=== PATIENT | male | born 1945 | race Two or more races ===

== ENCOUNTER 2020-08-24 06:41 | Outpatient (REF) | payer MEDICARE, SELFPAY ==
[2020-08-24 10:40] LABS: Basophils Percent Auto 0.2 % (0-2); Eosinophils Absolute Auto 0.1 X10*3/uL (0.0-0.4); Eosinophils Percent Auto 1.2 % (0-4); Hematocrit 43.5 % (42-52); Hemoglobin 14.4 g/dl (14.0-18.0); Imm Gran Abs Auto 0.01 X10*3/uL (0.00-0.03); Imm Gran Pct Auto 0.2 % (0.0-0.4); Lymphocytes Absolute Auto 3.1 X10*3/uL (1.2-4.9); Lymphocytes Percent Auto 63.4 % (20-40); MANUAL DIFF FLAG SCAN; Mean Corpuscular HGB Conc 33.1 g/dl (31.0-36.0); Mean Corpuscular Hemoglobin 31.9 pg (27.0-33.0); Mean Corpuscular Volume 96.5 fL (80-98); Mean Platelet Volume 9.6 fL (9.4-12.4); Monocytes Absolute Auto 0.4 X10*3/uL (0.1-1.2); Monocytes Percent Auto 8.7 % (2-11); Neutrophils Absolute Auto 1.3 X10*3/uL (2.0-8.3); Neutrophils Percent Auto 26.3 % (45-73); Platelet Count 213 X10*3/uL (160-400); Red Blood Count 4.51 X10*6/uL (4.60-5.80); Red Cell Distribution Width 15.2 % (11.0-16.0); SCAN SMEAR FLAG 1; White Blood Count 4.9 X10*3/uL (4.8-10.8)
[2020-08-24 11:17] LABS: SLIDE REVIEW VERIFIED
[2020-08-24 12:31] LABS: Alanine Aminotransferase 33 U/L (0-40); Albumin Level 3.6 g/dL (3.5-5.0); Alkaline Phosphatase 58 U/L (39-117); Anion Gap 10 (12-20); Aspartate Amino Transferase 26 U/L (5-37); Bilirubin Total 0.6 mg/dL (0.0-1.0); Blood Urea Nitrogen 12 mg/dL (9-16); Calcium 8.3 mg/dL (8.4-10.2); Carbon Dioxide 32 mmol/L (22-29); Chloride 102 mmol/L (96-108); Estimated Glomerular Filt Rate > 60; Glucose Fasting 78 mg/dL (60-99); Potassium 4.1 mmol/l (3.3-5.1); Sodium 140 mmol/L (135-145); Total Protein 5.6 g/dL (6.5-8.0)
== END 2020-08-24 06:42 | disposition home or self-care (01) ==
LOC: HO.LHD 06:41
PROVIDERS: Visit Provider Internal Medicine Medical Oncology
DX: C64.9 Malignant neoplasm of unspecified kidney, except renal pelvis (principal)
CPT/HCPCS: 36415; 80053; 85025

== ENCOUNTER 2020-09-07 04:05 | Outpatient (REF) | payer MEDICARE, SELFPAY ==
[2020-09-07 10:31] LABS: MANUAL DIFF FLAG NO
[2020-09-07 10:45] LABS: Basophils Percent Auto 0.6 % (0-2); Eosinophils Absolute Auto 0.1 X10*3/uL (0.0-0.4); Eosinophils Percent Auto 1.5 % (0-4); Hematocrit 42.3 % (42-52); Hemoglobin 13.8 g/dl (14.0-18.0); Imm Gran Abs Auto 0.01 X10*3/uL (0.00-0.03); Imm Gran Pct Auto 0.2 % (0.0-0.4); Lymphocytes Absolute Auto 2.7 X10*3/uL (1.2-4.9); Lymphocytes Percent Auto 49.8 % (20-40); Mean Corpuscular HGB Conc 32.6 g/dl (31.0-36.0); Mean Corpuscular Hemoglobin 31.4 pg (27.0-33.0); Mean Corpuscular Volume 96.4 fL (80-98); Mean Platelet Volume 9.6 fL (9.4-12.4); Monocytes Absolute Auto 0.4 X10*3/uL (0.1-1.2); Monocytes Percent Auto 7.9 % (2-11); Neutrophils Absolute Auto 2.2 X10*3/uL (2.0-8.3); Platelet Count 212 X10*3/uL (160-400); Red Blood Count 4.39 X10*6/uL (4.60-5.80); Red Cell Distribution Width 15.1 % (11.0-16.0); White Blood Count 5.4 X10*3/uL (4.8-10.8)
[2020-09-07 11:08] LABS: Anion Gap 13 (12-20); Blood Urea Nitrogen 16 mg/dL (9-16); Calcium 8.7 mg/dL (8.4-10.2); Carbon Dioxide 29 mmol/L (22-29); Chloride 105 mmol/L (96-108); Estimated Glomerular Filt Rate > 60; Glucose Random 84 mg/dL (60-115); Potassium 4.2 mmol/l (3.3-5.1); Sodium 143 mmol/L (135-145)
== END 2020-09-07 04:06 | disposition home or self-care (01) ==
LOC: HO.LHD 04:05
PROVIDERS: Visit Provider Internal Medicine Medical Oncology
DX: C79.00 Secondary malignant neoplasm of unspecified kidney and renal pelvis (principal)
CPT/HCPCS: 36415; 80048; 85025

== ENCOUNTER 2020-09-21 05:08 | Outpatient (REF) | payer MEDICARE, SELFPAY ==
[2020-09-21 11:10] LABS: Anion Gap 14 (12-20); Blood Urea Nitrogen 19 mg/dL (9-16); Calcium 8.6 mg/dL (8.4-10.2); Carbon Dioxide 25 mmol/L (22-29); Chloride 102 mmol/L (96-108); Estimated Glomerular Filt Rate > 60; Glucose Random 74 mg/dL (60-115); Potassium 4.4 mmol/l (3.3-5.1); Sodium 137 mmol/L (135-145)
== END 2020-09-21 05:09 | disposition home or self-care (01) ==
LOC: HO.LHD 05:08
PROVIDERS: Visit Provider Internal Medicine Medical Oncology
DX: C79.00 Secondary malignant neoplasm of unspecified kidney and renal pelvis (principal)
CPT/HCPCS: 36415; 80048

== ENCOUNTER 2020-09-23 01:33 | Outpatient (REF) | payer MEDICARE, SELFPAY ==
[2020-09-23 10:36] LABS: MANUAL DIFF FLAG NO
[2020-09-23 10:39] LABS: Basophils Percent Auto 0.3 % (0-2); Eosinophils Absolute Auto 0.1 X10*3/uL (0.0-0.4); Eosinophils Percent Auto 1.2 % (0-4); Hematocrit 40.9 % (42-52); Hemoglobin 13.4 g/dl (14.0-18.0); Imm Gran Abs Auto 0.01 X10*3/uL (0.00-0.03); Imm Gran Pct Auto 0.2 % (0.0-0.4); Lymphocytes Percent Auto 50.1 % (20-40); Mean Corpuscular HGB Conc 32.8 g/dl (31.0-36.0); Mean Corpuscular Hemoglobin 31.5 pg (27.0-33.0); Mean Platelet Volume 9.3 fL (9.4-12.4); Monocytes Absolute Auto 0.6 X10*3/uL (0.1-1.2); Monocytes Percent Auto 9.2 % (2-11); Neutrophils Absolute Auto 2.3 X10*3/uL (2.0-8.3); Platelet Count 195 X10*3/uL (160-400); Red Blood Count 4.26 X10*6/uL (4.60-5.80); Red Cell Distribution Width 14.9 % (11.0-16.0)
== END 2020-09-23 01:34 | disposition home or self-care (01) ==
LOC: HO.LHD 01:33
PROVIDERS: Visit Provider Internal Medicine Medical Oncology
DX: C79.00 Secondary malignant neoplasm of unspecified kidney and renal pelvis (principal)
CPT/HCPCS: 36415; 85025

== ENCOUNTER 2020-10-05 05:22 | Outpatient (REF) | payer MEDICARE, SELFPAY ==
[2020-10-05 11:01] LABS: MANUAL DIFF FLAG NO
[2020-10-05 11:04] LABS: Basophils Percent Auto 0.2 % (0-2); Eosinophils Absolute Auto 0.1 X10*3/uL (0.0-0.4); Eosinophils Percent Auto 1.1 % (0-4); Hematocrit 41.1 % (42-52); Hemoglobin 13.7 g/dl (14.0-18.0); Imm Gran Abs Auto 0.01 X10*3/uL (0.00-0.03); Imm Gran Pct Auto 0.2 % (0.0-0.4); Lymphocytes Percent Auto 56.6 % (20-40); Mean Corpuscular HGB Conc 33.3 g/dl (31.0-36.0); Mean Corpuscular Hemoglobin 31.6 pg (27.0-33.0); Mean Corpuscular Volume 94.7 fL (80-98); Mean Platelet Volume 9.7 fL (9.4-12.4); Monocytes Absolute Auto 0.4 X10*3/uL (0.1-1.2); Monocytes Percent Auto 7.4 % (2-11); Neutrophils Absolute Auto 1.8 X10*3/uL (2.0-8.3); Neutrophils Percent Auto 34.5 % (45-73); Platelet Count 179 X10*3/uL (160-400); Red Blood Count 4.34 X10*6/uL (4.60-5.80); Red Cell Distribution Width 14.8 % (11.0-16.0); White Blood Count 5.3 X10*3/uL (4.8-10.8)
[2020-10-05 11:33] LABS: Alanine Aminotransferase 30 U/L (0-40); Albumin Level 3.5 g/dL (3.5-5.0); Alkaline Phosphatase 49 U/L (39-117); Anion Gap 8 (12-20); Aspartate Amino Transferase 25 U/L (5-37); Bilirubin Total 0.3 mg/dL (0.0-1.0); Blood Urea Nitrogen 17 mg/dL (9-16); Calcium 8.5 mg/dL (8.4-10.2); Carbon Dioxide 33 mmol/L (22-29); Chloride 103 mmol/L (96-108); Cholesterol 132 mg/dL; Estimated Glomerular Filt Rate > 60; Glucose Fasting 83 mg/dL (60-99); HDL Cholesterol 35 mg/dL; LDL Cholesterol Calculated 80 mg/dl; Potassium 3.7 mmol/l (3.3-5.1); Sodium 140 mmol/L (135-145); Total Protein 5.5 g/dL (6.5-8.0); Triglycerides 86 mg/dL
[2020-10-05 11:49] LABS: TSH reflex Free T4 1.97 mIU/mL (0.32-4.0); Vitamin D 25-OH Total 29.2 ng/mL (>30)
--- NOTE | 2020-10-05 15:06 | MHC.HEMONC ---
[facility] - CALL - DRAINED 300ML TODAY
--- NOTE | 2020-10-11 14:07 | MHC.HEMONCSW ---
PT REQUESTED I CALL THE [facility] TO REAPPLY FOR HIM. I CALLED AND WAS TOLD THE PATIENT HIMSELF NEEDS TO CALL. TOLD PT WHO WAS TO CALL IMMEDIATELY. BELL DOYLE ENDS 10/14/20.
== END 2020-10-05 05:23 | disposition home or self-care (01) ==
LOC: HO.LHD 05:22
PROVIDERS: PCP Internal Medicine; Visit Provider Internal Medicine Medical Oncology
DX: C79.00 Secondary malignant neoplasm of unspecified kidney and renal pelvis (principal); E78.00 Pure hypercholesterolemia, unspecified; E55.9 Vitamin D deficiency, unspecified; E03.9 Hypothyroidism, unspecified; I10 Essential (primary) hypertension
CPT/HCPCS: 36415; 80053; 80061; 82306; 84443; 85025

== ENCOUNTER 2020-10-19 08:38 | Outpatient (REF) | payer MEDICARE, SELFPAY ==
[2020-10-19 10:56] LABS: MANUAL DIFF FLAG NO
[2020-10-19 10:58] LABS: Basophils Percent Auto 0.4 % (0-2); Eosinophils Absolute Auto 0.1 X10*3/uL (0.0-0.4); Hematocrit 41.5 % (42-52); Hemoglobin 13.4 g/dl (14.0-18.0); Imm Gran Abs Auto 0.01 X10*3/uL (0.00-0.03); Imm Gran Pct Auto 0.2 % (0.0-0.4); Lymphocytes Absolute Auto 2.3 X10*3/uL (1.2-4.9); Mean Corpuscular HGB Conc 32.3 g/dl (31.0-36.0); Mean Corpuscular Hemoglobin 31.1 pg (27.0-33.0); Mean Corpuscular Volume 96.3 fL (80-98); Mean Platelet Volume 9.6 fL (9.4-12.4); Monocytes Absolute Auto 0.4 X10*3/uL (0.1-1.2); Monocytes Percent Auto 8.3 % (2-11); Neutrophils Absolute Auto 2.3 X10*3/uL (2.0-8.3); Neutrophils Percent Auto 45.1 % (45-73); Platelet Count 183 X10*3/uL (160-400); Red Blood Count 4.31 X10*6/uL (4.60-5.80); Red Cell Distribution Width 15.7 % (11.0-16.0)
[2020-10-19 11:29] LABS: Alanine Aminotransferase 37 U/L (0-40); Albumin Level 3.6 g/dL (3.5-5.0); Alkaline Phosphatase 53 U/L (39-117); Anion Gap 11 (12-20); Aspartate Amino Transferase 29 U/L (5-37); Bilirubin Total 0.3 mg/dL (0.0-1.0); Blood Urea Nitrogen 16 mg/dL (9-16); Calcium 8.1 mg/dL (8.4-10.2); Carbon Dioxide 28 mmol/L (22-29); Chloride 105 mmol/L (96-108); Estimated Glomerular Filt Rate > 60; Glucose Random 85 mg/dL (60-115); Potassium 4.6 mmol/l (3.3-5.1); Sodium 139 mmol/L (135-145); Total Protein 5.5 g/dL (6.5-8.0)
== END 2020-10-19 08:39 | disposition home or self-care (01) ==
LOC: HO.LHD 08:38
PROVIDERS: Visit Provider Internal Medicine Medical Oncology
DX: C79.00 Secondary malignant neoplasm of unspecified kidney and renal pelvis (principal)
CPT/HCPCS: 36415; 80053; 85025

== ENCOUNTER 2020-11-02 05:19 | Outpatient (REF) | payer MEDICARE, SELFPAY ==
[2020-11-02 10:54] LABS: MANUAL DIFF FLAG NO
[2020-11-02 10:55] LABS: Basophils Percent Auto 0.2 % (0-2); Eosinophils Absolute Auto 0.1 X10*3/uL (0.0-0.4); Eosinophils Percent Auto 1.2 % (0-4); Hematocrit 42.1 % (42-52); Hemoglobin 13.5 g/dl (14.0-18.0); Imm Gran Abs Auto 0.01 X10*3/uL (0.00-0.03); Imm Gran Pct Auto 0.2 % (0.0-0.4); Lymphocytes Absolute Auto 2.5 X10*3/uL (1.2-4.9); Lymphocytes Percent Auto 49.4 % (20-40); Mean Corpuscular HGB Conc 32.1 g/dl (31.0-36.0); Mean Corpuscular Hemoglobin 30.5 pg (27.0-33.0); Mean Corpuscular Volume 95.2 fL (80-98); Mean Platelet Volume 9.9 fL (9.4-12.4); Monocytes Absolute Auto 0.4 X10*3/uL (0.1-1.2); Monocytes Percent Auto 7.7 % (2-11); Neutrophils Absolute Auto 2.1 X10*3/uL (2.0-8.3); Neutrophils Percent Auto 41.3 % (45-73); Platelet Count 206 X10*3/uL (160-400); Red Blood Count 4.42 X10*6/uL (4.60-5.80); White Blood Count 5.1 X10*3/uL (4.8-10.8)
[2020-11-02 11:23] LABS: Alanine Aminotransferase 30 U/L (0-40); Albumin Level 3.5 g/dL (3.5-5.0); Alkaline Phosphatase 53 U/L (39-117); Aspartate Amino Transferase 25 U/L (5-37); Bilirubin Total 0.3 mg/dL (0.0-1.0); Blood Urea Nitrogen 12 mg/dL (9-16); Calcium 8.6 mg/dL (8.4-10.2); Cholesterol 205 mg/dL; Estimated Glomerular Filt Rate > 60; Glucose Fasting 83 mg/dL (60-99); HDL Cholesterol 40 mg/dL; LDL Cholesterol Calculated 138 mg/dl; Total Protein 5.4 g/dL (6.5-8.0); Triglycerides 136 mg/dL
[2020-11-02 11:40] LABS: Sodium 140 mmol/L (135-145)
[2020-11-02 11:42] LABS: TSH reflex Free T4 3.16 mIU/mL (0.32-4.0)
[2020-11-02 11:44] LABS: Anion Gap 8 (12-20); Carbon Dioxide 33 mmol/L (22-29); Chloride 103 mmol/L (96-108); Potassium 4.4 mmol/l (3.3-5.1)
[2020-11-06 11:37] LABS: Vitamin D 25-OH, D2 <4 ng/mL; Vitamin D 25-OH, D3 20 ng/mL; Vitamin D 25-OH, Total 20 ng/mL (30-100)
== END 2020-11-02 05:20 | disposition home or self-care (01) ==
LOC: HO.LHD 05:19
PROVIDERS: Internal Medicine; Visit Provider Internal Medicine Medical Oncology
DX: E03.9 Hypothyroidism, unspecified (principal); E27.40 Unspecified adrenocortical insufficiency; R79.89 Other specified abnormal findings of blood chemistry; C79.00 Secondary malignant neoplasm of unspecified kidney and renal pelvis
CPT/HCPCS: 36415; 80053; 80061; 82306; 84443; 85025

== ENCOUNTER 2020-11-16 | Outpatient (REF) | payer MEDICARE, SELFPAY ==
[2020-11-16 10:53] LABS: MANUAL DIFF FLAG NO
[2020-11-16 10:56] LABS: Basophils Percent Auto 0.3 % (0-2); Eosinophils Absolute Auto 0.1 X10*3/uL (0.0-0.4); Eosinophils Percent Auto 0.8 % (0-4); Hematocrit 42.2 % (42-52); Hemoglobin 13.9 g/dl (14.0-18.0); Imm Gran Abs Auto 0.01 X10*3/uL (0.00-0.03); Imm Gran Pct Auto 0.2 % (0.0-0.4); Lymphocytes Absolute Auto 2.6 X10*3/uL (1.2-4.9); Lymphocytes Percent Auto 44.4 % (20-40); Mean Corpuscular HGB Conc 32.9 g/dl (31.0-36.0); Mean Platelet Volume 9.4 fL (9.4-12.4); Monocytes Absolute Auto 0.5 X10*3/uL (0.1-1.2); Monocytes Percent Auto 7.8 % (2-11); Neutrophils Absolute Auto 2.8 X10*3/uL (2.0-8.3); Neutrophils Percent Auto 46.5 % (45-73); Platelet Count 210 X10*3/uL (160-400); Red Blood Count 4.49 X10*6/uL (4.60-5.80); Red Cell Distribution Width 15.8 % (11.0-16.0); White Blood Count 5.9 X10*3/uL (4.8-10.8)
[2020-11-16 11:22] LABS: Anion Gap 12 (12-20); Blood Urea Nitrogen 13 mg/dL (9-16); Calcium 8.6 mg/dL (8.4-10.2); Carbon Dioxide 29 mmol/L (22-29); Chloride 105 mmol/L (96-108); Estimated Glomerular Filt Rate > 60; Glucose Random 88 mg/dL (60-115); Potassium 4.4 mmol/l (3.3-5.1); Sodium 142 mmol/L (135-145)
== END 2020-11-16 00:01 ==
LOC: HO.LHD
PROVIDERS: Visit Provider Internal Medicine Medical Oncology
DX: C64.9 Malignant neoplasm of unspecified kidney, except renal pelvis (principal)
CPT/HCPCS: 36415; 80048; 85025

== ENCOUNTER 2020-11-30 | Outpatient (REF) | payer MEDICARE, SELFPAY ==
[2020-11-30 11:12] LABS: MANUAL DIFF FLAG NO
[2020-11-30 11:17] LABS: Basophils Percent Auto 0.4 % (0-2); Eosinophils Absolute Auto 0.1 X10*3/uL (0.0-0.4); Eosinophils Percent Auto 1.2 % (0-4); Hematocrit 41.2 % (42-52); Hemoglobin 13.4 g/dl (14.0-18.0); Imm Gran Abs Auto 0.01 X10*3/uL (0.00-0.03); Imm Gran Pct Auto 0.2 % (0.0-0.4); Mean Corpuscular HGB Conc 32.5 g/dl (31.0-36.0); Mean Corpuscular Hemoglobin 30.8 pg (27.0-33.0); Mean Corpuscular Volume 94.7 fL (80-98); Mean Platelet Volume 9.4 fL (9.4-12.4); Monocytes Absolute Auto 0.4 X10*3/uL (0.1-1.2); Neutrophils Absolute Auto 1.7 X10*3/uL (2.0-8.3); Neutrophils Percent Auto 32.2 % (45-73); Platelet Count 193 X10*3/uL (160-400); Red Blood Count 4.35 X10*6/uL (4.60-5.80); Red Cell Distribution Width 15.5 % (11.0-16.0); White Blood Count 5.1 X10*3/uL (4.8-10.8)
[2020-11-30 11:42] LABS: Alanine Aminotransferase 27 U/L (0-40); Albumin Level 3.6 g/dL (3.5-5.0); Alkaline Phosphatase 53 U/L (39-117); Anion Gap 12 (12-20); Aspartate Amino Transferase 25 U/L (5-37); Bilirubin Total 0.4 mg/dL (0.0-1.0); Blood Urea Nitrogen 18 mg/dL (9-16); Calcium 9.1 mg/dL (8.4-10.2); Carbon Dioxide 30 mmol/L (22-29); Chloride 103 mmol/L (96-108); Estimated Glomerular Filt Rate > 60; Glucose Random 79 mg/dL (60-115); Potassium 4.1 mmol/l (3.3-5.1); Sodium 141 mmol/L (135-145); Total Protein 5.5 g/dL (6.5-8.0)
== END 2020-11-30 00:01 | disposition home or self-care (01) ==
LOC: HO.LHD
PROVIDERS: Visit Provider Internal Medicine Medical Oncology
DX: K64.9 Unspecified hemorrhoids (principal); K62.5 Hemorrhage of anus and rectum; R19.7 Diarrhea, unspecified
CPT/HCPCS: 36415; 80053; 85025; Q3014

== ENCOUNTER 2020-12-14 13:46 | Outpatient (REF) | payer MEDICARE, SELFPAY ==
[2020-12-14 11:30] LABS: Hematocrit 42.6 % (42-52); Mean Corpuscular HGB Conc 32.9 g/dl (31.0-36.0); Mean Corpuscular Hemoglobin 30.5 pg (27.0-33.0); Mean Corpuscular Volume 92.8 fL (80-98); Mean Platelet Volume 9.3 fL (9.4-12.4); Platelet Count 190 X10*3/uL (160-400); Red Blood Count 4.59 X10*6/uL (4.60-5.80); Red Cell Distribution Width 15.5 % (11.0-16.0)
[2020-12-14 11:48] LABS: Anion Gap 13 (12-20); Blood Urea Nitrogen 16 mg/dL (9-16); Calcium 8.4 mg/dL (8.4-10.2); Carbon Dioxide 28 mmol/L (22-29); Chloride 104 mmol/L (96-108); Estimated Glomerular Filt Rate > 60; Glucose Random 78 mg/dL (60-115); Potassium 3.9 mmol/L (3.3-5.1); Sodium 141 mmol/L (135-145)
== END 2020-12-14 13:47 | disposition home or self-care (01) ==
LOC: HO.LHD 13:46
PROVIDERS: Visit Provider Internal Medicine Medical Oncology
DX: C64.9 Malignant neoplasm of unspecified kidney, except renal pelvis (principal); C79.51 Secondary malignant neoplasm of bone
CPT/HCPCS: 36415; 80048; 85027

== ENCOUNTER 2020-12-28 04:59 | Outpatient (REF) | payer MEDICARE, SELFPAY ==
[2020-12-28 11:14] LABS: MANUAL DIFF FLAG NO
[2020-12-28 11:21] LABS: Basophils Percent Auto 0.4 % (0-2); Eosinophils Absolute Auto 0.1 X10*3/uL (0.0-0.4); Eosinophils Percent Auto 0.9 % (0-4); Hematocrit 41.5 % (42-52); Hemoglobin 13.3 g/dl (14.0-18.0); Imm Gran Abs Auto 0.02 X10*3/uL (0.00-0.03); Imm Gran Pct Auto 0.4 % (0.0-0.4); Lymphocytes Percent Auto 54.8 % (20-40); Mean Corpuscular Hemoglobin 29.9 pg (27.0-33.0); Mean Corpuscular Volume 93.3 fL (80-98); Mean Platelet Volume 9.8 fL (9.4-12.4); Monocytes Absolute Auto 0.4 X10*3/uL (0.1-1.2); Neutrophils Percent Auto 36.5 % (45-73); Platelet Count 205 X10*3/uL (160-400); Red Blood Count 4.45 X10*6/uL (4.60-5.80); Red Cell Distribution Width 15.8 % (11.0-16.0); White Blood Count 5.6 X10*3/uL (4.8-10.8)
[2020-12-28 11:51] LABS: Anion Gap 12 (12-20); Blood Urea Nitrogen 17 mg/dL (9-16); Carbon Dioxide 29 mmol/L (22-29); Chloride 101 mmol/L (96-108); Estimated Glomerular Filt Rate > 60; Glucose Random 94 mg/dL (60-115); Sodium 138 mmol/L (135-145)
== END 2020-12-28 05:00 | disposition home or self-care (01) ==
LOC: HO.LHD 04:59
PROVIDERS: Visit Provider Internal Medicine Medical Oncology
DX: C79.00 Secondary malignant neoplasm of unspecified kidney and renal pelvis (principal)
CPT/HCPCS: 36415; 80048; 85025

== ENCOUNTER 2021-01-05 10:57 | Outpatient (REF) | payer MEDICARE, SELFPAY ==
--- NOTE | ~2021-01-05 | US_ITS ---
EXAMINATION: US VENOUS ULTRASOUND WITH DOPPLER LOWER EXTREMITY, LEFT CLINICAL INFORMATION: Localized edema COMPARISON: July 01, 2018 TECHNIQUE: Ultrasound of the deep veins is performed from the hip to the calf with compression sonography and color and pulse Doppler assessment. Spectral analysis with color-flow imaging is performed. FINDINGS: There is normal venous compression and respiratory variation and augmented flow. The visualized common femoral vein, superficial femoral vein, profunda femoral vein, popliteal vein, and the trifurcation region shows no evidence of deep venous thrombosis. There is no significant popliteal fossa cyst. No popliteal artery aneurysm. If the patient's symptoms persist, followup ultrasound in 5 days 7 days might be of value to exclude proximal propagation from a non-visualized calf vein. US/US venous duplex LE LT IMPRESSION: No acute DVT demonstrated in the left lower extremity.
== END 2021-01-05 10:58 | disposition home or self-care (01) ==
LOC: HO.US 10:57
PROVIDERS: PCP Internal Medicine; Visit Provider Internal Medicine
DX: E27.3 Drug-induced adrenocortical insufficiency (principal); E03.9 Hypothyroidism, unspecified; E03.2 Hypothyroidism due to medicaments and other exogenous substances; E55.9 Vitamin D deficiency, unspecified; R60.0 Localized edema; I10 Essential (primary) hypertension; E66.9 Obesity, unspecified; Z88.6 Allergy status to analgesic agent; Z88.8 Allergy status to other drugs, medicaments and biological substances; Z87.891 Personal history of nicotine dependence; Z79.52 Long term (current) use of systemic steroids; Z79.899 Other long term (current) drug therapy
CPT/HCPCS: 93971; Q3014

== ENCOUNTER 2021-01-11 00:38 | Outpatient (REF) | payer MEDICARE, SELFPAY ==
[2021-01-11 10:42] LABS: MANUAL DIFF FLAG NO
[2021-01-11 10:46] LABS: Basophils Percent Auto 0.4 % (0-2); Eosinophils Absolute Auto 0.1 X10*3/uL (0.0-0.4); Hematocrit 39.5 % (42-52); Imm Gran Abs Auto 0.01 X10*3/uL (0.00-0.03); Imm Gran Pct Auto 0.2 % (0.0-0.4); Lymphocytes Absolute Auto 1.7 X10*3/uL (1.2-4.9); Lymphocytes Percent Auto 32.2 % (20-40); Mean Corpuscular HGB Conc 32.9 g/dl (31.0-36.0); Mean Corpuscular Hemoglobin 30.7 pg (27.0-33.0); Mean Corpuscular Volume 93.2 fL (80-98); Mean Platelet Volume 9.4 fL (9.4-12.4); Monocytes Absolute Auto 0.3 X10*3/uL (0.1-1.2); Monocytes Percent Auto 5.7 % (2-11); Neutrophils Absolute Auto 3.2 X10*3/uL (2.0-8.3); Neutrophils Percent Auto 60.5 % (45-73); Platelet Count 181 X10*3/uL (160-400); Red Blood Count 4.24 X10*6/uL (4.60-5.80); Red Cell Distribution Width 16.3 % (11.0-16.0); White Blood Count 5.3 X10*3/uL (4.8-10.8)
[2021-01-11 11:29] LABS: Alanine Aminotransferase 39 U/L (0-40); Albumin Level 3.4 g/dL (3.5-5.0); Alkaline Phosphatase 58 U/L (39-117); Anion Gap 9 (12-20); Aspartate Amino Transferase 27 U/L (5-37); Bilirubin Total 0.5 mg/dL (0.0-1.0); Blood Urea Nitrogen 15 mg/dL (9-16); Calcium 8.7 mg/dL (8.4-10.2); Carbon Dioxide 32 mmol/L (22-29); Chloride 103 mmol/L (96-108); Estimated Glomerular Filt Rate > 60; Glucose Random 140 mg/dL (60-115); Potassium 4.1 mmol/L (3.3-5.1); Sodium 140 mmol/L (135-145); Total Protein 5.2 g/dL (6.5-8.0)
== END 2021-01-11 00:39 | disposition home or self-care (01) ==
LOC: HO.LHD 00:38
PROVIDERS: Visit Provider Internal Medicine Medical Oncology
DX: C64.9 Malignant neoplasm of unspecified kidney, except renal pelvis (principal); C79.9 Secondary malignant neoplasm of unspecified site
CPT/HCPCS: 36415; 80053; 85025

== ENCOUNTER → 2021-01-17 10:34 | Outpatient (BNVA) | payer MEDICARE, SELFPAY | PROVIDERS: PCP Internal Medicine; Visit Provider Nurse Practitioner | DX: Z13.89 Encounter for screening for other disorder (principal) | CPT/HCPCS: Q3014 ==

== ENCOUNTER 2021-01-25 07:43 | Outpatient (REF) | payer MEDICARE, SELFPAY ==
[2021-01-25 11:58] LABS: MANUAL DIFF FLAG NO
[2021-01-25 12:01] LABS: Basophils Percent Auto 0.3 % (0-2); Eosinophils Absolute Auto 0.1 X10*3/uL (0.0-0.4); Hematocrit 41.4 % (42-52); Hemoglobin 13.5 g/dl (14.0-18.0); Imm Gran Abs Auto 0.01 X10*3/uL (0.00-0.03); Imm Gran Pct Auto 0.2 % (0.0-0.4); Lymphocytes Percent Auto 33.3 % (20-40); Mean Corpuscular HGB Conc 32.6 g/dl (31.0-36.0); Mean Corpuscular Hemoglobin 30.8 pg (27.0-33.0); Mean Corpuscular Volume 94.5 fL (80-98); Mean Platelet Volume 9.6 fL (9.4-12.4); Monocytes Absolute Auto 0.4 X10*3/uL (0.1-1.2); Monocytes Percent Auto 6.9 % (2-11); Neutrophils Absolute Auto 3.5 X10*3/uL (2.0-8.3); Neutrophils Percent Auto 58.3 % (45-73); Platelet Count 193 X10*3/uL (160-400); Red Blood Count 4.38 X10*6/uL (4.60-5.80); Red Cell Distribution Width 16.3 % (11.0-16.0); White Blood Count 6.1 X10*3/uL (4.8-10.8)
[2021-01-25 12:29] LABS: Alanine Aminotransferase 25 U/L (0-40); Albumin Level 3.5 g/dL (3.5-5.0); Alkaline Phosphatase 52 U/L (39-117); Anion Gap 10 (12-20); Aspartate Amino Transferase 25 U/L (5-37); Bilirubin Total 0.5 mg/dL (0.0-1.0); Blood Urea Nitrogen 15 mg/dL (9-16); Calcium 8.7 mg/dL (8.4-10.2); Carbon Dioxide 30 mmol/L (22-29); Chloride 105 mmol/L (96-108); Estimated Glomerular Filt Rate > 60; Glucose Random 149 mg/dL (60-115); Sodium 141 mmol/L (135-145); Total Protein 5.3 g/dL (6.5-8.0)
== END 2021-01-25 07:44 | disposition home or self-care (01) ==
LOC: HO.LHD 07:43
PROVIDERS: Visit Provider Internal Medicine Medical Oncology
DX: C79.00 Secondary malignant neoplasm of unspecified kidney and renal pelvis (principal)
CPT/HCPCS: 36415; 80053; 85025

== ENCOUNTER → 2021-02-07 08:54 | Outpatient (BNVA) | payer MEDICARE, SELFPAY | PROVIDERS: PCP Internal Medicine; Visit Provider Nurse Practitioner | DX: R19.7 Diarrhea, unspecified (principal); K64.9 Unspecified hemorrhoids | CPT/HCPCS: Q3014 ==

== ENCOUNTER 2021-02-08 03:09 | Outpatient (REF) | payer MEDICARE, SELFPAY ==
[2021-02-08 10:34] LABS: MANUAL DIFF FLAG NO
[2021-02-08 10:42] LABS: Basophils Percent Auto 0.2 % (0-2); Eosinophils Absolute Auto 0.1 X10*3/uL (0.0-0.4); Eosinophils Percent Auto 1.1 % (0-4); Hematocrit 41.4 % (42-52); Hemoglobin 13.3 g/dl (14.0-18.0); Imm Gran Abs Auto 0.01 X10*3/uL (0.00-0.03); Imm Gran Pct Auto 0.2 % (0.0-0.4); Lymphocytes Absolute Auto 2.5 X10*3/uL (1.2-4.9); Lymphocytes Percent Auto 54.1 % (20-40); Mean Corpuscular HGB Conc 32.1 g/dl (31.0-36.0); Mean Corpuscular Hemoglobin 30.6 pg (27.0-33.0); Mean Corpuscular Volume 95.2 fL (80-98); Mean Platelet Volume 8.9 fL (9.4-12.4); Monocytes Absolute Auto 0.3 X10*3/uL (0.1-1.2); Monocytes Percent Auto 7.5 % (2-11); Neutrophils Absolute Auto 1.7 X10*3/uL (2.0-8.3); Neutrophils Percent Auto 36.9 % (45-73); Platelet Count 169 X10*3/uL (160-400); Red Blood Count 4.35 X10*6/uL (4.60-5.80); Red Cell Distribution Width 16.3 % (11.0-16.0); White Blood Count 4.6 X10*3/uL (4.8-10.8)
[2021-02-08 11:28] LABS: Alanine Aminotransferase 35 U/L (0-40); Albumin Level 3.6 g/dL (3.5-5.0); Alkaline Phosphatase 57 U/L (39-117); Anion Gap 13 (12-20); Aspartate Amino Transferase 25 U/L (5-37); Bilirubin Total 0.3 mg/dL (0.0-1.0); Blood Urea Nitrogen 19 mg/dL (9-16); Calcium 8.7 mg/dL (8.4-10.2); Carbon Dioxide 28 mmol/L (22-29); Chloride 104 mmol/L (96-108); Estimated Glomerular Filt Rate > 60; Glucose Random 92 mg/dL (60-115); Potassium 4.2 mmol/L (3.3-5.1); Sodium 141 mmol/L (135-145); Total Protein 5.4 g/dL (6.5-8.0)
== END 2021-02-08 03:10 | disposition home or self-care (01) ==
LOC: HO.LHD 03:09
PROVIDERS: Visit Provider Internal Medicine Medical Oncology
DX: C64.9 Malignant neoplasm of unspecified kidney, except renal pelvis (principal)
CPT/HCPCS: 36415; 80053; 85025

== ENCOUNTER 2021-02-17 07:55 | Outpatient (REF) | payer MEDICARE, SELFPAY ==
--- NOTE | ~2021-02-17 | CT_ITS ---
EXAMINATION: CT CHEST, ABDOMEN AND PELVIS WITH CONTRAST CLINICAL INFORMATION: Renal cell carcinoma. COMPARISON: Portions of a previous CT of the chest 11/10/2020. TECHNIQUE: Multidetector CT of the chest, abdomen and pelvis. The patient received: Oral Contrast: Yes. Intravenous Contrast: 85 mL Omnipaque 350. No contrast reaction reported. Sagittal and coronal reformatted images were obtained on the technologist's workstation. This CT examination was performed using dose optimization techniques as appropriate, variously including the following: *Automated exposure control. *Adjustment of mA and/or kV according to patient size (this includes techniques or standardized protocols for targeted exams where dose is matched to indication/reason for exam; i.e. extremities or head). *Use of iterative reconstruction technique. Total exam dose-length product 1178 mGy-cm. 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 There is some pleural fluid or thickening in the left lower chest. There are osteophytes in the spine. There are phleboliths. There is an abnormality in the right ischial tuberosity. Non-obstructed gas pattern. CHEST: Lung: No suspicious abnormality in the trachea or mainstem bronchi. Slightly indistinct nodule associated with the upper aspect of the right major fissure (series 14, image 21). 02/17/2021-0.4 cm. Unchanged, this may represent a perifissural lymph node Irregular juxtapleural nodule posteriorly right mid chest (series 19, image 222). 02/17/2021-0.5 cm, unchanged. Unchanged juxtapleural nodule anteriorly right middle lobe (series 19, image 311), 0.3 cm, unchanged. Unchanged linear opacity posteromedial right lower lung. Unchanged linear opacity medial middle lobe. There are some areas of thickening associated with the lingula and left lower lobe. No discrete suspicious pulmonary mass. Pleura: There is loculated low attenuation in the upper aspect of the left major fissure. This has increased in size. There is a pleural catheter on the left. There is a [id number] amount of pleural fluid in the left lower chest. There is high attenuating probably enhancing thickening in the posteromedial left lower chest abutting the hemidiaphragm. There are some areas of nodular pleural thickening and possible enhancement. These are not measurable. Mediastinum: There are no measurably enlarged mediastinal or hilar lymph nodes. There is no suspicious abnormality of the esophagus. There is no pericardial fluid. Vascular: The heart is not enlarged. There is no thoracic aortic aneurysm. There is atherosclerotic irregularity of the aorta. No large central pulmonary embolus. Chest Wall/Axilla: No axillary or internal mammary lymphadenopathy. ABDOMEN/PELVIS: Liver, Gallbladder, And Biliary Tree: Unchanged tiny peripheral low attenuating lesion in hepatic segment 8 is too small to characterize but could represent a cyst. No definite change in a low attenuating lesion in hepatic segment IVb. There is an additional tiny low attenuating lesion at the most inferior medial aspect of hepatic segment IVb also unchanged. There is no opaque gallstone. There is no biliary dilation. Pancreas: No change in the appearance of the pancreas. Spleen: Within normal limits. Adrenal Glands: No suspicious mass. Kidneys And Ureters: There is indistinctness and deformity involving the upper pole of the left kidney. There is absence of overlying cortex. This could reflect previous partial nephrectomy or local therapy. There is some fullness of the intrarenal collecting system but no dilation of the ureter. There are sharply circumscribed low attenuating masses in each kidney consistent with cysts. No measurable disease at the upper left kidney. Small nodule in the left upper quadrant likely a splenule. Gastrointestinal Tract: Contrast is present in the colon. There are colonic diverticula. No definite mass. There is no small bowel dilation. No suspicious abnormality in the stomach. No measurable omental or mesenteric mass. No CT evidence of acute appendicitis. Abdominal Wall: There is some stranding extending from the left flank toward the left kidney. Correlate with previous intervention. There is some fatty change in the lower left flank abdominal wall. No significant hernia demonstrated. Lymphovascular Structures And Fluid: There is no abdominal aortic aneurysm. There is extensive plaque in the distal abdominal aorta. There is no measurable adenopathy in the abdomen or pelvis. No free intraperitoneal fluid. Bladder: There is no suspicious focal abnormality. Pelvic Viscera: The prostate is heterogeneous and enlarged. The prostate indents upon the bladder. Musculoskeletal: There is a lytic mixed attenuation lesion involving the right ischial tuberosity. There may be an associated healing pathologic fracture. There is a mixed attenuating partially lytic process in the anterolateral left 5th rib. CT/CT abdomen pelvis wo/w con IMPRESSION: 1. There is a left pleural catheter. There is an interval increase in the amount of fluid loculated in the upper left major fissure. There is enhancement in the posteromedial left pleural space. Small nodules may be post inflammatory and are unchanged. 2. No evidence of measurable disease in the upper left kidney. 3. Probable metastatic disease in the right ischial tuberosity appears radiographically stable. 4. No new measurable disease.
== END 2021-02-17 07:56 | disposition home or self-care (01) ==
LOC: HO.CT 07:55
PROVIDERS: Visit Provider Internal Medicine Medical Oncology
DX: C64.9 Malignant neoplasm of unspecified kidney, except renal pelvis (principal)
CPT/HCPCS: 71260; 74178

== ENCOUNTER 2021-02-22 01:12 | Outpatient (REF) | payer MEDICARE, SELFPAY ==
[2021-02-22 10:37] LABS: MANUAL DIFF FLAG NO
[2021-02-22 10:42] LABS: Basophils Percent Auto 0.4 % (0-2); Eosinophils Absolute Auto 0.1 X10*3/uL (0.0-0.4); Eosinophils Percent Auto 1.4 % (0-4); Hematocrit 39.2 % (42-52); Hemoglobin 13.2 g/dl (14.0-18.0); Imm Gran Abs Auto 0.01 X10*3/uL (0.00-0.03); Imm Gran Pct Auto 0.2 % (0.0-0.4); Lymphocytes Absolute Auto 2.8 X10*3/uL (1.2-4.9); Lymphocytes Percent Auto 54.7 % (20-40); Mean Corpuscular HGB Conc 33.7 g/dl (31.0-36.0); Mean Corpuscular Hemoglobin 31.7 pg (27.0-33.0); Mean Platelet Volume 9.4 fL (9.4-12.4); Monocytes Absolute Auto 0.4 X10*3/uL (0.1-1.2); Monocytes Percent Auto 8.1 % (2-11); Neutrophils Absolute Auto 1.8 X10*3/uL (2.0-8.3); Neutrophils Percent Auto 35.2 % (45-73); Platelet Count 187 X10*3/uL (160-400); Red Blood Count 4.17 X10*6/uL (4.60-5.80); Red Cell Distribution Width 16.8 % (11.0-16.0); White Blood Count 5.1 X10*3/uL (4.8-10.8)
[2021-02-22 11:08] LABS: Alanine Aminotransferase 28 U/L (0-40); Albumin Level 3.3 g/dL (3.5-5.0); Alkaline Phosphatase 52 U/L (39-117); Anion Gap 12 (12-20); Aspartate Amino Transferase 23 U/L (5-37); Bilirubin Total 0.4 mg/dL (0.0-1.0); Blood Urea Nitrogen 13 mg/dL (9-16); Calcium 9.2 mg/dL (8.4-10.2); Carbon Dioxide 30 mmol/L (22-29); Chloride 107 mmol/L (96-108); Estimated Glomerular Filt Rate > 60; Glucose Random 88 mg/dL (60-115); Potassium 4.5 mmol/L (3.3-5.1); Sodium 144 mmol/L (135-145); Total Protein 5.1 g/dL (6.5-8.0)
== END 2021-02-22 01:13 | disposition home or self-care (01) ==
LOC: HO.LHD 01:12
PROVIDERS: Visit Provider Internal Medicine Medical Oncology
DX: C79.00 Secondary malignant neoplasm of unspecified kidney and renal pelvis (principal)
CPT/HCPCS: 36415; 80053; 85025

== ENCOUNTER 2021-03-08 00:26 | Outpatient (REF) | payer MEDICARE, SELFPAY ==
[2021-03-08 10:45] LABS: MANUAL DIFF FLAG NO
[2021-03-08 10:58] LABS: Basophils Percent Auto 0.4 % (0-2); Eosinophils Percent Auto 0.8 % (0-4); Hematocrit 41.5 % (42-52); Hemoglobin 13.6 g/dl (14.0-18.0); Imm Gran Abs Auto 0.01 X10*3/uL (0.00-0.03); Imm Gran Pct Auto 0.2 % (0.0-0.4); Lymphocytes Absolute Auto 1.5 X10*3/uL (1.2-4.9); Mean Corpuscular HGB Conc 32.8 g/dl (31.0-36.0); Mean Corpuscular Hemoglobin 30.9 pg (27.0-33.0); Mean Corpuscular Volume 94.3 fL (80-98); Mean Platelet Volume 9.6 fL (9.4-12.4); Monocytes Absolute Auto 0.4 X10*3/uL (0.1-1.2); Neutrophils Absolute Auto 3.2 X10*3/uL (2.0-8.3); Neutrophils Percent Auto 62.6 % (45-73); Platelet Count 200 X10*3/uL (160-400); Red Cell Distribution Width 16.9 % (11.0-16.0); White Blood Count 5.1 X10*3/uL (4.8-10.8)
[2021-03-08 11:27] LABS: Alanine Aminotransferase 46 U/L (0-40); Albumin Level 3.7 g/dL (3.5-5.0); Alkaline Phosphatase 58 U/L (39-117); Anion Gap 10 (12-20); Aspartate Amino Transferase 29 U/L (5-37); Bilirubin Total 0.4 mg/dL (0.0-1.0); Blood Urea Nitrogen 18 mg/dL (9-16); Calcium 9.6 mg/dL (8.4-10.2); Carbon Dioxide 32 mmol/L (22-29); Chloride 102 mmol/L (96-108); Estimated Glomerular Filt Rate > 60; Glucose Random 89 mg/dL (60-115); Sodium 140 mmol/L (135-145); Total Protein 5.6 g/dL (6.5-8.0)
== END 2021-03-08 00:27 | disposition home or self-care (01) ==
LOC: HO.LHD 00:26
PROVIDERS: Visit Provider Internal Medicine Medical Oncology
DX: C64.9 Malignant neoplasm of unspecified kidney, except renal pelvis (principal)
CPT/HCPCS: 36415; 80053; 85025

== ENCOUNTER 2021-03-22 00:21 | Outpatient (REF) | payer MEDICARE, SELFPAY ==
[2021-03-22 12:03] LABS: MANUAL DIFF FLAG NO
[2021-03-22 12:06] LABS: Basophils Percent Auto 0.4 % (0-2); Eosinophils Absolute Auto 0.1 X10*3/uL (0.0-0.4); Eosinophils Percent Auto 0.9 % (0-4); Hematocrit 41.6 % (42-52); Hemoglobin 13.6 g/dl (14.0-18.0); Imm Gran Abs Auto 0.02 X10*3/uL (0.00-0.03); Imm Gran Pct Auto 0.4 % (0.0-0.4); Lymphocytes Absolute Auto 2.9 X10*3/uL (1.2-4.9); Lymphocytes Percent Auto 52.8 % (20-40); Mean Corpuscular HGB Conc 32.7 g/dl (31.0-36.0); Mean Corpuscular Hemoglobin 30.7 pg (27.0-33.0); Mean Corpuscular Volume 93.9 fL (80-98); Mean Platelet Volume 9.4 fL (9.4-12.4); Monocytes Absolute Auto 0.5 X10*3/uL (0.1-1.2); Monocytes Percent Auto 8.2 % (2-11); Neutrophils Percent Auto 37.3 % (45-73); Platelet Count 206 X10*3/uL (160-400); Red Blood Count 4.43 X10*6/uL (4.60-5.80); Red Cell Distribution Width 16.4 % (11.0-16.0); White Blood Count 5.5 X10*3/uL (4.8-10.8)
[2021-03-22 12:43] LABS: Alanine Aminotransferase 28 U/L (0-40); Albumin Level 3.7 g/dL (3.5-5.0); Alkaline Phosphatase 57 U/L (39-117); Anion Gap 12 (12-20); Aspartate Amino Transferase 23 U/L (5-37); Bilirubin Total 0.4 mg/dL (0.0-1.0); Blood Urea Nitrogen 15 mg/dL (9-16); Carbon Dioxide 31 mmol/L (22-29); Chloride 103 mmol/L (96-108); Estimated Glomerular Filt Rate > 60; Glucose Random 79 mg/dL (60-115); Potassium 4.3 mmol/L (3.3-5.1); Sodium 142 mmol/L (135-145); Total Protein 5.6 g/dL (6.5-8.0)
== END 2021-03-22 00:22 | disposition home or self-care (01) ==
LOC: HO.LHD 00:21
PROVIDERS: Visit Provider Internal Medicine Medical Oncology
DX: C64.9 Malignant neoplasm of unspecified kidney, except renal pelvis (principal)
CPT/HCPCS: 36415; 80053; 85025

== ENCOUNTER 2021-04-05 01:15 | Outpatient (REF) | payer MEDICARE, SELFPAY ==
[2021-04-05 11:11] LABS: MANUAL DIFF FLAG NO
[2021-04-05 11:16] LABS: Basophils Percent Auto 0.4 % (0-2); Eosinophils Percent Auto 0.7 % (0-4); Hematocrit 42.6 % (42-52); Hemoglobin 13.6 g/dl (14.0-18.0); Imm Gran Abs Auto 0.02 X10*3/uL (0.00-0.03); Imm Gran Pct Auto 0.4 % (0.0-0.4); Lymphocytes Absolute Auto 1.7 X10*3/uL (1.2-4.9); Lymphocytes Percent Auto 30.9 % (20-40); Mean Corpuscular HGB Conc 31.9 g/dl (31.0-36.0); Mean Platelet Volume 9.5 fL (9.4-12.4); Monocytes Absolute Auto 0.5 X10*3/uL (0.1-1.2); Monocytes Percent Auto 8.4 % (2-11); Neutrophils Absolute Auto 3.3 X10*3/uL (2.0-8.3); Neutrophils Percent Auto 59.2 % (45-73); Platelet Count 203 X10*3/uL (160-400); Red Blood Count 4.53 X10*6/uL (4.60-5.80); Red Cell Distribution Width 16.5 % (11.0-16.0); White Blood Count 5.6 X10*3/uL (4.8-10.8)
[2021-04-05 11:47] LABS: Alanine Aminotransferase 31 U/L (0-40); Albumin Level 3.8 g/dL (3.5-5.0); Alkaline Phosphatase 53 U/L (39-117); Anion Gap 11 (12-20); Aspartate Amino Transferase 26 U/L (5-37); Bilirubin Total 0.4 mg/dL (0.0-1.0); Blood Urea Nitrogen 16 mg/dL (9-16); Calcium 9.4 mg/dL (8.4-10.2); Carbon Dioxide 31 mmol/L (22-29); Chloride 106 mmol/L (96-108); Estimated Glomerular Filt Rate > 60; Glucose Random 100 mg/dL (60-115); Potassium 4.7 mmol/L (3.3-5.1); Sodium 143 mmol/L (135-145); Total Protein 5.7 g/dL (6.5-8.0)
== END 2021-04-05 01:16 | disposition home or self-care (01) ==
LOC: HO.LHD 01:15
PROVIDERS: Visit Provider Internal Medicine Medical Oncology
DX: C64.9 Malignant neoplasm of unspecified kidney, except renal pelvis (principal)
CPT/HCPCS: 36415; 80053; 85025

== ENCOUNTER 2021-04-17 14:36 | Outpatient (REF) | payer MEDICARE, SELFPAY ==
--- NOTE | ~2021-04-17 | US_ITS ---
EXAMINATION: US VENOUS ULTRASOUND WITH DOPPLER LOWER EXTREMITY, RIGHT CLINICAL INFORMATION: Right lower edema. COMPARISON: None TECHNIQUE: Ultrasound of the deep veins is performed from the hip to the calf with compression sonography and color and pulse Doppler assessment. Spectral analysis with color-flow imaging is performed. FINDINGS: There is normal venous compression and respiratory variation and augmented flow. The visualized common femoral vein, superficial femoral vein, profunda femoral vein, popliteal vein, and the trifurcation region shows no evidence of deep venous thrombosis. There is no significant popliteal fossa cyst. If the patient's symptoms persist, followup ultrasound in 5 days 7 days might be of value to exclude proximal propagation from a non-visualized calf vein. US/US venous duplex LE RT IMPRESSION: No DVT demonstrated in the right lower extremity.
== END 2021-04-17 14:37 | disposition home or self-care (01) ==
LOC: HO.US 14:36
PROVIDERS: PCP Internal Medicine; Visit Provider Internal Medicine
DX: R60.0 Localized edema (principal)
CPT/HCPCS: 93971

== ENCOUNTER 2021-04-19 07:47 | Outpatient (REF) | payer MEDICARE, SELFPAY ==
[2021-04-19 10:26] LABS: MANUAL DIFF FLAG NO
[2021-04-19 10:32] LABS: Basophils Percent Auto 0.4 % (0-2); Eosinophils Absolute Auto 0.1 X10*3/uL (0.0-0.4); Eosinophils Percent Auto 1.5 % (0-4); Hemoglobin 12.6 g/dl (14.0-18.0); Imm Gran Abs Auto 0.01 X10*3/uL (0.00-0.03); Imm Gran Pct Auto 0.2 % (0.0-0.4); Lymphocytes Absolute Auto 2.7 X10*3/uL (1.2-4.9); Lymphocytes Percent Auto 49.9 % (20-40); Mean Corpuscular HGB Conc 32.3 g/dl (31.0-36.0); Mean Corpuscular Hemoglobin 30.1 pg (27.0-33.0); Mean Corpuscular Volume 93.3 fL (80-98); Mean Platelet Volume 9.6 fL (9.4-12.4); Monocytes Absolute Auto 0.4 X10*3/uL (0.1-1.2); Monocytes Percent Auto 7.5 % (2-11); Neutrophils Absolute Auto 2.2 X10*3/uL (2.0-8.3); Neutrophils Percent Auto 40.5 % (45-73); Platelet Count 199 X10*3/uL (160-400); Red Blood Count 4.18 X10*6/uL (4.60-5.80); White Blood Count 5.5 X10*3/uL (4.8-10.8)
[2021-04-19 11:00] LABS: Alanine Aminotransferase 25 U/L (0-40); Albumin Level 3.4 g/dL (3.5-5.0); Alkaline Phosphatase 52 U/L (39-117); Anion Gap 9 (12-20); Aspartate Amino Transferase 23 U/L (5-37); Bilirubin Total 0.2 mg/dL (0.0-1.0); Blood Urea Nitrogen 18 mg/dL (9-16); Calcium 8.9 mg/dL (8.4-10.2); Carbon Dioxide 31 mmol/L (22-29); Chloride 104 mmol/L (96-108); Estimated Glomerular Filt Rate > 60; Glucose Random 99 mg/dL (60-115); Potassium 4.1 mmol/L (3.3-5.1); Sodium 140 mmol/L (135-145); Total Protein 5.1 g/dL (6.5-8.0)
== END 2021-04-19 07:48 | disposition home or self-care (01) ==
LOC: HO.LHD 07:47
PROVIDERS: Visit Provider Internal Medicine Medical Oncology
DX: C79.00 Secondary malignant neoplasm of unspecified kidney and renal pelvis (principal)
CPT/HCPCS: 36415; 80053; 85025

== ENCOUNTER 2021-05-02 09:31 | Outpatient (REF) | payer MEDICARE, SELFPAY | END 2021-05-02 09:32 | disposition home or self-care (01) | LOC: HO.LAB 09:31 | PROVIDERS: PCP Internal Medicine; Referring Provider Internal Medicine Medical Oncology; Visit Provider Internal Medicine Endocrinology, Diabetes & Metabolism | DX: Z13.89 Encounter for screening for other disorder (principal) ==

== ENCOUNTER 2021-05-02 10:35 | Outpatient (REF) | payer MEDICARE, SELFPAY ==
[2021-05-02 11:33] LABS: Free T4 (Free Thyroxine) 1.19 ng/dL (0.71-1.85); Thyroid Stimulating Hormone 0.59 uIU/mL (0.32-4.0); Vitamin D 25-OH Total 29.8 ng/mL (>30)
== END 2021-05-02 10:36 | disposition home or self-care (01) ==
LOC: HO.LAB 10:35
PROVIDERS: Visit Provider Internal Medicine Endocrinology, Diabetes & Metabolism
DX: C64.9 Malignant neoplasm of unspecified kidney, except renal pelvis (principal)
CPT/HCPCS: 36415; 82306; 84439; 84443

== ENCOUNTER → 2021-05-04 12:50 | Outpatient (BNVA) | payer MEDICARE, SELFPAY | PROVIDERS: PCP Internal Medicine; Visit Provider Internal Medicine Endocrinology, Diabetes & Metabolism | DX: E27.3 Drug-induced adrenocortical insufficiency (principal); E03.9 Hypothyroidism, unspecified; E03.2 Hypothyroidism due to medicaments and other exogenous substances; E89.3 Postprocedural hypopituitarism; I10 Essential (primary) hypertension; E66.9 Obesity, unspecified; E55.9 Vitamin D deficiency, unspecified; Z68.32 Body mass index [BMI] 32.0-32.9, adult; Z87.891 Personal history of nicotine dependence; Z88.6 Allergy status to analgesic agent; Z88.8 Allergy status to other drugs, medicaments and biological substances; Z79.52 Long term (current) use of systemic steroids; Z79.899 Other long term (current) drug therapy | CPT/HCPCS: 99212 ==

== ENCOUNTER 2021-05-17 00:20 | Outpatient (REF) | payer MEDICARE, SELFPAY ==
[2021-05-17 09:08] LABS: MANUAL DIFF FLAG NO
[2021-05-17 09:12] LABS: Basophils Percent Auto 0.2 % (0-2); Eosinophils Absolute Auto 0.1 X10*3/uL (0.0-0.4); Imm Gran Abs Auto 0.01 X10*3/uL (0.00-0.03); Imm Gran Pct Auto 0.2 % (0.0-0.4); Lymphocytes Percent Auto 50.8 % (20-40); Mean Corpuscular HGB Conc 32.6 g/dl (31.0-36.0); Mean Corpuscular Volume 92.1 fL (80-98); Mean Platelet Volume 9.1 fL (9.4-12.4); Monocytes Absolute Auto 0.5 X10*3/uL (0.1-1.2); Monocytes Percent Auto 8.6 % (2-11); Neutrophils Absolute Auto 2.3 X10*3/uL (2.0-8.3); Neutrophils Percent Auto 39.2 % (45-73); Platelet Count 218 X10*3/uL (160-400); Red Blood Count 4.67 X10*6/uL (4.60-5.80); Red Cell Distribution Width 16.6 % (11.0-16.0); White Blood Count 5.8 X10*3/uL (4.8-10.8)
[2021-05-17 09:46] LABS: Alanine Aminotransferase 38 U/L (0-40); Albumin Level 3.6 g/dL (3.5-5.0); Alkaline Phosphatase 64 U/L (39-117); Anion Gap 14 (12-20); Aspartate Amino Transferase 28 U/L (5-37); Bilirubin Total 0.6 mg/dL (0.0-1.0); Blood Urea Nitrogen 15 mg/dL (9-16); Calcium 9.7 mg/dL (8.4-10.2); Carbon Dioxide 31 mmol/L (22-29); Chloride 101 mmol/L (96-108); Estimated Glomerular Filt Rate > 60; Glucose Random 83 mg/dL (60-115); Potassium 4.9 mmol/L (3.3-5.1); Sodium 141 mmol/L (135-145); Total Protein 5.6 g/dL (6.5-8.0)
== END 2021-05-17 00:21 | disposition home or self-care (01) ==
LOC: HO.LHD 00:20
PROVIDERS: Visit Provider Internal Medicine Medical Oncology
DX: C64.9 Malignant neoplasm of unspecified kidney, except renal pelvis (principal)
CPT/HCPCS: 36415; 80053; 85025

== ENCOUNTER 2021-05-22 13:52 | Outpatient (REF) | payer MEDICARE, SELFPAY ==
--- NOTE | ~2021-05-22 | US_ITS ---
EXAMINATION: US VENOUS ULTRASOUND WITH DOPPLER LOWER EXTREMITY, LEFT CLINICAL INFORMATION: Cellulitis, assess for occult DVT. COMPARISON: Left lower extremity venous ultrasound with Doppler 01/05/2021 TECHNIQUE: Ultrasound of the deep veins is performed from the hip to the calf with compression sonography and color and pulse Doppler assessment. Spectral analysis with color-flow imaging is performed. FINDINGS: There is normal venous compression and respiratory variation and augmented flow. The visualized common femoral vein, superficial femoral vein, profunda femoral vein, popliteal vein, and the trifurcation region shows no evidence of deep venous thrombosis. There is small popliteal fossa cyst medial side of the calf measuring only 0.6 x 1.5 cm. US/US venous duplex LE LT IMPRESSION: No DVT demonstrated in the left lower extremity.
== END 2021-05-22 13:53 | disposition home or self-care (01) ==
LOC: HO.US 13:52
PROVIDERS: PCP Internal Medicine; Visit Provider Hospitalist
DX: M79.605 Pain in left leg (principal); M79.89 Other specified soft tissue disorders; L03.90 Cellulitis, unspecified
CPT/HCPCS: 93971

== ENCOUNTER 2021-05-30 08:09 | Outpatient (REF) | payer MEDICARE, SELFPAY ==
--- NOTE | ~2021-05-30 | CT_ITS ---
EXAMINATION: CT CHEST WITH CONTRAST CLINICAL INFORMATION: Metastatic renal cell cancer. COMPARISON: Previous CT scans most recent February 2021 TECHNIQUE: Multidetector volumetric CT imaging of the chest was obtained after the administration of 85 mL of Omnipaque 350 intravenous contrast without immediate adverse reactions. Axial MIP volume rendering provided. Sagittal and coronal reformatted images were obtained. This CT examination was performed using dose optimization techniques as appropriate, variously including the following: *Automated exposure control *Adjustment of mA and/or kV according to patient size (this includes techniques or standardized protocols for targeted exams where dose is matched to indication/reason for exam; i.e. extremities or head) *Use of iterative reconstruction technique DLP: 185 mGy-cm FINDINGS: ELECTRON BEAM WELDER: LUNGS: There are small pulmonary nodules that are stable. Largest pulmonary nodule is a 5 mm peripheral or subpleural right lower lobe nodule axial image 21 series 5 and left lower lobe nodule axial image 304 series 5. No new pulmonary nodules are seen. MEDIASTINUM: There are small mediastinal lymph nodes that are stable. The heart does not appear enlarged. There is mild coronary artery calcification. The thoracic aorta is normal in caliber. The thyroid gland is normal. PLEURA: There is a moderate sized left pleural effusion. This is partially loculated in the left pleural fissure. There are multiple nodular left pleural masses, greatest along the left diaphragmatic pleural surface. There may be slight interval increase in nodular pleural masses, for example measuring 2.2 x 1.6 cm coronal reconstructed image 66. There is a tunneled left chest tube. AXILLA: No lymphadenopathy. UPPER ABDOMEN: Unremarkable. OSSEOUS STRUCTURES: There is a lytic lesion in the left 5th rib. This does not appear appreciably changed. There is no new bone lesion. There are degenerative changes of the spine and right shoulder. CT/CT chest w con IMPRESSION: Question slight interval increase in enhancing left pleural-based nodules, the largest at the left diaphragmatic pleural surface. Moderate-sized loculated left pleural effusion. Stable small pulmonary nodules. Stable lytic lesion in the left 5th rib.
--- NOTE | ~2021-05-30 | CT_ITS ---
EXAMINATION: CT ABDOMEN AND PELVIS WITH CONTRAST CLINICAL INFORMATION: Metastatic renal cell cancer COMPARISON: Previous CT scans most recent February 2021 TECHNIQUE: Multidetector volumetric images were obtained from the superior aspect of the liver through the pubic symphysis following administration 85 mL of Omnipaque 350 intravenous contrast. Sagittal and coronal reformatted images were obtained on the technologist's workstation. Oral contrast: Yes This CT examination was performed using dose optimization techniques as appropriate, variously including the following: *Automated exposure control *Adjustment of mA and/or kV according to patient size (this includes techniques or standardized protocols for targeted exams where dose is matched to indication/reason for exam; i.e. extremities or head) *Use of iterative reconstruction technique DLP: 570 mGy-cm FINDINGS: LIVER, GALLBLADDER, AND BILIARY TREE: There are small low-attenuation liver lesions that are stable. The largest measures 6 mm in the peripheral right lobe axial image 15 series 3. Gallbladder is unremarkable. There is no biliary duct dilatation. PANCREAS: Unremarkable. SPLEEN: Unremarkable. ADRENAL GLANDS: Unremarkable. KIDNEYS AND URETERS: There is cortical thinning or scarring of the upper pole of the left kidney. This appears decreased in attenuation or enhancement compared to the remainder of the renal cortex. Discrete mass is not appreciated. This appears unchanged. There are bilateral renal cysts, largest measuring 4 cm in the lower pole of the left kidney BLADDER: Prostate gland is slightly enlarged and protrudes into the base of the bladder. The bladder is otherwise unremarkable. GASTROINTESTINAL TRACT: There is diverticulosis of the colon. The small and large bowel are otherwise unremarkable. ABDOMINAL WALL: No significant hernia is appreciated. LYMPH NODES: Normal. VASCULAR: There is evidence of atherosclerotic disease. No aneurysm PELVIC VISCERA: Prostate gland is enlarged and protrudes into the base of the bladder. Prostate gland measures 4 x 4.7 cm in AP and transverse dimension. OSSEOUS STRUCTURES: There are degenerative changes of the spine. There is a lytic and sclerotic lesion in the right inferior pubic ramus and pathologic fracture. This appears unchanged. CT/CT abdomen pelvis w con IMPRESSION: Stable bone lesion in the right inferior pubic ramus and pathologic fracture. Stable small low-attenuation liver lesions. Cortical thinning or the upper pole of the left kidney and decreased attenuation or enhancement. A discrete renal mass is not seen. Bilateral renal cysts. Diverticulosis of the colon. Atherosclerotic disease. Slightly enlarged prostate gland.
[2021-05-30] MEDS: iohexoL 350 MG/ML 100 ML INFUS..BTL IV (12:07)
== END 2021-05-30 08:10 | disposition home or self-care (01) ==
LOC: HO.CT 08:09
PROVIDERS: Visit Provider Internal Medicine Medical Oncology
DX: C64.9 Malignant neoplasm of unspecified kidney, except renal pelvis (principal)
CPT/HCPCS: 71260; 74177; Q9967

== ENCOUNTER 2021-05-31 07:04 | Outpatient (REF) | payer MEDICARE, SELFPAY ==
[2021-05-31 10:48] LABS: MANUAL DIFF FLAG NO
[2021-05-31 10:52] LABS: Basophils Percent Auto 0.5 % (0-2); Eosinophils Absolute Auto 0.1 X10*3/uL (0.0-0.4); Eosinophils Percent Auto 0.8 % (0-4); Hematocrit 42.3 % (42-52); Hemoglobin 13.5 g/dl (14.0-18.0); Imm Gran Abs Auto 0.02 X10*3/uL (0.00-0.03); Imm Gran Pct Auto 0.3 % (0.0-0.4); Lymphocytes Absolute Auto 3.1 X10*3/uL (1.2-4.9); Lymphocytes Percent Auto 50.2 % (20-40); Mean Corpuscular HGB Conc 31.9 g/dl (31.0-36.0); Mean Corpuscular Hemoglobin 29.9 pg (27.0-33.0); Mean Corpuscular Volume 93.6 fL (80-98); Mean Platelet Volume 9.5 fL (9.4-12.4); Monocytes Absolute Auto 0.5 X10*3/uL (0.1-1.2); Neutrophils Absolute Auto 2.5 X10*3/uL (2.0-8.3); Neutrophils Percent Auto 40.2 % (45-73); Platelet Count 209 X10*3/uL (160-400); Red Blood Count 4.52 X10*6/uL (4.60-5.80); Red Cell Distribution Width 17.2 % (11.0-16.0); White Blood Count 6.1 X10*3/uL (4.8-10.8)
[2021-05-31 11:17] LABS: Alanine Aminotransferase 30 U/L (0-40); Albumin Level 3.5 g/dL (3.5-5.0); Alkaline Phosphatase 55 U/L (39-117); Anion Gap 11 (12-20); Aspartate Amino Transferase 30 U/L (5-37); Bilirubin Total 0.4 mg/dL (0.0-1.0); Blood Urea Nitrogen 15 mg/dL (9-16); Calcium 8.3 mg/dL (8.4-10.2); Carbon Dioxide 28 mmol/L (22-29); Chloride 105 mmol/L (96-108); Estimated Glomerular Filt Rate > 60; Glucose Random 74 mg/dL (60-115); Potassium 3.7 mmol/L (3.3-5.1); Sodium 140 mmol/L (135-145); Total Protein 5.5 g/dL (6.5-8.0)
== END 2021-05-31 07:05 | disposition home or self-care (01) ==
LOC: HO.LHD 07:04
PROVIDERS: Visit Provider Internal Medicine Medical Oncology
DX: C64.9 Malignant neoplasm of unspecified kidney, except renal pelvis (principal)
CPT/HCPCS: 36415; 80053; 85025

== ENCOUNTER 2021-06-14 07:41 | Outpatient (REF) | payer MEDICARE, SELFPAY ==
[2021-06-14 10:49] LABS: Basophils Percent Auto 0.4 % (0-2); Eosinophils Absolute Auto 0.1 X10*3/uL (0.0-0.4); Eosinophils Percent Auto 1.1 % (0-4); Hematocrit 41.2 % (42-52); Hemoglobin 13.3 g/dl (14.0-18.0); Imm Gran Abs Auto 0.02 X10*3/uL (0.00-0.03); Imm Gran Pct Auto 0.4 % (0.0-0.4); Lymphocytes Absolute Auto 2.4 X10*3/uL (1.2-4.9); Lymphocytes Percent Auto 43.3 % (20-40); MANUAL DIFF FLAG NO; Mean Corpuscular HGB Conc 32.3 g/dl (31.0-36.0); Mean Corpuscular Hemoglobin 29.8 pg (27.0-33.0); Mean Corpuscular Volume 92.4 fL (80-98); Mean Platelet Volume 9.4 fL (9.4-12.4); Monocytes Absolute Auto 0.5 X10*3/uL (0.1-1.2); Monocytes Percent Auto 9.1 % (2-11); Neutrophils Absolute Auto 2.5 X10*3/uL (2.0-8.3); Neutrophils Percent Auto 45.7 % (45-73); Platelet Count 232 X10*3/uL (160-400); Red Blood Count 4.46 X10*6/uL (4.60-5.80); Red Cell Distribution Width 16.7 % (11.0-16.0); White Blood Count 5.5 X10*3/uL (4.8-10.8)
[2021-06-14 11:25] LABS: Alanine Aminotransferase 40 U/L (0-40); Albumin Level 3.5 g/dL (3.5-5.0); Alkaline Phosphatase 54 U/L (39-117); Anion Gap 9 (12-20); Aspartate Amino Transferase 31 U/L (5-37); Bilirubin Total 0.3 mg/dL (0.0-1.0); Blood Urea Nitrogen 18 mg/dL (9-16); Calcium 9.4 mg/dL (8.4-10.2); Carbon Dioxide 31 mmol/L (22-29); Chloride 104 mmol/L (96-108); Cholesterol 194 mg/dL; Estimated Glomerular Filt Rate > 60; Glucose Random 74 mg/dL (60-115); HDL Cholesterol 38 mg/dL; LDL Cholesterol Calculated 127 mg/dl; Potassium 4.2 mmol/L (3.3-5.1); Sodium 140 mmol/L (135-145); Total Protein 5.3 g/dL (6.5-8.0); Triglycerides 145 mg/dL
[2021-06-14 11:42] LABS: Thyroid Stimulating Hormone 2.09 uIU/mL (0.32-4.0)
[2021-06-19 13:15] LABS: Vitamin D 25-OH, D2 <4 ng/mL; Vitamin D 25-OH, D3 29 ng/mL; Vitamin D 25-OH, Total 29 ng/mL (30-100)
== END 2021-06-14 07:42 | disposition home or self-care (01) ==
LOC: HO.LHD 07:41
PROVIDERS: Internal Medicine; Visit Provider Internal Medicine Medical Oncology
DX: C64.9 Malignant neoplasm of unspecified kidney, except renal pelvis (principal); I10 Essential (primary) hypertension; E78.5 Hyperlipidemia, unspecified; E03.2 Hypothyroidism due to medicaments and other exogenous substances; E55.9 Vitamin D deficiency, unspecified
CPT/HCPCS: 36415; 80053; 80061; 82306; 84443; 85025

== ENCOUNTER → 2021-06-21 12:10 | Outpatient (REF) | payer MEDICARE, SELFPAY ==
--- NOTE | 2021-06-21 12:16 | ECG_ITS ---
Test Reason : CHEST PAIN Blood Pressure : / mmHG Vent. Rate : 087 BPM Atrial Rate : 087 BPM P-R Int : 134 ms QRS Dur : 116 ms QT Int : 362 ms P-R-T Axes : 075 008 056 degrees QTc Int : 435 ms Normal sinus rhythm Incomplete right bundle branch block Borderline ECG When compared with ECG of 30-AUG-2019 19:12, No significant change was found Referred By: Sharla Juarez Electronically Signed By:KEVIN MYLES MD
== END ==
LOC: HO.CARD 12:10
PROVIDERS: Visit Provider Internal Medicine
DX: R07.9 Chest pain, unspecified (principal)
CPT/HCPCS: 93005

== ENCOUNTER 2021-06-22 06:22 | Outpatient (REF) | payer MEDICARE, SELFPAY ==
[2021-06-22 07:23] LABS: Alanine Aminotransferase 53 U/L (0-40); Albumin Level 3.7 g/dL (3.5-5.0); Alkaline Phosphatase 56 U/L (39-117); Anion Gap 10 (12-20); Aspartate Amino Transferase 34 U/L (5-37); Bilirubin Total 0.4 mg/dL (0.0-1.0); Blood Urea Nitrogen 21 mg/dL (9-16); Calcium 9.9 mg/dL (8.4-10.2); Carbon Dioxide 31 mmol/L (22-29); Chloride 105 mmol/L (96-108); Cholesterol 213 mg/dL; Estimated Glomerular Filt Rate > 60; Glucose Fasting 87 mg/dL (60-99); HDL Cholesterol 41 mg/dL; LDL Cholesterol Calculated 144 mg/dl; Sodium 142 mmol/L (135-145); Total Protein 5.7 g/dL (6.5-8.0); Triglycerides 142 mg/dL
[2021-06-22 07:43] LABS: Thyroid Stimulating Hormone 2.77 uIU/mL (0.32-4.0)
== END 2021-06-22 06:23 | disposition home or self-care (01) ==
LOC: HO.LAB 06:22
PROVIDERS: Internal Medicine Medical Oncology; PCP Internal Medicine; Visit Provider Internal Medicine
DX: C64.9 Malignant neoplasm of unspecified kidney, except renal pelvis (principal); I10 Essential (primary) hypertension; E78.5 Hyperlipidemia, unspecified; E03.2 Hypothyroidism due to medicaments and other exogenous substances
CPT/HCPCS: 36415; 80053; 80061; 84443

== ENCOUNTER 2021-06-28 07:10 | Outpatient (REF) | payer MEDICARE, SELFPAY ==
[2021-06-28 11:13] LABS: MANUAL DIFF FLAG NO
[2021-06-28 11:21] LABS: Basophils Percent Auto 0.4 % (0-2); Eosinophils Absolute Auto 0.1 X10*3/uL (0.0-0.4); Eosinophils Percent Auto 1.2 % (0-4); Hematocrit 42.7 % (42-52); Hemoglobin 13.8 g/dl (14.0-18.0); Imm Gran Abs Auto 0.02 X10*3/uL (0.00-0.03); Imm Gran Pct Auto 0.4 % (0.0-0.4); Lymphocytes Percent Auto 53.4 % (20-40); Mean Corpuscular HGB Conc 32.3 g/dl (31.0-36.0); Mean Corpuscular Hemoglobin 30.1 pg (27.0-33.0); Mean Platelet Volume 9.4 fL (9.4-12.4); Monocytes Absolute Auto 0.4 X10*3/uL (0.1-1.2); Monocytes Percent Auto 7.8 % (2-11); Neutrophils Absolute Auto 2.1 X10*3/uL (2.0-8.3); Neutrophils Percent Auto 36.8 % (45-73); Platelet Count 205 X10*3/uL (160-400); Red Blood Count 4.59 X10*6/uL (4.60-5.80); White Blood Count 5.6 X10*3/uL (4.8-10.8)
[2021-06-28 12:41] LABS: Alanine Aminotransferase 47 U/L (0-40); Albumin Level 3.7 g/dL (3.5-5.0); Alkaline Phosphatase 63 U/L (39-117); Anion Gap 12 (12-20); Aspartate Amino Transferase 32 U/L (5-37); Bilirubin Total 0.3 mg/dL (0.0-1.0); Blood Urea Nitrogen 20 mg/dL (9-16); Calcium 9.5 mg/dL (8.4-10.2); Carbon Dioxide 32 mmol/L (22-29); Chloride 99 mmol/L (96-108); Estimated Glomerular Filt Rate > 60; Glucose Random 75 mg/dL (60-115); Potassium 4.2 mmol/L (3.3-5.1); Sodium 139 mmol/L (135-145); Total Protein 5.7 g/dL (6.5-8.0)
== END 2021-06-28 07:11 | disposition home or self-care (01) ==
LOC: HO.LHD 07:10
PROVIDERS: Visit Provider Internal Medicine Medical Oncology
DX: C64.9 Malignant neoplasm of unspecified kidney, except renal pelvis (principal)
CPT/HCPCS: 36415; 80053; 85025

== ENCOUNTER 2021-07-12 05:00 | Outpatient (REF) | payer MEDICARE, SELFPAY ==
[2021-07-12 11:51] LABS: MANUAL DIFF FLAG NO
[2021-07-12 11:55] LABS: Basophils Percent Auto 0.4 % (0-2); Eosinophils Absolute Auto 0.1 X10*3/uL (0.0-0.4); Eosinophils Percent Auto 1.4 % (0-4); Hematocrit 41.6 % (42-52); Hemoglobin 13.5 g/dl (14.0-18.0); Imm Gran Abs Auto 0.02 X10*3/uL (0.00-0.03); Imm Gran Pct Auto 0.4 % (0.0-0.4); Lymphocytes Absolute Auto 2.9 X10*3/uL (1.2-4.9); Lymphocytes Percent Auto 51.8 % (20-40); Mean Corpuscular HGB Conc 32.5 g/dl (31.0-36.0); Mean Corpuscular Hemoglobin 29.7 pg (27.0-33.0); Mean Corpuscular Volume 91.4 fL (80-98); Mean Platelet Volume 9.4 fL (9.4-12.4); Monocytes Absolute Auto 0.4 X10*3/uL (0.1-1.2); Monocytes Percent Auto 7.5 % (2-11); Neutrophils Absolute Auto 2.2 X10*3/uL (2.0-8.3); Neutrophils Percent Auto 38.5 % (45-73); Platelet Count 214 X10*3/uL (160-400); Red Blood Count 4.55 X10*6/uL (4.60-5.80); Red Cell Distribution Width 17.1 % (11.0-16.0); White Blood Count 5.6 X10*3/uL (4.8-10.8)
[2021-07-12 12:34] LABS: Alanine Aminotransferase 31 U/L (0-40); Albumin Level 3.5 g/dL (3.5-5.0); Alkaline Phosphatase 60 U/L (39-117); Anion Gap 11 (12-20); Aspartate Amino Transferase 25 U/L (5-37); Bilirubin Total 0.4 mg/dL (0.0-1.0); Blood Urea Nitrogen 15 mg/dL (9-16); Calcium 9.7 mg/dL (8.4-10.2); Carbon Dioxide 31 mmol/L (22-29); Chloride 102 mmol/L (96-108); Estimated Glomerular Filt Rate > 60; Glucose Random 84 mg/dL (60-115); Potassium 3.9 mmol/L (3.3-5.1); Sodium 140 mmol/L (135-145); Total Protein 5.3 g/dL (6.5-8.0)
== END 2021-07-12 05:01 ==
LOC: HO.LHD 05:00
PROVIDERS: Visit Provider Internal Medicine Medical Oncology
DX: C79.00 Secondary malignant neoplasm of unspecified kidney and renal pelvis (principal)
CPT/HCPCS: 36415; 80053; 85025

== ENCOUNTER 2021-07-26 06:58 | Outpatient (REF) | payer MEDICARE, SELFPAY ==
[2021-07-26 10:56] LABS: MANUAL DIFF FLAG NO
[2021-07-26 10:58] LABS: Basophils Percent Auto 0.4 % (0-2); Eosinophils Absolute Auto 0.1 X10*3/uL (0.0-0.4); Eosinophils Percent Auto 1.8 % (0-4); Hematocrit 40.5 % (42-52); Hemoglobin 13.2 g/dl (14.0-18.0); Imm Gran Abs Auto 0.01 X10*3/uL (0.00-0.03); Imm Gran Pct Auto 0.2 % (0.0-0.4); Lymphocytes Absolute Auto 2.6 X10*3/uL (1.2-4.9); Lymphocytes Percent Auto 46.9 % (20-40); Mean Corpuscular HGB Conc 32.6 g/dl (31.0-36.0); Mean Corpuscular Hemoglobin 30.1 pg (27.0-33.0); Mean Corpuscular Volume 92.3 fL (80-98); Mean Platelet Volume 9.4 fL (9.4-12.4); Monocytes Absolute Auto 0.5 X10*3/uL (0.1-1.2); Monocytes Percent Auto 8.9 % (2-11); Neutrophils Absolute Auto 2.3 X10*3/uL (2.0-8.3); Neutrophils Percent Auto 41.8 % (45-73); Platelet Count 234 X10*3/uL (160-400); Red Blood Count 4.39 X10*6/uL (4.60-5.80); Red Cell Distribution Width 17.1 % (11.0-16.0); White Blood Count 5.5 X10*3/uL (4.8-10.8)
[2021-07-26 11:58] LABS: Alanine Aminotransferase 41 U/L (0-40); Albumin Level 3.6 g/dL (3.5-5.0); Alkaline Phosphatase 55 U/L (39-117); Anion Gap 11 (12-20); Aspartate Amino Transferase 33 U/L (5-37); Bilirubin Total 0.4 mg/dL (0.0-1.0); Blood Urea Nitrogen 17 mg/dL (9-16); Calcium 9.3 mg/dL (8.4-10.2); Carbon Dioxide 31 mmol/L (22-29); Chloride 104 mmol/L (96-108); Estimated Glomerular Filt Rate > 60; Glucose Random 78 mg/dL (60-115); Potassium 4.6 mmol/L (3.3-5.1); Sodium 141 mmol/L (135-145); Total Protein 5.5 g/dL (6.5-8.0)
== END 2021-07-26 06:59 | disposition home or self-care (01) ==
LOC: HO.LHD 06:58
PROVIDERS: Visit Provider Internal Medicine Medical Oncology
DX: C64.9 Malignant neoplasm of unspecified kidney, except renal pelvis (principal)
CPT/HCPCS: 36415; 80053; 85025

== ENCOUNTER 2021-08-09 13:23 | Outpatient (REF) | payer MEDICARE, SELFPAY ==
[2021-08-09 11:42] LABS: MANUAL DIFF FLAG NO
[2021-08-09 11:48] LABS: Basophils Percent Auto 0.6 % (0-2); Eosinophils Absolute Auto 0.1 X10*3/uL (0.0-0.4); Eosinophils Percent Auto 1.9 % (0-4); Hematocrit 40.6 % (42-52); Hemoglobin 13.2 g/dl (14.0-18.0); Imm Gran Abs Auto 0.02 X10*3/uL (0.00-0.03); Imm Gran Pct Auto 0.3 % (0.0-0.4); Lymphocytes Absolute Auto 3.1 X10*3/uL (1.2-4.9); Lymphocytes Percent Auto 46.1 % (20-40); Mean Corpuscular HGB Conc 32.5 g/dl (31.0-36.0); Mean Corpuscular Hemoglobin 29.8 pg (27.0-33.0); Mean Corpuscular Volume 91.6 fL (80-98); Mean Platelet Volume 9.3 fL (9.4-12.4); Monocytes Absolute Auto 0.6 X10*3/uL (0.1-1.2); Monocytes Percent Auto 9.4 % (2-11); Neutrophils Absolute Auto 2.8 X10*3/uL (2.0-8.3); Neutrophils Percent Auto 41.7 % (45-73); Platelet Count 289 X10*3/uL (160-400); Red Blood Count 4.43 X10*6/uL (4.60-5.80); White Blood Count 6.7 X10*3/uL (4.8-10.8)
[2021-08-09 12:13] LABS: Alanine Aminotransferase 41 U/L (0-40); Albumin Level 3.7 g/dL (3.5-5.0); Alkaline Phosphatase 58 U/L (39-117); Anion Gap 13 (12-20); Aspartate Amino Transferase 31 U/L (5-37); Bilirubin Total 0.2 mg/dL (0.0-1.0); Blood Urea Nitrogen 11 mg/dL (9-16); Calcium 8.3 mg/dL (8.4-10.2); Carbon Dioxide 26 mmol/L (22-29); Chloride 104 mmol/L (96-108); Estimated Glomerular Filt Rate > 60; Glucose Random 82 mg/dL (60-115); Potassium 4.1 mmol/L (3.3-5.1); Sodium 139 mmol/L (135-145); Total Protein 5.8 g/dL (6.5-8.0)
== END 2021-08-09 13:24 | disposition home or self-care (01) ==
LOC: HO.LHD 13:23
PROVIDERS: Visit Provider Internal Medicine Medical Oncology
DX: C64.9 Malignant neoplasm of unspecified kidney, except renal pelvis (principal)
CPT/HCPCS: 36415; 80053; 85025

== ENCOUNTER 2021-08-15 11:00 | Outpatient (REF) | payer MEDICARE, SELFPAY ==
--- NOTE | ~2021-08-15 | XR_ITS ---
EXAMINATION: XR CHEST CLINICAL INFORMATION: Chest pain COMPARISON: Chest radiographs 11/25/2019, 09/14/2019, CT chest with contrast 05/30/2021. TECHNIQUE: 2 views of the chest were obtained. FINDINGS: There is opacity left lower zone presumably recurrent effusion. Possibility of superimposed airspace consolidation cannot be excluded. There are no air bronchograms and no significant volume loss or mediastinal shift. The vascularity appears normal. The right lung is clear. The visualized hilar and mediastinal contours are unremarkable. Lower left hemithorax smallbore tunneled catheter again noted. No focal kinking. No pneumothorax or pneumomediastinum or subcutaneous emphysema. No acute bony abnormality. XR/XR chest 2V IMPRESSION: 1. New opacity left base likely recurrent effusion. Possibility of superimposed airspace consolidation cannot be excluded. Right lung clear. 2. There is a small bore tunneled catheter left base. No pneumothorax or subcutaneous emphysema.
== END 2021-08-15 11:01 | disposition home or self-care (01) ==
LOC: HO.XRAY 11:00
PROVIDERS: PCP Internal Medicine; Visit Provider Internal Medicine Medical Oncology
DX: R07.9 Chest pain, unspecified (principal)
CPT/HCPCS: 71046

== ENCOUNTER 2021-08-23 12:17 | Outpatient (REF) | payer MEDICARE, SELFPAY ==
[2021-08-23 11:10] LABS: MANUAL DIFF FLAG NO
[2021-08-23 11:13] LABS: Basophils Percent Auto 0.3 % (0-2); Eosinophils Absolute Auto 0.1 X10*3/uL (0.0-0.4); Eosinophils Percent Auto 1.7 % (0-4); Hematocrit 39.2 % (42-52); Hemoglobin 12.7 g/dl (14.0-18.0); Imm Gran Abs Auto 0.02 X10*3/uL (0.00-0.03); Imm Gran Pct Auto 0.3 % (0.0-0.4); Lymphocytes Absolute Auto 2.8 X10*3/uL (1.2-4.9); Mean Corpuscular HGB Conc 32.4 g/dl (31.0-36.0); Mean Corpuscular Hemoglobin 29.6 pg (27.0-33.0); Mean Corpuscular Volume 91.4 fL (80-98); Mean Platelet Volume 8.8 fL (9.4-12.4); Monocytes Absolute Auto 0.4 X10*3/uL (0.1-1.2); Monocytes Percent Auto 7.2 % (2-11); Neutrophils Absolute Auto 2.4 X10*3/uL (2.0-8.3); Neutrophils Percent Auto 42.5 % (45-73); Platelet Count 397 X10*3/uL (160-400); Red Blood Count 4.29 X10*6/uL (4.60-5.80); Red Cell Distribution Width 17.4 % (11.0-16.0); White Blood Count 5.7 X10*3/uL (4.8-10.8)
[2021-08-23 11:40] LABS: Alanine Aminotransferase 22 U/L (0-40); Albumin Level 3.4 g/dL (3.5-5.0); Alkaline Phosphatase 55 U/L (39-117); Anion Gap 12 (12-20); Aspartate Amino Transferase 23 U/L (5-37); Bilirubin Total 0.3 mg/dL (0.0-1.0); Blood Urea Nitrogen 10 mg/dL (9-16); Calcium 9.5 mg/dL (8.4-10.2); Carbon Dioxide 28 mmol/L (22-29); Chloride 106 mmol/L (96-108); Estimated Glomerular Filt Rate > 60; Glucose Random 80 mg/dL (60-115); Potassium 4.5 mmol/L (3.3-5.1); Sodium 141 mmol/L (135-145); Total Protein 5.7 g/dL (6.5-8.0)
== END 2021-08-23 12:18 | disposition home or self-care (01) ==
LOC: HO.LHD 12:17
PROVIDERS: Visit Provider Internal Medicine Medical Oncology
DX: C79.00 Secondary malignant neoplasm of unspecified kidney and renal pelvis (principal)
CPT/HCPCS: 36415; 80053; 85025

== ENCOUNTER 2021-09-06 11:25 | Outpatient (REF) | payer MEDICARE, SELFPAY ==
[2021-09-06 10:50] LABS: MANUAL DIFF FLAG NO
[2021-09-06 10:55] LABS: Basophils Percent Auto 0.2 % (0-2); Eosinophils Absolute Auto 0.1 X10*3/uL (0.0-0.4); Eosinophils Percent Auto 1.8 % (0-4); Hematocrit 36.8 % (42-52); Hemoglobin 11.8 g/dl (14.0-18.0); Imm Gran Abs Auto 0.03 X10*3/uL (0.00-0.03); Imm Gran Pct Auto 0.5 % (0.0-0.4); Lymphocytes Absolute Auto 1.7 X10*3/uL (1.2-4.9); Mean Corpuscular HGB Conc 32.1 g/dl (31.0-36.0); Mean Corpuscular Hemoglobin 28.7 pg (27.0-33.0); Mean Corpuscular Volume 89.5 fL (80-98); Mean Platelet Volume 9.2 fL (9.4-12.4); Monocytes Absolute Auto 0.6 X10*3/uL (0.1-1.2); Monocytes Percent Auto 9.8 % (2-11); Neutrophils Absolute Auto 3.2 X10*3/uL (2.0-8.3); Neutrophils Percent Auto 56.7 % (45-73); Platelet Count 265 X10*3/uL (160-400); Red Blood Count 4.11 X10*6/uL (4.60-5.80); Red Cell Distribution Width 17.2 % (11.0-16.0); White Blood Count 5.6 X10*3/uL (4.8-10.8)
[2021-09-06 11:50] LABS: Alanine Aminotransferase 27 U/L (0-40); Albumin Level 3.2 g/dL (3.5-5.0); Alkaline Phosphatase 59 U/L (39-117); Anion Gap 13 (12-20); Aspartate Amino Transferase 31 U/L (5-37); Bilirubin Total 0.5 mg/dL (0.0-1.0); Blood Urea Nitrogen 12 mg/dL (9-16); Calcium 8.5 mg/dL (8.4-10.2); Carbon Dioxide 28 mmol/L (22-29); Chloride 101 mmol/L (96-108); Estimated Glomerular Filt Rate > 60; Glucose Random 91 mg/dL (60-115); Potassium 4.3 mmol/L (3.3-5.1); Sodium 138 mmol/L (135-145); Total Protein 5.4 g/dL (6.5-8.0)
== END 2021-09-06 11:26 | disposition home or self-care (01) ==
LOC: HO.LHD 11:25
PROVIDERS: Visit Provider Internal Medicine Medical Oncology
DX: C79.51 Secondary malignant neoplasm of bone (principal)
CPT/HCPCS: 36415; 80053; 85025

== ENCOUNTER 2021-09-20 13:27 | Outpatient (REF) | payer MEDICARE, SELFPAY ==
[2021-09-20 10:58] LABS: MANUAL DIFF FLAG NO
[2021-09-20 11:05] LABS: Basophils Percent Auto 0.4 % (0-2); Eosinophils Absolute Auto 0.1 X10*3/uL (0.0-0.4); Hematocrit 36.6 % (42.0-52.0); Hemoglobin 11.2 g/dl (14.0-18.0); Imm Gran Abs Auto 0.01 X10*3/uL (0.00-0.03); Imm Gran Pct Auto 0.2 % (0.0-0.4); Lymphocytes Absolute Auto 2.3 X10*3/uL (1.2-4.9); Lymphocytes Percent Auto 46.1 % (20-40); Mean Corpuscular HGB Conc 30.6 g/dl (31.0-36.0); Mean Corpuscular Hemoglobin 28.7 pg (27.0-33.0); Mean Corpuscular Volume 93.8 fL (80.0-98.0); Monocytes Absolute Auto 0.5 X10*3/uL (0.1-1.2); Monocytes Percent Auto 9.6 % (2-11); Neutrophils Absolute Auto 2.1 x10*3/uL (2.0-8.3); Neutrophils Percent Auto 42.7 % (45-73); Platelet Count 295 X10*3/uL (160-400); Red Cell Distribution Width 18.6 % (11.0-16.0)
[2021-09-20 11:31] LABS: Alanine Aminotransferase 41 U/L (0-40); Albumin Level 3.2 g/dL (3.5-5.0); Alkaline Phosphatase 61 U/L (39-117); Anion Gap 13 (12-20); Aspartate Amino Transferase 34 U/L (5-37); Bilirubin Total 0.2 mg/dL (0.0-1.0); Blood Urea Nitrogen 10 mg/dL (9-16); Calcium 8.4 mg/dL (8.4-10.2); Carbon Dioxide 26 mmol/L (22-29); Chloride 105 mmol/L (96-108); Estimated Glomerular Filt Rate > 60; Glucose Random 92 mg/dL (60-115); Potassium 3.7 mmol/L (3.3-5.1); Sodium 140 mmol/L (135-145); Total Protein 5.3 g/dL (6.5-8.0)
== END 2021-09-20 13:28 | disposition home or self-care (01) ==
LOC: HO.LHD 13:27
PROVIDERS: Visit Provider Internal Medicine Medical Oncology
DX: C41.9 Malignant neoplasm of bone and articular cartilage, unspecified (principal)
CPT/HCPCS: 36415; 80053; 85025

== ENCOUNTER 2021-10-04 07:05 | Outpatient (REF) | payer MEDICARE, SELFPAY ==
[2021-10-04 10:44] LABS: MANUAL DIFF FLAG NO
[2021-10-04 10:54] LABS: Basophils Percent Auto 0.6 % (0-2); Eosinophils Absolute Auto 0.1 X10*3/uL (0.0-0.4); Eosinophils Percent Auto 2.1 % (0-4); Hematocrit 39.3 % (42.0-52.0); Hemoglobin 12.2 g/dl (14.0-18.0); Imm Gran Abs Auto 0.01 X10*3/uL (0.00-0.03); Imm Gran Pct Auto 0.2 % (0.0-0.4); Lymphocytes Absolute Auto 2.8 X10*3/uL (1.2-4.9); Lymphocytes Percent Auto 53.2 % (20-40); Mean Corpuscular Hemoglobin 28.8 pg (27.0-33.0); Mean Corpuscular Volume 92.9 fL (80.0-98.0); Monocytes Absolute Auto 0.5 X10*3/uL (0.1-1.2); Monocytes Percent Auto 9.3 % (2-11); Neutrophils Absolute Auto 1.8 x10*3/uL (2.0-8.3); Neutrophils Percent Auto 34.6 % (45-73); Platelet Count 283 X10*3/uL (160-400); Red Blood Count 4.23 X10*6/uL (4.60-5.80); Red Cell Distribution Width 19.2 % (11.0-16.0); White Blood Count 5.2 X10*3/uL (4.8-10.8)
[2021-10-04 11:24] LABS: Alanine Aminotransferase 26 U/L (0-40); Albumin Level 3.7 g/dL (3.5-5.0); Alkaline Phosphatase 58 U/L (39-117); Anion Gap 11 (12-20); Aspartate Amino Transferase 23 U/L (5-37); Bilirubin Total 0.3 mg/dL (0.0-1.0); Blood Urea Nitrogen 10 mg/dL (9-16); Calcium 9.8 mg/dL (8.4-10.2); Carbon Dioxide 30 mmol/L (22-29); Chloride 103 mmol/L (96-108); Estimated Glomerular Filt Rate > 60; Glucose Random 89 mg/dL (60-115); Potassium 4.1 mmol/L (3.3-5.1); Sodium 140 mmol/L (135-145)
== END 2021-10-04 07:06 | disposition home or self-care (01) ==
LOC: HO.LHD 07:05
PROVIDERS: Visit Provider Internal Medicine Medical Oncology
DX: C41.9 Malignant neoplasm of bone and articular cartilage, unspecified (principal)
CPT/HCPCS: 36415; 80053; 85025

== ENCOUNTER 2021-10-13 11:32 | Day surgery (SDC) | payer MEDICARE, SELFPAY ==
--- NOTE | ~2021-10-13 | IR_ITS ---
EXAMINATION: REMOVAL TUNNELED CATHETER CLINICAL INFORMATION: Metastatic renal cell cancer with left Pleurx catheter. Pain. No output from catheter. COMPARISON: Previous chest x-ray most recent 08/15/[address] May 2021 TECHNIQUE: Procedure and risks and benefits including bleeding and infection and need to replace a catheter were discussed with the patient and informed consent was obtained. The left lateral chest and catheter site were prepped and draped in the usual sterile fashion. The skin and soft tissues were anesthetized with 1% lidocaine plain. Using blunt dissection, the cuff of the catheter was dissected from the surrounding soft tissues and the catheter was removed. Dry sterile dressing was placed over the catheter site. The patient received Versed 1 mg and fentanyl 50 mcg intravenously during the procedure. Total sedation time was 15 minutes. Conscious sedation was provided by a registered nurse under my direct supervision using continuous hemodynamic monitoring. No images were obtained. FINDINGS: The catheter had backed out and the cuff of the catheter was exposed to the skin. The catheter appeared clogged. IR/IR cvc remov tunnel wo prt/solid propellant processor IMPRESSION: Left chest Pleurx catheter removal.
[2021-10-13 12:12] LABS: MANUAL DIFF FLAG NO
[2021-10-13 12:15] LABS: Basophils Percent Auto 0.2 % (0-2); Eosinophils Percent Auto 0.4 % (0-4); Hematocrit 36.8 % (42.0-52.0); Hemoglobin 11.8 g/dl (14.0-18.0); Imm Gran Abs Auto 0.01 X10*3/uL (0.00-0.03); Imm Gran Pct Auto 0.2 % (0.0-0.4); Lymphocytes Absolute Auto 0.9 X10*3/uL (1.2-4.9); Lymphocytes Percent Auto 18.9 % (20-40); Mean Corpuscular HGB Conc 32.1 g/dl (31.0-36.0); Mean Corpuscular Hemoglobin 29.7 pg (27.0-33.0); Mean Corpuscular Volume 92.7 fL (80.0-98.0); Mean Platelet Volume 8.6 fL (9.4-12.4); Monocytes Absolute Auto 0.5 X10*3/uL (0.1-1.2); Monocytes Percent Auto 9.9 % (2-11); Neutrophils Absolute Auto 3.3 x10*3/uL (2.0-8.3); Neutrophils Percent Auto 70.4 % (45-73); Platelet Count 285 X10*3/uL (160-400); Red Blood Count 3.97 X10*6/uL (4.60-5.80); Red Cell Distribution Width 18.6 % (11.0-16.0); White Blood Count 4.7 X10*3/uL (4.8-10.8)
[2021-10-13 12:21] LABS: INTERNATIONAL NORM RATIO 1.1 (0.9-1.1)
[2021-10-13 14:48] VITALS: BMI 32.1
[2021-10-13 16:29] VITALS: BP 130/73; PULSE 86; RESP 18; TEMP 36.1; O2SAT 96
[2021-10-13 16:59] VITALS: BP 121/55; PULSE 98; RESP 18; O2SAT 95
[2021-10-13 17:24] VITALS: BP 143/75; PULSE 97; RESP 18; TEMP 36.1; O2SAT 97
== END 2021-10-13 17:39 | disposition home or self-care (01) ==
PROVIDERS: PCP Internal Medicine; Visit Provider Radiology Diagnostic Radiology
PROC: (CPT 36590; principal; 2021-10-13 14:00)
DX: T85.848A Pain due to other internal prosthetic devices, implants and grafts, initial encounter (principal); R07.89 Other chest pain; Y82.8 Other medical devices associated with adverse incidents; Y92.9 Unspecified place or not applicable; C64.9 Malignant neoplasm of unspecified kidney, except renal pelvis
CPT/HCPCS: 32552; 36415; 36589; 85025; 85610; 85730; 99152; J2250; J3010

== ENCOUNTER 2021-10-18 12:29 | Outpatient (REF) | payer MEDICARE, SELFPAY ==
[2021-10-18 14:14] LABS: MANUAL DIFF FLAG NO
[2021-10-18 14:19] LABS: Basophils Percent Auto 0.2 % (0-2); Eosinophils Absolute Auto 0.1 X10*3/uL (0.0-0.4); Eosinophils Percent Auto 3.3 % (0-4); Hematocrit 35.3 % (42.0-52.0); Hemoglobin 11.3 g/dl (14.0-18.0); Imm Gran Abs Auto 0.01 X10*3/uL (0.00-0.03); Imm Gran Pct Auto 0.2 % (0.0-0.4); Lymphocytes Absolute Auto 1.2 X10*3/uL (1.2-4.9); Lymphocytes Percent Auto 26.9 % (20-40); Mean Corpuscular Volume 90.7 fL (80.0-98.0); Mean Platelet Volume 8.6 fL (9.4-12.4); Monocytes Absolute Auto 0.7 X10*3/uL (0.1-1.2); Monocytes Percent Auto 17.1 % (2-11); Neutrophils Absolute Auto 2.2 x10*3/uL (2.0-8.3); Neutrophils Percent Auto 52.3 % (45-73); Platelet Count 246 X10*3/uL (160-400); Red Blood Count 3.89 X10*6/uL (4.60-5.80); Red Cell Distribution Width 18.3 % (11.0-16.0); White Blood Count 4.3 X10*3/uL (4.8-10.8)
[2021-10-18 14:51] LABS: Anion Gap 17 (12-20); Blood Urea Nitrogen 8 mg/dL (9-16); Carbon Dioxide 21 mmol/L (22-29); Chloride 96 mmol/L (96-108); Potassium 3.6 mmol/L (3.3-5.1); Sodium 130 mmol/L (135-145)
[2021-10-18 14:52] LABS: Alanine Aminotransferase 12 U/L (0-40); Alkaline Phosphatase 52 U/L (39-117); Aspartate Amino Transferase 22 U/L (5-37); Bilirubin Total 0.3 mg/dL (0.0-1.0); Calcium 7.8 mg/dL (8.4-10.2); Estimated Glomerular Filt Rate > 60; Glucose Random 90 mg/dL (60-115)
== END 2021-10-18 12:30 | disposition home or self-care (01) ==
LOC: HO.LHD 12:29
PROVIDERS: Visit Provider Internal Medicine Medical Oncology
DX: C41.9 Malignant neoplasm of bone and articular cartilage, unspecified (principal)
CPT/HCPCS: 36415; 80053; 85025

== ENCOUNTER 2021-11-01 06:02 | Outpatient (REF) | payer MEDICARE, SELFPAY ==
[2021-11-01 11:11] LABS: MANUAL DIFF FLAG NO
[2021-11-01 11:17] LABS: Basophils Percent Auto 0.6 % (0-2); Eosinophils Absolute Auto 0.1 X10*3/uL (0.0-0.4); Eosinophils Percent Auto 1.7 % (0-4); Hematocrit 39.5 % (42.0-52.0); Hemoglobin 12.2 g/dl (14.0-18.0); Imm Gran Abs Auto 0.01 X10*3/uL (0.00-0.03); Imm Gran Pct Auto 0.2 % (0.0-0.4); Lymphocytes Absolute Auto 3.2 X10*3/uL (1.2-4.9); Lymphocytes Percent Auto 58.2 % (20-40); Mean Corpuscular HGB Conc 30.9 g/dl (31.0-36.0); Mean Corpuscular Hemoglobin 28.4 pg (27.0-33.0); Mean Corpuscular Volume 91.9 fL (80.0-98.0); Monocytes Absolute Auto 0.5 X10*3/uL (0.1-1.2); Monocytes Percent Auto 9.9 % (2-11); Neutrophils Absolute Auto 1.6 x10*3/uL (2.0-8.3); Neutrophils Percent Auto 29.4 % (45-73); Platelet Count 377 X10*3/uL (160-400); Red Cell Distribution Width 19.5 % (11.0-16.0); White Blood Count 5.4 X10*3/uL (4.8-10.8)
[2021-11-01 11:36] LABS: Alanine Aminotransferase 19 U/L (0-40); Albumin Level 3.5 g/dL (3.5-5.0); Alkaline Phosphatase 65 U/L (39-117); Anion Gap 12 (12-20); Aspartate Amino Transferase 20 U/L (5-37); Bilirubin Total 0.5 mg/dL (0.0-1.0); Blood Urea Nitrogen 8 mg/dL (9-16); Calcium 9.6 mg/dL (8.4-10.2); Carbon Dioxide 28 mmol/L (22-29); Chloride 103 mmol/L (96-108); Estimated Glomerular Filt Rate > 60; Glucose Random 80 mg/dL (60-115); Potassium 4.2 mmol/L (3.3-5.1); Sodium 139 mmol/L (135-145)
== END 2021-11-01 06:03 | disposition home or self-care (01) ==
LOC: HO.LHD 06:02
PROVIDERS: Visit Provider Internal Medicine Medical Oncology
DX: C41.9 Malignant neoplasm of bone and articular cartilage, unspecified (principal)
CPT/HCPCS: 36415; 80053; 85025

== ENCOUNTER 2021-11-15 10:49 | Outpatient (REF) | payer MEDICARE, SELFPAY ==
[2021-11-15 11:20] LABS: Basophils Absolute Auto 0.1 X10*3/uL (0.0-0.2); Eosinophils Absolute Auto 0.2 X10*3/uL (0.0-0.4); Eosinophils Percent Auto 4.2 % (0-4); Hematocrit 37.5 % (42.0-52.0); Hemoglobin 11.6 g/dl (14.0-18.0); Imm Gran Abs Auto 0.01 X10*3/uL (0.00-0.03); Imm Gran Pct Auto 0.2 % (0.0-0.4); Lymphocytes Absolute Auto 2.4 X10*3/uL (1.2-4.9); Lymphocytes Percent Auto 46.4 % (20-40); MANUAL DIFF FLAG NO; Mean Corpuscular HGB Conc 30.9 g/dl (31.0-36.0); Mean Corpuscular Hemoglobin 28.3 pg (27.0-33.0); Mean Corpuscular Volume 91.5 fL (80.0-98.0); Mean Platelet Volume 9.5 fL (9.4-12.4); Monocytes Absolute Auto 0.5 X10*3/uL (0.1-1.2); Neutrophils Percent Auto 38.2 % (45-73); Platelet Count 258 X10*3/uL (160-400); Red Cell Distribution Width 19.2 % (11.0-16.0); White Blood Count 5.2 X10*3/uL (4.8-10.8)
[2021-11-15 11:48] LABS: Alanine Aminotransferase 23 U/L (0-40); Albumin Level 3.3 g/dL (3.5-5.0); Alkaline Phosphatase 56 U/L (39-117); Anion Gap 10 (12-20); Aspartate Amino Transferase 15 U/L (5-37); Bilirubin Total 0.3 mg/dL (0.0-1.0); Blood Urea Nitrogen 8 mg/dL (9-16); Calcium 8.6 mg/dL (8.4-10.2); Carbon Dioxide 28 mmol/L (22-29); Chloride 104 mmol/L (96-108); Cholesterol 196 mg/dL; Estimated Glomerular Filt Rate > 60; Glucose Random 84 mg/dL (60-115); HDL Cholesterol 33 mg/dL; LDL Cholesterol Calculated 136 mg/dl; Sodium 138 mmol/L (135-145); Total Protein 5.4 g/dL (6.5-8.0); Triglycerides 139 mg/dL
[2021-11-15 12:07] LABS: Thyroid Stimulating Hormone 1.85 uIU/mL (0.32-4.0)
[2021-11-20 11:10] LABS: Vitamin D 25-OH, D2 <4 ng/mL; Vitamin D 25-OH, D3 32 ng/mL; Vitamin D 25-OH, Total 32 ng/mL (30-100)
== END 2021-11-15 10:50 | disposition home or self-care (01) ==
LOC: HO.LHD 10:49
PROVIDERS: Internal Medicine; Visit Provider Internal Medicine Medical Oncology
DX: C79.51 Secondary malignant neoplasm of bone (principal); E55.9 Vitamin D deficiency, unspecified
CPT/HCPCS: 36415; 80053; 80061; 82306; 84443; 85025

== ENCOUNTER 2021-11-21 09:46 | Outpatient (REF) | payer MEDICARE, SELFPAY ==
--- NOTE | ~2021-11-21 | XR_ITS ---
EXAMINATION: XR CHEST CLINICAL INFORMATION: Cough COMPARISON: Previous chest x-ray most recent August 2021 TECHNIQUE: 2 views of the chest were obtained. FINDINGS: The cardiac and mediastinal contours are stable. There is a small left pleural effusion. This does not appear appreciably changed from prior exams. There is no right pleural effusion. The previously identified left chest tube is no longer seen. There is no pneumothorax. There may be mild atelectasis at the left lung base adjacent to the left pleural effusion. The lungs are otherwise clear. There are degenerative changes of the spine. XR/XR chest 2V IMPRESSION: Stable small left pleural effusion compared to prior exams. Left chest tube no longer seen.
== END 2021-11-21 09:47 | disposition home or self-care (01) ==
LOC: HO.XRAY 09:46
PROVIDERS: PCP Internal Medicine; Visit Provider Nurse Practitioner Acute Care
DX: R13.10 Dysphagia, unspecified (principal); R05.9 Cough, unspecified
CPT/HCPCS: 71046; 99202

== ENCOUNTER 2021-11-28 08:44 | Outpatient (REF) | payer MEDICARE, SELFPAY ==
--- NOTE | ~2021-11-28 | FL_ITS ---
EXAMINATION: FL BARIUM SWALLOW CLINICAL INFORMATION: Dysphagia COMPARISON: None TECHNIQUE: Barium swallow examination is performed using fluoroscopic evaluation in addition to multiple fluoroscopic spot views. The patient is imaged both upright and prone and using both thick and thin sulfate along with effervescent granules. Barium tablet was also administered. Fluoroscopy time: 0.9 minutes DAP: 4.5 Gycm2 Images: 50 FINDINGS: The swallowing mechanism is normal. No aspiration or penetration is seen. Esophageal motility is normal. There is a small sliding hiatal hernia. There is moderate gastroesophageal reflux. No stricture, mass or evidence of esophagitis is seen. Barium tablet passed freely into the stomach. FL/FL barium swallow IMPRESSION: Small sliding-type hiatal hernia and gastroesophageal reflux.
== END 2021-11-28 08:45 | disposition home or self-care (01) ==
LOC: HO.XRAY 08:44
PROVIDERS: PCP Internal Medicine; Visit Provider Internal Medicine Gastroenterology
DX: R13.10 Dysphagia, unspecified (principal)
CPT/HCPCS: 74220

== ENCOUNTER 2021-11-29 07:44 | Outpatient (REF) | payer MEDICARE, SELFPAY ==
[2021-11-29 12:28] LABS: MANUAL DIFF FLAG NO
[2021-11-29 12:30] LABS: Basophils Percent Auto 0.7 % (0-2); Eosinophils Absolute Auto 0.1 X10*3/uL (0.0-0.4); Eosinophils Percent Auto 1.9 % (0-4); Hematocrit 39.3 % (42.0-52.0); Hemoglobin 12.2 g/dl (14.0-18.0); Lymphocytes Absolute Auto 2.4 X10*3/uL (1.2-4.9); Lymphocytes Percent Auto 54.7 % (20-40); Mean Corpuscular Hemoglobin 28.2 pg (27.0-33.0); Mean Corpuscular Volume 90.8 fL (80.0-98.0); Mean Platelet Volume 9.4 fL (9.4-12.4); Monocytes Absolute Auto 0.4 X10*3/uL (0.1-1.2); Monocytes Percent Auto 10.2 % (2-11); Neutrophils Absolute Auto 1.4 x10*3/uL (2.0-8.3); Neutrophils Percent Auto 32.5 % (45-73); Platelet Count 291 X10*3/uL (160-400); Red Blood Count 4.33 X10*6/uL (4.60-5.80); White Blood Count 4.3 X10*3/uL (4.8-10.8)
[2021-11-29 13:07] LABS: Alanine Aminotransferase 46 U/L (0-40); Albumin Level 3.4 g/dL (3.5-5.0); Alkaline Phosphatase 63 U/L (39-117); Anion Gap 10 (12-20); Aspartate Amino Transferase 46 U/L (5-37); Bilirubin Total 0.4 mg/dL (0.0-1.0); Blood Urea Nitrogen 7 mg/dL (9-16); Calcium 9.3 mg/dL (8.4-10.2); Carbon Dioxide 29 mmol/L (22-29); Chloride 105 mmol/L (96-108); Cholesterol 180 mg/dL; Estimated Glomerular Filt Rate > 60; Glucose Random 95 mg/dL (60-115); HDL Cholesterol 39 mg/dL; LDL Cholesterol Calculated 104 mg/dl; Potassium 3.9 mmol/L (3.3-5.1); Sodium 140 mmol/L (135-145); Total Protein 5.7 g/dL (6.5-8.0); Triglycerides 186 mg/dL
[2021-11-29 13:28] LABS: Thyroid Stimulating Hormone 0.87 uIU/mL (0.32-4.0)
== END 2021-11-29 07:45 | disposition home or self-care (01) ==
LOC: HO.LHD 07:44
PROVIDERS: Absent Provider Internal Medicine; Visit Provider Internal Medicine Medical Oncology
DX: C41.9 Malignant neoplasm of bone and articular cartilage, unspecified (principal); E78.5 Hyperlipidemia, unspecified; E03.2 Hypothyroidism due to medicaments and other exogenous substances
CPT/HCPCS: 36415; 80053; 80061; 84443; 85025

== ENCOUNTER 2021-12-13 12:01 | Outpatient (REF) | payer MEDICARE, SELFPAY ==
[2021-12-13 12:25] LABS: MANUAL DIFF FLAG NO
[2021-12-13 12:34] LABS: Basophils Percent Auto 0.2 % (0-2); Eosinophils Absolute Auto 0.1 X10*3/uL (0.0-0.4); Eosinophils Percent Auto 2.3 % (0-4); Hematocrit 40.5 % (42.0-52.0); Hemoglobin 12.6 g/dl (14.0-18.0); Imm Gran Abs Auto 0.01 X10*3/uL (0.00-0.03); Imm Gran Pct Auto 0.2 % (0.0-0.4); Lymphocytes Absolute Auto 2.5 X10*3/uL (1.2-4.9); Lymphocytes Percent Auto 53.4 % (20-40); Mean Corpuscular HGB Conc 31.1 g/dl (31.0-36.0); Mean Corpuscular Hemoglobin 28.6 pg (27.0-33.0); Mean Corpuscular Volume 91.8 fL (80.0-98.0); Mean Platelet Volume 9.7 fL (9.4-12.4); Monocytes Absolute Auto 0.4 X10*3/uL (0.1-1.2); Monocytes Percent Auto 9.4 % (2-11); Neutrophils Absolute Auto 1.6 x10*3/uL (2.0-8.3); Neutrophils Percent Auto 34.5 % (45-73); Platelet Count 210 X10*3/uL (160-400); Red Blood Count 4.41 X10*6/uL (4.60-5.80); Red Cell Distribution Width 20.1 % (11.0-16.0); White Blood Count 4.7 X10*3/uL (4.8-10.8)
[2021-12-13 13:22] LABS: Alanine Aminotransferase 32 U/L (0-40); Albumin Level 3.5 g/dL (3.5-5.0); Alkaline Phosphatase 53 U/L (39-117); Anion Gap 10 (12-20); Aspartate Amino Transferase 34 U/L (5-37); Bilirubin Total 0.5 mg/dL (0.0-1.0); Blood Urea Nitrogen 8 mg/dL (9-16); Calcium 8.4 mg/dL (8.4-10.2); Carbon Dioxide 29 mmol/L (22-29); Chloride 107 mmol/L (96-108); Estimated Glomerular Filt Rate > 60; Glucose Random 81 mg/dL (60-115); Potassium 3.7 mmol/L (3.3-5.1); Sodium 142 mmol/L (135-145); Total Protein 5.7 g/dL (6.5-8.0)
== END 2021-12-13 12:02 | disposition home or self-care (01) ==
LOC: HO.LHD 12:01
PROVIDERS: Visit Provider Internal Medicine Medical Oncology
DX: C41.9 Malignant neoplasm of bone and articular cartilage, unspecified (principal)
CPT/HCPCS: 36415; 80053; 85025

== ENCOUNTER 2021-12-27 12:54 | Outpatient (REF) | payer MEDICARE, SELFPAY ==
[2021-12-27 10:46] LABS: MANUAL DIFF FLAG NO
[2021-12-27 10:50] LABS: Basophils Percent Auto 0.4 % (0-2); Eosinophils Absolute Auto 0.1 X10*3/uL (0.0-0.4); Eosinophils Percent Auto 1.5 % (0-4); Hematocrit 40.3 % (42.0-52.0); Hemoglobin 12.8 g/dl (14.0-18.0); Imm Gran Abs Auto 0.01 X10*3/uL (0.00-0.03); Imm Gran Pct Auto 0.2 % (0.0-0.4); Lymphocytes Absolute Auto 2.5 X10*3/uL (1.2-4.9); Lymphocytes Percent Auto 53.9 % (20-40); Mean Corpuscular HGB Conc 31.8 g/dl (31.0-36.0); Mean Corpuscular Hemoglobin 28.7 pg (27.0-33.0); Mean Corpuscular Volume 90.4 fL (80.0-98.0); Mean Platelet Volume 9.9 fL (9.4-12.4); Monocytes Absolute Auto 0.5 X10*3/uL (0.1-1.2); Monocytes Percent Auto 9.8 % (2-11); Neutrophils Absolute Auto 1.6 x10*3/uL (2.0-8.3); Neutrophils Percent Auto 34.2 % (45-73); Platelet Count 255 X10*3/uL (160-400); Red Blood Count 4.46 X10*6/uL (4.60-5.80); Red Cell Distribution Width 19.7 % (11.0-16.0); White Blood Count 4.6 X10*3/uL (4.8-10.8)
[2021-12-27 11:31] LABS: Alanine Aminotransferase 35 U/L (0-40); Albumin Level 3.4 g/dL (3.5-5.0); Alkaline Phosphatase 54 U/L (39-117); Anion Gap 11 (12-20); Aspartate Amino Transferase 27 U/L (5-37); Bilirubin Total 0.4 mg/dL (0.0-1.0); Blood Urea Nitrogen 7 mg/dL (9-16); Calcium 8.6 mg/dL (8.4-10.2); Carbon Dioxide 28 mmol/L (22-29); Chloride 105 mmol/L (96-108); Estimated Glomerular Filt Rate > 60; Glucose Random 85 mg/dL (60-115); Potassium 3.9 mmol/L (3.3-5.1); Sodium 140 mmol/L (135-145); Total Protein 5.6 g/dL (6.5-8.0)
== END 2021-12-27 12:55 | disposition home or self-care (01) ==
LOC: HO.LHD 12:54
PROVIDERS: Visit Provider Internal Medicine Medical Oncology
DX: C41.9 Malignant neoplasm of bone and articular cartilage, unspecified (principal); K64.8 Other hemorrhoids
CPT/HCPCS: 36415; 46600; 80053; 85025; 99202

== ENCOUNTER 2022-01-10 13:05 | Outpatient (REF) | payer MEDICARE, SELFPAY ==
[2022-01-10 11:41] LABS: MANUAL DIFF FLAG NO
[2022-01-10 11:43] LABS: Basophils Percent Auto 0.4 % (0-2); Eosinophils Absolute Auto 0.1 X10*3/uL (0.0-0.4); Eosinophils Percent Auto 2.3 % (0-4); Hematocrit 38.3 % (42.0-52.0); Hemoglobin 12.1 g/dl (14.0-18.0); Imm Gran Abs Auto 0.01 X10*3/uL (0.00-0.03); Imm Gran Pct Auto 0.2 % (0.0-0.4); Lymphocytes Absolute Auto 2.1 X10*3/uL (1.2-4.9); Lymphocytes Percent Auto 43.4 % (20-40); Mean Corpuscular HGB Conc 31.6 g/dl (31.0-36.0); Mean Corpuscular Hemoglobin 28.9 pg (27.0-33.0); Mean Corpuscular Volume 91.4 fL (80.0-98.0); Mean Platelet Volume 9.6 fL (9.4-12.4); Monocytes Absolute Auto 0.4 X10*3/uL (0.1-1.2); Monocytes Percent Auto 8.3 % (2-11); Neutrophils Absolute Auto 2.2 x10*3/uL (2.0-8.3); Neutrophils Percent Auto 45.4 % (45-73); Platelet Count 213 X10*3/uL (160-400); Red Blood Count 4.19 X10*6/uL (4.60-5.80); Red Cell Distribution Width 19.8 % (11.0-16.0); White Blood Count 4.8 X10*3/uL (4.8-10.8)
[2022-01-10 12:34] LABS: Alanine Aminotransferase 22 U/L (0-40); Albumin Level 3.4 g/dL (3.5-5.0); Alkaline Phosphatase 46 U/L (39-117); Anion Gap 11 (12-20); Aspartate Amino Transferase 22 U/L (5-37); Bilirubin Total 0.3 mg/dL (0.0-1.0); Blood Urea Nitrogen 10 mg/dL (9-16); Calcium 9.1 mg/dL (8.4-10.2); Carbon Dioxide 31 mmol/L (22-29); Chloride 105 mmol/L (96-108); Estimated Glomerular Filt Rate > 60; Glucose Random 83 mg/dL (60-115); Potassium 3.6 mmol/L (3.3-5.1); Sodium 143 mmol/L (135-145); Total Protein 5.4 g/dL (6.5-8.0)
== END 2022-01-10 13:06 | disposition home or self-care (01) ==
LOC: HO.LHD 13:05
PROVIDERS: Visit Provider Internal Medicine Medical Oncology
DX: C41.9 Malignant neoplasm of bone and articular cartilage, unspecified (principal)
CPT/HCPCS: 36415; 80053; 85025

== ENCOUNTER 2022-01-24 12:08 | Outpatient (REF) | payer MEDICARE, SELFPAY ==
[2022-01-24 12:49] LABS: MANUAL DIFF FLAG NO
[2022-01-24 12:52] LABS: Basophils Percent Auto 0.4 % (0-2); Eosinophils Absolute Auto 0.1 X10*3/uL (0.0-0.4); Eosinophils Percent Auto 2.2 % (0-4); Hematocrit 38.7 % (42.0-52.0); Hemoglobin 11.8 g/dl (14.0-18.0); Imm Gran Abs Auto 0.01 X10*3/uL (0.00-0.03); Imm Gran Pct Auto 0.2 % (0.0-0.4); Lymphocytes Absolute Auto 2.1 X10*3/uL (1.2-4.9); Lymphocytes Percent Auto 44.5 % (20-40); Mean Corpuscular HGB Conc 30.5 g/dl (31.0-36.0); Mean Corpuscular Hemoglobin 28.2 pg (27.0-33.0); Mean Corpuscular Volume 92.6 fL (80.0-98.0); Mean Platelet Volume 9.2 fL (9.4-12.4); Monocytes Absolute Auto 0.4 X10*3/uL (0.1-1.2); Monocytes Percent Auto 8.9 % (2-11); Neutrophils Percent Auto 43.8 % (45-73); Platelet Count 229 X10*3/uL (160-400); Red Blood Count 4.18 X10*6/uL (4.60-5.80); Red Cell Distribution Width 18.9 % (11.0-16.0); White Blood Count 4.6 X10*3/uL (4.8-10.8)
[2022-01-24 13:53] LABS: Alanine Aminotransferase 29 U/L (0-40); Albumin Level 3.3 g/dL (3.5-5.0); Alkaline Phosphatase 49 U/L (39-117); Anion Gap 10 (12-20); Aspartate Amino Transferase 24 U/L (5-37); Bilirubin Total 0.3 mg/dL (0.0-1.0); Blood Urea Nitrogen 12 mg/dL (9-16); Calcium 8.4 mg/dL (8.4-10.2); Carbon Dioxide 29 mmol/L (22-29); Chloride 106 mmol/L (96-108); Estimated Glomerular Filt Rate > 60; Glucose Random 100 mg/dL (60-115); Potassium 3.8 mmol/L (3.3-5.1); Sodium 141 mmol/L (135-145); Total Protein 5.2 g/dL (6.5-8.0)
== END 2022-01-24 12:09 | disposition home or self-care (01) ==
LOC: HO.LHD 12:08
PROVIDERS: Visit Provider Internal Medicine Medical Oncology
DX: C79.51 Secondary malignant neoplasm of bone (principal)
CPT/HCPCS: 36415; 80053; 85025

== ENCOUNTER 2022-01-25 09:02 | Outpatient (REF) | payer MEDICARE, SELFPAY ==
--- NOTE | ~2022-01-25 | CT_ITS ---
EXAMINATION: CT CHEST, ABDOMEN AND PELVIS WITH CONTRAST CLINICAL INFORMATION: Clear cell carcinoma with pulmonary metastases COMPARISON: CT chest abdomen pelvis 05/30/2021 TECHNIQUE: Multidetector volumetric imaging was performed of the chest, abdomen and pelvis following administration of 85 mL of Omnipaque 350. Oral contrast was administered. Sagittal and coronal reformatted images were obtained on the technologist's workstation. This CT examination was performed using dose optimization techniques as appropriate, variously including the following: *Automated exposure control *Adjustment of mA and/or kV according to patient size (this includes techniques or standardized protocols for targeted exams where dose is matched to indication/reason for exam; i.e. extremities or head) *Use of iterative reconstruction technique DLP: 605 mGy-cm FINDINGS: CHEST WALL: Unremarkable. ABDOMINAL AND PELVIC WALL: Similar subcutaneous fat stranding in the left flank. AXILLA: No lymphadenopathy. MEDIASTINUM: Heart is normal in size. No mediastinal lymphadenopathy. No hilar lymphadenopathy. PLEURA: Similar appearance of a small loculated left pleural effusion. Nodular enhancing soft tissue along the left pleura appears morphologically similar to prior difficult to currently measure and appears to invade the intercostal muscles posteriorly, 3:51. LIVER AND BILIARY TREE: Stable subcentimeter hepatic hypodensities too small to characterize. GALLBLADDER: Unremarkable PANCREAS: Unremarkable SPLEEN: Accessory splenules noted. ADRENAL GLANDS: Unremarkable. KIDNEYS AND URETERS: Benign-appearing Bosniak 1 left renal cyst, no imaging follow-up recommended. Subcentimeter right renal hypodensities too small to characterize similar to prior. Post surgical changes of left upper pole partial nephrectomy without findings to suggest residual disease. Similar appearance of linear left perinephric stranding. UPPER GASTROINTESTINAL TRACT: The stomach and duodenum are unremarkable. VASCULAR: Left-sided IVC. ABDOMINOPELVIC LYMPH NODES: No lymphadenopathy. FREE FLUID: No free fluid. BLADDER: Unremarkable PELVIC VISCERA: Unremarkable LOWER GASTROINTESTINAL TRACT: Colonic diverticulosis without evidence of diverticulitis. OSSEOUS STRUCTURES: Stable lytic lesions involving the left third, 9:184, and fourth ribs, 9:126. Redemonstration of a mixed lytic and sclerotic osseous metastasis involving the inferior pubic ramus/ischium partially imaged on today's exam, with a pathologic fracture previously seen excluded from the [id number]. LUNGS: Stable small solid pulmonary nodules measuring up to 5 mm a subpleural right lower lobe pulmonary nodule, 9:206. No new pulmonary nodule. CT/CT abdomen pelvis w con IMPRESSION: Similar appearance of a small loculated left pleural effusion and with enhancing soft tissue pleural nodularity consistent with pleural metastases which appears to invade the intercostal muscles posteriorly. Stable osseous metastases involving the left ribs. Similar appearance of the metastasis involving the right inferior pubic ramus/ischium, however is only partially imaged on today's exam with a pathologic fracture previously seen excluded from the [id number]. Few small solid pulmonary nodules measuring up to 5 mm. No new pulmonary nodule.
--- NOTE | ~2022-01-25 | CT_ITS ---
EXAMINATION: CT CHEST, ABDOMEN AND PELVIS WITH CONTRAST CLINICAL INFORMATION: Clear cell carcinoma with pulmonary metastases COMPARISON: CT chest abdomen pelvis 05/30/2021 TECHNIQUE: Multidetector volumetric imaging was performed of the chest, abdomen and pelvis following administration of 85 mL of Omnipaque 350. Oral contrast was administered. Sagittal and coronal reformatted images were obtained on the technologist's workstation. This CT examination was performed using dose optimization techniques as appropriate, variously including the following: *Automated exposure control *Adjustment of mA and/or kV according to patient size (this includes techniques or standardized protocols for targeted exams where dose is matched to indication/reason for exam; i.e. extremities or head) *Use of iterative reconstruction technique DLP: 605 mGy-cm FINDINGS: CHEST WALL: Unremarkable. ABDOMINAL AND PELVIC WALL: Similar subcutaneous fat stranding in the left flank. AXILLA: No lymphadenopathy. MEDIASTINUM: Heart is normal in size. No mediastinal lymphadenopathy. No hilar lymphadenopathy. PLEURA: Similar appearance of a small loculated left pleural effusion. Nodular enhancing soft tissue along the left pleura appears morphologically similar to prior difficult to currently measure and appears to invade the intercostal muscles posteriorly, 3:51. LIVER AND BILIARY TREE: Stable subcentimeter hepatic hypodensities too small to characterize. GALLBLADDER: Unremarkable PANCREAS: Unremarkable SPLEEN: Accessory splenules noted. ADRENAL GLANDS: Unremarkable. KIDNEYS AND URETERS: Benign-appearing Bosniak 1 left renal cyst, no imaging follow-up recommended. Subcentimeter right renal hypodensities too small to characterize similar to prior. Post surgical changes of left upper pole partial nephrectomy without findings to suggest residual disease. Similar appearance of linear left perinephric stranding. UPPER GASTROINTESTINAL TRACT: The stomach and duodenum are unremarkable. VASCULAR: Left-sided IVC. ABDOMINOPELVIC LYMPH NODES: No lymphadenopathy. FREE FLUID: No free fluid. BLADDER: Unremarkable PELVIC VISCERA: Unremarkable LOWER GASTROINTESTINAL TRACT: Colonic diverticulosis without evidence of diverticulitis. OSSEOUS STRUCTURES: Stable lytic lesions involving the left third, 9:184, and fourth ribs, 9:126. Redemonstration of a mixed lytic and sclerotic osseous metastasis involving the inferior pubic ramus/ischium partially imaged on today's exam, with a pathologic fracture previously seen excluded from the [id number]. LUNGS: Stable small solid pulmonary nodules measuring up to 5 mm a subpleural right lower lobe pulmonary nodule, 9:206. No new pulmonary nodule. CT/CT chest w con IMPRESSION: Similar appearance of a small loculated left pleural effusion and with enhancing soft tissue pleural nodularity consistent with pleural metastases which appears to invade the intercostal muscles posteriorly. Stable osseous metastases involving the left ribs. Similar appearance of the metastasis involving the right inferior pubic ramus/ischium, however is only partially imaged on today's exam with a pathologic fracture previously seen excluded from the [id number]. Few small solid pulmonary nodules measuring up to 5 mm. No new pulmonary nodule.
[2022-01-25] MEDS: iohexoL 350 MG/ML 100 ML INFUS..BTL 85 ML IV (11:29)
== END 2022-01-25 09:03 | disposition home or self-care (01) ==
LOC: HO.CT 09:02
PROVIDERS: Visit Provider Internal Medicine Medical Oncology
DX: C64.9 Malignant neoplasm of unspecified kidney, except renal pelvis (principal); Z12.11 Encounter for screening for malignant neoplasm of colon
CPT/HCPCS: 71260; 74177; Q9967

== ENCOUNTER 2022-02-07 10:59 | Outpatient (REF) | payer MEDICARE, SELFPAY ==
[2022-02-07 10:44] LABS: MANUAL DIFF FLAG NO
[2022-02-07 10:47] LABS: Basophils Percent Auto 0.2 % (0-2); Eosinophils Absolute Auto 0.1 X10*3/uL (0.0-0.4); Hematocrit 38.5 % (42.0-52.0); Hemoglobin 12.2 g/dl (14.0-18.0); Imm Gran Abs Auto 0.01 X10*3/uL (0.00-0.03); Imm Gran Pct Auto 0.2 % (0.0-0.4); Lymphocytes Absolute Auto 2.4 X10*3/uL (1.2-4.9); Lymphocytes Percent Auto 53.7 % (20-40); Mean Corpuscular HGB Conc 31.7 g/dl (31.0-36.0); Mean Corpuscular Hemoglobin 29.3 pg (27.0-33.0); Mean Corpuscular Volume 92.3 fL (80.0-98.0); Mean Platelet Volume 9.2 fL (9.4-12.4); Monocytes Absolute Auto 0.4 X10*3/uL (0.1-1.2); Monocytes Percent Auto 8.5 % (2-11); Neutrophils Absolute Auto 1.6 x10*3/uL (2.0-8.3); Neutrophils Percent Auto 35.4 % (45-73); Platelet Count 224 X10*3/uL (160-400); Red Blood Count 4.17 X10*6/uL (4.60-5.80); Red Cell Distribution Width 18.7 % (11.0-16.0); White Blood Count 4.5 X10*3/uL (4.8-10.8)
[2022-02-07 12:35] LABS: Alanine Aminotransferase 16 U/L (0-40); Albumin Level 3.3 g/dL (3.5-5.0); Alkaline Phosphatase 43 U/L (39-117); Anion Gap 10 (12-20); Aspartate Amino Transferase 15 U/L (5-37); Bilirubin Total 0.3 mg/dL (0.0-1.0); Blood Urea Nitrogen 11 mg/dL (9-16); Calcium 9.2 mg/dL (8.4-10.2); Carbon Dioxide 32 mmol/L (22-29); Chloride 105 mmol/L (96-108); Estimated Glomerular Filt Rate > 60; Glucose Random 80 mg/dL (60-115); Sodium 143 mmol/L (135-145); Total Protein 5.3 g/dL (6.5-8.0)
== END 2022-02-07 11:00 | disposition home or self-care (01) ==
LOC: HO.LHD 10:59
PROVIDERS: Visit Provider Internal Medicine Medical Oncology
DX: C79.00 Secondary malignant neoplasm of unspecified kidney and renal pelvis (principal)
CPT/HCPCS: 36415; 80053; 85025

== ENCOUNTER 2022-02-15 09:53 | Outpatient (REF) | payer MEDICARE, SELFPAY ==
[2022-02-15 12:30] LABS: Free T4 (Free Thyroxine) 1.37 ng/dL (0.71-1.85); Thyroid Stimulating Hormone 1.61 uIU/mL (0.32-4.0)
[2022-02-16 19:32] LABS: Thyroid Peroxidase Antibodies <1 IU/mL (<9)
== END 2022-02-15 09:54 | disposition home or self-care (01) ==
LOC: HO.LAB 09:53
PROVIDERS: PCP Internal Medicine; Visit Provider Internal Medicine Endocrinology, Diabetes & Metabolism
DX: E27.3 Drug-induced adrenocortical insufficiency (principal); E03.9 Hypothyroidism, unspecified; E03.2 Hypothyroidism due to medicaments and other exogenous substances
CPT/HCPCS: 36415; 84439; 84443; 86376; 99212

== ENCOUNTER → 2022-02-19 09:55 | Outpatient (BNVA) | payer MEDICARE, SELFPAY | PROVIDERS: PCP Internal Medicine; Referring Provider Internal Medicine; Visit Provider Internal Medicine Gastroenterology | DX: K64.9 Unspecified hemorrhoids (principal) | CPT/HCPCS: 99212 ==

== ENCOUNTER 2022-02-21 10:33 | Outpatient (REF) | payer MEDICARE, SELFPAY ==
[2022-02-21 10:21] LABS: MANUAL DIFF FLAG NO
[2022-02-21 10:22] LABS: Basophils Percent Auto 0.4 % (0-2); Eosinophils Absolute Auto 0.1 X10*3/uL (0.0-0.4); Eosinophils Percent Auto 1.5 % (0-4); Hematocrit 39.7 % (42.0-52.0); Hemoglobin 12.5 g/dl (14.0-18.0); Imm Gran Abs Auto 0.01 X10*3/uL (0.00-0.03); Imm Gran Pct Auto 0.2 % (0.0-0.4); Lymphocytes Absolute Auto 2.5 X10*3/uL (1.2-4.9); Lymphocytes Percent Auto 53.3 % (20-40); Mean Corpuscular HGB Conc 31.5 g/dl (31.0-36.0); Mean Corpuscular Hemoglobin 29.4 pg (27.0-33.0); Mean Corpuscular Volume 93.4 fL (80.0-98.0); Mean Platelet Volume 9.2 fL (9.4-12.4); Monocytes Absolute Auto 0.4 X10*3/uL (0.1-1.2); Monocytes Percent Auto 9.2 % (2-11); Neutrophils Absolute Auto 1.7 x10*3/uL (2.0-8.3); Neutrophils Percent Auto 35.4 % (45-73); Platelet Count 246 X10*3/uL (160-400); Red Blood Count 4.25 X10*6/uL (4.60-5.80); Red Cell Distribution Width 18.2 % (11.0-16.0); White Blood Count 4.7 X10*3/uL (4.8-10.8)
[2022-02-21 10:42] LABS: Alanine Aminotransferase 28 U/L (0-40); Albumin Level 3.6 g/dL (3.5-5.0); Alkaline Phosphatase 52 U/L (39-117); Anion Gap 12 (12-20); Aspartate Amino Transferase 27 U/L (5-37); Bilirubin Total 0.5 mg/dL (0.0-1.0); Blood Urea Nitrogen 11 mg/dL (9-16); Carbon Dioxide 29 mmol/L (22-29); Chloride 105 mmol/L (96-108); Estimated Glomerular Filt Rate > 60; Glucose Random 82 mg/dL (60-115); Potassium 3.6 mmol/L (3.3-5.1); Sodium 142 mmol/L (135-145); Total Protein 5.8 g/dL (6.5-8.0)
== END 2022-02-21 10:34 | disposition home or self-care (01) ==
LOC: HO.LHD 10:33
PROVIDERS: Visit Provider Internal Medicine Medical Oncology
DX: C64.9 Malignant neoplasm of unspecified kidney, except renal pelvis (principal)
CPT/HCPCS: 36415; 80053; 85025

== ENCOUNTER 2022-03-07 12:57 | Outpatient (REF) | payer MEDICARE, SELFPAY ==
[2022-03-07 12:24] LABS: MANUAL DIFF FLAG NO
[2022-03-07 12:27] LABS: Basophils Percent Auto 0.5 % (0-2); Eosinophils Absolute Auto 0.1 X10*3/uL (0.0-0.4); Hematocrit 38.9 % (42.0-52.0); Hemoglobin 12.4 g/dl (14.0-18.0); Lymphocytes Percent Auto 49.8 % (20-40); Mean Corpuscular HGB Conc 31.9 g/dl (31.0-36.0); Mean Corpuscular Volume 94.2 fL (80.0-98.0); Mean Platelet Volume 9.3 fL (9.4-12.4); Monocytes Absolute Auto 0.4 X10*3/uL (0.1-1.2); Monocytes Percent Auto 9.4 % (2-11); Neutrophils Absolute Auto 1.6 x10*3/uL (2.0-8.3); Neutrophils Percent Auto 38.3 % (45-73); Platelet Count 215 X10*3/uL (160-400); Red Blood Count 4.13 X10*6/uL (4.60-5.80); Red Cell Distribution Width 17.2 % (11.0-16.0); White Blood Count 4.1 X10*3/uL (4.8-10.8)
[2022-03-07 13:05] LABS: Alanine Aminotransferase 30 U/L (0-40); Albumin Level 3.3 g/dL (3.5-5.0); Alkaline Phosphatase 58 U/L (39-117); Anion Gap 9 (12-20); Aspartate Amino Transferase 23 U/L (5-37); Bilirubin Total 0.4 mg/dL (0.0-1.0); Blood Urea Nitrogen 10 mg/dL (9-16); Calcium 8.6 mg/dL (8.4-10.2); Carbon Dioxide 31 mmol/L (22-29); Chloride 109 mmol/L (96-108); Estimated Glomerular Filt Rate > 60; Glucose Random 110 mg/dL (60-115); Sodium 145 mmol/L (135-145); Total Protein 5.4 g/dL (6.5-8.0)
== END 2022-03-07 12:58 | disposition home or self-care (01) ==
LOC: HO.LHD 12:57
PROVIDERS: Visit Provider Internal Medicine Medical Oncology
DX: C79.00 Secondary malignant neoplasm of unspecified kidney and renal pelvis (principal)
CPT/HCPCS: 36415; 80053; 85025

== ENCOUNTER 2022-03-15 10:33 | Outpatient (REF) | payer MEDICARE, SELFPAY ==
--- NOTE | ~2022-03-15 | XR_ITS ---
EXAMINATION: XR SHOULDER, RIGHT CLINICAL INFORMATION: Right shoulder pain. COMPARISON: None TECHNIQUE: AP external rotation, Grashey, scapular Y, and axillary views of the right shoulder. FINDINGS: Mild right acromioclavicular degenerative joint changes. The right glenohumeral joint is intact but there is no acute fracture or dislocation. Minimal calcification is seen at the rotator cuff insertion. The soft tissues are unremarkable. XR/XR shoulder RT min 2V IMPRESSION: Mild right acromioclavicular degenerative joint changes without acute abnormality.
--- NOTE | ~2022-03-15 | XR_ITS ---
EXAMINATION: XR SHOULDER, LEFT CLINICAL INFORMATION: Left shoulder pain. COMPARISON: None TECHNIQUE: AP external rotation, Grashey, scapular Y, and axillary views of the left shoulder. FINDINGS: Mild left acromioclavicular degenerative joint changes are seen. There is no acute fracture or dislocation. The left glenohumeral joint is intact. The soft tissues are unremarkable. XR/XR shoulder LT min 2V IMPRESSION: Mild left acromioclavicular degenerative joint changes. No acute fracture
== END 2022-03-15 10:34 | disposition home or self-care (01) ==
LOC: HO.XRAY 10:33
PROVIDERS: PCP Internal Medicine; Visit Provider Internal Medicine
DX: M25.511 Pain in right shoulder (principal); M25.512 Pain in left shoulder
CPT/HCPCS: 73030

== ENCOUNTER 2022-03-21 12:20 | Outpatient (REF) | payer MEDICARE, SELFPAY ==
[2022-03-21 10:50] LABS: MANUAL DIFF FLAG NO
[2022-03-21 10:52] LABS: Basophils Percent Auto 0.4 % (0-2); Eosinophils Absolute Auto 0.1 X10*3/uL (0.0-0.4); Eosinophils Percent Auto 1.4 % (0-4); Hematocrit 39.6 % (42.0-52.0); Hemoglobin 12.3 g/dl (14.0-18.0); Imm Gran Abs Auto 0.02 X10*3/uL (0.00-0.03); Imm Gran Pct Auto 0.4 % (0.0-0.4); Lymphocytes Absolute Auto 2.3 X10*3/uL (1.2-4.9); Lymphocytes Percent Auto 46.6 % (20-40); Mean Corpuscular HGB Conc 31.1 g/dl (31.0-36.0); Mean Corpuscular Hemoglobin 28.9 pg (27.0-33.0); Mean Platelet Volume 9.3 fL (9.4-12.4); Monocytes Absolute Auto 0.5 X10*3/uL (0.1-1.2); Monocytes Percent Auto 9.4 % (2-11); Neutrophils Absolute Auto 2.1 x10*3/uL (2.0-8.3); Neutrophils Percent Auto 41.8 % (45-73); Platelet Count 247 X10*3/uL (160-400); Red Blood Count 4.26 X10*6/uL (4.60-5.80); Red Cell Distribution Width 17.4 % (11.0-16.0); White Blood Count 4.9 X10*3/uL (4.8-10.8)
[2022-03-21 12:05] LABS: Cholesterol 183 mg/dL; HDL Cholesterol 35 mg/dL; LDL Cholesterol Calculated 126 mg/dl; Triglycerides 110 mg/dL
[2022-03-21 12:07] LABS: Alanine Aminotransferase 18 U/L (0-40); Albumin Level 3.3 g/dL (3.5-5.0); Alkaline Phosphatase 51 U/L (39-117); Anion Gap 11 (12-20); Aspartate Amino Transferase 19 U/L (5-37); Bilirubin Total 0.3 mg/dL (0.0-1.0); Blood Urea Nitrogen 11 mg/dL (9-16); Calcium 8.6 mg/dL (8.4-10.2); Carbon Dioxide 28 mmol/L (22-29); Chloride 106 mmol/L (96-108); Estimated Glomerular Filt Rate > 60; Glucose Random 89 mg/dL (60-115); Potassium 3.9 mmol/L (3.3-5.1); Sodium 141 mmol/L (135-145); Total Protein 5.4 g/dL (6.5-8.0)
== END 2022-03-21 12:21 | disposition home or self-care (01) ==
LOC: HO.LHD 12:20
PROVIDERS: Internal Medicine; Visit Provider Internal Medicine Medical Oncology
DX: C64.9 Malignant neoplasm of unspecified kidney, except renal pelvis (principal); E78.5 Hyperlipidemia, unspecified
CPT/HCPCS: 36415; 80053; 80061; 85025

== ENCOUNTER 2022-04-04 13:31 | Outpatient (REF) | payer MEDICARE, SELFPAY ==
[2022-04-04 09:46] LABS: MANUAL DIFF FLAG NO
[2022-04-04 09:49] LABS: Basophils Percent Auto 0.3 % (0-2); Eosinophils Absolute Auto 0.1 X10*3/uL (0.0-0.4); Eosinophils Percent Auto 2.4 % (0-4); Hematocrit 37.6 % (42.0-52.0); Hemoglobin 11.8 g/dl (14.0-18.0); Lymphocytes Percent Auto 52.8 % (20-40); Mean Corpuscular HGB Conc 31.4 g/dl (31.0-36.0); Mean Corpuscular Hemoglobin 29.4 pg (27.0-33.0); Mean Corpuscular Volume 93.5 fL (80.0-98.0); Mean Platelet Volume 9.4 fL (9.4-12.4); Monocytes Absolute Auto 0.5 X10*3/uL (0.1-1.2); Monocytes Percent Auto 13.2 % (2-11); Neutrophils Absolute Auto 1.2 x10*3/uL (2.0-8.3); Neutrophils Percent Auto 31.3 % (45-73); Platelet Count 246 X10*3/uL (160-400); Red Blood Count 4.02 X10*6/uL (4.60-5.80); Red Cell Distribution Width 17.1 % (11.0-16.0); White Blood Count 3.8 X10*3/uL (4.8-10.8)
[2022-04-04 10:28] LABS: Alanine Aminotransferase 18 U/L (0-40); Albumin Level 3.1 g/dL (3.5-5.0); Alkaline Phosphatase 48 U/L (39-117); Anion Gap 11 (12-20); Aspartate Amino Transferase 19 U/L (5-37); Bilirubin Total 0.2 mg/dL (0.0-1.0); Blood Urea Nitrogen 8 mg/dL (9-16); Calcium 8.5 mg/dL (8.4-10.2); Carbon Dioxide 28 mmol/L (22-29); Chloride 108 mmol/L (96-108); Estimated Glomerular Filt Rate > 60; Glucose Random 82 mg/dL (60-115); Potassium 3.8 mmol/L (3.3-5.1); Sodium 143 mmol/L (135-145); Total Protein 5.2 g/dL (6.5-8.0)
[2022-04-04 10:44] LABS: Free T4 (Free Thyroxine) 1.22 ng/dL (0.71-1.85); Thyroid Stimulating Hormone 1.74 uIU/mL (0.32-4.0)
== END 2022-04-04 13:32 | disposition home or self-care (01) ==
LOC: HO.LHD 13:31
PROVIDERS: Internal Medicine Endocrinology, Diabetes & Metabolism; Visit Provider Internal Medicine Medical Oncology
DX: E03.2 Hypothyroidism due to medicaments and other exogenous substances (principal); C64.9 Malignant neoplasm of unspecified kidney, except renal pelvis
CPT/HCPCS: 36415; 80053; 84439; 84443; 85025

== ENCOUNTER 2022-04-18 07:55 | Outpatient (REF) | payer MEDICARE, SELFPAY ==
[2022-04-18 12:13] LABS: MANUAL DIFF FLAG NO
[2022-04-18 12:17] LABS: Basophils Percent Auto 0.4 % (0-2); Eosinophils Absolute Auto 0.1 X10*3/uL (0.0-0.4); Eosinophils Percent Auto 1.8 % (0-4); Hematocrit 37.9 % (42.0-52.0); Hemoglobin 11.5 g/dl (14.0-18.0); Lymphocytes Percent Auto 43.1 % (20-40); Mean Corpuscular HGB Conc 30.3 g/dl (31.0-36.0); Mean Corpuscular Hemoglobin 28.2 pg (27.0-33.0); Mean Corpuscular Volume 92.9 fL (80.0-98.0); Mean Platelet Volume 9.5 fL (9.4-12.4); Monocytes Absolute Auto 0.6 X10*3/uL (0.1-1.2); Neutrophils Percent Auto 42.7 % (45-73); Platelet Count 248 X10*3/uL (160-400); Red Blood Count 4.08 X10*6/uL (4.60-5.80); Red Cell Distribution Width 17.1 % (11.0-16.0); White Blood Count 4.6 X10*3/uL (4.8-10.8)
[2022-04-18 13:06] LABS: Alanine Aminotransferase 14 U/L (0-40); Albumin Level 3.1 g/dL (3.5-5.0); Alkaline Phosphatase 49 U/L (39-117); Anion Gap 13 (12-20); Aspartate Amino Transferase 18 U/L (5-37); Bilirubin Total < 0.2 mg/dL (0.0-1.0); Blood Urea Nitrogen 8 mg/dL (9-16); Calcium 8.1 mg/dL (8.4-10.2); Carbon Dioxide 25 mmol/L (22-29); Chloride 106 mmol/L (96-108); Estimated Glomerular Filt Rate > 60; Glucose Random 78 mg/dL (60-115); Potassium 3.6 mmol/L (3.3-5.1); Sodium 140 mmol/L (135-145)
== END 2022-04-18 07:56 | disposition home or self-care (01) ==
LOC: HO.LHD 07:55
PROVIDERS: Visit Provider Internal Medicine Medical Oncology
DX: C79.00 Secondary malignant neoplasm of unspecified kidney and renal pelvis (principal)
CPT/HCPCS: 36415; 80053; 85025

== ENCOUNTER 2022-04-19 10:05 | Outpatient (RCR) | payer MEDICARE, SELFPAY ==
--- NOTE | 2022-04-19 15:20 | MHC.PT.EP ---
[facility] [place] Office [place] Office [place] Office [address] Cade Belcher [address] [phone] F: [phone] F: [phone] F: [phone] F: [phone] Physical Therapy Plan of Care Date of Evaluation: Date of Surgery: NA Diagnosis: Pain in right shoulder and lumbar pain Assessment: Bryson is a 77 yo M referred to PT for Pain in right shoulder and lumbar pain. Upon examination he presents with L shoulder pain. He is unable to reach overhead, dress himself daily, and wood work. His impairments include gross B shoulder weakness, limited ROM with L shoulder flexion and abduction, and decreased UE strength. Patient will benefit from PT to increase shoulder ROM and strength, increase UE strength, and increase postural awareness. Frequency and Duration: The patient will be seen 2/week for 6 weeks Short Term Goals: Patient will demonstrate improved posture to decrease strain on shoulder in 3 weeks. Patient will demonstrate a 25* increase in shoulder ABD and FLEX to promote use of L UE for dressing in 3 weeks. Clubhouse Attendant Goals: Patient will demonstrate I with HEP to allow for self pain management and promote ability to maintain functional capabilities in 6 weeks. Patient will demonstrate a 20% decrease in pain to allow him to sleep with less disturbances in 6 weeks Patient will demonstrate a 1/2 grade increase in shoulder strength to allow for return to PLOF in 6 weeks. Treatment Plan: Modalities to reduce pain, spasms and effusion. Manual therapy to restore motion and function. Therapeutic exercise to improve strength and flexibility. Neuromuscular re-education for posture and balance. Therapeutic activities to return to functional activities of daily living. Electronically signed by: Jessica Syed PT DPT Please sign and return to therapist. Thank you for your referral.
--- NOTE | 2022-05-30 14:47 | MHC.PT.DC ---
[facility] [place] Office [place] Office [place] Office [address] Cade Belcher [address] [phone] F: [phone] F: [phone] F: [phone] F: [phone] Physical Therapy Discharge Report Diagnosis: Pain in right shoulder and lumbar pain Date of Surgery: NA Date of Evaluation: 04/19/22 Date of Discharge: 05/30/22 Treatments to Date: 1 Cancellations to Date: No Shows to Date: Discharge Status: Patient Elected to Stop Discharge Summary: Bryson started with home PT. He was therefore d/c from outpatient PT Electronically signed by: Jessica Syed PT DPT Please sign and return to therapist. Thank you for your referral.
== END 2022-05-30 14:47 | disposition home or self-care (01) ==
LOC: HO.PT 10:05
PROVIDERS: PCP Internal Medicine; Visit Provider Internal Medicine
DX: M25.511 Pain in right shoulder (principal)
CPT/HCPCS: 97110; 97162

== ENCOUNTER 2022-05-01 16:58 | Outpatient (REF) | payer MEDICARE, SELFPAY ==
--- NOTE | ~2022-05-01 | XR_ITS ---
EXAMINATION: XR CHEST CLINICAL INFORMATION: Cough COMPARISON: Previous chest x-rays most recent November [address] January 2022 TECHNIQUE: 2 views of the chest were obtained. FINDINGS: The cardiac and mediastinal contours are stable. There is a small loculated left pleural effusion. This does not appear appreciably changed. The lungs are otherwise clear. There is no right pleural effusion. There is no pneumothorax. There are degenerative changes of the spine. Lytic left rib lesions not appreciated by chest x-ray. XR/XR chest 2V IMPRESSION: No change in the small loculated left pleural effusion from previous exams.
== END 2022-05-01 16:59 | disposition home or self-care (01) ==
LOC: HO.XRAY 16:58
PROVIDERS: PCP Internal Medicine; Visit Provider Internal Medicine
DX: R05.9 Cough, unspecified (principal)
CPT/HCPCS: 71046

== ENCOUNTER 2022-05-03 07:22 | Outpatient (REF) | payer MEDICARE, SELFPAY ==
[2022-05-02 10:50] LABS: MANUAL DIFF FLAG NO
[2022-05-02 10:55] LABS: Eosinophils Absolute Auto 0.1 X10*3/uL (0.0-0.4); Hematocrit 36.6 % (42.0-52.0); Hemoglobin 11.6 g/dl (14.0-18.0); Imm Gran Abs Auto 0.01 X10*3/uL (0.00-0.03); Imm Gran Pct Auto 0.3 % (0.0-0.4); Lymphocytes Absolute Auto 1.7 X10*3/uL (1.2-4.9); Lymphocytes Percent Auto 47.3 % (20-40); Mean Corpuscular HGB Conc 31.7 g/dl (31.0-36.0); Mean Corpuscular Hemoglobin 27.8 pg (27.0-33.0); Mean Corpuscular Volume 87.6 fL (80.0-98.0); Mean Platelet Volume 9.2 fL (9.4-12.4); Monocytes Absolute Auto 0.4 X10*3/uL (0.1-1.2); Monocytes Percent Auto 12.3 % (2-11); Neutrophils Absolute Auto 1.3 x10*3/uL (2.0-8.3); Neutrophils Percent Auto 36.1 % (45-73); Platelet Count 212 X10*3/uL (160-400); Red Blood Count 4.18 X10*6/uL (4.60-5.80); White Blood Count 3.5 X10*3/uL (4.8-10.8)
[2022-05-02 11:27] LABS: Alanine Aminotransferase 17 U/L (0-40); Albumin Level 3.1 g/dL (3.5-5.0); Alkaline Phosphatase 48 U/L (39-117); Anion Gap 10 (12-20); Aspartate Amino Transferase 37 U/L (5-37); Bilirubin Total 0.4 mg/dL (0.0-1.0); Blood Urea Nitrogen 9 mg/dL (9-16); Calcium 8.3 mg/dL (8.4-10.2); Carbon Dioxide 28 mmol/L (22-29); Chloride 99 mmol/L (96-108); Estimated Glomerular Filt Rate > 60; Glucose Random 87 mg/dL (60-115); Potassium 3.6 mmol/L (3.3-5.1); Sodium 133 mmol/L (135-145); Total Protein 5.2 g/dL (6.5-8.0)
[2022-05-02 11:43] LABS: Influenza A PCR NEGATIVE (Negative); Influenza B PCR NEGATIVE (Negative); Resp Syncy Virus RNA Qual PCR NEGATIVE (Negative); SARS COV2 PCR INHOUSE NEGATIVE (Negative)
== END 2022-05-03 07:23 | disposition home or self-care (01) ==
LOC: HO.LHD 07:22
PROVIDERS: Internal Medicine; Visit Provider Internal Medicine Medical Oncology
DX: Z20.822 Contact with and (suspected) exposure to COVID-19 (principal); R05.9 Cough, unspecified; C64.9 Malignant neoplasm of unspecified kidney, except renal pelvis
CPT/HCPCS: 0241U; 36415; 80053; 85025

== ENCOUNTER 2022-05-08 10:44 | Emergency (ER) | payer MEDICARE, SELFPAY ==
--- NOTE | 2022-05-08 | ECG_ITS ---
Test Reason : VOMITING BLOOD Blood Pressure : / mmHG Vent. Rate : 076 BPM Atrial Rate : 076 BPM P-R Int : 126 ms QRS Dur : 126 ms QT Int : 374 ms P-R-T Axes : 062 007 061 degrees QTc Int : 420 ms Normal sinus rhythm Non-specific intra-ventricular conduction block Nonspecific T wave abnormality Abnormal ECG When compared with ECG of 21-JUN-2021 12:26, No significant changes seen Referred By: Generic ED Physician Electronically Signed By:CÉSAR LEBRON
--- NOTE | ~2022-05-08 | XR_ITS ---
EXAMINATION: XR CHEST CLINICAL INFORMATION: Hemoptysis. History clear cell cancer with pulmonary metastases. COMPARISON: Chest radiograph 05/01/2022, 11/21/2021, CT chest with contrast 01/19/2022 TECHNIQUE: 2 views of the chest were obtained. FINDINGS: Parenchymal pattern is similar to prior exam. There is loculated small to moderate left effusion with fluid in the oblique fascia again seen. There is no interval airspace consolidation or pneumothorax or visible mass. Right costophrenic sulci are clear. The cardiac and hilar and mediastinal contours and bony structures are stable. XR/XR chest 2V IMPRESSION: -Loculated left pleural effusion with fluid and oblique fissure similar to prior imaging. -No interval visible mass or airspace consolidation. No right effusion.
[2022-05-08 11:11] LABS: MANUAL DIFF FLAG NO
[2022-05-08 11:12] LABS: Basophils Percent Auto 0.8 % (0-2); Eosinophils Percent Auto 0.8 % (0-4); Hematocrit 37.2 % (42.0-52.0); Hemoglobin 11.7 g/dl (14.0-18.0); Imm Gran Abs Auto 0.02 X10*3/uL (0.00-0.03); Imm Gran Pct Auto 0.5 % (0.0-0.4); Lymphocytes Absolute Auto 1.1 X10*3/uL (1.2-4.9); Lymphocytes Percent Auto 28.1 % (20-40); Mean Corpuscular HGB Conc 31.5 g/dl (31.0-36.0); Mean Corpuscular Hemoglobin 28.1 pg (27.0-33.0); Mean Corpuscular Volume 89.4 fL (80.0-98.0); Mean Platelet Volume 8.5 fL (9.4-12.4); Monocytes Absolute Auto 0.5 X10*3/uL (0.1-1.2); Monocytes Percent Auto 12.6 % (2-11); Neutrophils Absolute Auto 2.3 x10*3/uL (2.0-8.3); Neutrophils Percent Auto 57.2 % (45-73); Platelet Count 308 X10*3/uL (160-400); Red Blood Count 4.16 X10*6/uL (4.60-5.80); Red Cell Distribution Width 17.8 % (11.0-16.0)
[2022-05-08 11:13] VITALS: BP 138/56; PULSE 76; RESP 18; TEMP 36.7; O2SAT 95; BMI 27.7
[2022-05-08 11:27] LABS: Anion Gap 13 (12-20); Blood Urea Nitrogen 8 mg/dL (9-16); Carbon Dioxide 27 mmol/L (22-29); Chloride 103 mmol/L (96-108); Creatinine Clr Calc Pharmacy 81.7; Estimated Glomerular Filt Rate > 60; Glucose Random 94 mg/dL (60-115); Potassium 4.1 mmol/L (3.3-5.1); Sodium 139 mmol/L (135-145)
[2022-05-08 15:50] VITALS: BP 136/50; PULSE 66; RESP 18; TEMP 36.6; O2SAT 98
--- NOTE | 2022-05-08 16:25 | ED.NAVMDI ---
HPI - Nausea/Vomiting/Diarrhea General Chief complaint: Nausea/Vomiting/Diarrhea Stated complaint: Vomiting blood/Dizzy Time Seen by Provider: 05/08/22 15:58 Source: patient Mode of arrival: ambulatory Limitations: no limitations History of Present Illness HPI Narrative: Patient comes to the emergency room complaining of 1 episode of vomiting black contents. Patient states it only happened once this morning. At this time, patient states that he has no nausea, no vomiting or diarrhea, no fever chills. Patient has history of renal cell carcinoma status post nephrectomy in 2014, currently taking cabozantinib Related Data Home Medications Medication Instructions Recorded Confirmed ascorbic acid (vitamin C) 500 mg 500 mg PO DAILY 08/18/20 05/01/22 tablet (Vitamin C) atorvastatin 40 mg tablet 40 mg PO BEDTIME 08/18/20 05/01/22 clotrimazole-betamethasone 1 See Rx Instructions .Route .COMPLEX 08/18/20 05/01/22 %-0.05 % topical cream denosumab 60 mg/mL subcutaneous 60 mg subcut [id number] 08/26/20 05/01/22 syringe magnesium oxide 500 mg capsule 500 mg PO DAILY 06/20/21 05/01/22 netarsudil 0.02 %-latanoprost 0.005 drp ophthalmic (eye) DAILY 06/20/21 05/01/22 0.005 % eye drops (Rocklatan) as directed cholecalciferol (vitamin D3) 125 125 mcg PO DAILY as directed 10/10/21 05/01/22 mcg (5,000 unit) capsule acetaminophen 325 mg capsule 325 mg PO BID PRN Pain 11/21/21 05/01/22 (Tylenol) potassium gluconate 600 mg (99 mg) 600 mg PO DAILY 11/21/21 05/01/22 tablet furosemide 20 mg tablet (Lasix) 40 mg PO DAILY 01/16/22 05/01/22 Previous Rx's Medication Instructions Recorded hydroxyzine pamoate 50 mg capsule 50 mg PO Q6H PRN itching 90 days 10/08/20 #360 caps calcium citrate 500 mg PO BID 30 days #120 tabs 11/15/20 wheelchair #1 ea 09/07/21 Shower Chair #1 ea 09/14/21 oxycodone 10 mg tablet 10 mg PO Q6-8H PRN Pain (Scale 12/19/21 Score 4-6) 30 days #100 tabs cabozantinib 20 mg tablet 20 mg PO DAILY #30 tabs 12/25/21 (Cabometyx) levothyroxine 75 mcg tablet 75 mcg PO DAILY 90 days #90 tabs 03/14/22 hydrocortisone 10 mg tablet 10 mg PO DAILY #30 tabs 03/19/22 hydrocortisone 5 mg tablet 5 mg PO DAILY #30 tabs 03/19/22 azithromycin 250 mg tablet 250 mg PO DAILY 5 days #6 tabs 05/01/22 commode #1 ea 05/01/22 ondansetron HCl 4 mg tablet 8 mg PO Q8H PRN Nausea And 05/01/22 Vomiting #60 tabs walker (Ultra-Light Rollator) #1 ea 05/01/22 lisinopril 5 mg tablet 5 mg PO DAILY 90 days #90 tabs 05/02/22 omeprazole 20 mg capsule,delayed 20 mg PO BEDTIME #90 caps 05/03/22 release ondansetron HCl 4 mg tablet 4 mg PO Q6H PRN nausea and 05/08/22 vomiting #14 tabs Allergies Allergy/AdvReac Type Severity Reaction Status Date / Time adhesive Allergy Intermediate rash Verified 05/01/22 16:42 aspirin [ASA] Allergy Intermediate Anaphylaxis Verified 05/01/22 16:42 [facility] Past Medical History Medical History (Updated 05/08/22 @ 17:34 by Amanda Cornejo MD) Arthritis Glaucoma Hemorrhoids Hypertension Surgical History H/O arthroscopic knee surgery H/O partial nephrectomy History of esophagogastroduodenoscopy (EGD) (~1999) History of eye surgery History of knee replacement procedure of left knee History of knee replacement procedure of right knee History of lung biopsy Family History Family History Father No problems noted. Mother Lung cancer Brother Cancer Social History Social History Household Members: Spouse Housing: Apartment Are you a primary critical care nurse to a significant other at home: No Do you presently have visiting nurse or other home services: No Alcohol intake: never Patient Tobacco Use Status: Former Tobacco user Tobacco use type: Cigarette Years Smoked: 50 e-Cigarette/Vaping Use: Never Used Second Hand Smoke Exposure: No Use of substances other than those prescribed or required for medical reasons: No Substance Use Type: Other Advance Directives: Yes Advance Directives on File: Yes Advance Directives Date on File: 05/08/22 service: No Current occupational status: retired Cognitive needs: Yes (cane/walker) Hearing needs: No Vision needs: Yes (glasses) Physical Exam Vital Signs: Vital Signs: Last Vital Signs Temp 97.9 F 05/08/22 15:50 Pulse 66 05/08/22 15:50 Resp 18 05/08/22 15:50 BP 136/50 L 05/08/22 15:50 Pulse Ox 98 05/08/22 15:50 O2 Del Method 05/08/22 15:50 BMI result Body Mass Index 27.7 Course Course Course Narrative: Patient has not had any episodes of vomiting or diarrhea in the emergency room, no nausea. Patient's occult blood was inconclusive because there was not enough stool despite a good rectal exam. There was no blood present physically or in the card for guaiac testing. Patient was p.o. challenged, did very well. It is unclear what patient vomited, unclear if this was actually blood. Patient feels well otherwise. MDM - Nausea/Vomiting/Diarrhea Lab Data Result diagrams: 05/08/22 16:48 05/08/22 11:05 Labs: Lab Results 05/08/22 05/08/22 05/08/22 Range/Units 11:05 11:05 16:48 WBC 4.0 L (4.8-10.8) X10*3/uL RBC 4.16 L (4.60-5.80) X10*6/uL Hgb 11.7 L 11.4 L (14.0-18.0) g/dl Hct 37.2 L 36.6 L (42.0-52.0) % MCV 89.4 (80.0-98.0) fL MCH 28.1 (27.0-33.0) pg MCHC 31.5 (31.0-36.0) g/dl RDW 17.8 H (11.0-16.0) % Plt Count 308 D (160-400) X10*3/uL MPV 8.5 L (9.4-12.4) fL Immature Gran % (Auto) 0.5 H (0.0-0.4) % Neut % (Auto) 57.2 (45-73) % Lymph % (Auto) 28.1 (20-40) % Bremer % (Auto) 12.6 H (2-11) % Eos % (Auto) 0.8 (0-4) % Baso % (Auto) 0.8 (0-2) % Lymph # (Auto) 1.1 L (1.2-4.9) X10*3/uL Bremer # (Auto) 0.5 (0.1-1.2) X10*3/uL Eos # (Auto) 0.0 (0.0-0.4) X10*3/uL Baso # (Auto) 0.0 (0.0-0.2) X10*3/uL Abs Immat Gran (auto) 0.02 (0.00-0.03) X10*3/uL Absolute Neuts (auto) 2.3 (2.0-8.3) x10*3/uL Absolute Nucleated RBC 0.000 (0.0-0.012) X10*3/uL Nucleated RBC % (auto) 0.0 (0.0-0.2) /100WBC Sodium 139 (135-145) mmol/L Potassium 4.1 (3.3-5.1) mmol/L Chloride 103 (96-108) mmol/L Carbon Dioxide 27 (22-29) mmol/L Anion Gap 13 (12-20) BUN 8 L (9-16) mg/dL Creatinine 0.78 (0.5-1.4) mg/dL Estim Creat Clear Calc 81.7 Estimated GFR > 60 Random Glucose 94 (60-115) mg/dL Calcium 9.0 D (8.4-10.2) mg/dL Discharge Plan Discharge Clinical Impression: Vomiting Patient Disposition: Home, Self-Care Instructions: Acute Nausea and Vomiting (ED) Additional Instructions: Please follow-up with your primary care physician tomorrow. If you have any worsening or new symptoms, please return to the emergency room or call 911 Prescriptions: New ondansetron HCl 4 mg tablet 4 mg PO Q6H PRN (Reason: nausea and vomiting) Qty: 14 0RF No Action hydroxyzine pamoate 50 mg capsule 50 mg PO Q6H PRN (Reason: itching) 90 Days Qty: 360 1RF calcium citrate 250 mg calcium tablet 500 mg PO BID 30 Days Qty: 120 6RF (DME) wheelchair See Rx Instructions .Route .MEDSUPPLY Qty: 1 0RF Rx Instructions: As directed (DME) Shower Chair Misc See Rx Instructions .Route Qty: 1 0RF Rx Instructions: As directed oxycodone 10 mg tablet 10 mg PO Q6-8H PRN (Reason: Pain (Scale Score 4-6)) 30 Days Qty: 100 0RF hydrocortisone 10 mg tablet 10 mg PO DAILY Qty: 30 5RF Rx Instructions: Take 10 mg in AM and 5 mg in PM hydrocortisone 5 mg tablet 5 mg PO DAILY Qty: 30 5RF Rx Instructions: Take 10 mg tablet in AM and 5 mg tablet in PM lisinopril 5 mg tablet 5 mg PO DAILY 90 Days Qty: 90 3RF Cabometyx 20 mg tablet 20 mg PO DAILY Qty: 30 12RF omeprazole 20 mg capsule,delayed release(DR/EC) 20 mg PO BEDTIME Qty: 90 1RF atorvastatin 40 mg tablet 40 mg PO BEDTIME clotrimazole-betamethasone 1-0.05 % cream See Rx Instructions .ROUTE .COMPLEX Rx Instructions: twice a day externally ascorbic acid (vitamin C) [Vitamin C] 500 mg Tablet 500 mg PO DAILY denosumab 60 mg/mL Syringe 60 mg SUBCUT [id number] cholecalciferol (vitamin D3) 125 mcg (5,000 unit) capsule 125 mcg PO DAILY furosemide [Lasix] 20 mg tablet 40 mg PO DAILY Rocklatan 0.02-0.005 % drops 0.005 drp ophthalmic (eye) DAILY magnesium oxide 500 mg capsule 500 mg PO DAILY azithromycin 250 mg tablet 250 mg PO DAILY 5 Days Qty: 6 0RF Rx Instructions: Take 2 tabs the first day then 1 tab the next 4 days (DME) Ultra-Light Rollator Misc See Rx Instructions .Route Qty: 1 0RF Rx Instructions: As directed ([facility]) commode Kit See Rx Instructions .Route Qty: 1 0RF Rx Instructions: As directed ondansetron HCl 4 mg tablet 8 mg PO Q8H PRN (Reason: Nausea And Vomiting) Qty: 60 4RF levothyroxine 75 mcg tablet 75 mcg PO DAILY 90 Days Qty: 90 2RF potassium gluconate 600 mg (99 mg) tablet 600 mg PO DAILY acetaminophen [Tylenol] 325 mg capsule 325 mg PO BID PRN (Reason: Pain)
[2022-05-08] MEDS: Ondansetron ODT 4 MG TAB.RAPDIS TRANSLINGU (16:41)
--- NOTE | 2022-05-08 16:41 | PC.NURSE ---
pt medicated per order, tech to draw labs
[2022-05-08 16:57] LABS: Hematocrit 36.6 % (42.0-52.0); Hemoglobin 11.4 g/dl (14.0-18.0)
== END 2022-05-08 18:12 | disposition home or self-care (01) ==
PROVIDERS: Emergency Provider Emergency Medicine; PCP Internal Medicine
DX: R11.11 Vomiting without nausea (principal); C64.9 Malignant neoplasm of unspecified kidney, except renal pelvis; I10 Essential (primary) hypertension; Z79.899 Other long term (current) drug therapy; Z90.5 Acquired absence of kidney
CPT/HCPCS: 36415; 71046; 80048; 82272; 85014; 85018; 85025; 93005; 99283; 99284

== ENCOUNTER 2022-05-16 06:46 | Outpatient (REF) | payer MEDICARE, SELFPAY ==
[2022-05-16 11:25] LABS: MANUAL DIFF FLAG NO
[2022-05-16 11:28] LABS: Basophils Percent Auto 0.9 % (0-2); Eosinophils Absolute Auto 0.1 X10*3/uL (0.0-0.4); Eosinophils Percent Auto 2.2 % (0-4); Hematocrit 37.2 % (42.0-52.0); Hemoglobin 11.9 g/dl (14.0-18.0); Imm Gran Abs Auto 0.01 X10*3/uL (0.00-0.03); Imm Gran Pct Auto 0.2 % (0.0-0.4); Lymphocytes Absolute Auto 2.3 X10*3/uL (1.2-4.9); Lymphocytes Percent Auto 50.2 % (20-40); Mean Corpuscular Hemoglobin 28.7 pg (27.0-33.0); Mean Corpuscular Volume 89.6 fL (80.0-98.0); Mean Platelet Volume 10.1 fL (9.4-12.4); Monocytes Absolute Auto 0.5 X10*3/uL (0.1-1.2); Neutrophils Absolute Auto 1.6 x10*3/uL (2.0-8.3); Neutrophils Percent Auto 36.5 % (45-73); Platelet Count 249 X10*3/uL (160-400); Red Blood Count 4.15 X10*6/uL (4.60-5.80); Red Cell Distribution Width 17.9 % (11.0-16.0); White Blood Count 4.5 X10*3/uL (4.8-10.8)
[2022-05-16 11:47] LABS: Alanine Aminotransferase 17 U/L (0-40); Albumin Level 3.3 g/dL (3.5-5.0); Alkaline Phosphatase 50 U/L (39-117); Anion Gap 10 (12-20); Aspartate Amino Transferase 25 U/L (5-37); Bilirubin Total 0.4 mg/dL (0.0-1.0); Blood Urea Nitrogen 11 mg/dL (9-16); Calcium 8.6 mg/dL (8.4-10.2); Carbon Dioxide 27 mmol/L (22-29); Chloride 104 mmol/L (96-108); Estimated Glomerular Filt Rate > 60; Glucose Random 102 mg/dL (60-115); Potassium 3.9 mmol/L (3.3-5.1); Sodium 137 mmol/L (135-145); Total Protein 5.5 g/dL (6.5-8.0)
== END 2022-05-16 06:47 | disposition home or self-care (01) ==
LOC: HO.LHD 06:46
PROVIDERS: Visit Provider Internal Medicine Medical Oncology
DX: C64.9 Malignant neoplasm of unspecified kidney, except renal pelvis (principal)
CPT/HCPCS: 36415; 80053; 85025

== ENCOUNTER 2022-05-30 06:20 | Outpatient (REF) | payer MEDICARE, SELFPAY ==
[2022-05-30 12:23] LABS: MANUAL DIFF FLAG NO
[2022-05-30 12:25] LABS: Basophils Percent Auto 0.5 % (0-2); Eosinophils Absolute Auto 0.1 X10*3/uL (0.0-0.4); Eosinophils Percent Auto 2.6 % (0-4); Hematocrit 37.3 % (42.0-52.0); Hemoglobin 11.6 g/dl (14.0-18.0); Imm Gran Abs Auto 0.01 X10*3/uL (0.00-0.03); Imm Gran Pct Auto 0.3 % (0.0-0.4); Lymphocytes Absolute Auto 1.3 X10*3/uL (1.2-4.9); Lymphocytes Percent Auto 34.4 % (20-40); Mean Corpuscular HGB Conc 31.1 g/dl (31.0-36.0); Mean Corpuscular Hemoglobin 27.8 pg (27.0-33.0); Mean Corpuscular Volume 89.4 fL (80.0-98.0); Mean Platelet Volume 9.4 fL (9.4-12.4); Monocytes Absolute Auto 0.5 X10*3/uL (0.1-1.2); Neutrophils Absolute Auto 1.9 x10*3/uL (2.0-8.3); Neutrophils Percent Auto 50.2 % (45-73); Platelet Count 212 X10*3/uL (160-400); Red Blood Count 4.17 X10*6/uL (4.60-5.80); Red Cell Distribution Width 18.3 % (11.0-16.0); White Blood Count 3.8 X10*3/uL (4.8-10.8)
[2022-05-30 12:59] LABS: Alanine Aminotransferase 21 U/L (0-40); Albumin Level 3.2 g/dL (3.5-5.0); Alkaline Phosphatase 50 U/L (39-117); Anion Gap 9 (12-20); Aspartate Amino Transferase 27 U/L (5-37); Bilirubin Total 0.4 mg/dL (0.0-1.0); Blood Urea Nitrogen 10 mg/dL (9-16); Calcium 8.7 mg/dL (8.4-10.2); Carbon Dioxide 28 mmol/L (22-29); Chloride 104 mmol/L (96-108); Estimated Glomerular Filt Rate > 60; Glucose Random 101 mg/dL (60-115); Potassium 3.8 mmol/L (3.3-5.1); Sodium 137 mmol/L (135-145); Total Protein 5.2 g/dL (6.5-8.0)
== END 2022-05-30 06:21 | disposition home or self-care (01) ==
LOC: HO.LHD 06:20
PROVIDERS: Visit Provider Internal Medicine Medical Oncology
DX: C79.00 Secondary malignant neoplasm of unspecified kidney and renal pelvis (principal)
CPT/HCPCS: 36415; 80053; 85025

== ENCOUNTER 2022-06-13 06:24 | Outpatient (REF) | payer MEDICARE, SELFPAY ==
[2022-06-13 12:24] LABS: Basophils Percent Auto 0.3 % (0-2); Eosinophils Absolute Auto 0.1 X10*3/uL (0.0-0.4); Eosinophils Percent Auto 2.3 % (0-4); Hematocrit 35.3 % (42.0-52.0); Hemoglobin 11.5 g/dl (14.0-18.0); Imm Gran Abs Auto 0.01 X10*3/uL (0.00-0.03); Imm Gran Pct Auto 0.3 % (0.0-0.4); Lymphocytes Absolute Auto 1.7 X10*3/uL (1.2-4.9); Lymphocytes Percent Auto 55.5 % (20-40); MANUAL DIFF FLAG SCAN; Mean Corpuscular HGB Conc 32.6 g/dl (31.0-36.0); Mean Corpuscular Hemoglobin 29.2 pg (27.0-33.0); Mean Corpuscular Volume 89.6 fL (80.0-98.0); Mean Platelet Volume 9.5 fL (9.4-12.4); Monocytes Absolute Auto 0.4 X10*3/uL (0.1-1.2); Monocytes Percent Auto 12.6 % (2-11); Neutrophils Absolute Auto 0.9 x10*3/uL (2.0-8.3); Platelet Count 206 X10*3/uL (160-400); Red Blood Count 3.94 X10*6/uL (4.60-5.80); Red Cell Distribution Width 18.6 % (11.0-16.0); SCAN SMEAR FLAG 1
[2022-06-13 12:48] LABS: SLIDE REVIEW VERIFIED
[2022-06-13 13:52] LABS: Alanine Aminotransferase 15 U/L (0-40); Alkaline Phosphatase 44 U/L (39-117); Anion Gap 14 (12-20); Aspartate Amino Transferase 24 U/L (5-37); Bilirubin Total 0.4 mg/dL (0.0-1.0); Blood Urea Nitrogen 8 mg/dL (9-16); Calcium 8.3 mg/dL (8.4-10.2); Carbon Dioxide 24 mmol/L (22-29); Chloride 104 mmol/L (96-108); Estimated Glomerular Filt Rate > 60; Glucose Random 101 mg/dL (60-115); Potassium 3.9 mmol/L (3.3-5.1); Sodium 138 mmol/L (135-145); Total Protein 4.9 g/dL (6.5-8.0)
== END 2022-06-13 06:25 | disposition home or self-care (01) ==
LOC: HO.LHD 06:24
PROVIDERS: Visit Provider Internal Medicine Medical Oncology
DX: C64.9 Malignant neoplasm of unspecified kidney, except renal pelvis (principal)
CPT/HCPCS: 36415; 80053; 85025

== ENCOUNTER → 2022-06-21 14:05 | Outpatient (BNVA) | payer MEDICARE, SELFPAY | PROVIDERS: PCP Internal Medicine; Visit Provider Internal Medicine Endocrinology, Diabetes & Metabolism | DX: E03.2 Hypothyroidism due to medicaments and other exogenous substances (principal); E27.3 Drug-induced adrenocortical insufficiency | CPT/HCPCS: 99212 ==

== ENCOUNTER 2022-06-28 14:05 | Outpatient (REF) | payer MEDICARE, SELFPAY ==
[2022-06-28 08:49] LABS: Basophils Percent Auto 0.9 % (0-2); Eosinophils Absolute Auto 0.1 X10*3/uL (0.0-0.4); Eosinophils Percent Auto 3.6 % (0-4); Hematocrit 36.8 % (42.0-52.0); Hemoglobin 11.7 g/dl (14.0-18.0); Lymphocytes Absolute Auto 1.8 X10*3/uL (1.2-4.9); Lymphocytes Percent Auto 55.6 % (20-40); MANUAL DIFF FLAG SCAN; Mean Corpuscular HGB Conc 31.8 g/dl (31.0-36.0); Mean Corpuscular Hemoglobin 28.5 pg (27.0-33.0); Mean Corpuscular Volume 89.8 fL (80.0-98.0); Mean Platelet Volume 8.9 fL (9.4-12.4); Monocytes Absolute Auto 0.4 X10*3/uL (0.1-1.2); Monocytes Percent Auto 10.9 % (2-11); Platelet Count 193 X10*3/uL (160-400); Red Cell Distribution Width 19.4 % (11.0-16.0); SCAN SMEAR FLAG 1; White Blood Count 3.3 X10*3/uL (4.8-10.8)
[2022-06-28 09:10] LABS: SLIDE REVIEW VERIFIED
[2022-06-28 09:21] LABS: Cholesterol 154 mg/dL; HDL Cholesterol 28 mg/dL; LDL Cholesterol Calculated 106 mg/dl; Triglycerides 102 mg/dL
[2022-06-28 09:22] LABS: Alanine Aminotransferase 12 U/L (0-40); Alkaline Phosphatase 42 U/L (39-117); Anion Gap 10 (12-20); Aspartate Amino Transferase 16 U/L (5-37); Bilirubin Total 0.2 mg/dL (0.0-1.0); Blood Urea Nitrogen 6 mg/dL (9-16); Calcium 8.2 mg/dL (8.4-10.2); Carbon Dioxide 30 mmol/L (22-29); Chloride 105 mmol/L (96-108); Estimated Glomerular Filt Rate > 60; Glucose Random 85 mg/dL (60-115); Sodium 141 mmol/L (135-145); Total Protein 5.1 g/dL (6.5-8.0)
[2022-06-28 09:44] LABS: Thyroid Stimulating Hormone 2.19 uIU/mL (0.32-4.0)
== END 2022-06-28 14:06 | disposition home or self-care (01) ==
LOC: HO.LHD 14:05
PROVIDERS: Internal Medicine; Visit Provider Internal Medicine Medical Oncology
DX: C64.9 Malignant neoplasm of unspecified kidney, except renal pelvis (principal); E78.5 Hyperlipidemia, unspecified; E03.2 Hypothyroidism due to medicaments and other exogenous substances
CPT/HCPCS: 36415; 80053; 80061; 84443; 85025

== ENCOUNTER 2022-07-03 08:50 | Outpatient (REF) | payer MEDICARE, SELFPAY ==
[2022-07-03 10:28] LABS: Cortisol Random < 1.0 ug/dL
[2022-07-03 10:31] LABS: Free T4 (Free Thyroxine) 1.17 ng/dL (0.71-1.85); Thyroid Stimulating Hormone 4.88 uIU/mL (0.32-4.0)
== END 2022-07-03 08:51 | disposition home or self-care (01) ==
LOC: HO.LAB 08:50
PROVIDERS: PCP Internal Medicine; Visit Provider Internal Medicine Endocrinology, Diabetes & Metabolism
DX: E03.2 Hypothyroidism due to medicaments and other exogenous substances (principal); E27.3 Drug-induced adrenocortical insufficiency
CPT/HCPCS: 36415; 82533; 84439; 84443

== ENCOUNTER 2022-07-11 05:41 | Outpatient (REF) | payer MEDICARE, SELFPAY ==
[2022-07-11 11:17] LABS: Basophils Percent Auto 0.3 % (0-2); Eosinophils Absolute Auto 0.1 X10*3/uL (0.0-0.4); Eosinophils Percent Auto 2.5 % (0-4); Hematocrit 37.6 % (42.0-52.0); Hemoglobin 11.8 g/dl (14.0-18.0); Lymphocytes Absolute Auto 1.8 X10*3/uL (1.2-4.9); Lymphocytes Percent Auto 56.7 % (20-40); MANUAL DIFF FLAG SCAN; Mean Corpuscular HGB Conc 31.4 g/dl (31.0-36.0); Mean Corpuscular Hemoglobin 28.1 pg (27.0-33.0); Mean Corpuscular Volume 89.5 fL (80.0-98.0); Mean Platelet Volume 9.5 fL (9.4-12.4); Monocytes Absolute Auto 0.3 X10*3/uL (0.1-1.2); Monocytes Percent Auto 10.5 % (2-11); Platelet Count 237 X10*3/uL (160-400); Red Cell Distribution Width 19.3 % (11.0-16.0); SCAN SMEAR FLAG 1; White Blood Count 3.2 X10*3/uL (4.8-10.8)
[2022-07-11 12:16] LABS: Alanine Aminotransferase 12 U/L (0-40); Alkaline Phosphatase 45 U/L (39-117); Anion Gap 12 (12-20); Aspartate Amino Transferase 16 U/L (5-37); Bilirubin Total 0.3 mg/dL (0.0-1.0); Blood Urea Nitrogen 9 mg/dL (9-16); Calcium 8.3 mg/dL (8.4-10.2); Carbon Dioxide 28 mmol/L (22-29); Chloride 105 mmol/L (96-108); Estimated Glomerular Filt Rate > 60; Glucose Random 90 mg/dL (60-115); Potassium 3.6 mmol/L (3.3-5.1); Sodium 141 mmol/L (135-145); Total Protein 5.1 g/dL (6.5-8.0)
[2022-07-11 13:13] LABS: SLIDE REVIEW VERIFIED
== END 2022-07-11 05:42 | disposition home or self-care (01) ==
LOC: HO.LHD 05:41
PROVIDERS: Visit Provider Internal Medicine Medical Oncology
DX: C64.9 Malignant neoplasm of unspecified kidney, except renal pelvis (principal)
CPT/HCPCS: 36415; 80053; 85025

== ENCOUNTER 2022-07-20 15:15 | Inpatient (IN) | payer MEDICARE, SELFPAY ==
--- NOTE | ~2022-07-20 | XR_ITS ---
EXAMINATION: XR CHEST CLINICAL INFORMATION: Shortness of breath, lung cancer COMPARISON: Chest x-ray 04/30/2022, chest CT 01/25/2022 TECHNIQUE: Frontal view of the chest was obtained. FINDINGS: Persistent opacity in the left mid to lower lung obscuring left heart border and left hemidiaphragm with blunted costophrenic angle. No new airspace opacity. Mild pleural thickening or pleural fluid tracking along the left lung apex. This lies cardia mediastinal silhouette is unchanged. Slight prominence of the ulnar vascularity. No overt pulmonary edema. No acute osseous injury. XR/XR chest 1V IMPRESSION: 1. Small left pleural effusion and opacity at the left lung base which represent atelectasis, pneumonia or aspiration.
--- NOTE | ~2022-07-20 | CT_ITS ---
EXAMINATION: CT ANGIOGRAM OF THE CHEST WITH AND WITHOUT CONTRAST (CT PULMONARY ANGIOGRAM FOR PE) CLINICAL INFORMATION: Reason for Exam SOB, elevated Trop COMPARISON: None TECHNIQUE: Prior to contrast administration, noncontrast localization images were obtained. Subsequently, multidetector volumetric imaging was performed from the thoracic inlet to below the diaphragms following the administration of 65 mL Omnipaque 350 intravenous contrast. No contrast reaction reported Sagittal, coronal, and MIP oblique sagittal reformatted images were obtained on the CT workstation, uploaded to PACS, and reviewed. This CT examination was performed using dose optimization techniques as appropriate, variously including the following: *Automated exposure control *Adjustment of mA and/or kV according to patient size (this includes techniques or standardized protocols for targeted exams where dose is matched to indication/reason for exam; i.e. extremities or head) *Use of iterative reconstruction technique Total exam dose-length product 450 mGy-cm FINDINGS: QUALITY OF STUDY/CONTRAST BOLUS: Suboptimal. Motion artifact in the right lung limits assessment for segmental pulmonary emboli. PULMONARY ARTERIES: No central pulmonary. No segmental pulmonary emboli in the left lung. Assessment of the right lung for segmental pulmonary emboli is markedly Limited/largely nondiagnostic. No gross right-sided embolus. THORACIC AORTA: No aneurysm or dissection. LUNG: Limited assessment of pulmonary parenchyma due to extensive respiratory motion artifact. Small dependent/passive right basilar atelectasis. Additional passive atelectasis in the left lung. No definite consolidation. Central airways are clear. Mild bronchial wall thickening in the left upper lobe. PLEURA: Slight interval enlargement of a small to moderate-sized multiloculated left pleural fluid collection with irregular masslike pleural nodularity and enhancement along the left hemidiaphragm and the posterior upper left hemithorax on series 5 image 14. Slightly larger 1.2 cm pleural nodule in the left lower lung laterally on series 5-38. Trace right basilar pleural fluid. No pneumothorax. MEDIASTINUM: No cardiomegaly. No pericardial effusion. Slightly larger though subcentimeter short axis dimension right paratracheal lymph node measuring 7 mm in short axis. No mediastinal or hilar lymphadenopathy by size criteria. Larger 0.9 cm short axis dimension left cardiophrenic angle lymph node. No evidence of septal bowing or right heart strain. CHEST WALL/AXILLA: No axillary or internal mammary lymphadenopathy. OSSEOUS STRUCTURES: Lytic destruction with small extrapleural soft tissue mass of the left lateral fifth rib redemonstrated. Mild cortical erosive change at the adjacent lateral fourth rib laterally, similar to prior. No acute fracture or new osseous lesion UPPER ABDOMEN: Small left upper pole parapelvic renal cyst. Imaged the upper abdominal solid viscera otherwise unremarkable. No reflux of contrast into the hepatic veins to suggest elevated right heart pressures. CT/CT angio chest PE protocol IMPRESSION: 1. Limited exam for detecting of segmental pulmonary emboli. Assessment the right lung is largely nondiagnostic due to sensitive respiratory motion artifact. No central pulmonary embolus or left-sided segment of pulmonary emboli identified. 2. Small to moderate-sized multiloculated left pleural effusion, slightly increased since prior CT of 01/25/2022 with evidence of pleural metastatic disease, minimally progressed and unchanged osseous erosive/attractive change involving the left fourth and fifth ribs. 3. Trace right basilar pleural effusion. 4. Passive bilateral atelectasis most prominently in the left lung secondary to the loculated pleural effusion. VTE: indeterminate
[2022-07-20 15:28] VITALS: BP 126/89; BP 189/92; PULSE 92; PULSE 94; RESP 16; TEMP 38; O2SAT 91; BMI 22.8
--- NOTE | 2022-07-20 15:28 | ECG_ITS ---
Test Reason : weakness Blood Pressure : / mmHG Vent. Rate : 110 BPM Atrial Rate : 110 BPM P-R Int : 128 ms QRS Dur : 114 ms QT Int : 340 ms P-R-T Axes : 067 -07 070 degrees QTc Int : 460 ms Sinus tachycardia Brugada pattern, type 1 Abnormal ECG When compared with ECG of 08-MAY-2022 10:50, ST now depressed in Inferior leads Non-specific change in ST segment in Anterior leads Nonspecific T wave abnormality, improved in Lateral leads Referred By: Stan Flaherty Electronically Signed By:DARLIN KRISHNAN
--- NOTE | 2022-07-20 15:35 | ED.GENADULT ---
HPI - General Adult General Chief complaint: Weakness Stated complaint: weakness Time Seen by Provider: 07/20/22 15:28 Source: EMS Mode of arrival: EMS Limitations: altered mental status History of Present Illness HPI narrative: Patient is 77 years old with history of metastatic neoplasm of the kidney to the bones and lungs, hypertension, hypothyroidism brought by EMS for increased weakness and cough for last 2- 3 days noticed to be febrile 100.2 when arrived in the ER no confusion per family no headache no vomiting Related Data Home Medications Medication Instructions Recorded Confirmed ascorbic acid (vitamin C) 500 mg 500 mg PO DAILY 08/18/20 06/21/22 tablet (Vitamin C) atorvastatin 40 mg tablet 40 mg PO BEDTIME 08/18/20 06/21/22 clotrimazole-betamethasone 1 See Rx Instructions .Route .COMPLEX 08/18/20 06/21/22 %-0.05 % topical cream denosumab 60 mg/mL subcutaneous 60 mg subcut [id number] 08/26/20 06/21/22 syringe magnesium oxide 500 mg capsule 500 mg PO DAILY 06/20/21 06/21/22 netarsudil 0.02 %-latanoprost 0.005 drp ophthalmic (eye) DAILY 06/20/21 06/21/22 0.005 % eye drops (Rocklatan) as directed acetaminophen 325 mg capsule 325 mg PO BID PRN Pain 11/21/21 06/21/22 (Tylenol) potassium gluconate 600 mg (99 mg) 600 mg PO DAILY 11/21/21 06/21/22 tablet furosemide 20 mg tablet (Lasix) 40 mg PO DAILY 01/16/22 06/21/22 Previous Rx's Medication Instructions Recorded hydroxyzine pamoate 50 mg capsule 50 mg PO Q6H PRN itching 90 days 10/08/20 #360 caps calcium citrate 500 mg PO BID 30 days #120 tabs 11/15/20 wheelchair #1 ea 09/07/21 Shower Chair #1 ea 09/14/21 oxycodone 10 mg tablet 10 mg PO Q6-8H PRN Pain (Scale 12/19/21 Score 4-6) 30 days #100 tabs cabozantinib 20 mg tablet 20 mg PO DAILY #30 tabs 12/25/21 (Cabometyx) levothyroxine 75 mcg tablet 75 mcg PO DAILY 90 days #90 tabs 03/14/22 hydrocortisone 10 mg tablet 10 mg PO DAILY #30 tabs 03/19/22 hydrocortisone 5 mg tablet 5 mg PO DAILY #30 tabs 03/19/22 commode #1 ea 05/01/22 ondansetron HCl 4 mg tablet 8 mg PO Q8H PRN Nausea And 05/01/22 Vomiting #60 tabs walker (Ultra-Light Rollator misc) #1 ea 05/01/22 lisinopril 5 mg tablet 5 mg PO DAILY 90 days #90 tabs 05/02/22 omeprazole 20 mg capsule,delayed 20 mg PO BEDTIME #90 caps 05/03/22 release ondansetron HCl 4 mg tablet 4 mg PO Q6H PRN nausea and 05/08/22 vomiting #14 tabs cholecalciferol (vitamin D3) 125 125 mcg PO DAILY as directed #30 05/23/22 mcg (5,000 unit) capsule caps Allergies Allergy/AdvReac Type Severity Reaction Status Date / Time adhesive Allergy Intermediate rash Verified 06/21/22 14:27 aspirin [ASA] Allergy Intermediate Anaphylaxis Verified 06/21/22 14:27 Review of Systems Review of Systems: Yes all other systems are reviewed and are negative [facility] Past Medical History Medical History 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 Arthritis Blood in stool [place]-vesical fistula Dyslipidemia Essential hypertension Glaucoma Hemorrhoids Hypertension Hypothyroidism Internal and external prolapsed hemorrhoids Left shoulder pain Leg edema, left Lumbar degenerative disc disease Obesity Pleural effusion on left Rectal bleeding Shoulder pain, bilateral Vitamin D deficiency Surgical History H/O arthroscopic knee surgery H/O partial nephrectomy History of esophagogastroduodenoscopy (EGD) (~1999) History of eye surgery History of knee replacement procedure of left knee History of knee replacement procedure of right knee History of lung biopsy Family History Family History Father No problems noted. Mother Lung cancer Brother Cancer Social History Social History Household Members: Spouse Housing: Apartment Are you a primary health care facility administrator to a significant other at home: No Do you presently have visiting nurse or other home services: No Alcohol intake: never Patient Tobacco Use Status: Former Tobacco user Tobacco use type: Cigarette Years Smoked: 50 e-Cigarette/Vaping Use: Never Used Second Hand Smoke Exposure: No Substance Use Type: Other Advance Directives: Yes Advance Directives on File: Yes Advance Directives Date on File: 05/08/22 service: No Current occupational status: retired Cognitive needs: Yes (cane/walker) Hearing needs: No Vision needs: Yes (glasses) Physical Exam ED Vital Signs: Vital Signs - 24 hr 07/20/22 15:28 Temperature 100.4 F Pulse Rate 94 Respiratory Rate 16 Blood Pressure 126/89 Pulse Oximetry 91 L Oxygen Delivery Method Room Air BMI result Body Mass Index 22.8 Appearance: Alert. Oriented X2-3 No acute distress. Eyes: + pallor or No icterus ENT: Pharynx normal. Oral Mucosa moist Neck: Normal inspection. Neck supple. CVS: Sinus tachycardia with heart rate 110 beats per minute. Pulses normal. Respiratory: No respiratory distress. Equal air entry bilateral, bilateral crackles Abdomen: Soft and nontender. Bowel sounds are present, no mass palpable, no CVA tenderness Skin: Skin warm and dry. Normal skin color. Normal skin turgor. Extremities: No lower extremity edema. No calf tenderness Neuro: Oriented X2- 3. No motor deficit. No sensory deficit.No cerebellar signs , cranial nerves II-XII intact Medical Decision Making MDM Narrative Medical decision making narrative: 1600 Patient with metastatic kidney cancer to the lung comes here for increased shortness of breath and cough noticed to be febrile labs are pending do the septic protocol patient EKG showed Brugada type 1 pattern will check the cardiac enzymes at this time patient's vitals are stable plan for admission according to patient's family patient was COVID positive 3 weeks ago and today also patient is COVID positive Lab Data Lab results reviewed: Yes I reviewed the patient's lab results. Result diagrams: 07/20/22 16:18 07/20/22 16:18 Labs: Lab Results 07/20/22 Range/Units 15:51 COVID-19 (TEO) Positive A (Negative) COVID-19 Clin Com See Note ECG Data Attestation: I personally reviewed and interpreted this ECG as follows: Interpretation: Sinus tachycardia with heart rate 110 beats per minute Brugada type 1 pattern with deep S-wave and R-wave in V1 V2 no acute ischemic changes Discharge Plan Discharge Clinical Impression: Metastatic renal cell carcinoma, COVID-19 Patient Disposition: Still a Patient Prescriptions: No Action hydroxyzine pamoate 50 mg capsule 50 mg PO Q6H PRN (Reason: itching) 90 Days Qty: 360 1RF calcium citrate 250 mg calcium tablet 500 mg PO BID 30 Days Qty: 120 6RF (DME) wheelchair See Rx Instructions .Route .MEDSUPPLY Qty: 1 0RF Rx Instructions: As directed (DME) Shower Chair Misc See Rx Instructions .Route Qty: 1 0RF Rx Instructions: As directed oxycodone 10 mg tablet 10 mg PO Q6-8H PRN (Reason: Pain (Scale Score 4-6)) 30 Days Qty: 100 0RF hydrocortisone 10 mg tablet 10 mg PO DAILY Qty: 30 5RF Rx Instructions: Take 10 mg in AM and 5 mg in PM hydrocortisone 5 mg tablet 5 mg PO DAILY Qty: 30 5RF Rx Instructions: Take 10 mg tablet in AM and 5 mg tablet in PM lisinopril 5 mg tablet 5 mg PO DAILY 90 Days Qty: 90 3RF cholecalciferol (vitamin D3) 125 mcg (5,000 unit) capsule 125 mcg PO DAILY Qty: 30 6RF Cabometyx 20 mg tablet 20 mg PO DAILY Qty: 30 12RF omeprazole 20 mg capsule,delayed release(DR/EC) 20 mg PO BEDTIME Qty: 90 1RF atorvastatin 40 mg tablet 40 mg PO BEDTIME clotrimazole-betamethasone 1-0.05 % cream See Rx Instructions .ROUTE .COMPLEX Rx Instructions: twice a day externally ascorbic acid (vitamin C) [Vitamin C] 500 mg Tablet 500 mg PO DAILY denosumab 60 mg/mL Syringe 60 mg SUBCUT [id number] furosemide [Lasix] 20 mg tablet 40 mg PO DAILY ondansetron HCl 4 mg tablet 4 mg PO Q6H PRN (Reason: nausea and vomiting) Qty: 14 0RF Rocklatan 0.02-0.005 % drops 0.005 drp ophthalmic (eye) DAILY magnesium oxide 500 mg capsule 500 mg PO DAILY (DME) Ultra-Light Rollator Misc See Rx Instructions .Route Qty: 1 0RF Rx Instructions: As directed ([facility]) commode Kit See Rx Instructions .Route Qty: 1 0RF Rx Instructions: As directed ondansetron HCl 4 mg tablet 8 mg PO Q8H PRN (Reason: Nausea And Vomiting) Qty: 60 4RF levothyroxine 75 mcg tablet 75 mcg PO DAILY 90 Days Qty: 90 2RF potassium gluconate 600 mg (99 mg) tablet 600 mg PO DAILY acetaminophen [Tylenol] 325 mg capsule 325 mg PO BID PRN (Reason: Pain)
--- NOTE | 2022-07-20 15:59 | PC.NURSE ---
This PCT went to draw the patients labs when the daughter (Gina Macias) who is an employee here insisted that she knew where to draw him. She proceeded to draw the patient. CHRISTIAN fuentes.
[2022-07-20 16:14] LABS: COVID-19 Test Positive (Negative)
--- NOTE | 2022-07-20 16:14 | PC.NURSE ---
This RN went in to triage pt who was brought in by EMS. Pt has three visitors at bedside. As this RN attempted to start triaging pt, one of the visitors who has [facility] employee badge has materials laid out to for blood draws and is actively trying to draw the pts blood. Other visitor is assisting first visitor with the blood draw. As this RN is attempting to intervene, the first visitor is aggressively resisting and insisting i do this all the time, i know where his veins are . PCT Denise at beside to witness interaction, charge auditor and clinical coordinator aware of interaction.
[2022-07-20 16:20] LABS: MANUAL DIFF FLAG NO
[2022-07-20 16:29] LABS: Basophils Percent Auto 0.5 % (0-2); Eosinophils Percent Auto 0.7 % (0-4); Hematocrit 39.2 % (42.0-52.0); Hemoglobin 12.8 g/dl (14.0-18.0); Imm Gran Abs Auto 0.01 X10*3/uL (0.00-0.03); Imm Gran Pct Auto 0.2 % (0.0-0.4); Lymphocytes Absolute Auto 1.6 X10*3/uL (1.2-4.9); Lymphocytes Percent Auto 37.8 % (20-40); Mean Corpuscular HGB Conc 32.7 g/dl (31.0-36.0); Mean Corpuscular Hemoglobin 28.6 pg (27.0-33.0); Mean Corpuscular Volume 87.5 fL (80.0-98.0); Mean Platelet Volume 9.2 fL (9.4-12.4); Monocytes Absolute Auto 0.6 X10*3/uL (0.1-1.2); Monocytes Percent Auto 14.4 % (2-11); Neutrophils Percent Auto 46.4 % (45-73); Platelet Count 165 X10*3/uL (160-400); Red Blood Count 4.48 X10*6/uL (4.60-5.80); Red Cell Distribution Width 19.1 % (11.0-16.0); Venous Blood Gas Refer to POC result; White Blood Count 4.2 X10*3/uL (4.8-10.8)
[2022-07-20 16:30] LABS: VBG Base Excess 2.3 mmol/L; VBG HCO3 27 mmol/L (22-26); VBG pCO2 43 mmHg; VBG pO2 38 mmHg
--- NOTE | 2022-07-20 16:40 | PC.NURSE ---
pt has three phlebotomists from lab at bedside working on blood draw. phlebotomy staff not called for assistance by ER staff.
[2022-07-20 16:46] LABS: Alanine Aminotransferase 20 U/L (0-40); Albumin Level 3.2 g/dL (3.5-5.0); Alkaline Phosphatase 56 U/L (39-117); Anion Gap 15 (12-20); Aspartate Amino Transferase 34 U/L (5-37); Bilirubin Total 1.2 mg/dL (0.0-1.0); Blood Urea Nitrogen 9 mg/dL (9-16); Calcium 8.4 mg/dL (8.4-10.2); Carbon Dioxide 27 mmol/L (22-29); Chloride 97 mmol/L (96-108); Creatinine Clr Calc Pharmacy 63.7; Estimated Glomerular Filt Rate > 60; Glucose Random 87 mg/dL (60-115); Potassium 3.7 mmol/L (3.3-5.1); Sodium 135 mmol/L (135-145); Total Protein 5.5 g/dL (6.5-8.0)
[2022-07-20 16:48] LABS: Lactic Acid 2.6 mmol/L (0.5-2.0)
[2022-07-20 16:53] LABS: INTERNATIONAL NORM RATIO 1.4 (0.9-1.1); Prothrombin Time 16.7 SEC (10.0-13.1)
[2022-07-20 16:59] LABS: Troponin-I High Sensitivity 202.9 ng/L (<3.5-35.0)
[2022-07-20 17:13] LABS: Magnesium 1.4 mg/dL (1.6-2.6)
[2022-07-20 17:19] LABS: B Type Natriuretic Peptide 100 pg/mL (<100)
[2022-07-20 17:35] VITALS: BP 179/77; PULSE 104; RESP 18; TEMP 37.6; O2SAT 92
[2022-07-20] MEDS: 0.9 % Sodium Chloride 1,000 ML 999 ML IV (18:05)
[2022-07-20] MEDS: Piperacillin Sodium/Tazobactam 3.375 GM in 0.9 % Sodium Chloride 50 ML IV (18:05)
[2022-07-20 18:18] LABS: Reflex Lactate? Lactic Acid Added
[2022-07-20 18:38] LABS: Procalcitonin 0.12 ng/mL
--- NOTE | 2022-07-20 18:44 | PHA.MEDREC ---
Pharmacy Consult ? Medication Reconciliation Pharmacy has completed the medication reconciliation.
--- NOTE | 2022-07-20 18:49 | P.HPHOSP_ITS ---
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 History was primarily obtained from his daughter at the bedside. Patient himself was very tired as daughter reports he was up all night coughing. She reports that he tested positive for COVID-19 3 weeks ago. At that time he had flu-like symptoms including fever body aches and cough. The symptoms lasted for approximately a week and then improved. He does also frequently have nausea vomiting and his energy levels wax and wane due to current chemotherapy treatment. However since the beginning of the week he has had increasing cough subjective fever and more vomiting. He has had decreased p.o. intake. Today they brought into the emergency department for further evaluation. He was noted to have low-grade temperature of 100.3 degrees, lactic acid of 2.6 and low magnesium at 1.4. Chest x-ray showed chronic left lower lobe pleural effusion and possible associated opacity. He was treated with IV Zosyn. In addition a troponin was checked and was around 200. EKG shows evidence of Brugada. Previous EKGs are normal with no evidence of Brugada. Patient has not had any c hest pain or palpitations. 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 Mother Lung cancer Brother Cancer Surgical History H/O arthroscopic knee surgery H/O partial nephrectomy History of esophagogastroduodenoscopy (EGD) (~1999) History of eye surgery History of knee replacement procedure of left knee History of knee replacement procedure of right knee History of lung biopsy Social History Household Members: Spouse Housing: Apartment Are you a primary career guidance counselor to a significant other at home: No Do you presently have visiting nurse or other home services: No Alcohol intake: never Patient Tobacco Use Status: Former Tobacco user Tobacco use type: Cigarette Years Smoked: 50 e-Cigarette/Vaping Use: Never Used Second Hand Smoke Exposure: No Substance Use Type: Other Advance Directives: Yes Advance Directives on File: Yes Advance Directives Date on File: 05/08/22 service: No Current occupational status: retired Cognitive needs: Yes (cane/walker) Hearing needs: No Vision needs: Yes (glasses) Meds Allergies Allergy/AdvReac Type Severity Reaction Status Date / Time adhesive Allergy Intermediate rash Verified 06/21/22 14:27 aspirin [ASA] Allergy Intermediate Anaphylaxis Verified 06/21/22 14:27 Active Medications: Current Medications Acetaminophen (Acetaminophen 325 Mg Tablet) 650 mg PO Q6H PRN PRN Reason: Pain, Mild (Pain Scale 1-3) Albuterol Sulfate (Albuterol Sulfate 90 Mcg 8 Gm Inhaler) 2 puff INHALE RQ4H PRN PRN Reason: Shortness of Breath Benzonatate (Benzonatate 100 Mg Capsule) 100 mg PO TID PRN PRN Reason: Cough Docusate Sodium (Docusate Sodium 100 Mg Capsule) 100 mg PO DAILY PRN PRN Reason: Constipation Enoxaparin Sodium (Enoxaparin Sodium 40 Mg/0.4 Ml Syringe) 40 mg SUBCUT Q24H LILIYA Magnesium Sulfate (Magnesium Sulfate/H2o) 2 gm in 50 mls @ 25 mls/hr IV ONCE ONE Stop: 07/20/22 19:25 Pharmacy Consult (Consult Rx Perform Med Rec) 1 each MISCELLANE ONCE PRN PRN Reason: Consult order Sodium Chloride (0.9 % Sodium Chloride Flush 3 Ml Syringe) 3 ml IVFLUSH QSHIFT LILIYA Home Medications Medication Instructions Recorded Confirmed Last Taken Type ascorbic acid (vitamin C) 500 mg 500 mg PO DAILY 08/18/20 07/20/22 07/20/22 History tablet (Vitamin C) denosumab 60 mg/mL subcutaneous 60 mg subcut [id number] 08/26/20 07/20/22 04/17/22 History syringe netarsudil 0.02 %-latanoprost 0.005 drp ophthalmic (eye) DAILY 06/20/21 07/20/22 07/20/22 History 0.005 % eye drops (Rocklatan) as directed potassium gluconate 600 mg (99 mg) 600 mg PO DAILY 11/21/21 07/20/22 07/20/22 History tablet furosemide 20 mg tablet (Lasix) 40 mg PO DAILY 01/16/22 07/20/22 07/20/22 History cholecalciferol (vitamin D3) 125 125 mcg PO DAILY 07/20/22 07/20/22 07/20/22 History mcg (5,000 unit) capsule hydrocortisone 5 mg tablet 5 mg PO QPM 07/20/22 07/20/22 Unknown History hydroxyzine pamoate 50 mg capsule 50 mg PO Q6H PRN Itching 07/20/22 07/20/22 Unknown History oxycodone 10 mg tablet 10 mg PO Q6H PRN Pain, Severe 07/20/22 07/20/22 Unknown History Physical Exam Vital Signs and Narrative: Vital Signs: Last Vital Signs Temp 99.6 F 07/20/22 17:35 Pulse 104 H 07/20/22 17:35 Resp 18 07/20/22 17:35 BP 179/77 H 07/20/22 17:35 Pulse Ox 92 07/20/22 17:35 O2 Del Method 07/20/22 17:35 BMI result Body Mass Index 22.8 Const: Other: sleepy, wakes to name and answers some questions, but falls asleep easily General: ill appearing Nutritional Appearance: thin Resp: Effort & Inspection: normal respiratory effort and able to speak in complete sentences Cardio: Rate: regular rate Heart sounds: S1 normal heart sound present and S2 normal heart sound present GI: Inspection: No distended Palpation (GI): Soft to palpation and nontender Neuro: Other: Grossly nonfocal Extrem: Other: moving all 4 extremities spontaneous General: Yes no pedal edema Results Labs CBC and Chem 7: 07/20/22 16:18 07/20/22 16:18 Labs: Laboratory Results - last 24 hr 07/20/22 07/20/22 07/20/22 15:51 16:18 16:18 MCV 87.5 MCH 28.6 MCHC 32.7 RDW 19.1 H Plt Count 165 D MPV 9.2 L Immature Gran % (Auto) 0.2 Neut % (Auto) 46.4 Lymph % (Auto) 37.8 [place] % (Auto) 14.4 H Eos % (Auto) 0.7 Baso % (Auto) 0.5 Lymph # (Auto) 1.6 [place] # (Auto) 0.6 Eos # (Auto) 0.0 Baso # (Auto) 0.0 Abs Immat Gran (auto) 0.01 Absolute Neuts (auto) 2.0 Absolute Nucleated RBC 0.000 Nucleated RBC % (auto) 0.0 PT INR VBG pH VBG pCO2 VBG pO2 VBG HCO3 VBG O2 Saturation VBG Base Excess Anion Gap 15 Estim Creat Clear Calc 63.7 Estimated GFR > 60 Random Glucose 87 Lactic Acid Calcium 8.4 Magnesium 1.4 L* Total Bilirubin 1.2 H AST 34 D ALT 20 Alkaline Phosphatase 56 D B-Natriuretic Peptide Total Protein 5.5 L Albumin 3.2 L Procalcitonin COVID-19 (TEO) Positive A COVID-19 Clin Com See Note 07/20/22 07/20/22 07/20/22 16:18 16:18 16:18 MCV MCH MCHC RDW Plt Count MPV Immature Gran % (Auto) Neut % (Auto) Lymph % (Auto) [place] % (Auto) Eos % (Auto) Baso % (Auto) Lymph # (Auto) [place] # (Auto) Eos # (Auto) Baso # (Auto) Abs Immat Gran (auto) Absolute Neuts (auto) Absolute Nucleated RBC Nucleated RBC % (auto) PT INR VBG pH VBG pCO2 VBG pO2 VBG HCO3 VBG O2 Saturation VBG Base Excess Anion Gap Estim Creat Clear Calc Estimated GFR Random Glucose Lactic Acid 2.6 H* Calcium Magnesium Total Bilirubin AST ALT Alkaline Phosphatase B-Natriuretic Peptide 100 Total Protein Albumin Procalcitonin 0.12 COVID-19 (TEO) COVID-19 Clin Com 07/20/22 07/20/22 16:25 16:40 MCV MCH MCHC RDW Plt Count MPV Immature Gran % (Auto) Neut % (Auto) Lymph % (Auto) [place] % (Auto) Eos % (Auto) Baso % (Auto) Lymph # (Auto) [place] # (Auto) Eos # (Auto) Baso # (Auto) Abs Immat Gran (auto) Absolute Neuts (auto) Absolute Nucleated RBC Nucleated RBC % (auto) PT 16.7 H INR 1.4 H VBG pH 7.40 VBG pCO2 43 VBG pO2 38 VBG HCO3 27 H VBG O2 Saturation 57.0 VBG Base Excess 2.3 Anion Gap Estim Creat Clear Calc Estimated GFR Random Glucose Lactic Acid Calcium Magnesium Total Bilirubin AST ALT Alkaline Phosphatase B-Natriuretic Peptide Total Protein Albumin Procalcitonin COVID-19 (TEO) COVID-19 Clin Com Imaging Radiologist's Impressions: Impressions Chest X-Ray 07/20/22 17:06 IMPRESSION: 1. Small left pleural effusion and opacity at the left lung base which represent atelectasis, pneumonia or aspiration. Assessment and Plan (1) COVID-19: Status: Acute (2) Brugada syndrome: Status: Acute Plan This is a 77-year-old male with history of renal cell carcinoma metastatic to lungs and bones currently undergoing chemotherapy, secondary adrenal insufficiency, hypothyroidism who initially tested positive for COVID-19 3 weeks ago and presents to the emergency department with increasing weakness and cough COVID-19 Initially tested positive 3 weeks ago No hypoxia at this time -will obtain ID consult to determine need for treatment this late in disease course, given immune compromise status -supportive care Possible pneumonia No evidence of sepsis at this time. Does have low grade fever, but does not meet sirs criteria. Elevated lactic from dehydration Chest x-ray showing chronic left pleural effusion and opacity at left lung base given symptoms of cough, sob and fever will treat for pneumonia with IV Zosyn, doxycycline not currently requiring oxygen -procalcitonin pending -symptomatic care Brugada on EKG Previous EKGs normal No chest pain -cardiology consult Elevated troponin no chest pain likely r/t demand, but will trend -cardiology consult Hypo magnesemia Replaced in ED -follow in a.m. Metastatic RCC continue cabozantinib dvt ppx - lovenox HCP - daughter Gina code status - full code attending - dr. fenton Due to severity of illness, immune compromised state patient will likely require 2 midnight stay in the hospital for management of pneumonia and COVID-19 as well as need for cardiology evaluation due to new EKG changes Quality Stroke Does the patient have a stroke diagnosis?: No VTE Prior VTE?: No VTE Risk Level:: Medical - moderate - high VTE Device Contraindication: N/A - Device Ordered VTE Drug Contraindication: N/A - Med Ordered
[2022-07-20 19:00] VITALS: BP 182/79; PULSE 105; RESP 22; TEMP 37; O2SAT 90
--- NOTE | 2022-07-20 19:18 | PM.EVENT ---
Event Note Date of Service: 07/20/22 Event Note: This patient is seen and examined with APC. 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 Pneumonia, also mild elevated troponin and EKG shows question of Brugada Had low-grade fever Lab imaging, EKG reviewed. WBC count 4.2, magnesium 1.4, CBC BMP otherwise fine, elevated troponin. Physical exam : Appearance: Alert.? Oriented but sleepy, easily aurosable. cvs: rrr, [id number] . res: clear to auscultation ,no rhonchii or wheezing abd: no rebound or guarding ,nt, bs present. ext pulses present , no cyanosis. neuro: axo3 , nonfocal. assessment and plan coordinated in APCs note, Agree with the plan in addition: recent covid ,possible pneumonia, brugada continue managemnt with antibiotics and follow up troponins cardiology eval
[2022-07-20 19:28] VITALS: BP 144/115
[2022-07-20] MEDS: Magnesium Sulfate/H2O 2 GM/50 ML PIGGYBACK IV (19:50)
[2022-07-20 20:27] LABS: ~Lactic Acid-LAB USE ONLY 2.1 mmol/L (0.5-2.0)
[2022-07-20] MEDS: Enoxaparin Sodium 40 MG/0.4 ML SYRINGE SUBCUT (21:22)
[2022-07-20] MEDS: iohexoL 350 MG/ML 100 ML INFUS..BTL IV (21:26)
[2022-07-20 21:57] LABS: Reflex Lactate? 2 Y
[2022-07-20] MEDS: Lactated Ringers 1,000 ML 100 ML IVCONT (22:13)
[2022-07-20] MEDS: Doxycycline Hyclate 100 MG in 0.9 % Sodium Chloride 250 ML 166.67 MG IV (22:18)
[2022-07-20 23:02] LABS: Troponin-I High Sensitivity 1919.3 ng/L (<3.5-35.0)
[2022-07-20 23:03] LABS: ~Lactic Acid-LAB USE ONLY 2.2 mmol/L (0.5-2.0)
--- NOTE | 2022-07-20 23:17 | PM.EVENT ---
Event Note Date of Service: 07/20/22 Event Note: pt 2nd rpt trop in the 800s, spoke to cardio, recommended r/o PE, CTA obtained, although poor study for segmental PE, there was no central PE or left sided segmental PE identified. Pt's 3rd Trop increased to 1900s, no CP, discussed with cardio, and will start him on heparin drip
[2022-07-20 23:28] VITALS: BMI 27.1
[2022-07-20] MEDS: Omeprazole 20 MG CAPSULE.DR PO (23:49)
[2022-07-20] MEDS: oxyCODONE HCl Immed Release 5 MG TABLET 10 MG PO (23:49)
[2022-07-20] MEDS: Heparin Sodium,Porcine 5,000 UNIT/ML VIAL 6100 UNIT IVPUSH (23:50)
[2022-07-21] VITALS (7 sets, daily range): BP systolic 100–126; BP diastolic 52–62; PULSE 69–91; RESP 16–20; TEMP 36.4–38.2; O2SAT 90–96; BMI 27.1
--- NOTE | 2022-07-21 | ECG_ITS ---
Test Reason : MD ORDER Blood Pressure : / mmHG Vent. Rate : 070 BPM Atrial Rate : 070 BPM P-R Int : 136 ms QRS Dur : 126 ms QT Int : 460 ms P-R-T Axes : 086 003 050 degrees QTc Int : 496 ms Normal sinus rhythm Non-specific intra-ventricular conduction block Abnormal ECG When compared with ECG of 20-JUL-2022 15:26, Vent. rate has decreased BY [address] no longer depressed in Lateral leads Brugada pattern, type 1 is no longer Present Referred By: Angela Portillo Electronically Signed By:DARLIN KRISHNAN
[2022-07-21 00:04] LABS: Mean Corpuscular HGB Conc 32.9 g/dl (31.0-36.0); PLT CLUMP 1
[2022-07-21 00:06] LABS: Hematocrit 42.2 % (42.0-52.0); Hemoglobin 13.9 g/dl (14.0-18.0); Mean Corpuscular Hemoglobin 28.5 pg (27.0-33.0); Mean Corpuscular Volume 86.5 fL (80.0-98.0); Mean Platelet Volume 8.5 fL (9.4-12.4); Red Blood Count 4.88 X10*6/uL (4.60-5.80); Red Cell Distribution Width 18.8 % (11.0-16.0)
[2022-07-21 00:09] LABS: Platelet Count 145 X10*3/uL (160-400); White Blood Count 4.7 X10*3/uL (4.8-10.8)
[2022-07-21] MEDS: Heparin Sodium,Porcine/1/2NS 25,000 UNIT/250 ML IV.SOLN 10.7 UNIT IVCONT (00:27)
[2022-07-21 00:57] LABS: INTERNATIONAL NORM RATIO 1.6 (0.9-1.1); Prothrombin Time 18.5 SEC (10.0-13.1)
[2022-07-21 01:14] LABS: PTT Heparin Drip > 200.0 SEC (53-77.9)
--- NOTE | 2022-07-21 01:21 | PC.NURSE ---
Critical lab value called by lab. PTT >200. Heparin drip stopped per MD orders.
[2022-07-21] MEDS: 0.9 % Sodium Chloride Flush 3 ML SYRINGE IVFLUSH ×2 (01:46→17:40)
--- NOTE | 2022-07-21 02:07 | PC.NURSE ---
Nurse to nurse report given to CHIKIS Loja RN. Patient to be transferred to room 476.
[2022-07-21] MEDS: Acetaminophen 325 MG TABLET 650 MG PO (02:11)
[2022-07-21] MEDS: Piperacillin Sodium/Tazobactam 3.375 GM in 0.9 % Sodium Chloride 50 ML IV ×4 (02:48→20:43)
[2022-07-21 03:44] LABS: PTT Heparin Drip 157.2 SEC (53-77.9)
[2022-07-21 04:50] LABS: PTT Heparin Drip 96.6 SEC (53-77.9)
--- NOTE | 2022-07-21 05:20 | PC.NURSE ---
Addendum entered by Purvi Soto RN 07/21/22 05:23: PTTHD 96.6 made aware no new orders, next ptthd placed for 1 hour per protocol. Original Note: pt to floor without heparin drip running per ED report Dr elizalde wanted lab draws every twos hours as opposed to every one hour per policy and place orders for 0220 and 420. made aware of results.
[2022-07-21] MEDS: Lactated Ringers 1,000 ML 100 ML IVCONT ×2 (05:54→17:41)
[2022-07-21] MEDS: Doxycycline Hyclate 100 MG in 0.9 % Sodium Chloride 250 ML 166.67 MG IV (05:54)
[2022-07-21 07:18] LABS: INTERNATIONAL NORM RATIO 1.5 (0.9-1.1); Prothrombin Time 17.2 SEC (10.0-13.1)
[2022-07-21 07:21] LABS: Basophils Percent Auto 0.3 % (0-2); Eosinophils Percent Auto 0.6 % (0-4); Hematocrit 35.9 % (42.0-52.0); Hemoglobin 11.6 g/dl (14.0-18.0); Imm Gran Abs Auto 0.01 X10*3/uL (0.00-0.03); Imm Gran Pct Auto 0.3 % (0.0-0.4); Lymphocytes Absolute Auto 1.4 X10*3/uL (1.2-4.9); Lymphocytes Percent Auto 44.9 % (20-40); MANUAL DIFF FLAG SCAN; Mean Corpuscular HGB Conc 32.3 g/dl (31.0-36.0); Mean Corpuscular Hemoglobin 28.4 pg (27.0-33.0); Mean Corpuscular Volume 87.8 fL (80.0-98.0); Mean Platelet Volume 9.6 fL (9.4-12.4); Monocytes Absolute Auto 0.6 X10*3/uL (0.1-1.2); Monocytes Percent Auto 20.1 % (2-11); Neutrophils Absolute Auto 1.1 x10*3/uL (2.0-8.3); Neutrophils Percent Auto 33.8 % (45-73); Platelet Count 144 X10*3/uL (160-400); Red Blood Count 4.09 X10*6/uL (4.60-5.80); SCAN SMEAR FLAG 1; White Blood Count 3.1 X10*3/uL (4.8-10.8)
[2022-07-21 07:43] LABS: SLIDE REVIEW VERIFIED
[2022-07-21 08:03] LABS: Anion Gap 16 (12-20); Blood Urea Nitrogen 12 mg/dL (9-16); Calcium 7.4 mg/dL (8.4-10.2); Carbon Dioxide 22 mmol/L (22-29); Chloride 99 mmol/L (96-108); Estimated Glomerular Filt Rate > 60; Glucose Random 74 mg/dL (60-115); Potassium 3.7 mmol/L (3.3-5.1); Sodium 133 mmol/L (135-145)
[2022-07-21] MEDS: Heparin Sodium,Porcine/1/2NS 25,000 UNIT/250 ML IV.SOLN 7.64 UNIT IVCONT (08:14)
[2022-07-21 08:25] LABS: C Reactive Protein 11.21 mg/dL (< or = 0.50); Lactate Dehydrogenase 445 U/L (118-273)
[2022-07-21] MEDS: Levothyroxine Sodium 75 MCG TABLET PO (08:27)
[2022-07-21] MEDS: Cholecalciferol (Vitamin D3) 25 MCG TABLET 125 MCG PO (08:27)
[2022-07-21] MEDS: Ascorbic Acid 500 MG TABLET PO (08:27)
[2022-07-21] MEDS: Hydrocortisone 10 MG TABLET PO (08:27)
--- NOTE | 2022-07-21 08:28 | HE.PHANOTE ---
Heparin Drip Heparin Drip started overnight. Heparin bolus of 6100 units given at 2300 on 07/20, drip started approximately 0027 on 07/21 and a PTT was drawn at 0043 which was greater than 200. Heparin drip on hold. On 07/21 @0043 PTT =157 and @0435 =96.6. PTT 67 at 0615. Contacted CHRISTIAN Fernández to verify patients weight and to check to see if PTT was drawn correctly. Since PTT normal at 0615 decreasing dose rate to 10 units/kg/hr and restartin. next PTT at 1415
--- NOTE | 2022-07-21 09:36 | MHC.CM.PN ---
Patient is Covid (+); CM spoke with Daughter/HCP/Gina @ [phone] and addressed IMM with her (original to be mailed certified letter to Gina and a copy has been placed on the chart). Patient lives in an apartment with his and he uses a walker to assist with mobility. Home with new referral to [facility] is the goal and CM has initiated and will follow for dc planning. Patient has received Covid vax X4 and his PCP is Dr. Sharla Galicia.
[2022-07-21 10:24] LABS: Ferritin 1979 ng/mL (20-250)
--- NOTE | 2022-07-21 13:15 | HO.PM.IMPN ---
Subjective Subjective Date of Service: 07/21/22 Interval History: Seen and examined this morning Follow-up for abnormal EKG, shortness of breath, pneumonia, COVID-19 Patient observed sitting up in bed, awake, alert, eating breakfast Able to speak in full sentences. Reports frequent coughing with intermittent sputum production. Denies fever, chills has no chest pain or palpitations at this time Review of Systems Review of Systems: Yes all other systems are reviewed and are negative Constitutional Constitutional: Denies chills and Denies fever(s) ENT Ears, Nose, Mouth, and Throat: Denies dizziness Cardiovascular Cardiovascular: Denies chest pain, Denies palpitations and Denies dyspnea Respiratory Respiratory: Reports cough and Denies dyspnea Gastrointestinal Gastrointestinal: Denies abdominal pain and Denies nausea Neurologic Neurologic: Denies dizziness Endocrine Endocrine: Denies palpitations Physical Exam Vital Signs: Vital Signs: Last Vital Signs Temp 98.6 F 07/21/22 08:00 Pulse 69 07/21/22 08:00 Resp 20 07/21/22 08:00 BP 100/56 L 07/21/22 08:00 Pulse Ox 94 07/21/22 08:00 O2 Del Method 07/21/22 02:57 BMI result Body Mass Index 27.1 Const: General: no acute distress, alert and awake Nutritional Appearance: thin Orientation/consciousness: patient oriented x3 Resp: Effort & Inspection: normal respiratory effort and able to speak in complete sentences Cardio: Rate: regular rate Heart sounds: S1 normal heart sound present and S2 normal heart sound present GI: Inspection: No distended Palpation (GI): Soft to palpation and nontender Neuro: Other: Grossly nonfocal General: patient oriented x3 Extrem: Other: moving all 4 extremities spontaneous General: Yes no pedal edema Objective Data Active Medications Acetaminophen (Acetaminophen 325 Mg Tablet) 650 mg PO Q6H PRN PRN Reason: Pain, Mild (Pain Scale 1-3) Last Admin: 07/21/22 02:11 Dose: 650 mg Documented By: MARJORIE Albuterol Sulfate (Albuterol Sulfate 90 Mcg 8 Gm Inhaler) 2 puff INHALE RQ4H PRN PRN Reason: Shortness of Breath Ascorbic Acid (Ascorbic Acid 500 Mg Tablet) 500 mg PO DAILY LILIYA Last Admin: 07/21/22 08:27 Dose: 500 mg Documented By: HUMBLE Benzonatate (Benzonatate 100 Mg Capsule) 100 mg PO TID PRN PRN Reason: Cough Calcium Carbonate (Calcium Carbonate 500 Mg Tablet) 500 mg PO BID [facility] Last Admin: 07/21/22 08:27 Dose: 500 mg Documented By: HUMBLE Docusate Sodium (Docusate Sodium 100 Mg Capsule) 100 mg PO DAILY PRN PRN Reason: Constipation Hydrocortisone (Hydrocortisone 10 Mg Tablet) 5 mg PO BEDTIME LILIYA Last Admin: 07/20/22 23:51 Dose: Not Given Documented By: MARJORIE Non-Admin Reason: Med Not Available Hydrocortisone (Hydrocortisone 10 Mg Tablet) 10 mg PO DAILY [facility] Last Admin: 07/21/22 08:27 Dose: 10 mg Documented By: HUMBLE Hydroxyzine HCl (Hydroxyzine Hcl 50 Mg Tablet) 50 mg PO Q6H PRN PRN Reason: Itching Doxycycline Hyclate 100 mg/ (Sodium Chloride) 250 mls @ 166.67 mls/hr IV Q12H [facility] Last Infusion: 07/21/22 11:04 Dose: 0 mls/hr Documented By: HUMBLE Lactated Ringer's (Lr) 1,000 mls @ 100 mls/hr IVCONT .Q10H LILIYA Last Infusion: 07/21/22 11:04 Dose: 0 mls/hr Documented By: HUMBLE Piperacillin Sod/Tazobactam (Sod 3.375 gm/ Sodium Chloride) 50 mls @ 100 mls/hr IV Q6H LILIYA Last Infusion: 07/21/22 11:03 Dose: 0 mls/hr Documented By: HUMBLE Levothyroxine Sodium (Levothyroxine Sodium 75 Mcg Tablet) 75 mcg PO DAILY LILIYA Last Admin: 07/21/22 08:27 Dose: 75 mcg Documented By: HUMBLE Lisinopril (Lisinopril 5 Mg Tablet) 5 mg PO DAILY [facility]; Protocol Last Admin: 07/21/22 11:03 Dose: Not Given Documented By: HUMBLE Non-Admin Reason: Physician Held Med Pt Own Medication ( Potassium Gluconate 99 Mg Tablet) 99 mg PO DAILY [facility] Pt Own Medication ( Rocklatan 0.02%-0. 005% Eye Drop) 1 each EYE-BOTH BEDTIME [facility] Pt Own Medication ( Cabozantinib [ Cabometyx] 20 Mg Tablet) 20 mg PO DAILY [facility] Omeprazole (Omeprazole 20 Mg Capsule.Dr) 20 mg PO BEDTIME [facility] Last Admin: 07/20/22 23:49 Dose: 20 mg Documented By: MARJORIE Oxycodone HCl (Oxycodone Hcl Immed Release 5 Mg Tablet) 10 mg PO Q6H PRN PRN Reason: Pain, Severe Last Admin: 07/20/22 23:49 Dose: 10 mg Documented By: MARJORIE Pharmacy Consult (Consult Rx Perform Med Rec) 1 each MISCELLANE ONCE PRN PRN Reason: Consult order Sodium Chloride (0.9 % Sodium Chloride Flush 3 Ml Syringe) 3 ml IVFLUSH QSHIFT [facility] Last Admin: 07/21/22 11:03 Dose: Not Given Documented By: HUMBLE Non-Admin Reason: IV Running Vitamin D (Cholecalciferol (Vitamin D3) 25 Mcg Tablet) 125 mcg PO DAILY [facility] Last Admin: 07/21/22 08:27 Dose: 125 mcg Documented By: HUMBLE Labs CBC & Chem 7: 07/21/22 06:15 07/21/22 06:15 Labs: Laboratory Results - last 24 hr 07/20/22 07/20/22 07/20/22 15:51 16:18 16:18 MCV 87.5 MCH 28.6 MCHC 32.7 RDW 19.1 H Plt Count 165 D MPV 9.2 L Immature Gran % (Auto) 0.2 Neut % (Auto) 46.4 Lymph % (Auto) 37.8 Isabella % (Auto) 14.4 H Eos % (Auto) 0.7 Baso % (Auto) 0.5 Lymph # (Auto) 1.6 Isabella # (Auto) 0.6 Eos # (Auto) 0.0 Baso # (Auto) 0.0 Abs Immat Gran (auto) 0.01 Absolute Neuts (auto) 2.0 Absolute Nucleated RBC 0.000 Nucleated RBC % (auto) 0.0 Smear Tech's Comments PT INR aPTT Heparin Protocol VBG pH VBG pCO2 VBG pO2 VBG HCO3 VBG O2 Saturation VBG Base Excess Anion Gap 15 Estim Creat Clear Calc 63.7 Estimated GFR > 60 Random Glucose 87 Lactic Acid Lactic Acid F/U @ 2Hr Lactic Acid F/U @ 4Hr Calcium 8.4 Magnesium 1.4 L* Ferritin Total Bilirubin 1.2 H AST 34 D ALT 20 Alkaline Phosphatase 56 D Lactate Dehydrogenase Total Creatine Kinase C-Reactive Protein B-Natriuretic Peptide Total Protein 5.5 L Albumin 3.2 L Procalcitonin COVID-19 (TEO) Positive A COVID-19 Clin Com See Note 07/20/22 07/20/22 07/20/22 16:18 16:18 16:18 MCV MCH MCHC RDW Plt Count MPV Immature Gran % (Auto) Neut % (Auto) Lymph % (Auto) Isabella % (Auto) Eos % (Auto) Baso % (Auto) Lymph # (Auto) Isabella # (Auto) Eos # (Auto) Baso # (Auto) Abs Immat Gran (auto) Absolute Neuts (auto) Absolute Nucleated RBC Nucleated RBC % (auto) Smear Tech's Comments PT INR aPTT Heparin Protocol VBG pH VBG pCO2 VBG pO2 VBG HCO3 VBG O2 Saturation VBG Base Excess Anion Gap Estim Creat Clear Calc Estimated GFR Random Glucose Lactic Acid 2.6 H* Lactic Acid F/U @ 2Hr Lactic Acid F/U @ 4Hr Calcium Magnesium Ferritin Total Bilirubin AST ALT Alkaline Phosphatase Lactate Dehydrogenase Total Creatine Kinase C-Reactive Protein B-Natriuretic Peptide 100 Total Protein Albumin Procalcitonin 0.12 COVID-19 (TEO) COVID-19 Clin Com 07/20/22 07/20/22 07/20/22 16:25 16:40 19:45 MCV MCH MCHC RDW Plt Count MPV Immature Gran % (Auto) Neut % (Auto) Lymph % (Auto) Isabella % (Auto) Eos % (Auto) Baso % (Auto) Lymph # (Auto) Isabella # (Auto) Eos # (Auto) Baso # (Auto) Abs Immat Gran (auto) Absolute Neuts (auto) Absolute Nucleated RBC Nucleated RBC % (auto) Smear Tech's Comments PT 16.7 H INR 1.4 H aPTT Heparin Protocol VBG pH 7.40 VBG pCO2 43 VBG pO2 38 VBG HCO3 27 H VBG O2 Saturation 57.0 VBG Base Excess 2.3 Anion Gap Estim Creat Clear Calc Estimated GFR Random Glucose Lactic Acid Lactic Acid F/U @ 2Hr 2.1 H* Lactic Acid F/U @ 4Hr Calcium Magnesium Ferritin Total Bilirubin AST ALT Alkaline Phosphatase Lactate Dehydrogenase Total Creatine Kinase C-Reactive Protein B-Natriuretic Peptide Total Protein Albumin Procalcitonin COVID-19 (TEO) COVID-19 Clin Com 07/20/22 07/20/22 07/21/22 22:25 23:22 00:43 MCV 86.5 MCH 28.5 MCHC 32.9 RDW 18.8 H Plt Count 145 L MPV 8.5 L Immature Gran % (Auto) Neut % (Auto) Lymph % (Auto) Isabella % (Auto) Eos % (Auto) Baso % (Auto) Lymph # (Auto) Isabella # (Auto) Eos # (Auto) Baso # (Auto) Abs Immat Gran (auto) Absolute Neuts (auto) Absolute Nucleated RBC 0.000 Nucleated RBC % (auto) 0.0 Smear Tech's Comments PT 18.5 H INR 1.6 H aPTT Heparin Protocol > 200.0 H* VBG pH VBG pCO2 VBG pO2 VBG HCO3 VBG O2 Saturation VBG Base Excess Anion Gap Estim Creat Clear Calc Estimated GFR Random Glucose Lactic Acid Lactic Acid F/U @ 2Hr Lactic Acid F/U @ 4Hr 2.2 H* Calcium Magnesium Ferritin Total Bilirubin AST ALT Alkaline Phosphatase Lactate Dehydrogenase Total Creatine Kinase C-Reactive Protein B-Natriuretic Peptide Total Protein Albumin Procalcitonin COVID-19 (TEO) COVID-19 Clin Com 07/21/22 07/21/22 07/21/22 03:09 04:35 06:15 MCV 87.8 MCH 28.4 MCHC 32.3 RDW 19.0 H Plt Count 144 L MPV 9.6 Immature Gran % (Auto) 0.3 Neut % (Auto) 33.8 L Lymph % (Auto) 44.9 H Isabella % (Auto) 20.1 H Eos % (Auto) 0.6 Baso % (Auto) 0.3 Lymph # (Auto) 1.4 Isabella # (Auto) 0.6 Eos # (Auto) 0.0 Baso # (Auto) 0.0 Abs Immat Gran (auto) 0.01 Absolute Neuts (auto) 1.1 L Absolute Nucleated RBC 0.000 Nucleated RBC % (auto) 0.0 Smear Tech's Comments VERIFIED PT INR aPTT Heparin Protocol 157.2 H* D 96.6 H D VBG pH VBG pCO2 VBG pO2 VBG HCO3 VBG O2 Saturation VBG Base Excess Anion Gap Estim Creat Clear Calc Estimated GFR Random Glucose Lactic Acid Lactic Acid F/U @ 2Hr Lactic Acid F/U @ 4Hr Calcium Magnesium Ferritin Total Bilirubin AST ALT Alkaline Phosphatase Lactate Dehydrogenase Total Creatine Kinase C-Reactive Protein B-Natriuretic Peptide Total Protein Albumin Procalcitonin COVID-19 (TEO) COVID-19 Clin Com 07/21/22 07/21/22 07/21/22 06:15 06:15 06:15 MCV MCH MCHC RDW Plt Count MPV Immature Gran % (Auto) Neut % (Auto) Lymph % (Auto) Isabella % (Auto) Eos % (Auto) Baso % (Auto) Lymph # (Auto) Isabella # (Auto) Eos # (Auto) Baso # (Auto) Abs Immat Gran (auto) Absolute Neuts (auto) Absolute Nucleated RBC Nucleated RBC % (auto) Smear Tech's Comments PT 17.2 H INR 1.5 H aPTT Heparin Protocol 67.0 D VBG pH VBG pCO2 VBG pO2 VBG HCO3 VBG O2 Saturation VBG Base Excess Anion Gap 16 Estim Creat Clear Calc 63.0 Estimated GFR > 60 Random Glucose 74 Lactic Acid Lactic Acid F/U @ 2Hr Lactic Acid F/U @ 4Hr Calcium 7.4 L D Magnesium Ferritin 1979 H Total Bilirubin AST ALT Alkaline Phosphatase Lactate Dehydrogenase 445 H Total Creatine Kinase 3163 H C-Reactive Protein 11.21 H B-Natriuretic Peptide Total Protein Albumin Procalcitonin COVID-19 (TEO) COVID-19 Clin Com Assessment and Plan (1) COVID-19: Status: Acute Plan This is a 77-year-old male with 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 Fully vaccinated but immune compromised given undergoing chemotherapy No hypoxia at this time Ferritin 1979, LDH 445, CRP 11.21 -will obtain ID consult to determine need for treatment this late in disease course, given immune compromise status -continue supportive care Possible pneumonia No evidence of sepsis at this time. Does have low grade fever, but does not meet sirs criteria. Elevated lactic from dehydration Chest x-ray showing chronic left pleural effusion and opacity at left lung base given symptoms of cough, sob and fever will treat for pneumonia with IV Zosyn, doxycycline not currently requiring oxygen Procalcitonin low Brugada on EKG Previous EKGs normal No chest pain, no VT seen by cardiology - likely unmasked by fever/acute illness Elevated troponin no chest pain troponin trended up to 5000, was started on heparin overnight seen by cardiology - does not feel that this represents acute ACS, recommend to DC heparin -ECHO pending Bacteremia 1/2 blood cultures positive for GPC in clusters -will give empiric dose of vanco -Follow final blood cultures Secondary Adrenal insufficiency r/t previous antineoplastic therapy -continue home dose of hydrocortisone -consider stress dose steroids if bp low Hypo magnesemia Replaced in ED -follow in a.m. Metastatic RCC continue cabozantinib if able to be brought from home HTN hold lisinopril, lasix follow bp closely Hypothyroidism continue synthroid dvt ppx - lovenox HCP - daughter Gina code status - full code attending - dr. spence Requires ongoing inpatient hospitalization for management of pneumonia/COVID-19, elevated cardiac enzymes Quality Stroke Does the patient have a stroke diagnosis?: No VTE Prior VTE?: No VTE Risk Level:: Medical - moderate - high VTE Device Contraindication: N/A - Device Ordered VTE Drug Contraindication: N/A - Med Ordered
--- NOTE | 2022-07-21 13:43 | PM.CNCAR ---
History of Present Illness History of Present Illness Date of Service: 07/21/22 Requesting physician: Angela Portillo Chief complaint: Brugada ECG, elevated troponins, COVID+ Narrative: 77-year-old gentleman presenting for cough, elevated troponins and Brugada ECG changes. He had COVID-19 infection 3 weeks ago. He had fever body aches and cough at that time. He continued to have cough and fatigue and also had low-grade fevers. He was brought to the hospital for these symptoms and his imaging showed chronic left lower lobe pleural effusion and possibly opacity for concern for pneumonia and he was started on Zosyn. EKG showed Brugada like changes. No syncope in the past. 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 He is on chemotherapy. He is denying any chest pain currently. He just feeling tired. 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 Mother Lung cancer Brother Cancer Surgical History Surgical History H/O arthroscopic knee surgery H/O partial nephrectomy History of esophagogastroduodenoscopy (EGD) (~1999) History of eye surgery History of knee replacement procedure of left knee History of knee replacement procedure of right knee History of lung biopsy Social History Social History Household Members: Spouse Housing: Apartment Are you a primary interior plant caretaker to a significant other at home: No Do you presently have visiting nurse or other home services: No Alcohol intake: never Patient Tobacco Use Status: Former Tobacco user Tobacco use type: Cigarette Years Smoked: 50 e-Cigarette/Vaping Use: Never Used Second Hand Smoke Exposure: No Substance Use Type: Other Advance Directives Date on File: 05/08/22 service: No Current occupational status: retired Cognitive needs: Yes (cane/walker) Hearing needs: No Vision needs: Yes (glasses) Meds Allergies Allergy/AdvReac Type Severity Reaction Status Date / Time adhesive Allergy Intermediate rash Verified 06/21/22 14:27 aspirin [ASA] Allergy Intermediate Anaphylaxis Verified 06/21/22 14:27 Active Medications: Current Medications Acetaminophen (Acetaminophen 325 Mg Tablet) 650 mg PO Q6H PRN PRN Reason: Pain, Mild (Pain Scale 1-3) Last Admin: 07/21/22 02:11 Dose: 650 mg Albuterol Sulfate (Albuterol Sulfate 90 Mcg 8 Gm Inhaler) 2 puff INHALE RQ4H PRN PRN Reason: Shortness of Breath Ascorbic Acid (Ascorbic Acid 500 Mg Tablet) 500 mg PO DAILY [facility] Last Admin: 07/21/22 08:27 Dose: 500 mg Benzonatate (Benzonatate 100 Mg Capsule) 100 mg PO TID PRN PRN Reason: Cough Calcium Carbonate (Calcium Carbonate 500 Mg Tablet) 500 mg PO BID [facility] Last Admin: 07/21/22 08:27 Dose: 500 mg Docusate Sodium (Docusate Sodium 100 Mg Capsule) 100 mg PO DAILY PRN PRN Reason: Constipation Hydrocortisone (Hydrocortisone 10 Mg Tablet) 5 mg PO BEDTIME [facility] Last Admin: 07/20/22 23:51 Dose: Not Given Hydrocortisone (Hydrocortisone 10 Mg Tablet) 10 mg PO DAILY [facility] Last Admin: 07/21/22 08:27 Dose: 10 mg Hydroxyzine HCl (Hydroxyzine Hcl 50 Mg Tablet) 50 mg PO Q6H PRN PRN Reason: Itching Doxycycline Hyclate 100 mg/ (Sodium Chloride) 250 mls @ 166.67 mls/hr IV Q12H [facility] Last Infusion: 07/21/22 11:04 Dose: Infused Lactated Ringer's (Lr) 1,000 mls @ 100 mls/hr IVCONT .Q10H [facility] Last Infusion: 07/21/22 11:04 Dose: 0 mls/hr Piperacillin Sod/Tazobactam (Sod 3.375 gm/ Sodium Chloride) 50 mls @ 100 mls/hr IV Q6H [facility] Last Admin: 07/21/22 13:36 Dose: 100 mls/hr Vancomycin HCl 1,000 mg/ (Sodium Chloride) 270 mls @ 270 mls/hr IV ONCE ONE Stop: 07/21/22 14:31 Levothyroxine Sodium (Levothyroxine Sodium 75 Mcg Tablet) 75 mcg PO DAILY [facility] Last Admin: 07/21/22 08:27 Dose: 75 mcg Lisinopril (Lisinopril 5 Mg Tablet) 5 mg PO DAILY [facility]; Protocol Last Admin: 07/21/22 11:03 Dose: Not Given Pt Own Medication ( Potassium Gluconate 99 Mg Tablet) 99 mg PO DAILY [facility] Last Admin: 07/21/22 13:36 Dose: 99 mg Pt Own Medication ( Rocklatan 0.02%-0. 005% Eye Drop) 1 each EYE-BOTH BEDTIME [facility] Pt Own Medication ( Cabozantinib [ Cabometyx] 20 Mg Tablet) 20 mg PO DAILY [facility] Last Admin: 07/21/22 13:36 Dose: 20 mg Omeprazole (Omeprazole 20 Mg Capsule.Dr) 20 mg PO BEDTIME [facility] Last Admin: 07/20/22 23:49 Dose: 20 mg Oxycodone HCl (Oxycodone Hcl Immed Release 5 Mg Tablet) 10 mg PO Q6H PRN PRN Reason: Pain, Severe Last Admin: 07/20/22 23:49 Dose: 10 mg Pharmacy Consult (Consult Rx Perform Med Rec) 1 each MISCELLANE ONCE PRN PRN Reason: Consult order Sodium Chloride (0.9 % Sodium Chloride Flush 3 Ml Syringe) 3 ml IVFLUSH QSHIFT [facility] Last Admin: 07/21/22 11:03 Dose: Not Given Vitamin D (Cholecalciferol (Vitamin D3) 25 Mcg Tablet) 125 mcg PO DAILY [facility] Last Admin: 07/21/22 08:27 Dose: 125 mcg Home Medications Medication Instructions Recorded Confirmed Last Taken Type ascorbic acid (vitamin C) 500 mg 500 mg PO DAILY 08/18/20 07/20/22 07/20/22 History tablet (Vitamin C) denosumab 60 mg/mL subcutaneous 60 mg subcut [id number] 08/26/20 07/20/22 04/17/22 History syringe netarsudil 0.02 %-latanoprost 0.005 drp ophthalmic (eye) DAILY 06/20/21 07/20/22 07/20/22 History 0.005 % eye drops (Rocklatan) as directed potassium gluconate 600 mg (99 mg) 600 mg PO DAILY 11/21/21 07/20/2207/20/22 History tablet furosemide 20 mg tablet (Lasix) 40 mg PO DAILY 01/16/22 07/20/22 07/20/22 History cholecalciferol (vitamin D3) 125 125 mcg PO DAILY 07/20/22 07/20/22 07/20/22 History mcg (5,000 unit) capsule hydrocortisone 5 mg tablet 5 mg PO QPM 07/20/22 07/20/22 Unknown History hydroxyzine pamoate 50 mg capsule 50 mg PO Q6H PRN Itching 07/20/22 07/20/22 Unknown History oxycodone 10 mg tablet 10 mg PO Q6H PRN Pain, Severe 07/20/22 07/20/22 Unknown History Physical Exam Vital Signs: Vital Signs: Last Vital Signs Temp 98.6 F 07/21/22 08:00 Pulse 69 07/21/22 08:00 Resp 20 07/21/22 08:00 BP 100/56 L 07/21/22 08:00 Pulse Ox 94 07/21/22 08:00 O2 Del Method 07/21/22 02:57 BMI result Body Mass Index 27.1 GENERAL APPEARANCE: in no acute distress, pleasant. NECK: no carotid bruit, no jugular venous distention. SKIN: no suspicious lesions, warm and dry. HEART: no murmurs, regular rate and rhythm. LUNGS: Crackles both bases. ABDOMEN: soft, nontender. EXTREMITIES: no edema. PERIPHERAL PULSES: equal. NEUROLOGIC: No gross deficits, AAO X 3 Objective Labs and Meds Result diagrams: 07/21/22 06:15 07/21/22 06:15 Lab results: Laboratory Results - last 24 hr 07/20/22 07/20/22 07/20/22 15:51 16:18 16:18 WBC 4.2 L RBC 4.48 L Hgb 12.8 L Hct 39.2 L MCV 87.5 MCH 28.6 MCHC 32.7 RDW 19.1 H Plt Count 165 D MPV 9.2 L Immature Gran % (Auto) 0.2 Neut % (Auto) 46.4 Lymph % (Auto) 37.8 [place] % (Auto) 14.4 H Eos % (Auto) 0.7 Baso % (Auto) 0.5 Lymph # (Auto) 1.6 [place] # (Auto) 0.6 Eos # (Auto) 0.0 Baso # (Auto) 0.0 Abs Immat Gran (auto) 0.01 Absolute Neuts (auto) 2.0 Absolute Nucleated RBC 0.000 Nucleated RBC % (auto) 0.0 Smear Tech's Comments PT INR aPTT Heparin Protocol VBG pH VBG pCO2 VBG pO2 VBG HCO3 VBG O2 Saturation VBG Base Excess Sodium 135 Potassium 3.7 Chloride 97 Carbon Dioxide 27 Anion Gap 15 BUN 9 Creatinine 0.89 Estim Creat Clear Calc 63.7 Estimated GFR > 60 Random Glucose 87 Lactic Acid Lactic Acid F/U @ 2Hr Lactic Acid F/U @ 4Hr Calcium 8.4 Magnesium 1.4 L* Ferritin Total Bilirubin 1.2 H AST 34 D ALT 20 Alkaline Phosphatase 56 D Lactate Dehydrogenase Total Creatine Kinase Troponin I High Sens C-Reactive Protein B-Natriuretic Peptide Total Protein 5.5 L Albumin 3.2 L Procalcitonin COVID-19 (TEO) Positive A COVID-19 Yo Com See Note 07/20/22 07/20/22 07/20/22 16:18 16:18 16:18 WBC RBC Hgb Hct MCV MCH MCHC RDW Plt Count MPV Immature Gran % (Auto) Neut % (Auto) Lymph % (Auto) [place] % (Auto) Eos % (Auto) Baso % (Auto) Lymph # (Auto) [place] # (Auto) Eos # (Auto) Baso # (Auto) Abs Immat Gran (auto) Absolute Neuts (auto) Absolute Nucleated RBC Nucleated RBC % (auto) Smear Tech's Comments PT INR aPTT Heparin Protocol VBG pH VBG pCO2 VBG pO2 VBG HCO3 VBG O2 Saturation VBG Base Excess Sodium Potassium Chloride Carbon Dioxide Anion Gap BUN Creatinine Estim Creat Clear Calc Estimated GFR Random Glucose Lactic Acid 2.6 H* Lactic Acid F/U @ 2Hr Lactic Acid F/U @ 4Hr Calcium Magnesium Ferritin Total Bilirubin AST ALT Alkaline Phosphatase Lactate Dehydrogenase Total Creatine Kinase Troponin I High Sens 202.9 H* C-Reactive Protein B-Natriuretic Peptide 100 Total Protein Albumin Procalcitonin 0.12 COVID-19 (TEO) COVID-19 [place] 07/20/22 07/20/22 07/20/22 16:25 16:40 19:45 WBC RBC Hgb Hct MCV MCH MCHC RDW Plt Count MPV Immature Gran % (Auto) Neut % (Auto) Lymph % (Auto) [place] % (Auto) Eos % (Auto) Baso % (Auto) Lymph # (Auto) [place] # (Auto) Eos # (Auto) Baso # (Auto) Abs Immat Gran (auto) Absolute Neuts (auto) Absolute Nucleated RBC Nucleated RBC % (auto) Smear Tech's Comments PT 16.7 H INR 1.4 H aPTT Heparin Protocol VBG pH 7.40 VBG pCO2 43 VBG pO2 38 VBG HCO3 27 H VBG O2 Saturation 57.0 VBG Base Excess 2.3 Sodium Potassium Chloride Carbon Dioxide Anion Gap BUN Creatinine Estim Creat Clear Calc Estimated GFR Random Glucose Lactic Acid Lactic Acid F/U @ 2Hr 2.1 H* Lactic Acid F/U @ 4Hr Calcium Magnesium Ferritin Total Bilirubin AST ALT Alkaline Phosphatase Lactate Dehydrogenase Total Creatine Kinase Troponin I High Sens C-Reactive Protein B-Natriuretic Peptide Total Protein Albumin Procalcitonin COVID-19 (TEO) COVID-19 [place] 07/20/22 07/20/22 07/20/22 19:45 22:25 22:25 WBC RBC Hgb Hct MCV MCH MCHC RDW Plt Count MPV Immature Gran % (Auto) Neut % (Auto) Lymph % (Auto) [place] % (Auto) Eos % (Auto) Baso % (Auto) Lymph # (Auto) [place] # (Auto) Eos # (Auto) Baso # (Auto) Abs Immat Gran (auto) Absolute Neuts (auto) Absolute Nucleated RBC Nucleated RBC % (auto) Smear Tech's Comments PT INR aPTT Heparin Protocol VBG pH VBG pCO2 VBG pO2 VBG HCO3 VBG O2 Saturation VBG Base Excess Sodium Potassium Chloride Carbon Dioxide Anion Gap BUN Creatinine Estim Creat Clear Calc Estimated GFR Random Glucose Lactic Acid Lactic Acid F/U @ 2Hr Lactic Acid F/U @ 4Hr 2.2 H* Calcium Magnesium Ferritin Total Bilirubin AST ALT Alkaline Phosphatase Lactate Dehydrogenase Total Creatine Kinase Troponin I High Sens 869.0 H* D 1919.3 H* D C-Reactive Protein B-Natriuretic Peptide Total Protein Albumin Procalcitonin COVID-19 (TEO) COVID-19 Yo Com 07/20/22 07/21/22 07/21/22 23:22 00:43 03:09 WBC 4.7 L RBC 4.88 Hgb 13.9 L Hct 42.2 MCV 86.5 MCH 28.5 MCHC 32.9 RDW 18.8 H Plt Count 145 L MPV 8.5 L Immature Gran % (Auto) Neut % (Auto) Lymph % (Auto) [place] % (Auto) Eos % (Auto) Baso % (Auto) Lymph # (Auto) [place] # (Auto) Eos # (Auto) Baso # (Auto) Abs Immat Gran (auto) Absolute Neuts (auto) Absolute Nucleated RBC 0.000 Nucleated RBC % (auto) 0.0 Smear Tech's Comments PT 18.5 H INR 1.6 H aPTT Heparin Protocol > 200.0 H* VBG pH VBG pCO2 VBG pO2 VBG HCO3 VBG O2 Saturation VBG Base Excess Sodium Potassium Chloride Carbon Dioxide Anion Gap BUN Creatinine Estim Creat Clear Calc Estimated GFR Random Glucose Lactic Acid Lactic Acid F/U @ 2Hr Lactic Acid F/U @ 4Hr Calcium Magnesium Ferritin Total Bilirubin AST ALT Alkaline Phosphatase Lactate Dehydrogenase Total Creatine Kinase Troponin I High Sens 4966.1 H* D C-Reactive Protein B-Natriuretic Peptide Total Protein Albumin Procalcitonin COVID-19 (TEO) COVID-19 Clin Com 07/21/22 07/21/22 07/21/22 03:09 04:35 06:15 WBC 3.1 L RBC 4.09 L Hgb 11.6 L Hct 35.9 L MCV 87.8 MCH 28.4 MCHC 32.3 RDW 19.0 H Plt Count 144 L MPV 9.6 Immature Gran % (Auto) 0.3 Neut % (Auto) 33.8 L Lymph % (Auto) 44.9 H [place] % (Auto) 20.1 H Eos % (Auto) 0.6 Baso % (Auto) 0.3 Lymph # (Auto) 1.4 [place] # (Auto) 0.6 Eos # (Auto) 0.0 Baso # (Auto) 0.0 Abs Immat Gran (auto) 0.01 Absolute Neuts (auto) 1.1 L Absolute Nucleated RBC 0.000 Nucleated RBC % (auto) 0.0 Smear Tech's Comments VERIFIED PT INR aPTT Heparin Protocol 157.2 H* D 96.6 H D VBG pH VBG pCO2 VBG pO2 VBG HCO3 VBG O2 Saturation VBG Base Excess Sodium Potassium Chloride Carbon Dioxide Anion Gap BUN Creatinine Estim Creat Clear Calc Estimated GFR Random Glucose Lactic Acid Lactic Acid F/U @ 2Hr Lactic Acid F/U @ 4Hr Calcium Magnesium Ferritin Total Bilirubin AST ALT Alkaline Phosphatase Lactate Dehydrogenase Total Creatine Kinase Troponin I High Sens C-Reactive Protein B-Natriuretic Peptide Total Protein Albumin Procalcitonin COVID-19 (TEO) COVID-19 Clin Com 07/21/22 07/21/22 07/21/22 06:15 06:15 06:15 WBC RBC Hgb Hct MCV MCH MCHC RDW Plt Count MPV Immature Gran % (Auto) Neut % (Auto) Lymph % (Auto) [place] % (Auto) Eos % (Auto) Baso % (Auto) Lymph # (Auto) [place] # (Auto) Eos # (Auto) Baso # (Auto) Abs Immat Gran (auto) Absolute Neuts (auto) Absolute Nucleated RBC Nucleated RBC % (auto) Smear Tech's Comments PT 17.2 H INR 1.5 H aPTT Heparin Protocol 67.0 D VBG pH VBG pCO2 VBG pO2 VBG HCO3 VBG O2 Saturation VBG Base Excess Sodium 133 L Potassium 3.7 Chloride 99 Carbon Dioxide 22 Anion Gap 16 BUN 12 Creatinine 0.90 Estim Creat Clear Calc 63.0 Estimated GFR > 60 Random Glucose 74 Lactic Acid Lactic Acid F/U @ 2Hr Lactic Acid F/U @ 4Hr Calcium 7.4 L D Magnesium Ferritin 1979 H Total Bilirubin AST ALT Alkaline Phosphatase Lactate Dehydrogenase 445 H Total Creatine Kinase 3163 H Troponin I High Sens C-Reactive Protein 11.21 H B-Natriuretic Peptide Total Protein Albumin Procalcitonin COVID-19 (TEO) COVID-19 Clin Com Imaging Radiologist's impression: Impressions Chest X-Ray 07/20/22 17:06 IMPRESSION: 1. Small left pleural effusion and opacity at the left lung base which represent atelectasis, pneumonia or aspiration. Chest CTA 07/20/22 21:33 IMPRESSION: 1. Limited exam for detecting of segmental pulmonary emboli. Assessment the right lung is largely nondiagnostic due to sensitive respiratory motion artifact. No central pulmonary embolus or left-sided segment of pulmonary emboli identified. 2. Small to moderate-sized multiloculated left pleural effusion, slightly increased since prior CT of 01/25/2022 with evidence of pleural metastatic disease, minimally progressed and unchanged osseous erosive/attractive change involving the left fourth and fifth ribs. 3. Trace right basilar pleural effusion. 4. Passive bilateral atelectasis most prominently in the left lung secondary to the loculated pleural effusion. VTE: indeterminate Assessment and Plan (1) COVID-19: Status: Acute (2) Brugada syndrome: Status: Acute (3) Elevated troponin level: Status: Acute Plan 77-year-old gentleman with COVID-19 infection recently who is presenting with cough and fatigue. Chest x-ray suggestive of pneumonia and he has been started on antibiotics. He has elevated troponin levels and is high since 2 troponin level is almost 5000. He has Brugada like EKG changes. He does not have syncope so this is not Brugada syndrome. Infection/fever can unmask Brugada like changes in some patients. Main treatment usually is to avoid fever. His troponins are high but there clinical story is not consistent with acute coronary syndrome. I think the troponins are type 2 injury possibly from sepsis and pneumonia. Please stop the heparin. ECHO to assess for any cardiomyopathy. No pulmonary embolism based on CTA which was somewhat limited in assessing the right lung. Thank you for allowing me to participate in the care of your patient. Please feel free to contact me if you have any questions. Procedures Date of Service Date of Service: 07/21/22
[2022-07-21 13:50] LABS: Magnesium 1.7 mg/dL (1.6-2.6)
[2022-07-21 14:03] LABS: Alanine Aminotransferase 17 U/L (0-40); Albumin Level 2.4 g/dL (3.5-5.0); Alkaline Phosphatase 40 U/L (39-117); Aspartate Amino Transferase 57 U/L (5-37); Bilirubin Direct 0.3 mg/dL (0.0-0.5); Bilirubin Total 0.9 mg/dL (0.0-1.0); Total Protein 4.1 g/dL (6.5-8.0)
--- NOTE | 2022-07-21 14:05 | PHA.PROG ---
Admission Date/Time: July 20, 2022 18:33 Indication: BACTEREMIA Weight in k.4 kg Adjusted body weight in K.7 KG [place] body weight in K.8 KG Obesity Dosing Indication % IBW: Serum Creatinine - Last 168 Hours 07/20/22 07/21/22 16:18 06:15 Creatinine 0.89 0.90 Estimated CrCl and GFR - Last 168 Hours 07/20/22 07/21/22 16:18 06:15 Estim Creat Clear Calc 63.7 63.0 Estimated GFR > 60 > 60 Vancomycin Loading Dose: 2000 MG X 1 Current Vancomycin Dosing Regimen: 1250 MG Q24H Vancomycin Monitoring using AUC goal of 400 - 600 range with trough as surrogate marker: PREDICTED AUC 431 Date and Time for next Vancomycin Level to be drawn: 07/23/22 @1200 (RANDOM) Pharmacist Comments on Vancomycin Plan: Vancomycin dosing will take advantage of [employer] as a clinical decision support tool that uses Bayesian modeling to calculate individual patient's pharmacokinetic parameters and forecast the patient's drug concentration time course with the target goal AUC 24 range of 400 - 600 mg/L/hr.
--- NOTE | 2022-07-21 16:13 | W.PM.IDCN ---
History of Present Illness Data of Consult Service Date: 07/21/22 Requesting physician: Angela Portillo Primary Care Provider: Sharla Juarez MD HPI Reason for consult: COVID ?persistent ?rx He presents to hospital with shortness of breath and coughing since Saturday (5 days). He had COVID positivity seven weeks ago with symptoms weakness and cough and then improved. Now again he has cough and fever and came to ER. He is on chemotherapy,cabazanitinib for renal cell carcinoma which unfortunately is metastatic to lungs and bone . He had nephrectomy in 2014. He has adrenal insufficiency and is on baseline steroids He has left sided pleural effusion and some atelectasis at that side. Procalcitonin is .12 and ferritin 1979. CK is 1363 and troponin is 4966. lactic acid is 2.6 He has no oxygen requirements and is on room air. 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 Mother Lung cancer Brother Cancer Family history: reviewed and not pertinent Surgical History Surgical History H/O arthroscopic knee surgery H/O partial nephrectomy History of esophagogastroduodenoscopy (EGD) (~1999) History of eye surgery History of knee replacement procedure of left knee History of knee replacement procedure of right knee History of lung biopsy Social History Social History Household Members: Spouse Housing: Apartment Are you a primary clinical care coordinator to a significant other at home: No Do you presently have visiting nurse or other home services: No Alcohol intake: never Patient Tobacco Use Status: Former Tobacco user Tobacco use type: Cigarette Years Smoked: 50 e-Cigarette/Vaping Use: Never Used Second Hand Smoke Exposure: No Substance Use Type: Other Advance Directives Date on File: 05/08/22 service: No Current occupational status: retired Cognitive needs: Yes (cane/walker) Hearing needs: No Vision needs: Yes (glasses) Meds Allergies Allergy/AdvReac Type Severity Reaction Status Date / Time adhesive Allergy Intermediate rash Verified 06/21/22 14:27 aspirin [ASA] Allergy Intermediate Anaphylaxis Verified 06/21/22 14:27 Active Medications: Current Medications Acetaminophen (Acetaminophen 325 Mg Tablet) 650 mg PO Q6H PRN PRN Reason: Pain, Mild (Pain Scale 1-3) Last Admin: 07/21/22 02:11 Dose: 650 mg Albuterol Sulfate (Albuterol Sulfate 90 Mcg 8 Gm Inhaler) 2 puff INHALE RQ4H PRN PRN Reason: Shortness of Breath Ascorbic Acid (Ascorbic Acid 500 Mg Tablet) 500 mg PO DAILY [facility] Last Admin: 07/21/22 08:27 Dose: 500 mg Benzonatate (Benzonatate 100 Mg Capsule) 100 mg PO TID PRN PRN Reason: Cough Calcium Carbonate (Calcium Carbonate 500 Mg Tablet) 500 mg PO BID [facility] Last Admin: 07/21/22 08:27 Dose: 500 mg Docusate Sodium (Docusate Sodium 100 Mg Capsule) 100 mg PO DAILY PRN PRN Reason: Constipation Hydrocortisone (Hydrocortisone 10 Mg Tablet) 5 mg PO BEDTIME [facility] Last Admin: 07/20/22 23:51 Dose: Not Given Hydrocortisone (Hydrocortisone 10 Mg Tablet) 10 mg PO DAILY [facility] Last Admin: 07/21/22 08:27 Dose: 10 mg Hydroxyzine HCl (Hydroxyzine Hcl 50 Mg Tablet) 50 mg PO Q6H PRN PRN Reason: Itching Doxycycline Hyclate 100 mg/ (Sodium Chloride) 250 mls @ 166.67 mls/hr IV Q12H [facility] Last Infusion: 07/21/22 11:04 Dose: Infused Lactated Ringer's (Lr) 1,000 mls @ 100 mls/hr IVCONT .Q10H [facility] Last Infusion: 07/21/22 11:04 Dose: 0 mls/hr Piperacillin Sod/Tazobactam (Sod 3.375 gm/ Sodium Chloride) 50 mls @ 100 mls/hr IV Q6H [facility] Last Infusion: 07/21/22 14:21 Dose: Infused Vancomycin HCl 1,250 mg/ (Sodium Chloride) 250 mls @ 166.667 mls/hr IV Q24H [facility] Levothyroxine Sodium (Levothyroxine Sodium 75 Mcg Tablet) 75 mcg PO DAILY [facility] Last Admin: 07/21/22 08:27 Dose: 75 mcg Lisinopril (Lisinopril 5 Mg Tablet) 5 mg PO DAILY [facility]; Protocol Last Admin: 07/21/22 11:03 Dose: Not Given Pt Own Medication ( Potassium Gluconate 99 Mg Tablet) 99 mg PO DAILY [facility] Last Admin: 07/21/22 13:36 Dose: 99 mg Pt Own Medication ( Rocklatan 0.02%-0. 005% Eye Drop) 1 each EYE-BOTH BEDTIME [facility] Pt Own Medication ( Cabozantinib [ Cabometyx] 20 Mg Tablet) 20 mg PO DAILY [facility] Last Admin: 07/21/22 13:36 Dose: 20 mg Omeprazole (Omeprazole 20 Mg Capsule.Dr) 20 mg PO BEDTIME [facility] Last Admin: 07/20/22 23:49 Dose: 20 mg Oxycodone HCl (Oxycodone Hcl Immed Release 5 Mg Tablet) 10 mg PO Q6H PRN PRN Reason: Pain, Severe Last Admin: 07/20/22 23:49 Dose: 10 mg Pharmacy Consult (Consult Rx Perform Med Rec) 1 each MISCELLANE ONCE PRN PRN Reason: Consult order Pharmacy Consult (Consult Rx Vancomycin Dosing) 1 each MISCELLANE DAILY PRN PRN Reason: Consult order Sodium Chloride (0.9 % Sodium Chloride Flush 3 Ml Syringe) 3 ml IVFLUSH QSHIFT [facility] Last Admin: 07/21/22 11:03 Dose: Not Given Vitamin D (Cholecalciferol (Vitamin D3) 25 Mcg Tablet) 125 mcg PO DAILY [facility] Last Admin: 07/21/22 08:27 Dose: 125 mcg Home Medications Medication Instructions Recorded Confirmed Last Taken Type ascorbic acid (vitamin C) 500 mg 500 mg PO DAILY 08/18/20 07/20/22 07/20/22 History tablet (Vitamin C) denosumab 60 mg/mL subcutaneous 60 mg subcut [id number] 08/26/20 07/20/22 04/17/22 History syringe netarsudil 0.02 %-latanoprost 0.005 drp ophthalmic (eye) DAILY 06/20/21 07/20/22 07/20/22 History 0.005 % eye drops (Rocklatan) as directed potassium gluconate 600 mg (99 mg) 600 mg PO DAILY 11/21/21 07/20/22 07/20/22 History tablet furosemide 20 mg tablet (Lasix) 40 mg PO DAILY 01/16/22 07/20/22 07/20/22 History cholecalciferol (vitamin D3) 125 125 mcg PO DAILY 07/20/22 07/20/22 07/20/22 History mcg (5,000 unit) capsule hydrocortisone 5 mg tablet 5 mg PO QPM 07/20/22 07/20/22 Unknown History hydroxyzine pamoate 50 mg capsule 50 mg PO Q6H PRN Itching 07/20/22 07/20/22 Unknown History oxycodone 10 mg tablet 10 mg PO Q6H PRN Pain, Severe 07/20/22 07/20/22 Unknown History Physical Exam Vital Signs: Vital Signs: Last Vital Signs Temp 97.6 F 07/21/22 12:00 Pulse 70 07/21/22 12:00 Resp 20 07/21/22 12:00 BP 106/52 L 07/21/22 12:00 Pulse Ox 94 07/21/22 12:00 O2 Del Method 07/21/22 12:00 BMI result Body Mass Index 27.1 Const: General: cooperative HEENT: Head: Yes normal to inspection Face and sinus: Yes normal facial exam Eyes: General: appearance normal, both eyes and all related structures Pupils: Equal, round and reactive pupils present Resp: Effort & Inspection: normal respiratory effort Cardio: Rate: regular rate Rhythm: regular rhythm GI: Palpation (GI): nontender : General: Yes no CVA tenderness Back/Spine/Pelvis: Back: no CVA tenderness Skin: General skin exam: no rashes or lesions noted Neuro: General: moves all extremities Cranial nerves: Yes Equal, round and reactive pupils present Extrem: General: Yes normal to inspection Psych: Appearance: grossly normal Results Labs CBC & Chem 7: 07/21/22 06:15 07/21/22 06:15 Labs: Short CBC 07/20/22 07/20/22 07/21/22 Range/Units 16:18 23:22 06:15 WBC 4.2 L 4.7 L 3.1 L (4.8-10.8) X10*3/uL Hgb 12.8 L 13.9 L 11.6 L (14.0-18.0) g/dl Hct 39.2 L 42.2 35.9 L (42.0-52.0) % Plt Count 165 D 145 L 144 L (160-400) X10*3/uL BMP 07/20/22 07/21/22 16:18 06:15 Sodium 135 133 L Potassium 3.7 3.7 Chloride 97 99 Carbon Dioxide 27 22 BUN 9 12 Creatinine 0.89 0.90 Calcium 8.4 7.4 L D Cardiac Enzymes 07/21/22 Range/Units 06:15 Total Creatine Kinase 3163 H (38-174) U/L Liver Function 07/20/22 07/21/22 Range/Units 16:18 06:15 Total Bilirubin 1.2 H 0.9 (0.0-1.0) mg/dL Direct Bilirubin 0.3 (0.0-0.5) mg/dL AST 34 D 57 H (5-37) U/L ALT 20 17 (0-40) U/L Alkaline Phosphatase 56 D 40 D (39-117) U/L Albumin 3.2 L 2.4 L D (3.5-5.0) g/dL Microbiology Microbiology Results: Microbiology 07/20/22 16:40 Blood - Venous Blood Culture - Preliminary Prelim: GPC Gram Stain only Assessment and Plan (1) Elevated troponin level: Status: Acute (2) COVID-19: Status: Acute He has no respiratory insufficiency so doesnt meet criteria for treatments. He may have persistent COVID with viral loads rising and falling with immune suppression (these individuals may also develop resistant virus) He has possible ?postobstructive/compressive pneumonia left base. Staph or strep or gram negative organisms can be associated with lung. Gram positive bacteremia may be contaminant since 1/2 or could be MRSA. (3) Brugada syndrome: Status: Acute (4) Pleural effusion on left: Status: Acute Plan No COVID treatment since although symptoms has no hypoxia so dont give Remdesivir (may be resistant anyway since persistent or recurrent COVID) Preventive Remdesivir not useful here since still not hypoxic after days and possibly weeks of COVID. Also steroids not useful with no hypoxia. No baricitinib since no high flow oxygen and severely immunosuppressed would be potentially harmful. Would continue piperacillin/tazobactam and vancomycin for potential pneumonia,possible 3-5 d IV Stop Vancomycin if negative MRSA nares and no staph bacteremia.
[2022-07-21] MEDS: Famotidine/PF 20 MG/2 ML VIAL IVPUSH (17:40)
[2022-07-21] MEDS: diphenhydrAMINE HCL 25 MG TABLET PO (17:41)
[2022-07-21] MEDS: ondansetron HCL 4 MG/2 ML VIAL IVPUSH (20:42)
[2022-07-21] MEDS: Hydrocortisone 10 MG TABLET 5 MG PO (20:43)
[2022-07-21] MEDS: Omeprazole 20 MG CAPSULE.DR PO (20:44)
[2022-07-21] MEDS: oxyCODONE HCl Immed Release 5 MG TABLET 10 MG PO (20:55)
[2022-07-22] MEDS: 0.9 % Sodium Chloride Flush 3 ML SYRINGE IVFLUSH (00:26)
[2022-07-22] MEDS: Piperacillin Sodium/Tazobactam 3.375 GM in 0.9 % Sodium Chloride 50 ML IV ×4 (02:25→20:19)
[2022-07-22] MEDS: Lactated Ringers 1,000 ML 100 ML IVCONT ×2 (02:26→13:57)
[2022-07-22 03:36] VITALS: BP 110/57; PULSE 72; RESP 20; TEMP 36.7; O2SAT 94
[2022-07-22 06:52] LABS: Hematocrit 31.9 % (42.0-52.0); Hemoglobin 10.3 g/dl (14.0-18.0); Mean Corpuscular HGB Conc 32.3 g/dl (31.0-36.0); Mean Corpuscular Hemoglobin 28.1 pg (27.0-33.0); Mean Corpuscular Volume 86.9 fL (80.0-98.0); Mean Platelet Volume 8.9 fL (9.4-12.4); Platelet Count 122 X10*3/uL (160-400); Red Blood Count 3.67 X10*6/uL (4.60-5.80); Red Cell Distribution Width 18.8 % (11.0-16.0); White Blood Count 2.6 X10*3/uL (4.8-10.8)
[2022-07-22 07:22] LABS: Anion Gap 11 (12-20); Blood Urea Nitrogen 10 mg/dL (9-16); Calcium 7.5 mg/dL (8.4-10.2); Carbon Dioxide 27 mmol/L (22-29); Chloride 102 mmol/L (96-108); Estimated Glomerular Filt Rate > 60; Glucose Random 103 mg/dL (60-115); Potassium 4.3 mmol/L (3.3-5.1); Sodium 136 mmol/L (135-145)
[2022-07-22 08:00] VITALS: BP 128/63; PULSE 76; RESP 20; TEMP 36.1; O2SAT 94
[2022-07-22] MEDS: Hydrocortisone 10 MG TABLET PO (08:40)
[2022-07-22] MEDS: Cholecalciferol (Vitamin D3) 25 MCG TABLET 125 MCG PO (08:40)
[2022-07-22] MEDS: Ascorbic Acid 500 MG TABLET PO (08:41)
[2022-07-22 09:29] LABS: MRSA Nasal PCR NEGATIVE (Negative); SA Nasal PCR NEGATIVE (Negative)
[2022-07-22] MEDS: Levothyroxine Sodium 75 MCG TABLET PO (10:54)
[2022-07-22 11:45] VITALS: BP 136/57; PULSE 53; RESP 20; TEMP 35.7; O2SAT 95
[2022-07-22] MEDS: ondansetron HCL 4 MG/2 ML VIAL IVPUSH (12:13)
--- NOTE | 2022-07-22 13:15 | P.PNIM_ITS ---
Subjective Subjective Date of Service: 07/22/22 Interval History: seen and examined this morning follow up for pneumonia, covid 19, elevated troponins Awake, alert, no acute distress. No overnight events Denies shortness of breath but still with significant persistent cough productive of green phlegm Review of Systems Review of Systems: Yes all other systems are reviewed and are negative Constitutional Constitutional: Denies chills and Denies fever(s) ENT Ears, Nose, Mouth, and Throat: Denies dizziness Cardiovascular Cardiovascular: Denies chest pain, Denies palpitations and Denies dyspnea Respiratory Respiratory: Reports cough and Denies dyspnea Gastrointestinal Gastrointestinal: Denies abdominal pain Neurologic Neurologic: Denies dizziness Endocrine Endocrine: Denies palpitations Physical Exam Vital Signs: Vital Signs: Last Vital Signs Temp 96.2 F L 07/22/22 11:45 Pulse 53 07/22/22 11:45 Resp 20 07/22/22 11:45 BP 136/57 L 07/22/22 11:45 Pulse Ox 95 07/22/22 11:45 O2 Del Method 07/22/22 11:45 BMI result Body Mass Index 27.1 Const: General: no acute distress, alert and awake Nutritional Appearance: thin Orientation/consciousness: patient oriented x3 Resp: Effort & Inspection: normal respiratory effort and able to speak in complete sentences Cardio: Rate: regular rate Heart sounds: S1 normal heart sound present and S2 normal heart sound present GI: Inspection: No distended Palpation (GI): Soft to palpation and nontender Neuro: Other: Grossly nonfocal General: patient oriented x3 Extrem: Other: moving all 4 extremities spontaneous General: Yes no pedal edema Objective Data Active Medications Acetaminophen (Acetaminophen 325 Mg Tablet) 650 mg PO Q6H PRN PRN Reason: Pain, Mild (Pain Scale 1-3) Last Admin: 07/21/22 02:11 Dose: 650 mg Documented By: MARJORIE Albuterol Sulfate (Albuterol Sulfate 90 Mcg 8 Gm Inhaler) 2 puff INHALE RQ4H PRN PRN Reason: Shortness of Breath Ascorbic Acid (Ascorbic Acid 500 Mg Tablet) 500 mg PO DAILY [facility]PL[facility] Last Admin: 07/22/22 08:41 Dose: 500 mg Documented By: HUMBLE Benzonatate (Benzonatate 100 Mg Capsule) 100 mg PO TID PRN PRN Reason: Cough Calcium Carbonate (Calcium Carbonate 500 Mg Tablet) 500 mg PO BID [facility] Last Admin: 07/22/22 08:40 Dose: 500 mg Documented By: HUMBLE Docusate Sodium (Docusate Sodium 100 Mg Capsule) 100 mg PO DAILY PRN PRN Reason: Constipation Hydrocortisone (Hydrocortisone 10 Mg Tablet) 5 mg PO BEDTIME [facility] Last Admin: 07/21/22 20:43 Dose: 5 mg Documented By: MANJIT Hydrocortisone (Hydrocortisone 10 Mg Tablet) 10 mg PO DAILY [facility] Last Admin: 07/22/22 08:40 Dose: 10 mg Documented By: HUMBLE Hydroxyzine HCl (Hydroxyzine Hcl 50 Mg Tablet) 50 mg PO Q6H PRN PRN Reason: Itching Lactated Ringer's (Lr) 1,000 mls @ 100 mls/hr IVCONT .Q10H [facility]PL[facility] Last Admin: 07/22/22 02:26 Dose: 100 mls/hr Documented By: STEFAN Piperacillin Sod/Tazobactam (Sod 3.375 gm/ Sodium Chloride) 50 mls @ 100 mls/hr IV Q6H [facility]PL[facility] Last Infusion: 07/22/22 09:38 Dose: 0 mls/hr Documented By: HUMBLE Levothyroxine Sodium (Levothyroxine Sodium 75 Mcg Tablet) 75 mcg PO DAILY [facility] Last Admin: 07/22/22 10:54 Dose: 75 mcg Documented By: HUMBLE Lisinopril (Lisinopril 5 Mg Tablet) 5 mg PO DAILY [facility]; Protocol Last Admin: 07/21/22 11:03 Dose: Not Given Documented By: HUMBLE Non-Admin Reason: Physician Held Med Pt Own Medication ( Potassium Gluconate 99 Mg Tablet) 99 mg PO DAILY [facility] Last Admin: 07/22/22 08:39 Dose: 99 mg Documented By: HUMBLE Pt Own Medication ( Rocklatan 0.02%-0. 005% Eye Drop) 1 each EYE-BOTH BEDTIME [facility] Last Admin: 07/21/22 20:42 Dose: 1 each Documented By: MANJIT Pt Own Medication ( Cabozantinib [ Cabometyx] 20 Mg Tablet) 20 mg PO DAILY [facility] Last Admin: 07/22/22 09:45 Dose: 20 mg Documented By: HUMBLE Omeprazole (Omeprazole 20 Mg Capsule.Dr) 20 mg PO BEDTIME [facility]PL[facility] Last Admin: 07/21/22 20:44 Dose: 20 mg Documented By: MANJIT Ondansetron HCl (Ondansetron Hcl 4 Mg/2 Ml Vial) 4 mg IVPUSH Q8H PRN PRN Reason: Nausea and Vomiting Last Admin: 07/22/22 12:13 Dose: 4 mg Documented By: HUMBLE Oxycodone HCl (Oxycodone Hcl Immed Release 5 Mg Tablet) 10 mg PO Q6H PRN PRN Reason: Pain, Severe Last Admin: 07/21/22 20:55 Dose: 10 mg Documented By: MANJIT Pharmacy Consult (Consult Rx Perform Med Rec) 1 each MISCELLANE ONCE PRN PRN Reason: Consult order Pharmacy Consult (Consult Rx Vancomycin Dosing) 1 each MISCELLANE DAILY PRN PRN Reason: Consult order Sodium Chloride (0.9 % Sodium Chloride Flush 3 Ml Syringe) 3 ml IVFLUSH QSHIFT REPLACED BY [facility] Last Admin: 07/22/22 09:11 Dose: Not Given Documented By: HUMBLE Non-Admin Reason: IV Running Vitamin D (Cholecalciferol (Vitamin D3) 25 Mcg Tablet) 125 mcg PO DAILY [facility] Last Admin: 07/22/22 08:40 Dose: 125 mcg Documented By: HUMBLE Labs CBC & Chem 7: 07/22/22 06:32 07/22/22 06:32 Labs: Laboratory Results - last 24 hr 07/21/22 07/21/22 07/22/22 06:15 17:36 06:32 MCV 86.9 MCH 28.1 MCHC 32.3 RDW 18.8 H Plt Count 122 L MPV 8.9 L Absolute Nucleated RBC 0.000 Nucleated RBC % (auto) 0.0 Anion Gap Estim Creat Clear Calc Estimated GFR Random Glucose Calcium Magnesium 1.7 Total Bilirubin 0.9 Direct Bilirubin 0.3 AST 57 H ALT 17 Alkaline Phosphatase 40 D Total Protein 4.1 L D Albumin 2.4 L D Nasal Screen MRSA (PCR) NEGATIVE Nasal S. aureus Screen NEGATIVE Nasal MRSA/S.aureus Interp SEE NOTE 07/22/22 06:32 MCV MCH MCHC RDW Plt Count MPV Absolute Nucleated RBC Nucleated RBC % (auto) Anion Gap 11 L Estim Creat Clear Calc 81.0 Estimated GFR > 60 Random Glucose 103 D Calcium 7.5 L Magnesium Total Bilirubin Direct Bilirubin AST ALT Alkaline Phosphatase Total Protein Albumin Nasal Screen MRSA (PCR) Nasal S. aureus Screen Nasal MRSA/S.aureus Inter Microbiology Microbiology Results: Microbiology 07/20/22 16:40 Blood Culture - Final Blood - Venous Coag negative Staphylococcus 07/20/22 16:18 Blood Culture - Preliminary Blood - Venous No growth after 24 hours. Assessment and Plan (1) Elevated troponin level: Status: Acute (2) COVID-19: Status: Acute (3) Pneumonia: Status: Acute Plan This is a 77-year-old male with history of renal cell carcinoma metastatic to lungs and bones currently undergoing chemotherapy, secondary adrenal insufficiency, hypothyroidism who initially tested positive for COVID-19 3 weeks ago and presents to the emergency department with increasing weakness and cough pneumonia ?postobstructive No evidence of sepsis at this time. afebrile, no leukocytosis Chest x-ray showing chronic left pleural effusion and opacity at left lung base. CTA with loculated left pleural effusion (chronic, h/o pleurex catheter) with pleural metastatic disease and passive atelectasis Elevated lactic from dehydration given symptoms of cough, sob and fever will treat for pneumonia with IV Zosyn MRSA nares negative, d/c vanco not currently requiring oxygen Procalcitonin low COVID-19 Family reported that he tested positive 3 weeks ago, now stating 7 weeks ago. Fully vaccinated but immune compromised given undergoing chemotherapy No hypoxia at this time Ferritin 1979, LDH 445, CRP 11.21 - trend inflammatory markers seen by ID, no COVID treatment indicated at this time -continue supportive care Brugada on EKG Previous EKGs normal No chest pain, no VT seen by cardiology - likely unmasked by fever/acute illness no need for AC or any further workup at this time Elevated troponin no chest pain troponin trended up to 5000, was initially started on heparin seen by cardiology - does not feel that this represents acute ACS, recommend to DC heparin -ECHO pending Bacteremia 1/2 blood cultures positive for GPC in clusters. recived empiric dose of vanco final cultures coag negative staph - likely contaminant Secondary Adrenal insufficiency r/t previous antineoplastic therapy -continue home dose of hydrocortisone -consider stress dose steroids if bp low Hypo magnesemia Replaced in ED Metastatic RCC continue cabozantinib if able to be brought from home HTN bp soft but starting to trend back up hold lisinopril, lasix follow bp closely - resume meds as bp allows Hypothyroidism continue synthroid dvt ppx - lovenox HCP - daughter Gina code status - full code Requires ongoing inpatient hospitalization for management of pneumonia/COVID-19, elevated cardiac enzymes Quality Stroke Does the patient have a stroke diagnosis?: No VTE Prior VTE?: No VTE Risk Level:: Medical - moderate - high VTE Device Contraindication: N/A - Device Ordered VTE Drug Contraindication: N/A - Med Ordered
[2022-07-22 13:43] LABS: Magnesium 1.8 mg/dL (1.6-2.6)
[2022-07-22 16:00] VITALS: BP 136/83; PULSE 82; RESP 18; TEMP 37; O2SAT 96
[2022-07-22 20:00] VITALS: BP 128/64; PULSE 76; RESP 17; TEMP 36; O2SAT 98
[2022-07-22] MEDS: Omeprazole 20 MG CAPSULE.DR PO (20:19)
[2022-07-22] MEDS: Hydrocortisone 10 MG TABLET 5 MG PO (20:19)
[2022-07-22 23:47] VITALS: BP 139/64; PULSE 78; RESP 20; TEMP 36.4; O2SAT 97
[2022-07-23 02:48] VITALS: BP 131/53; PULSE 65; RESP 16; TEMP 36.3; O2SAT 96
[2022-07-23] MEDS: Piperacillin Sodium/Tazobactam 3.375 GM in 0.9 % Sodium Chloride 50 ML IV ×4 (03:09→20:18)
[2022-07-23 06:12] LABS: Hematocrit 32.7 % (42.0-52.0); Hemoglobin 10.7 g/dl (14.0-18.0); Mean Corpuscular HGB Conc 32.7 g/dl (31.0-36.0); Mean Corpuscular Hemoglobin 28.4 pg (27.0-33.0); Mean Corpuscular Volume 86.7 fL (80.0-98.0); Mean Platelet Volume 9.8 fL (9.4-12.4); Platelet Count 151 X10*3/uL (160-400); Red Blood Count 3.77 X10*6/uL (4.60-5.80); Red Cell Distribution Width 18.9 % (11.0-16.0); White Blood Count 2.9 X10*3/uL (4.8-10.8)
[2022-07-23 06:28] LABS: Anion Gap 12 (12-20); Blood Urea Nitrogen 10 mg/dL (9-16); C Reactive Protein 7.01 mg/dL (< or = 0.50); Carbon Dioxide 26 mmol/L (22-29); Chloride 108 mmol/L (96-108); Creatinine Clr Calc Pharmacy 82.1; Estimated Glomerular Filt Rate > 60; Glucose Random 101 mg/dL (60-115); Lactate Dehydrogenase 340 U/L (118-273); Potassium 3.7 mmol/L (3.3-5.1); Sodium 142 mmol/L (135-145)
[2022-07-23 07:36] VITALS: BP 150/70; PULSE 73; RESP 18; TEMP 36.4; O2SAT 98
[2022-07-23 07:41] LABS: Ferritin 2315 ng/mL (20-250)
[2022-07-23] MEDS: Hydrocortisone 10 MG TABLET PO (08:26)
[2022-07-23] MEDS: Levothyroxine Sodium 75 MCG TABLET PO (08:26)
[2022-07-23] MEDS: Cholecalciferol (Vitamin D3) 25 MCG TABLET 125 MCG PO (08:26)
[2022-07-23] MEDS: Ascorbic Acid 500 MG TABLET PO (08:26)
[2022-07-23] MEDS: 0.9 % Sodium Chloride Flush 3 ML SYRINGE IVFLUSH ×3 (08:27→20:18)
[2022-07-23 11:18] VITALS: BP 147/69; PULSE 76; RESP 18; TEMP 36.4; O2SAT 96
--- NOTE | 2022-07-23 15:45 | MHC.CM.PN ---
DP Home with new [facility]. Family will provide transport home.
[2022-07-23 16:00] VITALS: BP 159/77; PULSE 66; RESP 18; TEMP 36.3; O2SAT 98
--- NOTE | 2022-07-23 16:09 | HO.PM.IMPN ---
Subjective Subjective Date of Service: 07/23/22 Review of Systems Follow-up postobstructive pneumonia Feeling better Denies chest pain, shortness breath, nausea, vomiting, diarrhea Physical Exam Vital Signs: Vital Signs: Last Vital Signs Temp 97.5 F 07/23/22 11:18 Pulse 76 07/23/22 11:18 Resp 18 07/23/22 11:18 BP 147/69 H 07/23/22 11:18 Pulse Ox 96 07/23/22 11:18 O2 Del Method 07/23/22 11:18 BMI result Body Mass Index 27.1 Appearing in no acute distress lung sounds are clear to auscultation, cough with green phlegm heart regular rate rhythm, clear S1, S2 positive bowel sounds, abdomen is soft, nontender neuro patient is alert x3, no focal deficits Objective Data Active Medications Acetaminophen (Acetaminophen 325 Mg Tablet) 650 mg PO Q6H PRN PRN Reason: Pain, Mild (Pain Scale 1-3) Last Admin: 07/21/22 02:11 Dose: 650 mg Documented By: MARJORIE Albuterol Sulfate (Albuterol Sulfate 90 Mcg 8 Gm Inhaler) 2 puff INHALE RQ4H PRN PRN Reason: Shortness of Breath Ascorbic Acid (Ascorbic Acid 500 Mg Tablet) 500 mg PO DAILY REPLACED BY [facility] Last Admin: 07/23/22 08:26 Dose: 500 mg Documented By: BRENNA Benzonatate (Benzonatate 100 Mg Capsule) 100 mg PO TID PRN PRN Reason: Cough Calcium Carbonate (Calcium Carbonate 500 Mg Tablet) 500 mg PO BID REPLACED BY [facility] Last Admin: 07/23/22 08:26 Dose: 500 mg Documented By: BRENNA Docusate Sodium (Docusate Sodium 100 Mg Capsule) 100 mg PO DAILY PRN PRN Reason: Constipation Hydrocortisone (Hydrocortisone 10 Mg Tablet) 5 mg PO BEDTIME REPLACED BY [facility] Last Admin: 07/22/22 20:19 Dose: 5 mg Documented By: MANJIT Hydrocortisone (Hydrocortisone 10 Mg Tablet) 10 mg PO DAILY REPLACED BY [facility] Last Admin: 07/23/22 08:26 Dose: 10 mg Documented By: BRENNA Hydroxyzine HCl (Hydroxyzine Hcl 50 Mg Tablet) 50 mg PO Q6H PRN PRN Reason: Itching Piperacillin Sod/Tazobactam (Sod 3.375 gm/ Sodium Chloride) 50 mls @ 100 mls/hr IV Q6H REPLACED BY [facility] Last Infusion: 07/23/22 16:00 Dose: 0 mls/hr Documented By: BRENNA Levothyroxine Sodium (Levothyroxine Sodium 75 Mcg Tablet) 75 mcg PO DAILY REPLACED BY [facility] Last Admin: 07/23/22 08:26 Dose: 75 mcg Documented By: BRENNA Lisinopril (Lisinopril 5 Mg Tablet) 5 mg PO DAILY REPLACED BY [facility]; Protocol Last Admin: 07/21/22 11:03 Dose: Not Given Documented By: HUMBLE Non-Admin Reason: Physician Held Med Pt Own Medication ( Potassium Gluconate 99 Mg Tablet) 99 mg PO DAILY REPLACED BY [facility] Last Admin: 07/23/22 08:25 Dose: 99 mg Documented By: BRENNA Pt Own Medication ( Rocklatan 0.02%-0. 005% Eye Drop) 1 each EYE-BOTH BEDTIME REPLACED BY [facility] Last Admin: 07/22/22 20:19 Dose: 1 each Documented By: MANJIT Pt Own Medication ( Cabozantinib [ Cabometyx] 20 Mg Tablet) 20 mg PO DAILY REPLACED BY [facility] Last Admin: 07/23/22 08:25 Dose: 20 mg Documented By: BRENNA Omeprazole (Omeprazole 20 Mg Capsule.Dr) 20 mg PO BEDTIME REPLACED BY [facility] Last Admin: 07/22/22 20:19 Dose: 20 mg Documented By: MANJIT Ondansetron HCl (Ondansetron Hcl 4 Mg/2 Ml Vial) 4 mg IVPUSH Q8H PRN PRN Reason: Nausea and Vomiting Last Admin: 07/22/22 12:13 Dose: 4 mg Documented By: HUMBLE Oxycodone HCl (Oxycodone Hcl Immed Release 5 Mg Tablet) 10 mg PO Q6H PRN PRN Reason: Pain, Severe Last Admin: 07/21/22 20:55 Dose: 10 mg Documented By: MANJIT Pharmacy Consult (Consult Rx Perform Med Rec) 1 each MISCELLANE ONCE PRN PRN Reason: Consult order Pharmacy Consult (Consult Rx Vancomycin Dosing) 1 each MISCELLANE DAILY PRN PRN Reason: Consult order Sodium Chloride (0.9 % Sodium Chloride Flush 3 Ml Syringe) 3 ml IVFLUSH QSHIFT REPLACED BY [facility] Last Admin: 07/23/22 15:22 Dose: 3 ml Documented By: BRENNA Vitamin D (Cholecalciferol (Vitamin D3) 25 Mcg Tablet) 125 mcg PO DAILY LILIYA Last Admin: 07/23/22 08:26 Dose: 125 mcg Documented By: BRENNA Labs CBC & Chem 7: 07/23/22 05:53 07/23/22 05:53 Labs: Laboratory Results - last 24 hr 07/23/22 07/23/22 07/23/22 05:53 05:53 05:53 MCV 86.7 MCH 28.4 MCHC 32.7 RDW 18.9 H Plt Count 151 L MPV 9.8 Absolute Nucleated RBC 0.000 Nucleated RBC % (auto) 0.0 Anion Gap 12 Estim Creat Clear Calc 82.1 Estimated GFR > 60 Random Glucose 101 Calcium 8.0 L D Ferritin 2315 H Lactate Dehydrogenase 340 H C-Reactive Protein 7.01 H Random Vancomycin 07/23/22 11:31 MCV MCH MCHC RDW Plt Count MPV Absolute Nucleated RBC Nucleated RBC % (auto) Anion Gap Estim Creat Clear Calc Estimated GFR Random Glucose Calcium Ferritin Lactate Dehydrogenase C-Reactive Protein Random Vancomycin 4.0 L Microbiology Microbiology Results: Microbiology 07/20/22 16:18 Blood Culture - Preliminary Blood - Venous No growth after 48 hours. 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 afebrile, no leukocytosis Chest x-ray showing chronic left pleural effusion and opacity at left lung base. CTA with loculated left pleural effusion (chronic, h/o pleurex catheter) with pleural metastatic disease and passive atelectasis Elevated lactic from dehydration given symptoms of cough, sob and fever will treat for pneumonia with IV Zosyn total 3-5 days according to ID not currently requiring oxygen COVID-19 Family reported that he tested positive in May. Fully vaccinated but immune compromised given undergoing chemotherapy No hypoxia at this time Ferritin 1979, LDH 445, CRP 11.21 - trend inflammatory markers seen by ID, no COVID treatment indicated at this time continue supportive care Brugada on EKG Previous EKGs normal No chest pain, no VT seen by cardiology - likely unmasked by fever/acute illness no need for AC or any further workup at this time Elevated troponin no chest pain troponin trended up to 5000, was initially started on heparin seen by cardiology - does not feel that this represents acute ACS, recommend to DC heparin ECHO pending 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 Smith Requires ongoing inpatient hospitalization for management of pneumonia/COVID-19, elevated cardiac enzymes Quality Stroke Does the patient have a stroke diagnosis?: No VTE Prior VTE?: No VTE Risk Level:: Medical - moderate - high VTE Device Contraindication: N/A - Device Ordered VTE Drug Contraindication: N/A - Med Ordered
[2022-07-23 20:00] VITALS: BP 144/66; PULSE 73; RESP 18; TEMP 37.2; O2SAT 98
[2022-07-23] MEDS: guaiFENesin DM 600/30 1 TAB TAB.ER.12H PO (20:18)
[2022-07-23] MEDS: Omeprazole 20 MG CAPSULE.DR PO (20:18)
[2022-07-23] MEDS: Hydrocortisone 10 MG TABLET 5 MG PO (20:18)
[2022-07-23] MEDS: oxyCODONE HCl Immed Release 5 MG TABLET 10 MG PO (20:20)
[2022-07-23] MEDS: ondansetron HCL 4 MG/2 ML VIAL IVPUSH (21:16)
[2022-07-24] VITALS: BP 139/64; PULSE 62; RESP 16; TEMP 35.9; O2SAT 95
[2022-07-24 03:56] VITALS: BP 121/62; PULSE 72; RESP 14; TEMP 36.1; O2SAT 96
[2022-07-24 07:28] VITALS: BP 151/67; PULSE 66; RESP 18; TEMP 36.2; O2SAT 97
[2022-07-24 07:37] LABS: Creatinine Clr Calc Pharmacy 88.6; Estimated Glomerular Filt Rate > 60
--- NOTE | 2022-07-24 08:32 | P.CDIC_ITS ---
CDI Concurrent Query Documentation Clarification: PHYSICIAN'S DOCUMENTATION REQUEST Date of Query: 07/24/22 0833 Patient Name: Brsyon Matthews Admit Date: 07/20/22 Dear Doctor, A review of the medical record indicates additional documentation may be needed. Please review below and update the documentation accordingly. Clinical Indicators: Documentation in the medical record includes: Risk Factors/Clinical Indicators/Treatments Patient is thin, metastatic renal carcinoma with mets to lungs and bones. Dehydrated, weakness, electrolyte imbalance. Total protein 4.1 L Albumin 2.4 L IV fluids ASPEN Criteria* Acute Illness Chronic Illness Clinical Characteristic Non-Severe (2 or more criteria present) Severe (2 or more criteria present) Non-Severe (2 or more criteria present) Severe (2 or more criteria present) Energy Intake <75% for >7 days <=50% for >=5 days <75% for >=1 month <=75% for >=1 month Weight Loss 1 week 1 ? 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 * Malnutrition (specify if mild, moderate, or severe) * Protein calorie malnutrition (specify if mild, moderate, or severe) * Cachexia without malnutrition * No nutritional deficiency * Hypoalbuminemia or other etiology of findings * Other (please specify): * Unable to determine Use of terms such as suspected, likely, concern for, or probable (associated with a specific diagnosis that is being evaluated, monitored, or treated as if it exists) are acceptable and can be coded in the inpatient setting, when documented at the time of discharge. Thank you, Christina Husain [facility], CDIS Extension: [phone] Please use your independent medical judgment in providing your response. THIS QUERY IS PART OF THE PERMANENT MEDICAL RECORD Other Diagnosis: Moderate protein calorie malnutrition
[2022-07-24 09:25] VITALS: BP 151/67; PULSE 66; O2SAT 97
[2022-07-24] MEDS: 0.9 % Sodium Chloride Flush 3 ML SYRINGE IVFLUSH (09:42)
[2022-07-24] MEDS: Piperacillin Sodium/Tazobactam 3.375 GM in 0.9 % Sodium Chloride 50 ML IV (09:42)
[2022-07-24] MEDS: Ascorbic Acid 500 MG TABLET PO (09:43)
[2022-07-24] MEDS: guaiFENesin DM 600/30 1 TAB TAB.ER.12H PO (09:43)
[2022-07-24] MEDS: Levothyroxine Sodium 75 MCG TABLET PO (09:43)
[2022-07-24] MEDS: Cholecalciferol (Vitamin D3) 25 MCG TABLET 125 MCG PO (09:43)
[2022-07-24] MEDS: Hydrocortisone 10 MG TABLET PO (09:43)
--- NOTE | 2022-07-24 11:19 | W.MHC.F2F ---
Service Date Service Date: 07/24/22 Encounter Date of encounter: 07/24/22 Reasons for Services Signs and symptoms assessed: Weakness Reason for physical therapy: home safety and mobility and therapeutic exercises Homebound: Leaving the home is medically contraindicated at this time without the asist of a device and/or another person due th the listed conditions above and below. Reason homebound: unsteady gait / fall risk and immunosuppression / infection risk Certification: Based on the above findings, I certify that this patient is confined to the home and needs intermittent long term care, physical therapy and/or speech therapy, or continues to need occupational therapy. The patient is under my care, and I have initiated the establishment of the plan of care. The patient will be followed by a physician who will periodically review the plan of care.
--- NOTE | 2022-07-24 11:20 | P.DS_ITS ---
DS: Providers Provider Date of Service: 07/24/22 Date of admission: 07/20/22 18:33 Primary care physician: Sharla Juarez MD Consults: 07/20/22 18:32 Consult to Cardiology Routine Consulting Provider: Dominguez Vila Reason for consultation: brugada on EKG Has provider been notified: No Consult to Infectious Diseases Routine Consulting Provider: Hiwot Bess Reason for consultation: covid+x3wks; immune compromised; pna Has provider been notified: No Attending physician on discharge: Ryne Smith Discharging clinician: Eleanor Lorenz DS: Diagnosis Discharge Diagnosis (1) Pneumonia: Status: Acute (2) Elevated troponin level: Status: Acute (3) COVID-19: Status: Acute DS: Summary Hospital Course Hospital Course: HP as per admitting provider This is a 77-year-old male with history of renal cell carcinoma with lung and bone metastases who was brought to the emergency department for multiple complaints.? History was primarily obtained from his daughter at the bedside.? Patient himself was very tired as daughter reports he was up all night coughing.? She reports that he tested positive for COVID-19 3 weeks ago.? At that time he had flu-like symptoms including fever body aches and cough.? The symptoms lasted for approximately a week and then improved.? He does also frequently have nausea vomiting and his energy levels wax and wane due to current chemotherapy treatment.? However since the beginning of the week he has had increasing cough subjective fever and more vomiting.? He has had decreased p.o. intake.? Today they brought into the emergency department for further evaluation.? He was noted to have low-grade temperature of 100.3 degrees, lactic acid of 2.6 and low magnesium at 1.4.? Chest x-ray showed chronic left lower lobe pleural effusion and possible associated opacity.? He was treated with IV Zosyn.? In addition a troponin was checked and was around 200.? EKG shows evidence of Brugada.? Previous EKGs are normal with no evidence of Brugada.? Patient has not had any chest pain or palpitations. COVID vaccination status- vaccination x4 . Pneumonia likely postobstructive No evidence of sepsis noted afebrile, no leukocytosis Chest x-ray showing chronic left pleural effusion and opacity at left lung base. CTA with loculated left pleural effusion (chronic, h/o pleurex catheter) with pleural metastatic disease and passive atelectasis Elevated lactic from dehydration given symptoms of cough, sob and fever treated pneumonia with IV Zosyn total 3-5 days according to ID, Zosyn 3 days completed , doxy and azithro for 2 more days not currently requiring oxygen COVID-19 Family reported that he tested positive in May. Fully vaccinated but immune compromised given undergoing chemotherapy No hypoxia noted during admission seen by ID, no COVID treatment indicated Brugada on EKG Previous EKGs normal No chest pain, no VT seen by cardiology - likely unmasked by fever/acute illness no need for AC or any further workup at this time Elevated troponin no chest pain troponin trended up to 5000, was initially started on heparin seen by cardiology - does not feel that this represents acute ACS, recommend to DC heparin ECHO pending Coag-negative staph Vancomycin stopped Secondary Adrenal insufficiency r/t previous antineoplastic therapy continue home dose of hydrocortisone Hypomagnesemia Replaced, resolved Metastatic RCC continue cabozantinib if able to be brought from home HTN BP initially low but trended back up Consider restarting lisinopril Lasix tomorrow blood pressure allows Hypothyroidism continue synthroid Moderate protein calorie malnutrition Encouraged at protein diet Time Spent with Patient Time attestation: Total time spent providing and/or coordinating discharge services: Discharge coordination time: Greater than 30 minutes Quality: Safe Use of Opioids Does Pt have an Active Cancer Diagnosis on the Problem List?: No Quality: Stroke Does the patient have a stroke diagnosis?: No Physical Exam Vital Signs: Vital Signs: Last Vital Signs Temp 97.2 F 07/24/22 07:28 Pulse 66 07/24/22 09:25 Resp 18 07/24/22 07:28 BP 151/67 H 07/24/22 09:25 Pulse Ox 97 07/24/22 09:25 O2 Del Method 07/24/22 07:28 BMI result Body Mass Index 27.1 Appearing in no acute distress head is normocephalic atraumatic eyes pupils are PERRLA sclera is anicteric mouth throat mucous membranes are intact and moist neck is supple no lymphadenopathy, no JVD noted lung sounds are clear to auscultation heart regular rate rhythm, clear S1, S2 positive bowel sounds, abdomen is soft, nontender neuro patient is alert x3, no focal deficits DS: Data Data Completed and Pending Labs on day of discharge: Laboratory Results - last 24 hr 07/23/22 07/24/22 11:31 07:04 Creatinine 0.64 Estim Creat Clear Calc 88.6 Estimated GFR > 60 Random Vancomycin 4.0 L Preliminary micro results at discharge 07/20/22 16:18 Blood Culture - Preliminary Blood - Venous No growth after 48 hours. 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 Elevated troponin Coag-negative staph Electrolyte abnormality Referrals: Sharla Blunt MD [Primary Care Provider] - 1 Week Discharge Medications: New Mucus DM 30-600 mg Tablet Extended Release 12 Hr 1 tab PO BID Qty: 10 0RF doxycycline hyclate 100 mg tablet 100 mg PO BID Qty: 4 0RF azithromycin 500 mg tablet 500 mg PO DAILY 2 Days Qty: 2 0RF Rx Instructions: start on day 2 of therapy Continued calcium citrate 250 mg calcium tablet 500 mg PO BID 30 Days Qty: 120 6RF (DME) wheelchair See Rx Instructions .Route .MEDSUPPLY Qty: 1 0RF Rx Instructions: As directed (DME) Shower Chair Misc See Rx Instructions .Route Qty: 1 0RF Rx Instructions: As directed hydrocortisone 10 mg tablet 10 mg PO DAILY Qty: 30 5RF Rx Instructions: Take 10 mg in AM and 5 mg in PM lisinopril 5 mg tablet 5 mg PO DAILY 90 Days Qty: 90 3RF Cabometyx 20 mg tablet 20 mg PO DAILY Qty: 30 12RF omeprazole 20 mg capsule,delayed release(DR/EC) 20 mg PO BEDTIME Qty: 90 1RF ascorbic acid (vitamin C) [Vitamin C] 500 mg Tablet 500 mg PO DAILY denosumab 60 mg/mL Syringe 60 mg SUBCUT [id number] furosemide [Lasix] 20 mg tablet 40 mg PO DAILY ondansetron HCl 4 mg tablet 4 mg PO Q6H PRN (Reason: nausea and vomiting) Qty: 14 0RF hydrocortisone 5 mg tablet 5 mg PO QPM Rx Instructions: Take 10 mg tablet in AM and 5 mg tablet in PM cholecalciferol (vitamin D3) 125 mcg (5,000 unit) capsule 125 mcg PO DAILY hydroxyzine pamoate 50 mg Capsule 50 mg PO Q6H PRN (Reason: Itching) oxycodone 10 mg Tablet 10 mg PO Q6H PRN (Reason: Pain, Severe) Rocklatan 0.02-0.005 % drops 0.005 drp ophthalmic (eye) DAILY (DME) Ultra-Light Rollator Misc See Rx Instructions .Route Qty: 1 0RF Rx Instructions: As directed (DME) commode Kit See Rx Instructions .Route Qty: 1 0RF Rx Instructions: As directed levothyroxine 75 mcg tablet 75 mcg PO DAILY 90 Days Qty: 90 2RF potassium gluconate 600 mg (99 mg) tablet 600 mg PO DAILY Discharge Orders: Discharge Order (Routine); Ordered 07/24/22 Ordered By: Eleanor Lorenz Diet: Advance to usual diet Activity on Discharge: As tolerated Stand Alone Forms: Patient Portal Discharge page Care Plan Goals: Complete resolution of symptoms Health Concerns: Postobstructive pneumonia 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
--- NOTE | 2022-07-24 11:27 | MHC.CM.PN ---
Patient is discharged home with new [facility]. His family is providing transportation home.
[2022-07-24 11:30] VITALS: BP 132/62; PULSE 67; RESP 17; TEMP 36.9; O2SAT 97
--- NOTE | 2022-07-24 12:26 | PC.NURSE ---
Alert and oriented. Denies pain, VSS, afebrile, no acute resp. distress noted. Took all schedule meds as order. Seen by VIOLETA Lockwood new order to discharge patient home. Went over discharge instructions, follow up apt, medication administrations with patient daughter Gina, verbalized understanding back. home meds returned to patient. [facility] with .
== END 2022-07-24 12:29 | disposition home health service (06) | DRG 193 ==
LOC: HO.ED 19:06 → HO.EDOVER 19:06 → HO.IMC 07-21 01:44
PROVIDERS: Internal Medicine; Admitting Provider Physician Assistant Medical; Emergency Provider Emergency Medicine; PCP Internal Medicine; Visit Provider Nurse Practitioner Acute Care
DX: J18.9 Pneumonia, unspecified organism (principal); U07.1 COVID-19; C64.9 Malignant neoplasm of unspecified kidney, except renal pelvis; J91.0 Malignant pleural effusion; E27.3 Drug-induced adrenocortical insufficiency; C78.00 Secondary malignant neoplasm of unspecified lung; C79.51 Secondary malignant neoplasm of bone; E87.2 Acidosis; D84.821 Immunodeficiency due to drugs; E44.0 Moderate protein-calorie malnutrition; D69.6 Thrombocytopenia, unspecified; E83.42 Hypomagnesemia; E86.0 Dehydration; T45.1X5A Adverse effect of antineoplastic and immunosuppressive drugs, initial encounter; Z96.653 Presence of artificial knee joint, bilateral; Z68.27 Body mass index [BMI] 27.0-27.9, adult; Z87.891 Personal history of nicotine dependence; Z88.6 Allergy status to analgesic agent; Z79.899 Other long term (current) drug therapy
CPT/HCPCS: 36415; 71045; 71275; 80048; 80053; 80076; 80202; 82550; 82565; 82728; 82803; 83605; 83615; 83735; 83880; 84145; 84484; 85025; 85027; 85610; 85730; 86140; 87040; 87147; 87205; 87635; 87640; 87641; 93005; 97162; 99285; J1650; J2405; J2543; J3370; J3475; Q0163; Q9957; Q9967

== ENCOUNTER 2022-07-25 14:28 | Outpatient (REF) | payer MEDICARE, SELFPAY ==
[2022-07-25 12:52] LABS: MANUAL DIFF FLAG NO
[2022-07-25 13:02] LABS: Basophils Percent Auto 0.2 % (0-2); Eosinophils Absolute Auto 0.1 X10*3/uL (0.0-0.4); Eosinophils Percent Auto 2.2 % (0-4); Hematocrit 36.1 % (42.0-52.0); Hemoglobin 11.7 g/dl (14.0-18.0); Imm Gran Abs Auto 0.01 X10*3/uL (0.00-0.03); Imm Gran Pct Auto 0.2 % (0.0-0.4); Lymphocytes Absolute Auto 1.4 X10*3/uL (1.2-4.9); Lymphocytes Percent Auto 32.1 % (20-40); Mean Corpuscular HGB Conc 32.4 g/dl (31.0-36.0); Mean Corpuscular Hemoglobin 28.8 pg (27.0-33.0); Mean Corpuscular Volume 88.9 fL (80.0-98.0); Mean Platelet Volume 9.6 fL (9.4-12.4); Monocytes Absolute Auto 0.4 X10*3/uL (0.1-1.2); Monocytes Percent Auto 9.7 % (2-11); Neutrophils Absolute Auto 2.5 x10*3/uL (2.0-8.3); Neutrophils Percent Auto 55.6 % (45-73); Platelet Count 174 X10*3/uL (160-400); Red Blood Count 4.06 X10*6/uL (4.60-5.80); Red Cell Distribution Width 19.4 % (11.0-16.0); White Blood Count 4.5 X10*3/uL (4.8-10.8)
[2022-07-25 13:13] LABS: Alanine Aminotransferase 24 U/L (0-40); Albumin Level 3.2 g/dL (3.5-5.0); Alkaline Phosphatase 46 U/L (39-117); Anion Gap 12 (12-20); Aspartate Amino Transferase 40 U/L (5-37); Bilirubin Total 0.7 mg/dL (0.0-1.0); Blood Urea Nitrogen 8 mg/dL (9-16); Calcium 8.6 mg/dL (8.4-10.2); Carbon Dioxide 27 mmol/L (22-29); Chloride 103 mmol/L (96-108); Estimated Glomerular Filt Rate > 60; Glucose Random 93 mg/dL (60-115); Potassium 3.3 mmol/L (3.3-5.1); Sodium 139 mmol/L (135-145); Total Protein 5.3 g/dL (6.5-8.0)
[2022-07-25 15:42] LABS: COVID-19 Test Negative (Negative)
== END 2022-07-25 14:29 | disposition home or self-care (01) ==
LOC: HO.LHD 14:28
PROVIDERS: Internal Medicine; Visit Provider Internal Medicine Medical Oncology
DX: Z20.822 Contact with and (suspected) exposure to COVID-19 (principal); C64.9 Malignant neoplasm of unspecified kidney, except renal pelvis
CPT/HCPCS: 36415; 80053; 85025; 87635; C9803

== ENCOUNTER 2022-08-07 11:05 | Outpatient (REF) | payer MEDICARE, SELFPAY ==
--- NOTE | ~2022-08-07 | CT_ITS ---
EXAMINATION: CT ABDOMEN AND PELVIS WITH CONTRAST CLINICAL INFORMATION: Renal cell cancer COMPARISON: Previous CT of the abdomen and pelvis most recent January 2022 TECHNIQUE: Multidetector volumetric images were obtained from the superior aspect of the liver through the pubic symphysis following administration 85 mL of Omnipaque 350 intravenous contrast. Sagittal and coronal reformatted images were obtained on the technologist's workstation. Oral contrast: Yes This CT examination was performed using dose optimization techniques as appropriate, variously including the following: *Automated exposure control *Adjustment of mA and/or kV according to patient size (this includes techniques or standardized protocols for targeted exams where dose is matched to indication/reason for exam; i.e. extremities or head) *Use of iterative reconstruction technique DLP: 436 mGy-cm FINDINGS: LUNG BASES: There is a loculated large left pleural effusion. There is extensive bilateral pleural based metastatic disease. This appears increased from January 2022 exam. LIVER, GALLBLADDER, AND BILIARY TREE: There are small low-attenuation liver lesions that are stable and probably represent small cysts. Gallbladder is normal. There is no biliary duct dilatation. PANCREAS: Unremarkable. SPLEEN: Unremarkable. ADRENAL GLANDS: Unremarkable. KIDNEYS AND URETERS: There are postsurgical changes to the upper pole of the left kidney. There are bilateral renal cysts that are stable. There is increasing right perinephric soft tissue nodularity for example measuring 5 x 10 mm axial image 27 series 3. BLADDER: Unremarkable. GASTROINTESTINAL TRACT: There is diverticulosis of the colon. There is question of mild bowel wall thickening/colitis of the distal colon. ABDOMINAL WALL: There is stranding of the subcutaneous fat over the left posterior lateral chest and flank that is similar to previous exams. LYMPH NODES: Normal. VASCULAR: There is evidence of severe atherosclerotic disease. No aneurysm. Left-sided IVC. PELVIC VISCERA: The prostate gland is enlarged and protrudes into the. OSSEOUS STRUCTURES: There is a lytic lesion in the right inferior pubic ramus. This is not completely imaged on prior exams and difficult to compare but does not appear appreciably changed. There are degenerative changes of the spine. CT/CT abdomen pelvis w IV con IMPRESSION: Interval increase in loculated left pleural effusion and left pleural nodules. Interval increase in right perinephric nodule. No appreciable change in lytic right pubic ramus lesion. Stable postsurgical to the left kidney. Stable bilateral renal and liver cysts. Diverticulosis of the colon. Question mild colitis of the distal colon. Enlarged prostate gland. Fleischner guidelines were followed.
[2022-08-07] MEDS: Barium Sulfate Oral (Vanilla) 450 ML ORAL.SUSP 900 ML PO (13:44)
[2022-08-07] MEDS: iohexoL 350 MG/ML 100 ML INFUS..BTL 85 ML IV (14:17)
== END 2022-08-07 11:06 | disposition home or self-care (01) ==
LOC: HO.CT 11:05
PROVIDERS: Visit Provider Internal Medicine Medical Oncology
DX: C64.9 Malignant neoplasm of unspecified kidney, except renal pelvis (principal); C79.51 Secondary malignant neoplasm of bone
CPT/HCPCS: 74177; Q9967

== ENCOUNTER 2022-08-08 12:04 | Outpatient (REF) | payer MEDICARE, SELFPAY ==
[2022-08-08 10:34] LABS: Basophils Percent Auto 0.9 % (0-2); Eosinophils Absolute Auto 0.1 X10*3/uL (0.0-0.4); Eosinophils Percent Auto 2.1 % (0-4); Hematocrit 35.7 % (42.0-52.0); Hemoglobin 11.2 g/dl (14.0-18.0); Imm Gran Abs Auto 0.01 X10*3/uL (0.00-0.03); Imm Gran Pct Auto 0.3 % (0.0-0.4); Lymphocytes Absolute Auto 1.9 X10*3/uL (1.2-4.9); Lymphocytes Percent Auto 57.1 % (20-40); MANUAL DIFF FLAG SCAN; Mean Corpuscular HGB Conc 31.4 g/dl (31.0-36.0); Mean Corpuscular Hemoglobin 28.6 pg (27.0-33.0); Mean Corpuscular Volume 91.1 fL (80.0-98.0); Mean Platelet Volume 9.3 fL (9.4-12.4); Monocytes Absolute Auto 0.3 X10*3/uL (0.1-1.2); Monocytes Percent Auto 9.9 % (2-11); Neutrophils Percent Auto 29.7 % (45-73); Platelet Count 236 X10*3/uL (160-400); Red Blood Count 3.92 X10*6/uL (4.60-5.80); Red Cell Distribution Width 19.9 % (11.0-16.0); SCAN SMEAR FLAG 1; White Blood Count 3.3 X10*3/uL (4.8-10.8)
[2022-08-08 10:56] LABS: SLIDE REVIEW VERIFIED
[2022-08-08 11:06] LABS: Alanine Aminotransferase 15 U/L (0-40); Albumin Level 3.2 g/dL (3.5-5.0); Alkaline Phosphatase 45 U/L (39-117); Anion Gap 14 (12-20); Aspartate Amino Transferase 22 U/L (5-37); Bilirubin Total 0.5 mg/dL (0.0-1.0); Blood Urea Nitrogen 10 mg/dL (9-16); Calcium 8.1 mg/dL (8.4-10.2); Carbon Dioxide 27 mmol/L (22-29); Chloride 104 mmol/L (96-108); Cholesterol 159 mg/dL; Estimated Glomerular Filt Rate > 60; Glucose Fasting 75 mg/dL (60-99); HDL Cholesterol 29 mg/dL; LDL Cholesterol Calculated 109 mg/dl; Potassium 3.8 mmol/L (3.3-5.1); Sodium 141 mmol/L (135-145); Total Protein 5.3 g/dL (6.5-8.0); Triglycerides 107 mg/dL
[2022-08-08 11:26] LABS: Thyroid Stimulating Hormone 2.37 uIU/mL (0.32-4.0); Vitamin D 25-OH Total 32.4 ng/mL (>30)
== END 2022-08-08 12:05 | disposition home or self-care (01) ==
LOC: HO.LHD 12:04
PROVIDERS: Internal Medicine; Visit Provider Internal Medicine Medical Oncology
DX: E78.5 Hyperlipidemia, unspecified (principal); E03.2 Hypothyroidism due to medicaments and other exogenous substances; E55.9 Vitamin D deficiency, unspecified; C64.9 Malignant neoplasm of unspecified kidney, except renal pelvis
CPT/HCPCS: 36415; 80053; 80061; 82306; 84443; 85025

== ENCOUNTER 2022-08-22 08:36 | Outpatient (REF) | payer MEDICARE, SELFPAY ==
[2022-08-22 13:43] LABS: Basophils Percent Auto 0.3 % (0-2); Eosinophils Absolute Auto 0.1 X10*3/uL (0.0-0.4); Eosinophils Percent Auto 3.7 % (0-4); Hematocrit 35.3 % (42.0-52.0); Hemoglobin 11.6 g/dl (14.0-18.0); Lymphocytes Absolute Auto 1.7 X10*3/uL (1.2-4.9); Lymphocytes Percent Auto 58.5 % (20-40); MANUAL DIFF FLAG SCAN; Mean Corpuscular HGB Conc 32.9 g/dl (31.0-36.0); Mean Corpuscular Hemoglobin 28.4 pg (27.0-33.0); Mean Corpuscular Volume 86.3 fL (80.0-98.0); Monocytes Absolute Auto 0.6 X10*3/uL (0.1-1.2); Monocytes Percent Auto 18.7 % (2-11); Neutrophils Absolute Auto 0.6 x10*3/uL (2.0-8.3); Neutrophils Percent Auto 18.8 % (45-73); Platelet Count 182 X10*3/uL (160-400); Red Blood Count 4.09 X10*6/uL (4.60-5.80); Red Cell Distribution Width 17.7 % (11.0-16.0); SCAN SMEAR FLAG 1; White Blood Count 2.9 X10*3/uL (4.8-10.8)
[2022-08-22 13:58] LABS: Alanine Aminotransferase 9 U/L (0-40); Albumin Level 2.8 g/dL (3.5-5.0); Alkaline Phosphatase 47 U/L (39-117); Anion Gap 14 (12-20); Aspartate Amino Transferase 21 U/L (5-37); Bilirubin Total 0.4 mg/dL (0.0-1.0); Blood Urea Nitrogen 9 mg/dL (9-16); Calcium 8.2 mg/dL (8.4-10.2); Carbon Dioxide 26 mmol/L (22-29); Chloride 96 mmol/L (96-108); Estimated Glomerular Filt Rate > 60; Glucose Random 92 mg/dL (60-115); Potassium 3.7 mmol/L (3.3-5.1); Sodium 132 mmol/L (135-145); Total Protein 4.9 g/dL (6.5-8.0)
[2022-08-22 14:04] LABS: SLIDE REVIEW VERIFIED
== END 2022-08-22 08:37 | disposition home or self-care (01) ==
LOC: HO.LHD 08:36
PROVIDERS: Visit Provider Internal Medicine Medical Oncology
DX: C64.9 Malignant neoplasm of unspecified kidney, except renal pelvis (principal)
CPT/HCPCS: 36415; 80053; 85025

== ENCOUNTER 2022-08-28 13:39 | Outpatient (REF) | payer MEDICARE, SELFPAY ==
--- NOTE | ~2022-08-28 | CT_ITS ---
EXAMINATION: CT HEAD WITH CONTRAST CLINICAL INFORMATION: Renal cell carcinoma. Hallucinations. COMPARISON: None. TECHNIQUE: Contiguous axial imaging was performed from the skull base to vertex following the intravenous administration of 85 mL Omnipaque 350. This CT examination was performed using dose optimization techniques as appropriate, variously including the following: *Automated exposure control *Adjustment of mA and/or kV according to patient size (this includes techniques or standardized protocols for targeted exams where dose is matched to indication/reason for exam; i.e. extremities or head) *Use of iterative reconstruction technique DLP: 764 mGy-cm FINDINGS: There is no evidence of acute intracranial hemorrhage or territorial infarction. No abnormal mass effect or midline shift is seen. [place] to white matter differentiation is well preserved. No extra-axial fluid collections are identified. There is no abnormal enhancement. The ventricles are normal in size. There is no abnormal attenuation within the brain parenchyma. The osseous structures and soft tissues are normal. The mastoid air cells are aerated. There is a small fluid level with aerosolized secretions in the left maxillary antrum with chronic sclerotic wall thickening. Ihjg-bv-cyuiklxk left frontoethmoid sinus mucosal disease noted. There is a zqplvxqn-be-bndsld rightward nasal septal deviation with nasal septal spurring distorting the right-sided turbinates and contacting the right lateral nasal wall. There is mild mucosal thickening along the floor of the right maxillary antrum. CT/CT head/brain w IV con IMPRESSION: No acute intracranial pathology. No CT evidence of intracranial metastatic disease. Scattered areas of mucosal thickening in the paranasal sinuses as described with some aerosolized secretions. Pkqjtxjz-fm-ayvaje rightward nasal septal deviation with prominent nasal septal spurring.
[2022-08-28] MEDS: iohexoL 350 MG/ML 100 ML INFUS..BTL IV (15:03)
== END 2022-08-28 13:40 | disposition home or self-care (01) ==
LOC: HO.CT 13:39
PROVIDERS: Visit Provider Internal Medicine Medical Oncology
DX: C64.9 Malignant neoplasm of unspecified kidney, except renal pelvis (principal); C79.51 Secondary malignant neoplasm of bone
CPT/HCPCS: 70460; Q9967

== ENCOUNTER 2022-09-05 12:27 | Outpatient (REF) | payer MEDICARE, SELFPAY ==
[2022-09-05 10:19] LABS: MANUAL DIFF FLAG NO
[2022-09-05 10:21] LABS: Basophils Percent Auto 0.3 % (0-2); Eosinophils Absolute Auto 0.1 X10*3/uL (0.0-0.4); Eosinophils Percent Auto 2.2 % (0-4); Hemoglobin 11.1 g/dl (14.0-18.0); Imm Gran Abs Auto 0.01 X10*3/uL (0.00-0.03); Imm Gran Pct Auto 0.3 % (0.0-0.4); Lymphocytes Absolute Auto 1.8 X10*3/uL (1.2-4.9); Lymphocytes Percent Auto 49.3 % (20-40); Mean Corpuscular HGB Conc 31.7 g/dl (31.0-36.0); Mean Corpuscular Hemoglobin 28.4 pg (27.0-33.0); Mean Corpuscular Volume 89.5 fL (80.0-98.0); Mean Platelet Volume 9.3 fL (9.4-12.4); Monocytes Absolute Auto 0.6 X10*3/uL (0.1-1.2); Monocytes Percent Auto 17.3 % (2-11); Neutrophils Absolute Auto 1.1 x10*3/uL (2.0-8.3); Neutrophils Percent Auto 30.6 % (45-73); Platelet Count 225 X10*3/uL (160-400); Red Blood Count 3.91 X10*6/uL (4.60-5.80); Red Cell Distribution Width 18.9 % (11.0-16.0); White Blood Count 3.6 X10*3/uL (4.8-10.8)
[2022-09-05 10:38] LABS: Alanine Aminotransferase < 6 U/L (0-40); Albumin Level 3.1 g/dL (3.5-5.0); Alkaline Phosphatase 43 U/L (39-117); Anion Gap 14 (12-20); Aspartate Amino Transferase 12 U/L (5-37); Bilirubin Total 0.4 mg/dL (0.0-1.0); Blood Urea Nitrogen 9 mg/dL (9-16); Calcium 9.1 mg/dL (8.4-10.2); Carbon Dioxide 27 mmol/L (22-29); Chloride 103 mmol/L (96-108); Estimated Glomerular Filt Rate > 60; Glucose Random 96 mg/dL (60-115); Potassium 3.7 mmol/L (3.3-5.1); Sodium 140 mmol/L (135-145); Total Protein 5.2 g/dL (6.5-8.0)
== END 2022-09-05 12:28 | disposition home or self-care (01) ==
LOC: HO.LHD 12:27
PROVIDERS: Visit Provider Internal Medicine Medical Oncology
DX: C64.9 Malignant neoplasm of unspecified kidney, except renal pelvis (principal)
CPT/HCPCS: 36415; 80053; 85025

== ENCOUNTER 2022-09-11 21:26 | Emergency (ER) | payer MEDICARE, SELFPAY ==
--- NOTE | 2022-09-11 | ECG_ITS ---
Test Reason : CX PAIN Blood Pressure : / mmHG Vent. Rate : 094 BPM Atrial Rate : 094 BPM P-R Int : 106 ms QRS Dur : 116 ms QT Int : 346 ms P-R-T Axes : 058 002 061 degrees QTc Int : 432 ms Sinus rhythm with short AL Incomplete right bundle branch block Borderline ECG When compared with ECG of 21-JUL-2022 13:57, Incomplete right bundle branch block has replaced Non-specific intra-ventricular conduction block Referred By: Generic ED Physician Electronically Signed By:GRUPO PARRA MD
--- NOTE | ~2022-09-11 | CT_ITS ---
EXAMINATION: CT ANGIOGRAM OF THE CHEST WITH AND WITHOUT CONTRAST (CT PULMONARY ANGIOGRAM FOR PE) CLINICAL INFORMATION: Reason for Exam cp with sob, lung ca COMPARISON: 07/20/2022 TECHNIQUE: Prior to contrast administration, noncontrast localization images were obtained. Subsequently, multidetector volumetric imaging was performed from the thoracic inlet to below the diaphragms following the administration of 65 mL Omnipaque 350 intravenous contrast. No contrast reaction reported Sagittal, coronal, and MIP oblique sagittal reformatted images were obtained on the CT workstation, uploaded to PACS, and reviewed. This CT examination was performed using dose optimization techniques as appropriate, variously including the following: *Automated exposure control *Adjustment of mA and/or kV according to patient size (this includes techniques or standardized protocols for targeted exams where dose is matched to indication/reason for exam; i.e. extremities or head) *Use of iterative reconstruction technique Total exam dose-length product 342 mGy-cm FINDINGS: QUALITY OF STUDY/CONTRAST BOLUS: Satisfactory. PULMONARY ARTERIES: No central or segmental pulmonary emboli. THORACIC AORTA: No aneurysm or dissection. Moderate atherosclerotic calcifications. LUNG: Interval increase in regions of left upper lobe atelectasis compared to prior, secondary to enlarging adjacent loculated pleural effusion. Partial atelectasis of the left lower lobe appears mildly worsened from prior. Mild paraseptal emphysema in the right upper lobe. There are some impacted airways in the proximal right middle lobe bronchi. Relatively mild region of patchy consolidation is present in the superior right lower lobe. PLEURA: Moderate to large loculated left pleural effusion, with overall increased in volume compared to 07/20/2022. Extensive enhancing masslike pleural nodularity at the basal left hemithorax is redemonstrated. There is also enlarging mass along the lateral left basilar pleura as seen on image [id number] now measuring approximately 2.4 cm in length, versus 1.6 cm previously. Small dependent right pleural effusion has increased from prior. MEDIASTINUM: Visualized thyroid gland is unremarkable. Redemonstrated scattered subcentimeter mediastinal lymph nodes. Cardiac size is within normal limits; no pericardial effusion. No evidence of septal bowing or right heart strain. CHEST WALL/AXILLA: No axillary or internal mammary lymphadenopathy. OSSEOUS STRUCTURES: Partial destruction of the anterolateral left fifth rib redemonstrated. Degenerative changes are noted in the spine. UPPER ABDOMEN: Partially visualized mass off the upper right kidney laterally with suspected enhancing component, measuring approximately 1.9 cm in diameter on coronal images but are not adequately assessed on this exam. No reflux of contrast into the hepatic veins to suggest elevated right heart pressures. CT/CT angio chest PE protocol IMPRESSION: 1. No pulmonary embolus identified. 2. Moderate to large loculated left pleural effusion, increased in volume compared to 07/20/2022. Worsening regions of atelectasis in the left lung. 3. Extensive enhancing masslike pleural nodularity at the basal left hemithorax, as well as enlarging mass along the lateral left basilar pleura. 4. Small dependent right pleural effusion, increased from prior. 5. Relatively mild region of patchy consolidation in the superior right lower lobe, suggesting acute infectious/inflammatory change. 6. Partially visualized mass off the upper right kidney laterally, not adequately assessed on this exam. Appearance raises concern for neoplasm which would be better assessed with dedicated abdominal imaging. VTE: negative
--- NOTE | ~2022-09-11 | XR_ITS ---
EXAMINATION: XR CHEST CLINICAL INFORMATION: Chest pain COMPARISON: 07/20/2022 TECHNIQUE: Frontal view of the chest was obtained. FINDINGS: A moderate-sized multilocular pleural effusion is again seen in the left hemithorax with large apical and basilar components, similar to the prior CT from 07/20/2022. A small amount of aerated lung is evident at the perihilar region. Right lung is relatively clear by comparison with without appreciable effusion or consolidation. Cardiac silhouette is largely obscured by the left effusion. Pulmonary vasculature is unremarkable. No pneumothorax. No acute osseous findings. Degenerative spondylosis is present in the thoracic spine. XR/XR chest 1V IMPRESSION: Moderate-sized loculated left pleural effusion, similar to the prior CT from 07/20/2022. Clear right lung.
[2022-09-11 21:31] VITALS: BP 135/67; BP 149/81; PULSE 84; PULSE 99; RESP 27; TEMP 37.2; O2SAT 95; O2SAT 96; BMI 28.5
--- NOTE | 2022-09-11 21:49 | ED.CHESTPAIN ---
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 currently on cabozantinib comes here for episodes mid chest pain with no radiation no increase in shortness of the breath no fever no chills no cough Related Data Home Medications Medication Instructions Recorded Confirmed ascorbic acid (vitamin C) 500 mg 500 mg PO DAILY 08/18/20 09/07/22 tablet (Vitamin C) denosumab 60 mg/mL subcutaneous 60 mg subcut [id number] 08/26/20 09/07/22 syringe netarsudil 0.02 %-latanoprost 0.005 drp ophthalmic (eye) DAILY 06/20/21 09/07/22 0.005 % eye drops (Rocklatan) as directed cholecalciferol (vitamin D3) 125 125 mcg PO DAILY 07/20/22 09/07/22 mcg (5,000 unit) capsule hydrocortisone 5 mg tablet 5 mg PO QPM 07/20/22 09/07/22 loperamide 2 mg tablet 2 mg PO Q6H PRN Diarrhea 09/07/22 09/07/22 promethazine 25 mg tablet 1 tab PO TID PRN Nausea And 09/07/22 09/07/22 Vomiting Previous Rx's Medication Instructions Recorded wheelchair #1 ea 09/07/21 Shower Chair #1 ea 09/14/21 levothyroxine 75 mcg tablet 75 mcg PO DAILY 90 days #90 tabs 03/14/22 hydrocortisone 10 mg tablet 10 mg PO DAILY #30 tabs 03/19/22 walker (Ultra-Light Rollator misc) #1 ea 05/01/22 lisinopril 5 mg tablet 5 mg PO DAILY 90 days #90 tabs 05/02/22 omeprazole 20 mg capsule,delayed 20 mg PO BEDTIME #90 caps 05/03/22 release commode #1 ea 07/25/22 dextromethorphan-guaifenesin 30 1 tab PO BID #10 tabs 08/01/22 mg-600 mg tablet extended [id number] hr (Mucus DM) oxycodone 10 mg tablet 10 mg PO Q6H PRN Pain, Severe 30 08/30/22 days #120 tabs morphine 30 mg tablet,extended 30 mg PO Q12H #60 tabs 09/07/22 release (MS Contin) Allergies Allergy/AdvReac Type Severity Reaction Status Date / Time adhesive Allergy Intermediate rash Verified 09/07/22 09:54 aspirin [ASA] Allergy Intermediate Anaphylaxis Verified 09/07/22 09:54 Review of Systems Review of Systems: Yes all other systems are reviewed and are negative [facility] Past Medical History Medical History 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 Arthritis Blood in stool 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 COVID-19 Dyslipidemia Essential hypertension Glaucoma Hemorrhoids Hypertension Hypothyroidism Internal and external prolapsed hemorrhoids Left shoulder pain Leg edema, left Lumbar degenerative disc disease Metastatic renal cell carcinoma Obesity Pleural effusion on left Rectal bleeding Shoulder pain, bilateral Vitamin D deficiency Surgical History H/O arthroscopic knee surgery H/O partial nephrectomy History of esophagogastroduodenoscopy (EGD) (~1999) History of eye surgery History of knee replacement procedure of left knee History of knee replacement procedure of right knee History of lung biopsy Family History Family History Father No problems noted. Mother Lung cancer Brother Cancer Social History Social History Household Members: Spouse Housing: Apartment Are you a primary care transition mgr to a significant other at home: No Do you presently have visiting nurse or other home services: No Alcohol intake: former Patient Tobacco Use Status: Former Tobacco user Tobacco use type: Cigarette Years Smoked: 50 Smoked in Last 30 Days: Yes e-Cigarette/Vaping Use: Never Used Second Hand Smoke Exposure: No Use of substances other than those prescribed or required for medical reasons: No Substance Use Type: Other Advance Directives: Yes Advance Directives on File: Yes Advance Directives Date on File: 05/08/22 service: No Current occupational status: retired Cognitive needs: Yes (cane/walker) Hearing needs: No Vision needs: Yes (glasses) Physical Exam Vital Signs: Vital Signs: Last Vital Signs Temp 97.8 F 09/12/22 00:58 Pulse 98 11/02/22 00:58 Resp 14 09/12/22 00:58 BP 141/81 H 09/12/22 00:58 Pulse Ox 94 09/12/22 00:58 O2 Del Method 09/12/22 00:58 BMI result Body Mass Index 28.5 Appearance: Alert. Oriented X3. No acute distress. Eyes: PERRLA, No Nystagmus ENT: Pharynx normal. Oral Mucosa moist Neck: Normal inspection. Neck supple. CVS: Normal heart rate and rhythm. Pulses normal. Respiratory: No respiratory distress. Chest wall tenderness+ Equal air entry bilateral, no wheezing/rales/rhonchi Abdomen: Soft and nontender. Bowel sounds are present, no mass palpable, no CVA tenderness Skin: Skin warm and dry. Normal skin color. Normal skin turgor. Extremities: No lower extremity edema. No calf tenderness Neuro: Oriented X 3. No motor deficit. No sensory deficit.No cerebellar signs , cranial nerves II-XII intact MDM - Chest Pain MDM Narrative Medical decision making narrative: Patient with atypical chest pain with no known coronary artery disease patient does get shortness of breath and has chest pain D-dimer slightly elevated unlikely PE but will do CTA chest to rule out PE CTA chest negative for PE no delta increase in troponin no acute ischemic changes patient is comfortable without any chest pain. CT scan showed left sided moderate pleural effusion loculated maybe that is a cause for chest pain at this time patient saturating 95% on room air will discharge patient home advised to follow with oncologist Differential Diagnosis Differential diagnosis: Likely stable angina, atypical chest pain and costochondritis Medical Records Data Attestation: I reviewed the patient's medical records. Lab Data Attestation: I reviewed the patient's lab results. Result diagrams: 09/11/22 22:51 09/11/22 22:51 Labs: Lab Results 09/11/22 09/11/22 09/11/22 Range/Units 22:51 22:51 22:51 WBC 3.9 L (4.8-10.8) X10*3/uL RBC 3.51 L (4.60-5.80) X10*6/uL Hgb 9.8 L (14.0-18.0) g/dl Hct 31.5 L (42.0-52.0) % MCV 89.7 (80.0-98.0) fL MCH 27.9 (27.0-33.0) pg MCHC 31.1 (31.0-36.0) g/dl RDW 18.4 H (11.0-16.0) % Plt Count 229 (160-400) X10*3/uL MPV 8.3 L (9.4-12.4) fL Immature Gran % (Auto) 0.3 (0.0-0.4) % Neut % (Auto) 43.8 L (45-73) % Lymph % (Auto) 35.1 (20-40) % [place] % (Auto) 18.2 H (2-11) % Eos % (Auto) 2.1 (0-4) % Baso % (Auto) 0.5 (0-2) % Lymph # (Auto) 1.4 (1.2-4.9) X10*3/uL [place] # (Auto) 0.7 (0.1-1.2) X10*3/uL Eos # (Auto) 0.1 (0.0-0.4) X10*3/uL Baso # (Auto) 0.0 (0.0-0.2) X10*3/uL Abs Immat Gran (auto) 0.01 (0.00-0.03) X10*3/uL Absolute Neuts (auto) 1.7 L (2.0-8.3) x10*3/uL Absolute Nucleated RBC 0.000 (0.0-0.012) X10*3/uL Nucleated RBC % (auto) 0.0 (0.0-0.2) /100WBC PT 13.2 H (10.0-13.1) SEC INR 1.1 (0.9-1.1) D-Dimer High Sensitivty 748 NG/ML Sodium 138 (135-145) mmol/L Potassium 3.6 (3.3-5.1) mmol/L Chloride 102 (96-108) mmol/L Carbon Dioxide 26 (22-29) mmol/L Anion Gap 14 (12-20) BUN 8 L (9-16) mg/dL Creatinine 0.65 (0.5-1.4) mg/dL Estim Creat Clear Calc 99.4 Estimated GFR > 60 Random Glucose 93 (60-115) mg/dL Calcium 8.4 D (8.4-10.2) mg/dL Total Bilirubin 0.5 (0.0-1.0) mg/dL AST 12 (5-37) U/L ALT 6 (0-40) U/L Alkaline Phosphatase 43 (39-117) U/L Troponin I High Sens (<3.5-35.0) ng/L Total Protein 5.3 L (6.5-8.0) g/dL Albumin 3.2 L (3.5-5.0) g/dL COVID-19 (TEO) (Negative) COVID-19 Clin Com 09/11/22 09/11/22 09/12/22 Range/Units 22:51 22:55 01:15 WBC (4.8-10.8) X10*3/uL RBC (4.60-5.80) X10*6/uL Hgb (14.0-18.0) g/dl Hct (42.0-52.0) % MCV (80.0-98.0) fL MCH (27.0-33.0) pg MCHC (31.0-36.0) g/dl RDW (11.0-16.0) % Plt Count (160-400) X10*3/uL MPV (9.4-12.4) fL Immature Gran % (Auto) (0.0-0.4) % Neut % (Auto) (45-73) % Lymph % (Auto) (20-40) % [place] % (Auto) (2-11) % Eos % (Auto) (0-4) % Baso % (Auto) (0-2) % Lymph # (Auto) (1.2-4.9) X10*3/uL [place] # (Auto) (0.1-1.2) X10*3/uL Eos # (Auto) (0.0-0.4) X10*3/uL Baso # (Auto) (0.0-0.2) X10*3/uL Abs Immat Gran (auto) (0.00-0.03) X10*3/uL Absolute Neuts (auto) (2.0-8.3) x10*3/uL Absolute Nucleated RBC (0.0-0.012) X10*3/uL Nucleated RBC % (auto) (0.0-0.2) /100WBC PT (10.0-13.1) SEC INR (0.9-1.1) D-Dimer High Sensitivty NG/ML Sodium (135-145) mmol/L Potassium (3.3-5.1) mmol/L Chloride (96-108) mmol/L Carbon Dioxide (22-29) mmol/L Anion Gap (12-20) BUN (9-16) mg/dL Creatinine (0.5-1.4) mg/dL Estim Creat Clear Calc Estimated GFR Random Glucose (60-115) mg/dL Calcium (8.4-10.2) mg/dL Total Bilirubin (0.0-1.0) mg/dL AST (5-37) U/L ALT (0-40) U/L Alkaline Phosphatase (39-117) U/L Troponin I High Sens 6.5 D 9.5 (<3.5-35.0) ng/L Total Protein (6.5-8.0) g/dL Albumin (3.5-5.0) g/dL COVID-19 (TEO) Negative (Negative) COVID-19 Clin Com See Note ECG Data ECG #1: Attestation: I personally reviewed and interpreted this ECG as follows: Interpretation: Normal sinus rhythm heart rate 94 beats per minute incomplete right bundle-branch block no acute ST T wave changes no acute ischemic changes Discharge Plan Discharge Clinical Impression: Chest pain, Pleural effusion on left Patient Disposition: Home, Self-Care Instructions: Chest Pain (DC), Pleural Effusion (ED) Additional Instructions: Follow with your oncologist/PCP for further management At this time is no evidence of acute coronary disease Report to the ER if recurrence of chest pain Prescriptions: No Action (DME) wheelchair See Rx Instructions .Route .MEDSUPPLY Qty: 1 0RF Rx Instructions: As directed (DME) Shower Chair Misc See Rx Instructions .Route Qty: 1 0RF Rx Instructions: As directed hydrocortisone 10 mg tablet 10 mg PO DAILY Qty: 30 5RF Rx Instructions: Take 10 mg in AM and 5 mg in PM lisinopril 5 mg tablet 5 mg PO DAILY 90 Days Qty: 90 3RF (DME) commode Kit See Rx Instructions .Route Qty: 1 0RF Rx Instructions: As directed oxycodone 10 mg tablet 10 mg PO Q6H PRN (Reason: Pain, Severe) 30 Days Qty: 120 0RF omeprazole 20 mg capsule,delayed release(DR/EC) 20 mg PO BEDTIME Qty: 90 1RF ascorbic acid (vitamin C) [Vitamin C] 500 mg Tablet 500 mg PO DAILY denosumab 60 mg/mL Syringe 60 mg SUBCUT [id number] loperamide [Anti-Diarrhea] 2 mg Tablet 2 mg PO Q6H PRN (Reason: Diarrhea) promethazine 25 mg tablet 1 tab PO TID PRN (Reason: Nausea And Vomiting) morphine [MS Contin] 30 mg Tablet Extended Release 30 mg PO Q12H Qty: 60 0RF Rx Instructions: Partial Fill upon patient request. hydrocortisone 5 mg tablet 5 mg PO QPM Rx Instructions: Take 10 mg tablet in AM and 5 mg tablet in PM cholecalciferol (vitamin D3) 125 mcg (5,000 unit) capsule 125 mcg PO DAILY Rocklatan 0.02-0.005 % drops 0.005 drp ophthalmic (eye) DAILY (DME) Ultra-Light Rollator Misc See Rx Instructions .Route Qty: 1 0RF Rx Instructions: As directed levothyroxine 75 mcg tablet 75 mcg PO DAILY 90 Days Qty: 90 2RF Mucus DM 30-600 mg tablet extended release 12 hr 1 tab PO BID Qty: 10 0RF
[2022-09-11 22:55] VITALS: BP 159/70; PULSE 93; RESP 26; O2SAT 96
[2022-09-11 22:56] LABS: Basophils Percent Auto 0.5 % (0-2); Eosinophils Absolute Auto 0.1 X10*3/uL (0.0-0.4); Eosinophils Percent Auto 2.1 % (0-4); Hematocrit 31.5 % (42.0-52.0); Hemoglobin 9.8 g/dl (14.0-18.0); Imm Gran Abs Auto 0.01 X10*3/uL (0.00-0.03); Imm Gran Pct Auto 0.3 % (0.0-0.4); Lymphocytes Absolute Auto 1.4 X10*3/uL (1.2-4.9); Lymphocytes Percent Auto 35.1 % (20-40); MANUAL DIFF FLAG NO; Mean Corpuscular HGB Conc 31.1 g/dl (31.0-36.0); Mean Corpuscular Hemoglobin 27.9 pg (27.0-33.0); Mean Corpuscular Volume 89.7 fL (80.0-98.0); Mean Platelet Volume 8.3 fL (9.4-12.4); Monocytes Absolute Auto 0.7 X10*3/uL (0.1-1.2); Monocytes Percent Auto 18.2 % (2-11); Neutrophils Absolute Auto 1.7 x10*3/uL (2.0-8.3); Neutrophils Percent Auto 43.8 % (45-73); Platelet Count 229 X10*3/uL (160-400); Red Blood Count 3.51 X10*6/uL (4.60-5.80); Red Cell Distribution Width 18.4 % (11.0-16.0); White Blood Count 3.9 X10*3/uL (4.8-10.8)
[2022-09-11 23:02] LABS: INTERNATIONAL NORM RATIO 1.1 (0.9-1.1); Prothrombin Time 13.2 SEC (10.0-13.1)
[2022-09-11 23:04] LABS: D Dimer High Sensitivity 748 NG/ML
[2022-09-11 23:24] LABS: COVID-19 Test Negative (Negative)
[2022-09-11 23:27] LABS: Troponin-I High Sensitivity 6.5 ng/L (<3.5-35.0)
[2022-09-11 23:38] LABS: Alanine Aminotransferase 6 U/L (0-40); Albumin Level 3.2 g/dL (3.5-5.0); Alkaline Phosphatase 43 U/L (39-117); Anion Gap 14 (12-20); Aspartate Amino Transferase 12 U/L (5-37); Bilirubin Total 0.5 mg/dL (0.0-1.0); Blood Urea Nitrogen 8 mg/dL (9-16); Calcium 8.4 mg/dL (8.4-10.2); Carbon Dioxide 26 mmol/L (22-29); Chloride 102 mmol/L (96-108); Creatinine Clr Calc Pharmacy 99.4; Estimated Glomerular Filt Rate > 60; Glucose Random 93 mg/dL (60-115); Potassium 3.6 mmol/L (3.3-5.1); Sodium 138 mmol/L (135-145); Total Protein 5.3 g/dL (6.5-8.0)
[2022-09-12] MEDS: iohexoL 350 MG/ML 100 ML INFUS..BTL 65 ML IV (00:52)
[2022-09-12 00:58] VITALS: BP 141/81; PULSE 95; PULSE 98; RESP 14; TEMP 36.6; O2SAT 94
[2022-09-12 01:40] LABS: Troponin-I High Sensitivity 9.5 ng/L (<3.5-35.0)
== END 2022-09-12 02:27 | disposition home or self-care (01) ==
PROVIDERS: Emergency Provider Internal Medicine; PCP Internal Medicine
DX: R07.9 Chest pain, unspecified (principal); J90 Pleural effusion, not elsewhere classified; Z20.822 Contact with and (suspected) exposure to COVID-19; I10 Essential (primary) hypertension; E78.5 Hyperlipidemia, unspecified; C64.9 Malignant neoplasm of unspecified kidney, except renal pelvis; C79.51 Secondary malignant neoplasm of bone; C78.00 Secondary malignant neoplasm of unspecified lung; Z87.891 Personal history of nicotine dependence; Z79.899 Other long term (current) drug therapy
CPT/HCPCS: 36415; 71045; 71275; 80053; 84484; 85025; 85379; 85610; 87635; 93005; 99284; 99285; Q9967

== ENCOUNTER 2022-09-13 07:09 | Emergency (ER) | payer MEDICARE, SELFPAY ==
--- NOTE | ~2022-09-13 | US_ITS ---
PROCEDURE: ATTEMPTED LEFT THORACENTESIS WITH ULTRASOUND GUIDANCE CLINICAL INFORMATION: Loculated left pleural effusion. COMPARISON: CT scan of 09/12/2022. TECHNIQUE: Attempted ultrasound-guided thoracentesis. FINDINGS: Informed consent was obtained from the patient prior to the procedure. During this process, the procedure and potential alternatives were explained, along with the intended outcome and benefits. The risks of the procedure, as well as the risk of not doing the procedure, were discussed. The patient was given the opportunity to ask questions regarding the procedure and appeared competent to make medical decisions. A signed consent form which documents this discussion was placed in the medical record. Ultrasound of the left thorax demonstrates loculated fluid collections with thickened pleura. One of the largest collections in the upper hemithorax is seen to have some debris within it. Using sterile technique and ultrasound guidance a 5 [place] TVTYeh needle was directed from an anterior approach into the fluid collection with documentation of the needle in the center of the collection. No fluid could be aspirated and there were noted to be a few air bubbles which were not nondependent and the fluid collection is likely proteinaceous and of gelatin consistency which would not be able to be drained unless lysed with TPA. There is also the appearance of thickened pleura and this would likely represent trapped lung with air replacing fluid within the loculated pleural space and still inability of lung reexpansion without decortication. US/US thoracentesis IMPRESSION: Attempted ultrasound-guided thoracentesis with no fluid being aspirated. The fluid is likely proteinaceous and of gelatinous consistency.
--- NOTE | ~2022-09-13 | XR_ITS ---
EXAMINATION: XR CHEST CLINICAL INFORMATION: Dyspnea COMPARISON: 09/11/2022 TECHNIQUE: Frontal view of the chest was obtained. FINDINGS: Cardiac leads overlie the chest. The lungs are well expanded. Redemonstration of diffuse opacification throughout the left hemithorax with minimal residual aerated lung. This corresponds with a known loculated pleural effusion and atelectasis. The right lung is essentially clear. No pneumothorax. The cardiomediastinal silhouette is not well assessed due to the opacities throughout the left hemithorax. XR/XR chest 1V IMPRESSION: Diffuse opacification throughout the left hemithorax corresponding with a known loculated pleural effusion and atelectasis. This is similar to prior. The right lung is essentially clear.
--- NOTE | 2022-09-13 07:16 | ECG_ITS ---
Test Reason : DYSPNEA Blood Pressure : / mmHG Vent. Rate : 094 BPM Atrial Rate : 096 BPM P-R Int : 128 ms QRS Dur : 128 ms QT Int : 350 ms P-R-T Axes : 070 000 062 degrees QTc Int : 437 ms Normal sinus rhythm Non-specific intra-ventricular conduction block Nonspecific T wave abnormality Abnormal ECG When compared with ECG of 11-SEP-2022 21:45, No significant change was found Referred By: Gabriella Dick Electronically Signed By:GRUPO PARRA MD
--- NOTE | 2022-09-13 07:18 | ED.SOB ---
HPI - SOB/Dyspnea General Chief Complaint: Dyspnea Stated Complaint: SOB Time Seen by Provider: 09/13/22 07:10 Source: patient and old records reviewed Mode of arrival: EMS Limitations: no limitations History of Present Illness HPI Narrative: 77 yo male with PMH of HLD, hypothyroidism, HTN, renal cancer s/p nephrectomy with bony mets, malignant L pleural effusion last drainage back in october, lung masses, post obstructive pneumonia was seen here on 09/11 shown to have large left loculated pleural effusion on CTA as well as patchy consolidation in superior RLL. He went home and notes his breathing is not better and that he did feel like he had a fever last night, his cough and sputum production is unchanged from baseline. MD elicited complaint: shortness of breath and cough Pertinent past history: pneumonia and other (malignant effusion) Onset (ago): month(s) Context: other (known effusion) Timing: progressively worsening Severity: moderate Exacerbating factors: exertion and coughing Relieving factors: rest Known history of: recurrent pneumonia Associated symptoms: fever and cough Treatment prior to arrival: none Related Data Home Medications Medication Instructions Recorded Confirmed ascorbic acid (vitamin C) 500 mg 500 mg PO DAILY 08/18/20 09/07/22 tablet (Vitamin C) denosumab 60 mg/mL subcutaneous 60 mg subcut [id number] 08/26/20 09/07/22 syringe netarsudil 0.02 %-latanoprost 0.005 drp ophthalmic (eye) DAILY 06/20/21 09/07/22 0.005 % eye drops (Rocklatan) as directed cholecalciferol (vitamin D3) 125 125 mcg PO DAILY 07/20/22 09/07/22 mcg (5,000 unit) capsule hydrocortisone 5 mg tablet 5 mg PO QPM 07/20/22 09/07/22 loperamide 2 mg tablet 2 mg PO Q6H PRN Diarrhea 09/07/22 09/07/22 promethazine 25 mg tablet 1 tab PO TID PRN Nausea And 09/07/22 09/07/22 Vomiting Previous Rx's Medication Instructions Recorded wheelchair #1 ea 09/07/21 Shower Chair #1 ea 09/14/21 levothyroxine 75 mcg tablet 75 mcg PO DAILY 90 days #90 tabs 03/14/22 hydrocortisone 10 mg tablet 10 mg PO DAILY #30 tabs 05/09/22 walker (Ultra-Light Rollator misc) #1 ea 05/01/22 lisinopril 5 mg tablet 5 mg PO DAILY 90 days #90 tabs 05/02/22 omeprazole 20 mg capsule,delayed 20 mg PO BEDTIME #90 caps 05/03/22 release commode #1 ea 07/25/22 dextromethorphan-guaifenesin 30 1 tab PO BID #10 tabs 08/01/22 mg-600 mg tablet extended [id number] hr (Mucus DM) oxycodone 10 mg tablet 10 mg PO Q6H PRN Pain, Severe 30 08/30/22 days #120 tabs morphine 30 mg tablet,extended 30 mg PO Q12H #60 tabs 09/07/22 release (MS Contin) cefuroxime axetil 500 mg tablet 500 mg PO BID 7 days #14 tabs 09/13/22 Allergies Allergy/AdvReac Type Severity Reaction Status Date / Time adhesive Allergy Intermediate rash Verified 09/07/22 09:54 aspirin [ASA] Allergy Intermediate Anaphylaxis Verified 09/07/22 09:54 Review of Systems Review of Systems: Constitutional : pos Fever, pos Chills ENT/Mouth : No sore throat, No Rhinorrhea, No Swallowing Difficulty Eyes: No Eye Pain, No Swelling, No Redness Cardiovascular : No Chest Pain, positive SOB, No Orthopnea, no Edema Respiratory : pos Cough, No Sputum, No Wheezing, positive dyspnea Gastrointestinal : No Nausea, No Vomiting, No Diarrhea, No abdominal Pain, No Hematochezia, No Melena Genitourinary : No Dysuria, No Urinary Frequency, No Hematuria Musculoskeletal : No joint pain, No Myalgias Skin : No Skin Lesions, No rash Neuro : No Weakness, No Numbness, No Dizziness, No Headache Psych : No Anxiety/Panic, No Depression Heme/Lymph: No Bruising, No Lymphadenopathy Endocrine : No Polyuria, No Polydipsia All other systems reviewed and are negative PMFSH Past Medical History Medical History 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 Arthritis Blood in stool Brugada syndrome Dauphin-vesical fistula COVID-19 Dyslipidemia Essential hypertension Glaucoma Hemorrhoids Hypertension Hypothyroidism Internal and external prolapsed hemorrhoids Left shoulder pain Leg edema, left Lumbar degenerative disc disease Metastatic renal cell carcinoma Obesity Pleural effusion on left Rectal bleeding Shoulder pain, bilateral Vitamin D deficiency Surgical History H/O arthroscopic knee surgery H/O partial nephrectomy History of esophagogastroduodenoscopy (EGD) (~1999) History of eye surgery History of knee replacement procedure of left knee History of knee replacement procedure of right knee History of lung biopsy Family History Family History Father No problems noted. Mother Lung cancer Brother Cancer Social History Social History Household Members: Spouse Housing: Apartment Are you a primary youth career specialist to a significant other at home: No Do you presently have visiting nurse or other home services: No Alcohol intake: former Patient Tobacco Use Status: Former Tobacco user Tobacco use type: Cigarette Years Smoked: 50 Smoked in Last 30 Days: No e-Cigarette/Vaping Use: Never Used Second Hand Smoke Exposure: No Use of substances other than those prescribed or required for medical reasons: No Substance Use Type: Other Advance Directives: Yes Advance Directives on File: Yes Advance Directives Date on File: 05/08/22 service: No Current occupational status: retired Cognitive needs: Yes (cane/walker) Hearing needs: No Vision needs: Yes (glasses) Physical Exam Vital Signs: Vital Signs: Last Vital Signs Temp 98.4 F 09/13/22 10:20 Pulse 91 09/13/22 10:20 Resp 21 H 09/13/22 10:20 BP 129/46 L 09/13/22 10:20 Pulse Ox 95 09/13/22 10:20 O2 Del Method 09/13/22 10:20 BMI result Body Mass Index 21.9 Appearance: Alert. Oriented X3. No acute distress. Eyes: Pupils equal, round and reactive to light. ENT: Pharynx normal. Neck: Normal inspection. Neck supple. CVS: Normal heart rate and rhythm. Pulses normal. Respiratory: No respiratory distress. Breath sounds very diminished L side, rales noted, R side rales bases - diminished Abdomen: Soft and non-tender. Skin: Skin warm and dry. pale skin color. Normal skin turgor. Extremities: No lower extremity edema. No calf ttp Neuro: Oriented X 3. No motor deficit. No sensory deficit. Course Course Course Narrative: call from STEVE - muraliura is thickened and fluid is gelatinous, likely scarring this would require surgery will discuss this with the patient and he will need to talk to Dr. Diaz about this no WBC count, neg lactic acid, normal O2, neg procalcitonin - stable for DC at this time with outpatient follow up patient does not want to go home - patient wants to go to rehab he is scared to go home, family is to come to the bedside. the family does not want treatment at this time and they want him to go home Joe is aware as well and thought olvin was going to go the hospice route as well MDM - SOB/Dyspnea MDM Narrative Medical decision making narrative: 77 yo male with PMH of HLD, hypothyroidism, HTN, renal cancer s/p nephrectomy with bony mets, malignant L pleural effusion last drainage back in october, lung masses, post obstructive pneumonia at this time CTA showed Large left loculated pleural effusion and R sided consolidation - he is reporting fevers at home he is not on chemo at this time. Will obtain labs, CXR, consult IR for thoracentesis. Given fevers there is a concern for pneumonia vs post obstructive pneumonia will dose with zosyn. Lab Data Result diagrams: 09/13/22 08:27 09/13/22 08:28 Labs: Lab Results 09/13/22 09/13/22 09/13/22 Range/Units 08:27 08:27 08:28 WBC 4.1 L (4.8-10.8) X10*3/uL RBC 3.74 L (4.60-5.80) X10*6/uL Hgb 10.6 L (14.0-18.0) g/dl Hct 33.6 L (42.0-52.0) % MCV 89.8 (80.0-98.0) fL MCH 28.3 (27.0-33.0) pg MCHC 31.5 (31.0-36.0) g/dl RDW 18.4 H (11.0-16.0) % Plt Count 251 (160-400) X10*3/uL MPV 8.5 L (9.4-12.4) fL Immature Gran % (Auto) 0.2 (0.0-0.4) % Neut % (Auto) 39.9 L (45-73) % Lymph % (Auto) 40.2 H (20-40) % Emery % (Auto) 17.0 H (2-11) % Eos % (Auto) 2.0 (0-4) % Baso % (Auto) 0.7 (0-2) % Lymph # (Auto) 1.6 (1.2-4.9) X10*3/uL Emery # (Auto) 0.7 (0.1-1.2) X10*3/uL Eos # (Auto) 0.1 (0.0-0.4) X10*3/uL Baso # (Auto) 0.0 (0.0-0.2) X10*3/uL Abs Immat Gran (auto) 0.01 (0.00-0.03) X10*3/uL Absolute Neuts (auto) 1.6 L (2.0-8.3) x10*3/uL Absolute Nucleated RBC 0.000 (0.0-0.012) X10*3/uL Nucleated RBC % (auto) 0.0 (0.0-0.2) /100WBC PT 13.5 H (10.0-13.1) SEC INR 1.2 H (0.9-1.1) APTT 32.8 (26.0-36.4) SEC Sodium (135-145) mmol/L Potassium (3.3-5.1) mmol/L Chloride (96-108) mmol/L Carbon Dioxide (22-29) mmol/L Anion Gap (12-20) BUN (9-16) mg/dL Creatinine (0.5-1.4) mg/dL Estim Creat Clear Calc Estimated GFR Random Glucose (60-115) mg/dL Lactic Acid (0.5-2.0) mmol/L Calcium (8.4-10.2) mg/dL Magnesium (1.6-2.6) mg/dL Total Bilirubin (0.0-1.0) mg/dL Direct Bilirubin (0.0-0.5) mg/dL AST (5-37) U/L ALT (0-40) U/L Alkaline Phosphatase (39-117) U/L Troponin I High Sens (<3.5-35.0) ng/L B-Natriuretic Peptide (<100) pg/mL Total Protein (6.5-8.0) g/dL Albumin (3.5-5.0) g/dL Procalcitonin ng/mL COVID-19 (TEO) (Negative) COVID-19 Clin Com 09/13/22 09/13/22 09/13/22 Range/Units 08:28 08:28 08:28 WBC (4.8-10.8) X10*3/uL RBC (4.60-5.80) X10*6/uL Hgb (14.0-18.0) g/dl Hct (42.0-52.0) % MCV (80.0-98.0) fL MCH (27.0-33.0) pg MCHC (31.0-36.0) g/dl RDW (11.0-16.0) % Plt Count (160-400) X10*3/uL MPV (9.4-12.4) fL Immature Gran % (Auto) (0.0-0.4) % Neut % (Auto) (45-73) % Lymph % (Auto) (20-40) % Emery % (Auto) (2-11) % Eos % (Auto) (0-4) % Baso % (Auto) (0-2) % Lymph # (Auto) (1.2-4.9) X10*3/uL Emery # (Auto) (0.1-1.2) X10*3/uL Eos # (Auto) (0.0-0.4) X10*3/uL Baso # (Auto) (0.0-0.2) X10*3/uL Abs Immat Gran (auto) (0.00-0.03) X10*3/uL Absolute Neuts (auto) (2.0-8.3) x10*3/uL Absolute Nucleated RBC (0.0-0.012) X10*3/uL Nucleated RBC % (auto) (0.0-0.2) /100WBC PT (10.0-13.1) SEC INR (0.9-1.1) APTT (26.0-36.4) SEC Sodium 137 (135-145) mmol/L Potassium 4.4 D (3.3-5.1) mmol/L Chloride 101 (96-108) mmol/L Carbon Dioxide 26 (22-29) mmol/L Anion Gap 14 (12-20) BUN 7 L (9-16) mg/dL Creatinine 0.68 (0.5-1.4) mg/dL Estim Creat Clear Calc 83.0 Estimated GFR > 60 Random Glucose 97 (60-115) mg/dL Lactic Acid (0.5-2.0) mmol/L Calcium 8.7 (8.4-10.2) mg/dL Magnesium 2.2 (1.6-2.6) mg/dL Total Bilirubin 0.5 (0.0-1.0) mg/dL Direct Bilirubin 0.2 (0.0-0.5) mg/dL AST 11 (5-37) U/L ALT < 6 (0-40) U/L Alkaline Phosphatase 45 (39-117) U/L Troponin I High Sens (<3.5-35.0) ng/L B-Natriuretic Peptide 23 (<100) pg/mL Total Protein 5.4 L (6.5-8.0) g/dL Albumin 3.1 L (3.5-5.0) g/dL Procalcitonin 0.11 ng/mL COVID-19 (TEO) (Negative) COVID-19 Clin Com 09/13/22 09/13/22 09/13/22 Range/Units 08:28 08:28 08:28 WBC (4.8-10.8) X10*3/uL RBC (4.60-5.80) X10*6/uL Hgb (14.0-18.0) g/dl Hct (42.0-52.0) % MCV (80.0-98.0) fL MCH (27.0-33.0) pg MCHC (31.0-36.0) g/dl RDW (11.0-16.0) % Plt Count (160-400) X10*3/uL MPV (9.4-12.4) fL Immature Gran % (Auto) (0.0-0.4) % Neut % (Auto) (45-73) % Lymph % (Auto) (20-40) % Emery % (Auto) (2-11) % Eos % (Auto) (0-4) % Baso % (Auto) (0-2) % Lymph # (Auto) (1.2-4.9) X10*3/uL Emery # (Auto) (0.1-1.2) X10*3/uL Eos # (Auto) (0.0-0.4) X10*3/uL Baso # (Auto) (0.0-0.2) X10*3/uL Abs Immat Gran (auto) (0.00-0.03) X10*3/uL Absolute Neuts (auto) (2.0-8.3) x10*3/uL Absolute Nucleated RBC (0.0-0.012) X10*3/uL Nucleated RBC % (auto) (0.0-0.2) /100WBC PT (10.0-13.1) SEC INR (0.9-1.1) APTT (26.0-36.4) SEC Sodium (135-145) mmol/L Potassium (3.3-5.1) mmol/L Chloride (96-108) mmol/L Carbon Dioxide (22-29) mmol/L Anion Gap (12-20) BUN (9-16) mg/dL Creatinine (0.5-1.4) mg/dL Estim Creat Clear Calc Estimated GFR Random Glucose (60-115) mg/dL Lactic Acid 1.8 (0.5-2.0) mmol/L Calcium (8.4-10.2) mg/dL Magnesium (1.6-2.6) mg/dL Total Bilirubin (0.0-1.0) mg/dL Direct Bilirubin (0.0-0.5) mg/dL AST (5-37) U/L ALT (0-40) U/L Alkaline Phosphatase (39-117) U/L Troponin I High Sens 9.4 (<3.5-35.0) ng/L B-Natriuretic Peptide (<100) pg/mL Total Protein (6.5-8.0) g/dL Albumin (3.5-5.0) g/dL Procalcitonin ng/mL COVID-19 (TEO) Negative (Negative) COVID-19 Clin Com See Note ECG Data Attestation: I personally reviewed and interpreted this ECG as follows: ECG interpretation date: 09/13/22 ECG interpretation time: 07:58 Interpretation: Rate: 94 Rhythm: NSR Point Lay: left Normal P waves. Normal ROSA MARIA. NSIVCD. ST T wave : nonspecific T wave changes, no YECENIA qTC: normal prior studies: no acute ischemia The study has been interpreted contemporaneously by me. . Discharge Plan Discharge Clinical Impression: Pleural effusion, left Patient Disposition: Home, Self-Care Instructions: Pleural Effusion (ED), Thoracentesis (DC) Additional Instructions: return to ED for any worsening symptoms or concerns please follow up with Dr. Diaz Prescriptions: New cefuroxime axetil 500 mg tablet 500 mg PO BID 7 Days Qty: 14 0RF No Action (DME) wheelchair See Rx Instructions .Route .MEDSUPPLY Qty: 1 0RF Rx Instructions: As directed (DME) Shower Chair Misc See Rx Instructions .Route Qty: 1 0RF Rx Instructions: As directed hydrocortisone 10 mg tablet 10 mg PO DAILY Qty: 30 5RF Rx Instructions: Take 10 mg in AM and 5 mg in PM lisinopril 5 mg tablet 5 mg PO DAILY 90 Days Qty: 90 3RF (DME) commode Kit See Rx Instructions .Route Qty: 1 0RF Rx Instructions: As directed oxycodone 10 mg tablet 10 mg PO Q6H PRN (Reason: Pain, Severe) 30 Days Qty: 120 0RF omeprazole 20 mg capsule,delayed release(DR/EC) 20 mg PO BEDTIME Qty: 90 1RF ascorbic acid (vitamin C) [Vitamin C] 500 mg Tablet 500 mg PO DAILY denosumab 60 mg/mL Syringe 60 mg SUBCUT [id number] loperamide [Anti-Diarrhea] 2 mg Tablet 2 mg PO Q6H PRN (Reason: Diarrhea) promethazine 25 mg tablet 1 tab PO TID PRN (Reason: Nausea And Vomiting) morphine [MS Contin] 30 mg Tablet Extended Release 30 mg PO Q12H Qty: 60 0RF Rx Instructions: Partial Fill upon patient request. hydrocortisone 5 mg tablet 5 mg PO QPM Rx Instructions: Take 10 mg tablet in AM and 5 mg tablet in PM cholecalciferol (vitamin D3) 125 mcg (5,000 unit) capsule 125 mcg PO DAILY Rocklatan 0.02-0.005 % drops 0.005 drp ophthalmic (eye) DAILY (DME) Ultra-Light Rollator Misc See Rx Instructions .Route Qty: 1 0RF Rx Instructions: As directed levothyroxine 75 mcg tablet 75 mcg PO DAILY 90 Days Qty: 90 2RF Mucus DM 30-600 mg tablet extended release 12 hr 1 tab PO BID Qty: 10 0RF Referrals: Yulia Diaz MD [Physician] - 09/17/22
[2022-09-13 07:21] VITALS: BP 133/72; BP 140/54; PULSE 102; PULSE 99; RESP 20; TEMP 36.5; O2SAT 96; O2SAT 98; BMI 21.9
[2022-09-13 07:44] VITALS: BP 125/67; PULSE 97; RESP 18; TEMP 36.6; O2SAT 98
--- NOTE | 2022-09-13 07:47 | PC.NURSE ---
pt is alert and oriented, skin slightly pale, respirations even and unlabored, ls clear, pt reports feeling sob, was diagnosed with a large left sided plural effusion on 09/11/22 increased sob overnight with a productive cough, denies pain at this time. normal sinus to tachy on the monitor 99-105.
--- NOTE | 2022-09-13 08:26 | PC.NURSE ---
continuing on waiting for the blood work/cultures to be completed
[2022-09-13 08:36] LABS: MANUAL DIFF FLAG NO
[2022-09-13 08:39] LABS: Basophils Percent Auto 0.7 % (0-2); Eosinophils Absolute Auto 0.1 X10*3/uL (0.0-0.4); Hematocrit 33.6 % (42.0-52.0); Hemoglobin 10.6 g/dl (14.0-18.0); Imm Gran Abs Auto 0.01 X10*3/uL (0.00-0.03); Imm Gran Pct Auto 0.2 % (0.0-0.4); Lymphocytes Absolute Auto 1.6 X10*3/uL (1.2-4.9); Lymphocytes Percent Auto 40.2 % (20-40); Mean Corpuscular HGB Conc 31.5 g/dl (31.0-36.0); Mean Corpuscular Hemoglobin 28.3 pg (27.0-33.0); Mean Corpuscular Volume 89.8 fL (80.0-98.0); Mean Platelet Volume 8.5 fL (9.4-12.4); Monocytes Absolute Auto 0.7 X10*3/uL (0.1-1.2); Neutrophils Absolute Auto 1.6 x10*3/uL (2.0-8.3); Neutrophils Percent Auto 39.9 % (45-73); Platelet Count 251 X10*3/uL (160-400); Red Blood Count 3.74 X10*6/uL (4.60-5.80); Red Cell Distribution Width 18.4 % (11.0-16.0); White Blood Count 4.1 X10*3/uL (4.8-10.8)
[2022-09-13] MEDS: Piperacillin Sodium/Tazobactam 3.375 GM in 0.9 % Sodium Chloride 50 ML IV (08:44)
[2022-09-13 08:45] LABS: INTERNATIONAL NORM RATIO 1.2 (0.9-1.1); Prothrombin Time 13.5 SEC (10.0-13.1)
[2022-09-13 08:47] LABS: Partial Thromboplastin Time 32.8 SEC (26.0-36.4)
[2022-09-13 08:49] LABS: Lactic Acid 1.8 mmol/L (0.5-2.0)
[2022-09-13 08:53] LABS: Alanine Aminotransferase < 6 U/L (0-40); Albumin Level 3.1 g/dL (3.5-5.0); Alkaline Phosphatase 45 U/L (39-117); Anion Gap 14 (12-20); Aspartate Amino Transferase 11 U/L (5-37); Bilirubin Direct 0.2 mg/dL (0.0-0.5); Bilirubin Total 0.5 mg/dL (0.0-1.0); Blood Urea Nitrogen 7 mg/dL (9-16); Calcium 8.7 mg/dL (8.4-10.2); Carbon Dioxide 26 mmol/L (22-29); Chloride 101 mmol/L (96-108); Estimated Glomerular Filt Rate > 60; Glucose Random 97 mg/dL (60-115); Magnesium 2.2 mg/dL (1.6-2.6); Potassium 4.4 mmol/L (3.3-5.1); Sodium 137 mmol/L (135-145); Total Protein 5.4 g/dL (6.5-8.0)
[2022-09-13 08:59] LABS: B Type Natriuretic Peptide 23 pg/mL (<100); Troponin-I High Sensitivity 9.4 ng/L (<3.5-35.0)
[2022-09-13 09:03] LABS: COVID-19 Test Negative (Negative); IDNOW Serial# 16C4AD1C
[2022-09-13 09:43] LABS: Procalcitonin 0.11 ng/mL
[2022-09-13 10:20] VITALS: BP 129/46; PULSE 91; RESP 21; TEMP 36.9; O2SAT 95
--- NOTE | 2022-09-13 12:07 | PC.NURSE ---
pt a&ox3, vss, pt reporting some discomfort in lung asking when u/s thoracentisis is scheduled for, called u/s - unsure of time, will need to coordinate w IR, pt notified.
[2022-09-13] MEDS: Lidocaine HCl 1 % MPF 5 ML VIAL 10 ML SUBCUT (14:42)
== END 2022-09-13 15:30 | disposition home or self-care (01) ==
PROVIDERS: Radiology Diagnostic Radiology; Emergency Provider Emergency Medicine; PCP Internal Medicine
DX: J90 Pleural effusion, not elsewhere classified (principal); R06.02 Shortness of breath; Z20.822 Contact with and (suspected) exposure to COVID-19; I10 Essential (primary) hypertension; E78.5 Hyperlipidemia, unspecified; Z87.891 Personal history of nicotine dependence
CPT/HCPCS: 32555; 36415; 71045; 80048; 80076; 83605; 83735; 83880; 84145; 84484; 85025; 85610; 85730; 87040; 87147; 87205; 87635; 93005; 96365; 99284; 99285; J2543

== ENCOUNTER 2022-09-19 05:55 | Outpatient (REF) | payer MEDICARE, SELFPAY ==
[2022-09-19 10:15] LABS: MANUAL DIFF FLAG NO
[2022-09-19 10:19] LABS: Basophils Percent Auto 0.8 % (0-2); Eosinophils Absolute Auto 0.1 X10*3/uL (0.0-0.4); Eosinophils Percent Auto 3.6 % (0-4); Hematocrit 32.1 % (42.0-52.0); Hemoglobin 10.1 g/dl (14.0-18.0); Imm Gran Abs Auto 0.01 X10*3/uL (0.00-0.03); Imm Gran Pct Auto 0.3 % (0.0-0.4); Lymphocytes Absolute Auto 1.8 X10*3/uL (1.2-4.9); Lymphocytes Percent Auto 49.3 % (20-40); Mean Corpuscular HGB Conc 31.5 g/dl (31.0-36.0); Mean Corpuscular Hemoglobin 28.1 pg (27.0-33.0); Mean Corpuscular Volume 89.4 fL (80.0-98.0); Mean Platelet Volume 8.8 fL (9.4-12.4); Monocytes Absolute Auto 0.6 X10*3/uL (0.1-1.2); Monocytes Percent Auto 15.4 % (2-11); Neutrophils Absolute Auto 1.1 x10*3/uL (2.0-8.3); Neutrophils Percent Auto 30.6 % (45-73); Platelet Count 395 X10*3/uL (160-400); Red Blood Count 3.59 X10*6/uL (4.60-5.80); Red Cell Distribution Width 17.9 % (11.0-16.0); White Blood Count 3.6 X10*3/uL (4.8-10.8)
[2022-09-19 10:52] LABS: Alanine Aminotransferase 7 U/L (0-40); Albumin Level 3.3 g/dL (3.5-5.0); Alkaline Phosphatase 46 U/L (39-117); Anion Gap 17 (12-20); Aspartate Amino Transferase 13 U/L (5-37); Bilirubin Total 0.4 mg/dL (0.0-1.0); Blood Urea Nitrogen 7 mg/dL (9-16); Calcium 8.7 mg/dL (8.4-10.2); Carbon Dioxide 24 mmol/L (22-29); Chloride 101 mmol/L (96-108); Estimated Glomerular Filt Rate > 60; Glucose Random 84 mg/dL (60-115); Potassium 3.7 mmol/L (3.3-5.1); Sodium 138 mmol/L (135-145); Total Protein 5.5 g/dL (6.5-8.0)
== END 2022-09-19 05:56 | disposition home or self-care (01) ==
LOC: HO.LHD 05:55
PROVIDERS: Visit Provider Internal Medicine Medical Oncology
DX: C79.00 Secondary malignant neoplasm of unspecified kidney and renal pelvis (principal)
CPT/HCPCS: 36415; 80053; 85025

== ENCOUNTER 2022-10-03 11:04 | Outpatient (REF) | payer MEDICARE, SELFPAY ==
[2022-10-03 10:39] LABS: MANUAL DIFF FLAG NO
[2022-10-03 10:49] LABS: Basophils Absolute Auto 0.1 X10*3/uL (0.0-0.2); Basophils Percent Auto 1.2 % (0-2); Eosinophils Absolute Auto 0.1 X10*3/uL (0.0-0.4); Eosinophils Percent Auto 2.9 % (0-4); Hematocrit 31.2 % (42.0-52.0); Hemoglobin 9.9 g/dl (14.0-18.0); Imm Gran Abs Auto 0.01 X10*3/uL (0.00-0.03); Imm Gran Pct Auto 0.2 % (0.0-0.4); Lymphocytes Absolute Auto 1.1 X10*3/uL (1.2-4.9); Lymphocytes Percent Auto 27.9 % (20-40); Mean Corpuscular HGB Conc 31.7 g/dl (31.0-36.0); Mean Corpuscular Hemoglobin 27.3 pg (27.0-33.0); Mean Corpuscular Volume 86.2 fL (80.0-98.0); Mean Platelet Volume 9.2 fL (9.4-12.4); Monocytes Absolute Auto 0.7 X10*3/uL (0.1-1.2); Monocytes Percent Auto 18.1 % (2-11); Neutrophils Percent Auto 49.7 % (45-73); Platelet Count 426 X10*3/uL (160-400); Red Blood Count 3.62 X10*6/uL (4.60-5.80); Red Cell Distribution Width 17.7 % (11.0-16.0); White Blood Count 4.1 X10*3/uL (4.8-10.8)
[2022-10-03 11:25] LABS: Alanine Aminotransferase < 6 U/L (0-40); Albumin Level 3.3 g/dL (3.5-5.0); Alkaline Phosphatase 50 U/L (39-117); Anion Gap 14 (12-20); Aspartate Amino Transferase 12 U/L (5-37); Bilirubin Total 0.5 mg/dL (0.0-1.0); Blood Urea Nitrogen 8 mg/dL (9-16); Calcium 8.7 mg/dL (8.4-10.2); Carbon Dioxide 24 mmol/L (22-29); Chloride 101 mmol/L (96-108); Estimated Glomerular Filt Rate > 60; Glucose Random 80 mg/dL (60-115); Sodium 135 mmol/L (135-145); Total Protein 5.6 g/dL (6.5-8.0)
== END 2022-10-03 11:05 | disposition home or self-care (01) ==
LOC: HO.LHD 11:04
PROVIDERS: Visit Provider Internal Medicine Medical Oncology
DX: C64.9 Malignant neoplasm of unspecified kidney, except renal pelvis (principal)
CPT/HCPCS: 36415; 80053; 85025

== ENCOUNTER 2022-10-16 16:30 | Outpatient (RCR) | payer MEDICARE, SELFPAY ==
[2020-08-18 09:01] VITALS: BP 168/74; PULSE 78; RESP 18; TEMP 36.6; O2SAT 96; BMI 31.6
[2020-08-18 09:13] LABS: MANUAL DIFF FLAG NO
[2020-08-18 09:22] LABS: Basophils Percent Auto 0.4 % (0-2); Eosinophils Absolute Auto 0.1 X10*3/uL (0.0-0.4); Eosinophils Percent Auto 1.2 % (0-4); Hematocrit 40.1 % (42-52); Hemoglobin 13.3 g/dl (14.0-18.0); Imm Gran Abs Auto 0.01 X10*3/uL (0.00-0.03); Imm Gran Pct Auto 0.2 % (0.0-0.4); Lymphocytes Absolute Auto 2.5 X10*3/uL (1.2-4.9); Lymphocytes Percent Auto 50.8 % (20-40); Mean Corpuscular HGB Conc 33.2 g/dl (31.0-36.0); Mean Corpuscular Hemoglobin 31.7 pg (27.0-33.0); Mean Corpuscular Volume 95.7 fL (80-98); Mean Platelet Volume 9.3 fL (9.4-12.4); Monocytes Absolute Auto 0.4 X10*3/uL (0.1-1.2); Monocytes Percent Auto 8.5 % (2-11); Neutrophils Absolute Auto 1.9 X10*3/uL (2.0-8.3); Neutrophils Percent Auto 38.9 % (45-73); Platelet Count 162 X10*3/uL (160-400); Red Blood Count 4.19 X10*6/uL (4.60-5.80); White Blood Count 4.8 X10*3/uL (4.8-10.8)
[2020-08-18 09:48] LABS: Alanine Aminotransferase 36 U/L (0-40); Albumin Level 3.5 g/dL (3.5-5.0); Alkaline Phosphatase 50 U/L (39-117); Anion Gap 11 (12-20); Aspartate Amino Transferase 32 U/L (5-37); Bilirubin Total 0.5 mg/dL (0.0-1.0); Blood Urea Nitrogen 15 mg/dL (9-16); Calcium 8.4 mg/dL (8.4-10.2); Carbon Dioxide 29 mmol/L (22-29); Chloride 106 mmol/L (96-108); Creatinine Clr Calc Pharmacy 76.9; Estimated Glomerular Filt Rate > 60; Glucose Random 94 mg/dL (60-115); Potassium 3.8 mmol/l (3.3-5.1); Sodium 142 mmol/L (135-145); Total Protein 5.3 g/dL (6.5-8.0)
--- NOTE | 2020-08-18 10:44 | MHC.HEMONC ---
labs reviewed and Denosumab given. Pt will return in one week for f/u with Dr Diaz.
--- NOTE | 2020-08-18 11:45 | MHC.HEMONC ---
here for Denosumab following lab review. Seeing Dr Diaz next week.
--- NOTE | 2020-08-18 13:55 | MHC.HEMONCSW ---
PT REMAINS ALERT AND INDEPENDENT. RECEIVING PALLIATIVE TREATMENT/CARE. ACTIVE WITH [facility] PALLIATIVE PROGRAM. RECEIVES RN ONLY PER HIS REQUEST. DENIES ANY NEW STRESS. SUPPORTIVE COUNSELING PROVIDED.
[2020-08-26 09:39] VITALS: BP 148/67; PULSE 66; RESP 18; TEMP 36.2; O2SAT 97
[2020-08-26 09:42] VITALS: BMI 32.0
--- NOTE | 2020-08-26 10:11 | PM.HEMONCPN ---
Medical Summary - Medical Summary Chief complaint: follow-up for metastatic renal cell carcinoma. Medical Summary: DIAGNOSES: Renal Cell Carcinoma, clear cell type. 4.4 x 3.2 x 2.5 cm unilocal, limited to the kidney. No sarcomatoid features. Tumor necrosis present. Histological grade 2. Microscopic tumor extension. Lymphovascular invasion not identified. Parenchymal resection margin uninvolved by tumor. Tumor is 0.1 cm from the resection margin focally. Adrenal gland is negative. Fat over the tumor was negative for malignancy. Stage pT1b pNX. Now stage IV with pulmonary metastases. CURRENT THERAPY: Status post partial nephrectomy on September 15, [address] Jon Chaudhry. Concerned with pulmonary nodules. Repeat biopsy of lung nodule, in March of 2017 was positive for malignancy. Started on Pazopanib April with near CR. January 28 2018, Disease progression. Started on Nivolumab 02/21 C1D1. On clinical trial: 17-064([facility].) At [facility]. Ipilimumab, added April 17. Last dose on July. Subsequent CAT scan from August revealed disease progression. He had been on Cabozantinib, 60 mg daily, August 09 2018 till November,. Elected to stop it a few months ago, due to side effects. Status post left PleurX catheter placement, June 11. for malignant pleural effusion. Started Cabozantinib 40 mg on September 15. Interval History Interval history: This is a pleasant 75-year-old gentleman here for a follow-up visit. Overall he is well. He tells me he is feeling, Beautiful. He tells me the PleurX catheter is working well. Currently the drainage is being done weekly. Saturday he had about 320 mL come out. Prior to that it was 270/325/300/250 / 250/300 mL. he does feel it is a little easier to breathe afterwards. Energy level is: Excellent. Sometimes he gets pain in his hip after prolonged standing or walking. He denies any chest pain or trouble breathing. No cough nor sputum. Denies abdominal pain nor flank pain. No nausea or vomiting. He does get heartburn and reflux symptoms especially at night. He used to take Gaviscon, for it but not any more. His daughter got him the bed, that can move up and down. He gets diarrhea especially from greasy stuff. he denies constipation however he does see some hemorrhoids coming out. They do not bleed spontaneously however sometimes he notices some blood on the toilet paper upon wiping. He taperred the prednisone, under the care of Dr. Carvalho. He has noticed some easy bruising, likely related to the steroids. He enjoys a good appetite. He has actually gained weight. He is in good spirits. Rest of the review of systems is unremarkable. Review of Systems - Constitutional Reports body ache(s), Denies fatigue, Denies night sweats, Denies weight loss - Eyes Denies blurry vision - ENT Reports system reviewed and no additional complaints, except as documented - Cardiovascular Denies chest pain at rest - Respiratory Denies chest congestion - Gastrointestinal Reports change in bowel habits, Denies abdominal pain, Denies vomiting - Genitourinary Genitourinary: Denies blood in urine - Musculoskeletal Denies back pain - Integumentary/Breasts Skin/Breast: Denies bleeding lesions - Neurologic Reports system reviewed and no additional complaints, except as documented - Psychiatric Denies abnormal sleep pattern - Endocrine Denies excessive sweating - Hematologic/Lymphatic Denies easy bleeding - Allergic/Immunologic Denies urticaria PMFSH Medical History: Medical History (Last Reviewed 08/26/20 @ 14:43 by Yulia Diaz MD) Arthritis Glaucoma Hemorrhoids Hypertension Hypothyroidism Functional capacity: independent ambulation Patient : No Smoking status: Former smoker Alcohol intake frequency: 0-2 drinks per day (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 He is . He has 5 daughters.) Home Medications and Allergies Home Medications Medication Instructions Recorded Confirmed Type ascorbic acid (vitamin C) [Vitamin 500 mg PO DAILY 08/18/20 08/18/20 History C] atorvastatin 40 mg PO BEDTIME 08/18/20 08/18/20 History cabozantinib [Cabometyx] 20 mg PO DAILY 08/18/20 08/18/20 History cholecalciferol (vitamin D3) 100 mcg PO DAILY 08/18/20 08/18/20 History [Vitamin D3] clotrimazole-betamethasone See Rx Instructions .ROUTE .COMPLEX 08/18/20 08/18/20 History dorzolamide 1 drp OPHTHALMIC-LEFT BID 08/18/20 08/18/20 History hydroxyzine pamoate 50 mg PO Q6-8H PRN 08/18/20 08/18/20 History latanoprost 1 drp OPHTHALMIC (EYE) BEDTIME 08/18/20 08/18/20 History levothyroxine 75 mcg PO DAILY 08/18/20 08/18/20 History lisinopril 5 mg PO DAILY 08/18/20 08/18/20 History omeprazole 20 mg PO BEDTIME 08/18/20 08/18/20 History ondansetron 8 mg PO Q8H PRN 08/18/20 08/18/20 History oxycodone 10 mg PO Q6-8H PRN 08/18/20 08/18/20 History prednisone 10 mg PO DAILY 08/18/20 08/18/20 History denosumab 60 mg SUBCUT [id number] 08/26/20 08/26/20 History Allergies Allergy/AdvReac Type Severity Reaction Status Date / Time adhesive Allergy Unknown rash Unverified 07/06/20 00:00 aspirin [ASA] Allergy Anaphylaxis Verified 08/18/20 09:17 Exam Vital signs: Vital Signs Temp 97.2 F 08/26/20 09:39 Pulse 66 08/26/20 09:39 Resp 18 08/26/20 09:39 BP 148/67 H 08/26/20 09:39 Pulse Ox 97 08/26/20 09:39 Intake & Output 08/25/20 08/26/20 08/26/20 18:59 06:59 18:59 Other: Weight 92.7 kg Weight 92.7 kg Body Mass Index 32.0 - Constitutional Present: no acute distress - Routine HEENT Exam Head: Present: normal inspection ENT: Present: mucous membranes moist - Routine Neck Exam Present: full ROM - Routine Respiratory Exam Present: CTAB - Routine Cardiovascular Exam Cardiovascular: Present: RRR, S2 - Routine Abdominal Exam Present: soft - Routine Rectal Exam Patient deferred: digital exam - Routine Exam Perineum Description: Ecchymotic - Routine Extremities Exam Present: nontender - Routine Back/Spine/Pelvis Exam Back/Spine: Present: full ROM - Routine Skin Exam Present: intact - Routine Neurological Exam Present: alert, oriented X3 - Routine Psychiatric Exam Present: normal affect Data - Labs CBC & Chem 7: 08/18/20 09:00 08/18/20 09:00 Progress Note: A/P (1) 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 Initial Stage pT 1B, PN X. Status post-partial nephrectomy September 15, 2015 by Jon Chaudhry. Subsequently he was noted to have some pulmonary metastases. He had a biopsy on March 272016: ADENOCARCINOMA CONSISTENT WITH METASTATIC RENAL CELL CARCINOMA. The patient was started on Pazopanib, April 172016. He had a CAT scan on January 22, 2018, which revealed: Chest: Interval increase in pulmonary nodules and pleural-based nodules. Abdomen and Pelvis: Stable postsurgical change to the left kidney. Stable bilateral renal, liver and pancreatic cysts. Diverticulosis. Enlarged prostate gland that protrudes into the base of the bladder. He was referred [facility], for clinical trial, where he had a repeat lung biopsy and has been enrolled on , [facility] Trial. He started Nivolumab on February 21, 2018. Unfortunately, first scans done while on Nivolumab, alone were consistent with progressive disease. Given PD per protocol Ipilimumab was added on April 17. He consented to the ammendment to trial . He has started the Cabozantinib August 09, 2018. He does not feel well. He complains of left flank pain. He has some neurological symptoms. I was concerned about disease progression. He could not tolerate the Carbozantinib. For the pathological fracture of the right pubic ramus, he was referred for radiation therapy. He completed the treatment. I also arranged for bisphosphonate, Denosumab, for him. He received that in June. He got started on Cabozantinib, 40 mg daily, on September 15. He had certain side effects. so the dose had to be lowered. CT scan of the abdomen from December 25 revealed: CHEST: Significant interval decrease in size of bilateral pulmonary nodules. No new pulmonary nodule seen. Small left pleural effusion internal chest tube in satisfactory position. Significant interval decrease in left-sided pleural-based nodules and left diaphragmatic thickening. Abdomen and pelvis: Interval decrease in abnormal soft tissue along the left diaphragmatic pleural surface and paraspinal soft tissues. Interval decrease in right rectus muscle lesion. Interval decrease in soft tissue mass associated with the lytic left fifth rib lesion. Stable lytic lesion and pathologic fracture of the right inferior pubic ramus. That is encouraging. It indicates that the treatment is working. He is clinically stable. He had to lower the dose of Cabozantinib to 20 mg. He is tolerating it well now. l prescribed omeprazole for his reflux symptoms. The pleural fluid is being drained once a week. Recent drainage was 300 cc range, this week. PLAN: Will proceed with imaging, to re-stage him. He will recieve Denosumab, q 3 monthly. His last dose was May 20. He is due for it now. Other options would include Lenvatinib 18 mg plus Everolimus, 5 mg p.o. daily. He will return in 3 months for a follow-up visit. Thank you, CC: Dr. Sera Juarez. Dr. Jon Chaudhry. Dr. Jones, at [facility]. [phone]. - Time Spent With Patient Total time spent is greater than 50% in coordination of care (as documented) at patient's floor/unit and/or counseling patient: 25 - 35 minutes
--- NOTE | 2020-08-26 13:34 | MHC.HEMONCSW ---
pt here for f-up with . reports no stressors, no c/o at this time. participates in [facility] palliative care program, receives social work and nursing. education and support provided.
[2020-11-10 09:49] VITALS: BP 151/70; PULSE 88; RESP 14; TEMP 36.7; O2SAT 97; BMI 32.1
[2020-11-10 10:00] LABS: MANUAL DIFF FLAG NO
[2020-11-10 10:11] LABS: Basophils Percent Auto 0.4 % (0-2); Eosinophils Absolute Auto 0.1 X10*3/uL (0.0-0.4); Eosinophils Percent Auto 0.9 % (0-4); Hemoglobin 14.1 g/dl (14.0-18.0); Imm Gran Abs Auto 0.02 X10*3/uL (0.00-0.03); Imm Gran Pct Auto 0.4 % (0.0-0.4); Lymphocytes Absolute Auto 2.4 X10*3/uL (1.2-4.9); Lymphocytes Percent Auto 45.8 % (20-40); Mean Corpuscular HGB Conc 32.8 g/dl (31.0-36.0); Mean Corpuscular Hemoglobin 30.9 pg (27.0-33.0); Mean Corpuscular Volume 94.3 fL (80-98); Mean Platelet Volume 9.5 fL (9.4-12.4); Monocytes Absolute Auto 0.4 X10*3/uL (0.1-1.2); Monocytes Percent Auto 8.1 % (2-11); Neutrophils Absolute Auto 2.4 X10*3/uL (2.0-8.3); Neutrophils Percent Auto 44.4 % (45-73); Platelet Count 198 X10*3/uL (160-400); Red Blood Count 4.56 X10*6/uL (4.60-5.80); Red Cell Distribution Width 15.7 % (11.0-16.0); White Blood Count 5.3 X10*3/uL (4.8-10.8)
[2020-11-10 10:37] LABS: Alanine Aminotransferase 36 U/L (0-40); Albumin Level 3.7 g/dL (3.5-5.0); Alkaline Phosphatase 58 U/L (39-117); Anion Gap 11 (12-20); Aspartate Amino Transferase 26 U/L (5-37); Bilirubin Total 0.3 mg/dL (0.0-1.0); Blood Urea Nitrogen 14 mg/dL (9-16); Calcium 8.1 mg/dL (8.4-10.2); Carbon Dioxide 28 mmol/L (22-29); Chloride 105 mmol/L (96-108); Creatinine Clr Calc Pharmacy 79.1; Estimated Glomerular Filt Rate > 60; Glucose Random 91 mg/dL (60-115); Potassium 4.1 mmol/l (3.3-5.1); Sodium 140 mmol/L (135-145); Total Protein 5.6 g/dL (6.5-8.0)
--- NOTE | 2020-11-10 10:37 | MHC.HEMONCMA ---
Patient came in today for a follow up and his injection for denosumab. Patient is complaining of pain around the drain site, under his right clavicle and on his lower left side of his back. I did let the doctor know, in which she sent the patient up to radiology for them to check it, the patient is now have a CT to get a better image of what is going on. The patient will come back down to have his injection with [facility].
--- NOTE | 2020-11-10 10:45 | CT_ITS ---
EXAMINATION: CT CHEST WITHOUT CONTRAST CLINICAL INFORMATION: To check out pleural catheter COMPARISON: 06/03/2020 TECHNIQUE: Multidetector volumetric CT imaging of the chest was done. Axial MIP volume rendering provided. Sagittal and coronal reformatted images were obtained. This CT examination was performed using dose optimization techniques as appropriate, variously including the following: *Automated exposure control *Adjustment of mA and/or kV according to patient size (this includes techniques or standardized protocols for targeted exams where dose is matched to indication/reason for exam; i.e. extremities or head) *Use of iterative reconstruction technique DLP: 242 mGy-cm FINDINGS: BRAND LEAD: Symmetrically expanded lungs. Left pleural effusion. Left sided pleural catheter. LUNGS: Biapical pleural parenchymal scarring, similar to the prior study. 4 mm nodule along the right major fissure in image 216 is unchanged. 5 mm juxtapleural right lower lobe nodule in image 273, present previously and unchanged. Again seen is fluid and thickening along left major fissure. Similar appearance of atelectasis at the left lung base. MEDIASTINUM: No hilar or mediastinal lymphadenopathy. Normal heart size. No pericardial effusion. PLEURA: Again seen is a small left pleural effusion with some loculated fluid anterior laterally. The volume of fluid appears similar to the prior study. Again seen is a left-sided pleural catheter that enters the left lateral chest, extends cephalad, and then loops inferiorly. The tip of the catheter is seen in the medial right lung base. The position and orientation of the catheter is similar to the prior study. There is no significant right pleural fluid present. No pneumothorax. AXILLA: No axillary or internal mammary lymphadenopathy. There is some asymmetric fluid or edema in the left lateral chest wall. UPPER ABDOMEN: No adrenal mass. There are postoperative changes with curvilinear hyperdensity along the lateral aspect of left mid-upper kidney. The appearance is similar to the prior study. OSSEOUS STRUCTURES: There is irregularity and cortical destruction of the left anterior fourth rib, present previously and consistent with osseous metastatic disease. There is a likely subtle lesion of the left anterior fourth rib. Multilevel degenerative changes of the thoracolumbar spine. Diffuse idiopathic skeletal hyperostosis. No definite lytic or destructive lesion seen. CT/CT chest wo con IMPRESSION: Similar appearance of small left pleural effusion and left-sided pleural catheter. The left pleural effusion is similar in volume to the prior study from 06/03/2020 and the catheter has a similar orientation and course. Left fourth and fifth rib lesions consistent with metastasis, similar to prior.
--- NOTE | 2020-11-10 12:29 | MHC.HEMONC ---
pt given Calcium pill 500 mg for slightly low calcium. He received Denosumab as planned.
--- NOTE | 2020-11-10 15:09 | MHC.HEMONCSW ---
PALLIATIVE CARE PROGRAM INVOLVED. MET WITH PATIENT WHO LOOKS GOOD AND REPORTS FEELING WELL. DENIES ANY COMPLAINTS AT THIS TIME. EDUCATION AND SUPPORT PROVIDED. HE IS AWARE OF MY AVAILABILITY.
--- NOTE | 2020-11-13 11:22 | PM.HEMONCPN ---
Medical Summary - Medical Summary Date of Service: 11/13/20 Medical Summary: DIAGNOSES: Renal Cell Carcinoma, clear cell type. 4.4 x 3.2 x 2.5 cm unilocal, limited to the kidney. No sarcomatoid features. Tumor necrosis present. Histological grade 2. Microscopic tumor extension. Lymphovascular invasion not identified. Parenchymal resection margin uninvolved by tumor. Tumor is 0.1 cm from the resection margin focally. Adrenal gland is negative. Fat over the tumor was negative for malignancy. Stage pT1b pNX. Now stage IV with pulmonary metastases. CURRENT THERAPY: Status post partial nephrectomy on September 15, [address] Jon Chaudhry. Concerned with pulmonary nodules. Repeat biopsy of lung nodule, in March of 2017 was positive for malignancy. Started on Pazopanib April with near CR. January 28 2018, Disease progression. Started on Nivolumab 02/21 C1D1. On clinical trial: 17-064([facility].) At [facility]. Ipilimumab, added April 17. Last dose on July. Subsequent CAT scan from August revealed disease progression. He had been on Cabozantinib, 60 mg daily, August 09 2018 till November,. Elected to stop it a few months ago, due to side effects. Status post left PleurX catheter placement, June 11. for malignant pleural effusion. Started Cabozantinib 40 mg on September. Interval History Interval history: This is a pleasant 75-year-old gentleman here for a follow-up visit. Overall he is well. Lately he has noticed a pain in her right underneath where the PleurX catheter is on the chest wall on the left side. There is a tender spot there. The pain radiates into the left flank area. The oxycodone does help the pain he. He takes 1 or 2 in a day. The catheter has been draining fine. He drained about 320 cc last time. Other than that he tells me he is feeling, well. He tells me the PleurX catheter is working well. Currently the drainage is being done weekly. This past saturday, he had about 320 mL come out. Prior to that it was 270/325/300/250 / 250/300 mL. He does feel it is a little easier to breathe afterwards. Energy level is: Excellent. Sometimes he gets pain in his hip after prolonged standing or walking. He denies any chest pain or trouble breathing. No cough nor sputum. Denies abdominal pain nor flank pain. No nausea or vomiting. He does get heartburn and reflux symptoms especially at night. He used to take Gaviscon, for it but not any more. His daughter got him the bed, that can move up and down. He gets diarrhea especially from greasy stuff. He denies constipation however he does see some hemorrhoids coming out. They do not bleed spontaneously however sometimes he notices some blood on the toilet paper upon wiping. He does want to have them operated upon. He tapered the prednisone, under the care of Dr. Carvalho. He has noticed some easy bruising, likely related to the steroids. He enjoys a good appetite. He has actually gained weight. He is in good spirits. Rest of the review of systems is unremarkable. Review of Systems - Constitutional Reports no additional constitutional complaints - Eyes Reports no additional eye complaints - ENT Reports no additional ear, nose, mouth, and throat complaints - Cardiovascular Reports no additional cardiovascular complaints, Reports chest pain at rest - Respiratory Reports no additional respiratory complaints - Gastrointestinal Reports no additional gastrointestinal complaints - Genitourinary Genitourinary: Reports no additional male genitourinary complaints - Musculoskeletal Reports no additional musculoskeletal complaints - Integumentary/Breasts Skin/Breast: Reports no additional skin complaints - Neurologic Reports no additional neurologic complaints - Psychiatric Reports no additional psychiatric complaints - Endocrine Reports no additional endocrine complaints - Hematologic/Lymphatic Reports no additional hematologic/lymphatic complaints - Allergic/Immunologic Reports no additional allergic/immunologic complaints [facility] Medical History: Medical History (Last Updated 11/09/20 @ 18:48 by Sharla Juarez MD) Arthritis Essential hypertension Glaucoma Hemorrhoids Hypertension Hypothyroidism Obesity Pleural effusion on left Rectal bleeding Vitamin D deficiency Functional capacity: independent ambulation Patient : No Family History: Family History (Last Updated 10/04/20 @ 07:18 by MELINA Rivas) Father No problems noted. Mother No problems noted. Surgical History: Surgical History (Last Updated 10/04/20 @ 07:17 by MELINA Rivas) H/O arthroscopic knee surgery H/O partial nephrectomy History of eye surgery History of knee replacement procedure of left knee History of knee replacement procedure of right knee History of lung biopsy Smoking status: Former smoker Home Medications and Allergies Current Medications: Current Medications Generic Name Dose Route Start Last Admin Trade Name Freq PRN Reason Stop Dose Admin Ondansetron HCl 8 mg 08/29/20 10:58 Ondansetron Odt 8 Mg Tab.Rapdis TRANSLINGU Q8H PRN Nausea Home Medications Medication Instructions Recorded Confirmed Type ascorbic acid (vitamin C) [Vitamin 500 mg PO DAILY 08/18/20 10/12/20 History C] atorvastatin 40 mg PO BEDTIME 08/18/20 10/12/20 History cabozantinib [Cabometyx] 20 mg PO DAILY 08/18/20 10/12/20 History clotrimazole-betamethasone See Rx Instructions .ROUTE .COMPLEX 08/18/20 10/12/20 History dorzolamide 1 drp OPHTHALMIC-LEFT BID 08/18/20 10/12/20 History latanoprost 1 drp OPHTHALMIC (EYE) BEDTIME 08/18/20 10/12/20 History lisinopril 5 mg PO DAILY 08/18/20 10/12/20 History omeprazole 20 mg PO BEDTIME 08/18/20 10/12/20 History ondansetron 8 mg PO Q8H PRN 08/18/20 10/12/20 History oxycodone 10 mg PO Q6-8H PRN 08/18/20 10/12/20 History denosumab 60 mg SUBCUT [id number] 08/26/20 10/12/20 History prednisone 10 mg tablet 10 mg PO DAILY 10/12/20 11/10/20 History Allergies Allergy/AdvReac Type Severity Reaction Status Date / Time adhesive Allergy Unknown rash Verified 10/12/20 14:30 aspirin [ASA] Allergy Anaphylaxis Verified 10/12/20 14:30 Exam Vital signs: Vital Signs Temp 98.1 F 11/10/20 09:49 Pulse 88 11/10/20 09:49 Resp 14 11/10/20 09:49 BP 151/70 H 11/10/20 09:49 Pulse Ox 97 11/10/20 09:49 Weight 93 kg Body Mass Index 32.1 - Constitutional Present: no acute distress - Routine HEENT Exam Head: Present: normal inspection Eye: Present: normal appearance ENT: Present: mucous membranes moist - Routine Neck Exam Present: full ROM - Routine Respiratory Exam Present: CTAB - Routine Cardiovascular Exam Cardiovascular: Present: RRR, S2 - Routine Abdominal Exam Present: soft - Routine Extremities Exam Present: nontender - Routine Back/Spine/Pelvis Exam Back/Spine: Present: full ROM - Routine Skin Exam Present: intact - Routine Neurological Exam Present: alert, oriented X3 - Routine Psychiatric Exam Present: normal affect Data - Labs CBC & Chem 7: 11/10/20 09:56 11/10/20 09:56 Labs: 08/18/20 00:00 Denosumab [Xgeva] 120 mg SUBCUT ONCE 08/18/20 09:00 CMP [Comprehensive Met. Panel] Routine Complete Blood Count Auto Diff Routine 11/10/20 09:56 CMP [Comprehensive Met. Panel] Routine Complete Blood Count Auto Diff Routine 11/10/20 10:45 CT chest wo con Routine 11/10/20 12:01 Calcium Carbonate [Os-Jeovanny] 500 mg PO ONCE ONE 11/10/20 12:15 Denosumab [Xgeva] 120 mg SUBCUT ONCE ONE Laboratory Last Values WBC 5.3 X10*3/uL (4.8-10.8) 11/10/20 09:56 RBC 4.56 X10*6/uL (4.60-5.80) L 11/10/20 09:56 Hgb 14.1 g/dl (14.0-18.0) 11/10/20 09:56 Hct 43.0 % (42-52) 11/10/20 09:56 MCV 94.3 fL (80-98) 11/10/20 09:56 MCH 30.9 pg (27.0-33.0) 11/10/20 09:56 MCHC 32.8 g/dl (31.0-36.0) 11/10/20 09:56 RDW 15.7 % (11.0-16.0) 11/10/20 09:56 Plt Count 198 X10*3/uL (160-400) 11/10/20 09:56 MPV 9.5 fL (9.4-12.4) 11/10/20 09:56 Immature Gran % (Auto) 0.4 % (0.0-0.4) 11/10/20 09:56 Neut % (Auto) 44.4 % (45-73) L 11/10/20 09:56 Lymph % (Auto) 45.8 % (20-40) H 11/10/20 09:56 [place] % (Auto) 8.1 % (2-11) 11/10/20 09:56 Eos % (Auto) 0.9 % (0-4) 11/10/20 09:56 Baso % (Auto) 0.4 % (0-2) 11/10/20 09:56 Lymph # (Auto) 2.4 X10*3/uL (1.2-4.9) 11/10/20 09:56 [place] # (Auto) 0.4 X10*3/uL (0.1-1.2) 11/10/20 09:56 Eos # (Auto) 0.1 X10*3/uL (0.0-0.4) 11/10/20 09:56 Baso # (Auto) 0.0 X10*3/uL (0.0-0.2) 11/10/20 09:56 Abs Immat Gran (auto) 0.02 X10*3/uL (0.00-0.03) 11/10/20 09:56 Absolute Neuts (auto) 2.4 X10*3/uL (2.0-8.3) 11/10/20 09:56 Absolute Nucleated RBC 0.000 X10*3/uL (0.0-0.012) 11/10/20 09:56 Nucleated RBC % (auto) 0.0 /100WBC (0.0-0.2) 11/10/20 09:56 Sodium 140 mmol/L (135-145) 11/10/20 09:56 Potassium 4.1 mmol/l (3.3-5.1) 11/10/20 09:56 Chloride 105 mmol/L (96-108) 11/10/20 09:56 Carbon Dioxide 28 mmol/L (22-29) 11/10/20 09:56 Anion Gap 11 (12-20) L 11/10/20 09:56 BUN 14 mg/dL (9-16) 11/10/20 09:56 Creatinine 0.89 mg/dL (0.5-1.4) 11/10/20 09:56 Estim Creat Clear Calc 79.1 11/10/20 09:56 Estimated GFR > 60 12/31/20 09:56 Random Glucose 91 mg/dL (60-115) 11/10/20 09:56 Calcium 8.1 mg/dL (8.4-10.2) L 11/10/20 09:56 Total Bilirubin 0.3 mg/dL (0.0-1.0) 11/10/20 09:56 AST 26 U/L (5-37) 11/10/20 09:56 ALT 36 U/L (0-40) 11/10/20 09:56 Alkaline Phosphatase 58 U/L (39-117) 11/10/20 09:56 Total Protein 5.6 g/dL (6.5-8.0) L 11/10/20 09:56 Albumin 3.7 g/dL (3.5-5.0) 11/10/20 09:56 Progress Note: A/P (1) 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 Initial stage was:pT1B, pNx. Status post partial nephrectomy for 09/15/[address] Jon Chaudhry. Subsequently was noted to have some pulmonary metastases. Biopsy 6 03/27/2017: Adenocarcinoma consistent with metastatic renal cell carcinoma. He was started on pazopanib 04/17/2017. CT chest 01/22/2018: Increase in pulmonary nodules and pleural base nodules. He was referred to [facility] for clinical trial. Here repeat lung biopsy was done and he was enrolled on 4, Omni wore trial. He started Nivolumab on 02/21/18. Unfortunately, 1st can done on this drug alone were consistent with progressive disease. Ipilimumab was added on 04/17. This worked for a while but then he developed progression. He was started on cabozantinib 08/09/2018. He initially did not tolerated too well. So he was observed off therapy. He had a fracture of right pubic ramus for which she was referred for radiation therapy. He was also started on denosumab last June. PET scan from 05/05/2019 revealed: Significant interval improvement in moderate left pleural effusion. Continues to be multiple bilateral pulmonary nodules and pleural and juxtapleural nodules. 1 cm soft tissue density of the lateral cortex of the right mid kidney suspicious for renal cell. He was then read tried on cabozantinib in a lower dose. 09/15/2019 he was started on the cabozantinib 40 mg daily. It was then decreased to 20 mg daily. He has been tolerating it well. CT scan of the abdomen from 12/25/2019 revealed: Significant interval decrease in the size of bilateral pulmonary nodules. No new pulmonary nodule seen. Small left pleural effusion chest tube in satisfactory position. Significant interval decrease in left-sided relief nodules and left diaphragmatic thickening. Abdomen pelvis: Interval decrease in abnormal soft tissue along the left diaphragmatic pleural surface and paraspinal soft tissue. Interval decrease in right rectus muscle lesion. Interval decrease in soft tissue mass along with lytic left 5th rib lesion. Stable lytic lesion and pathological fracture of the right inferior pubic ramus. He now presents with some pain and tenderness in the area around the PleurX catheter. PLAN: He was sent up to be evaluated by IR. CT scan of the chest was done which revealed: Similar appearance of small left pleural effusion and left-sided pleural catheter. Left pleural effusion is similar in volume to the prior study from 06/03 and catheter has a similar orientation and course. Left 4th and 5th rib consistent with Mets similar to prior. So it indicated a satisfactory position of the PleurX catheter. He will continue on the cabozantinib for now. He will continue on the denosumab q.3 months. He gets his labs checked at home twice a month. Will continue to keep an eye on that. If he starts to progress other options would be lenvatinib 18 mg plus Everolimus, 5 mg daily. He will return in a couple of months for a follow-up visit. Thank you, CC: Dr. Sera Hamilton. Dr. Jon Chaudhry. Dr. Bland at [facility]. [phone]. - Time Spent With Patient Total time spent is greater than 50% in coordination of care (as documented) at patient's floor/unit and/or counseling patient: 25 - 35 minutes
--- NOTE | 2021-02-01 10:48 | HO.HEMONCPA ---
PA for Denosumab injection not required due to pt having Medicare as primary insurance
[2021-02-02 09:55] VITALS: BP 141/65; PULSE 68; RESP 12; TEMP 36.8; O2SAT 90; BMI 32.8
[2021-02-02 10:01] LABS: MANUAL DIFF FLAG NO
[2021-02-02 10:07] LABS: Basophils Percent Auto 0.2 % (0-2); Eosinophils Absolute Auto 0.1 X10*3/uL (0.0-0.4); Eosinophils Percent Auto 1.3 % (0-4); Hematocrit 41.6 % (42-52); Hemoglobin 13.4 g/dl (14.0-18.0); Imm Gran Abs Auto 0.01 X10*3/uL (0.00-0.03); Imm Gran Pct Auto 0.2 % (0.0-0.4); Lymphocytes Absolute Auto 2.6 X10*3/uL (1.2-4.9); Lymphocytes Percent Auto 48.3 % (20-40); Mean Corpuscular HGB Conc 32.2 g/dl (31.0-36.0); Mean Corpuscular Hemoglobin 30.2 pg (27.0-33.0); Mean Corpuscular Volume 93.9 fL (80-98); Mean Platelet Volume 9.1 fL (9.4-12.4); Monocytes Absolute Auto 0.4 X10*3/uL (0.1-1.2); Monocytes Percent Auto 6.9 % (2-11); Neutrophils Absolute Auto 2.4 X10*3/uL (2.0-8.3); Neutrophils Percent Auto 43.1 % (45-73); Platelet Count 162 X10*3/uL (160-400); Red Blood Count 4.43 X10*6/uL (4.60-5.80); Red Cell Distribution Width 16.3 % (11.0-16.0); White Blood Count 5.5 X10*3/uL (4.8-10.8)
--- NOTE | 2021-02-02 10:20 | PM.HEMONCPN ---
Medical Summary - Medical Summary Date of Service: 02/02/21 Chief complaint: Follow-up for: Renal cell carcinoma. Medical Summary: DIAGNOSES: Renal Cell Carcinoma, clear cell type. 4.4 x 3.2 x 2.5 cm unilocal, limited to the kidney. No sarcomatoid features. Tumor necrosis present. Histological grade 2. Microscopic tumor extension. Lymphovascular invasion not identified. Parenchymal resection margin uninvolved by tumor. Tumor is 0.1 cm from the resection margin focally. Adrenal gland is negative. Fat over the tumor was negative for malignancy. Stage pT1b pNX. Now stage IV with pulmonary metastases. CURRENT THERAPY: Status post partial nephrectomy on September 15, [address] Jon Chaudhry. Concerned with pulmonary nodules. Repeat biopsy of lung nodule, in March of 2017 was positive for malignancy. Started on Pazopanib April with near CR. January 28 2018, Disease progression. Started on Nivolumab 02/21 C1D1. On clinical trial: 17-064([facility].) At [facility]. Ipilimumab, added April 17. Last dose on July. Subsequent CAT scan from August revealed disease progression. He had been on Cabozantinib, 60 mg daily, August 09 2018 till November,. Elected to stop it a few months ago, due to side effects. Status post left PleurX catheter placement, June 11. for malignant pleural effusion. Started Cabozantinib 40 mg on September. Interval History Interval history: This is a pleasant 75-year-old gentleman here for a follow-up visit. Overall he is feeling great so far. He denies any complaints. He tells me his back went out on him. He has had back trouble for 20 years. He has been living with it. The med is working. Other than that he tells me he is feeling, well. He tells me the PleurX catheter is working well. Currently the drainage is being done weekly. This past week, he had about 400 mL come out. Prior to that it was 320/270/325/300/250 / 250/300 mL. He does feel it is a little easier to breathe afterwards. Energy level is: Excellent. Sometimes he gets pain in his hip after prolonged standing or walking. He denies any chest pain or trouble breathing. No cough nor sputum. Denies abdominal pain nor flank pain. No nausea or vomiting. He does get heartburn and reflux symptoms especially at night. He used to take Gaviscon, for it but not any more. His daughter got him the bed, that can move up and down. He gets diarrhea especially from greasy stuff. He denies constipation however he does see some hemorrhoids coming out. They do not bleed spontaneously however sometimes he notices some blood on the toilet paper upon wiping. He does want to have them operated upon. He enjoys a good appetite. He has actually gained weight. He is in good spirits. Rest of the review of systems is unremarkable. Previous history: Lately he has noticed a pain in her right underneath where the PleurX catheter is on the chest wall on the left side. There is a tender spot there. The pain radiates into the left flank area. The oxycodone does help the pain he. He takes 1 or 2 in a day. The catheter has been draining fine. He drained about 320 cc last time. Review of Systems - Constitutional Reports no additional constitutional complaints - Eyes Reports no additional eye complaints - ENT Reports no additional ear, nose, mouth, and throat complaints - Cardiovascular Reports no additional cardiovascular complaints - Respiratory Reports no additional respiratory complaints - Gastrointestinal Reports no additional gastrointestinal complaints - Genitourinary Genitourinary: Reports no additional male genitourinary complaints - Musculoskeletal Reports no additional musculoskeletal complaints - Integumentary/Breasts Skin/Breast: Reports no additional skin complaints - Neurologic Reports no additional neurologic complaints - Psychiatric Reports no additional psychiatric complaints - Endocrine Reports no additional endocrine complaints - Hematologic/Lymphatic Reports no additional hematologic/lymphatic complaints - Allergic/Immunologic Reports no additional allergic/immunologic complaints [facility] Medical History: Medical History (Last Updated 01/05/21 @ 08:18 by Sharla Juarez MD) 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 Arthritis Essential hypertension Glaucoma Hemorrhoids Hypertension Hypothyroidism Leg edema, left Obesity Pleural effusion on left Rectal bleeding Vitamin D deficiency Functional capacity: independent ambulation Patient : No Family History: Family History (Last Reviewed 01/17/21 @ 10:42 by MELINA House) Father No problems noted. Mother Lung cancer Brother Cancer Surgical History: Surgical History (Last Reviewed 01/17/21 @ 10:41 by MELINA House) H/O arthroscopic knee surgery H/O partial nephrectomy History of esophagogastroduodenoscopy (EGD) Onset Date: ~1999 History of eye surgery History of knee replacement procedure of left knee History of knee replacement procedure of right knee History of lung biopsy Social History: Social History (Last Updated 01/17/21 @ 10:42 by MELINA House) Living Situation History: Household Members: Spouse Alcohol History: Alcohol intake: current Alcohol History Details: Alcohol intake frequency: does not drink Tobacco History: Smoking Status: Former smoker Tobacco Type: Cigarette Substance Use History: Substance Use Type: Marijuana Advance Directives: Advance Directives: Yes Advance Directives on File: Yes Advance Directives Date on File: 12/12/07 Nutrition Assessment: Patient : No Smoking status: Former smoker Oncology Screenings - ECOG Performance Status ECOG Performance Status: 0 Home Medications and Allergies Current Medications: Current Medications Generic Name Dose Route Start Last Admin Trade Name Freq PRN Reason Stop Dose Admin Denosumab 120 mg 02/02/21 00:00 Denosumab 120 Mg/1.7 Ml Vial SUBCUT 02/02/21 23:59 ONCE LILIYA Home Medications Medication Instructions Recorded Confirmed Type ascorbic acid (vitamin C) [Vitamin 500 mg PO DAILY 08/18/20 01/05/21 History C] atorvastatin 40 mg PO BEDTIME 08/18/20 01/05/21 History clotrimazole-betamethasone See Rx Instructions .ROUTE .COMPLEX 08/18/20 01/05/21 History dorzolamide 1 drp OPHTHALMIC-LEFT BID 08/18/20 01/05/21 History latanoprost 1 drp OPHTHALMIC (EYE) BEDTIME 08/18/20 01/05/21 History lisinopril 5 mg PO DAILY 08/18/20 01/05/21 History oxycodone 10 mg PO Q6-8H PRN 08/18/20 01/05/21 History denosumab 60 mg SUBCUT [id number] 08/26/20 01/05/21 History calcium citrate 500 mg PO BID 11/30/20 02/02/21 History Allergies Allergy/AdvReac Type Severity Reaction Status Date / Time adhesive Allergy Unknown rash Verified 01/17/21 10:35 aspirin [ASA] Allergy Anaphylaxis Verified 01/17/21 10:35 Exam Vital signs: Vital Signs Temp 98.2 F 02/02/21 09:55 Pulse 68 02/02/21 09:55 Resp 12 02/02/21 09:55 BP 141/65 H 02/02/21 09:55 Pulse Ox 90 L 02/02/21 09:55 Intake & Output 02/01/21 02/02/21 02/02/21 18:59 06:59 18:59 Other: Weight 94.9 kg [place] Weight in Grams [id number] Weight 94.9 kg Body Mass Index 32.8 - Constitutional Present: no acute distress - Routine HEENT Exam Head: Present: normal inspection Eye: Present: normal appearance ENT: Present: mucous membranes moist - Routine Neck Exam Present: full ROM - Routine Respiratory Exam Present: CTAB - Routine Cardiovascular Exam Cardiovascular: Present: RRR, S2 - Routine Abdominal Exam Present: soft - Routine Extremities Exam Present: nontender - Routine Back/Spine/Pelvis Exam Back/Spine: Present: full ROM - Routine Skin Exam Present: intact - Routine Neurological Exam Present: alert, oriented X3 - Routine Psychiatric Exam Present: normal affect Data - Labs CBC & Chem 7: 02/02/21 09:55 02/02/21 09:55 Labs: 08/18/20 00:00 Denosumab [Xgeva] 120 mg SUBCUT ONCE 08/18/20 09:00 CMP [Comprehensive Met. Panel] Routine Complete Blood Count Auto Diff Routine 08/29/20 10:58 ondansetron ODT [Zofran ODT] 8 mg TRANSLINGU Q8H PRN 11/10/20 09:56 CMP [Comprehensive Met. Panel] Routine Complete Blood Count Auto Diff Routine 11/10/20 10:45 CT chest wo con Routine 11/10/20 12:01 Calcium Carbonate [Os-Jeovanny] 500 mg PO ONCE ONE 11/10/20 12:15 Denosumab [Xgeva] 120 mg SUBCUT ONCE ONE 02/02/21 09:55 Complete Blood Count Auto Diff Routine Laboratory Last Values WBC 5.5 X10*3/uL (4.8-10.8) 02/02/21 09:55 RBC 4.43 X10*6/uL (4.60-5.80) L 02/02/21 09:55 Hgb 13.4 g/dl (14.0-18.0) L 02/02/21 09:55 Hct 41.6 % (42-52) L 02/02/21 09:55 MCV 93.9 fL (80-98) 02/02/21 09:55 MCH 30.2 pg (27.0-33.0) 02/02/21 09:55 MCHC 32.2 g/dl (31.0-36.0) 02/02/21 09:55 RDW 16.3 % (11.0-16.0) H 02/02/21 09:55 Plt Count 162 X10*3/uL (160-400) 02/02/21 09:55 MPV 9.1 fL (9.4-12.4) L 02/02/21 09:55 Immature Gran % (Auto) 0.2 % (0.0-0.4) 02/02/21 09:55 Neut % (Auto) 43.1 % (45-73) L 02/02/21 09:55 Lymph % (Auto) 48.3 % (20-40) H 02/02/21 09:55 Hale % (Auto) 6.9 % (2-11) 02/02/21 09:55 Eos % (Auto) 1.3 % (0-4) 02/02/21 09:55 Baso % (Auto) 0.2 % (0-2) 02/02/21 09:55 Lymph # (Auto) 2.6 X10*3/uL (1.2-4.9) 02/02/21 09:55 Hale # (Auto) 0.4 X10*3/uL (0.1-1.2) 02/02/21 09:55 Eos # (Auto) 0.1 X10*3/uL (0.0-0.4) 02/02/21 09:55 Baso # (Auto) 0.0 X10*3/uL (0.0-0.2) 02/02/21 09:55 Abs Immat Gran (auto) 0.01 X10*3/uL (0.00-0.03) 02/02/21 09:55 Absolute Neuts (auto) 2.4 X10*3/uL (2.0-8.3) 02/02/21 09:55 Absolute Nucleated RBC 0.000 X10*3/uL (0.0-0.012) 02/02/21 09:55 Nucleated RBC % (auto) 0.0 /100WBC (0.0-0.2) 02/02/21 09:55 Sodium 140 mmol/L (135-145) 11/10/20 09:56 Potassium 4.1 mmol/l (3.3-5.1) 11/10/20 09:56 Chloride 105 mmol/L (96-108) 11/10/20 09:56 Carbon Dioxide 28 mmol/L (22-29) 11/10/20 09:56 Anion Gap 11 (12-20) L 11/10/20 09:56 BUN 14 mg/dL (9-16) 11/10/20 09:56 Creatinine 0.89 mg/dL (0.5-1.4) 11/10/20 09:56 Estim Creat Clear Calc 79.1 11/10/20 09:56 Estimated GFR > 60 11/10/20 09:56 Random Glucose 91 mg/dL (60-115) 11/10/20 09:56 Calcium 8.1 mg/dL (8.4-10.2) L 11/10/20 09:56 Total Bilirubin 0.3 mg/dL (0.0-1.0) 11/10/20 09:56 AST 26 U/L (5-37) 11/10/20 09:56 ALT 36 U/L (0-40) 11/10/20 09:56 Alkaline Phosphatase 58 U/L (39-117) 11/10/20 09:56 Total Protein 5.6 g/dL (6.5-8.0) L 11/10/20 09:56 Albumin 3.7 g/dL (3.5-5.0) 11/10/20 09:56 - Imaging Radiologist's impression: ITS Impressions Chest CT 11/10/20 10:45 IMPRESSION: Similar appearance of small left pleural effusion and left-sided pleural catheter. The left pleural effusion is similar in volume to the prior study from 06/03/2020 and the catheter has a similar orientation and course. Left fourth and fifth rib lesions consistent with metastasis, similar to prior. 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 Initial stage was:pT1B, pNx. Status post partial nephrectomy for 09/15/[address] Jon Chaudhry. Subsequently was noted to have some pulmonary metastases. Biopsy 6 03/27/2017: Adenocarcinoma consistent with metastatic renal cell carcinoma. He was started on pazopanib 04/17/2017. CT chest 01/22/2018: Increase in pulmonary nodules and pleural base nodules. He was referred to [facility] for clinical trial. Here repeat lung biopsy was done and he was enrolled on 4, Omni wore trial. He started Nivolumab on 02/21/18. Unfortunately, 1st can done on this drug alone were consistent with progressive disease. Ipilimumab was added on 04/17. This worked for a while but then he developed progression. He was started on cabozantinib 08/09/2018. He initially did not tolerated too well. So he was observed off therapy. He had a fracture of right pubic ramus for which she was referred for radiation therapy. He was also started on denosumab last June. PET scan from 05/05/2019 revealed: Significant interval improvement in moderate left pleural effusion. Continues to be multiple bilateral pulmonary nodules and pleural and juxtapleural nodules. 1 cm soft tissue density of the lateral cortex of the right mid kidney suspicious for renal cell. He was then read tried on cabozantinib in a lower dose. 09/15/2019 he was started on the cabozantinib 40 mg daily. It was then decreased to 20 mg daily. He has been tolerating it well. CT scan of the abdomen from 12/25/2019 revealed: Significant interval decrease in the size of bilateral pulmonary nodules. No new pulmonary nodule seen. Small left pleural effusion chest tube in satisfactory position. Significant interval decrease in left-sided relief nodules and left diaphragmatic thickening. Abdomen pelvis: Interval decrease in abnormal soft tissue along the left diaphragmatic pleural surface and paraspinal soft tissue. Interval decrease in right rectus muscle lesion. Interval decrease in soft tissue mass along with lytic left 5th rib lesion. Stable lytic lesion and pathological fracture of the right inferior pubic ramus. He is holding his own. He has been tolerating the cabozantinib very well. On 11/10, a CT scan of the chest was done which revealed: Similar appearance of small left pleural effusion and left-sided pleural catheter. Left pleural effusion is similar in volume to the prior study from 06/03 and catheter has a similar orientation and course. Left 4th and 5th rib consistent with Mets similar to prior. It indicated a satisfactory position of the PleurX catheter. PLAN: He will continue on the cabozantinib for now. He actually would like to increase the dose if possible. He can go up to 30 mg a day. If he tolerates that he can go up to 40 as tolerated. He is here for a dose of denosumab. He will continue that every 3 months. He gets his labs checked at home twice a month. Will continue to monitor. He will be scheduled for imaging over the next couple of weeks. If he starts to progress other options would be lenvatinib 18 mg plus Everolimus, 5 mg daily. He will return in a couple of months for a follow-up visit. Thank you, CC: Dr. Sera Hamilton. Dr. Jon Chaudhry. Dr. Bland at [facility]. [phone]. - Time Spent With Patient Total time spent is greater than 50% in coordination of care (as documented) at patient's floor/unit and/or counseling patient: 25 - 35 minutes
[2021-02-02 10:38] LABS: Alanine Aminotransferase 57 U/L (0-40); Albumin Level 3.7 g/dL (3.5-5.0); Alkaline Phosphatase 58 U/L (39-117); Anion Gap 14 (12-20); Aspartate Amino Transferase 28 U/L (5-37); Bilirubin Total 0.2 mg/dL (0.0-1.0); Blood Urea Nitrogen 17 mg/dL (9-16); Calcium 9.6 mg/dL (8.4-10.2); Carbon Dioxide 31 mmol/L (22-29); Chloride 101 mmol/L (96-108); Creatinine Clr Calc Pharmacy 73.3; Estimated Glomerular Filt Rate > 60; Glucose Fasting 121 mg/dL (60-99); Potassium 4.2 mmol/L (3.3-5.1); Sodium 142 mmol/L (135-145); Total Protein 5.6 g/dL (6.5-8.0)
--- NOTE | 2021-02-02 10:52 | MHC.HEMONC ---
Pt here for follow-up and injection. Followup performed by LOLA and maggieon given as documeted and ordered by this RN. Follow-up for injection given.
[2021-02-02 11:00] LABS: Free T4 (Free Thyroxine) 1.21 ng/dL (0.71-1.85); Vitamin D 25-OH Total 33.5 ng/mL (>30)
--- NOTE | 2021-02-02 11:04 | MHC.HEMONCSW ---
PATIENT SEEN IN FOLLOW UP. REPORTS FEELING WELL AND COPING WELL. GOOD SUPPORTS IN PLACE. CONTINUES TO PARTICIPATE IN [facility] PALLIATIVE PROGRAM. EDUCATION AND SUPPORT PROVIDED.
[2021-05-02 09:48] VITALS: BP 161/76; PULSE 76; RESP 18; TEMP 36.1; O2SAT 97; BMI 32.1
--- NOTE | 2021-05-02 10:04 | P.PNHO_ITS ---
Medical Summary - Medical Summary Date of Service: 05/02/21 Chief complaint: Follow-up for: Renal cell carcinoma. Medical Summary: DIAGNOSES: Renal Cell Carcinoma, clear cell type. 4.4 x 3.2 x 2.5 cm unilocal, limited to the kidney. No sarcomatoid features. Tumor necrosis present. Histological grade 2. Microscopic tumor extension. Lymphovascular invasion not identified. Parenchymal resection margin uninvolved by tumor. Tumor is 0.1 cm from the resection margin focally. Adrenal gland is negative. Fat over the tumor was negative for malignancy. Stage pT1b pNX. Now stage IV with pulmonary metastases. CURRENT THERAPY: Status post partial nephrectomy on September 15, [address] Jon Chaudhry. Concerned with pulmonary nodules. Repeat biopsy of lung nodule, in March of 2017 was positive for malignancy. Started on Pazopanib April with near CR. January 28 2018, Disease progression. Started on Nivolumab 02/21 C1D1. On clinical trial: 17-064([facility].) At [facility]. Ipilimumab, added April 17. Last dose on July. Subsequent CAT scan from August revealed disease progression. He had been on Cabozantinib, 60 mg daily, August 09 2018 till November,. Elected to stop it a few months ago, due to side effects. Status post left PleurX catheter placement, June 11. for malignant pleural effusion. Started Cabozantinib 40 mg on September. Interval History Interval history: This is a pleasant 76 year-old gentleman here for a follow-up visit. He tells me the PleurX catheter is drained once a week. Drainage has been as follows: 04/12: 500 mL. 04/19:420 5 mL. 04/26:4 60 mL. He gets occasional pain at the PleurX catheter site. Recently he has noted cramps. He tells me that in the middle of the night he gets leg cramps and sometimes even forearms cramp up. It is hard for him to fall back to sleep after that. His energy level is great. He denies any chest pain or trouble breathing. Other than that he tells me he is feeling, well. No cough nor sputum. Denies abdominal pain nor flank pain. No nausea or vomiting. He does get heartburn and reflux symptoms especially at night. He used to take Gaviscon, for it but not any more. His daughter got him the bed, that can move up and down. He gets diarrhea especially from greasy stuff. He denies constipation however he does see some hemorrhoids coming out. They do not bleed spontaneously however sometimes he notices some blood on the toilet paper upon wiping. He does want to have them operated upon. He enjoys a good appetite. He has actually gained weight. He is in good spirits. Rest of the review of systems is unremarkable. Previous history: Lately he has noticed a pain in her right underneath where the PleurX catheter is on the chest wall on the left side. There is a tender spot there. The pain radiates into the left flank area. The oxycodone does help the pain he. He takes 1 or 2 in a day. The catheter has been draining fine. He drained about 320 cc last time. He tells me his back went out on him. He has had back trouble for 20 years. He has been living with it. The [employer] is working. Review of Systems - Constitutional Reports system reviewed and no additional complaints, except as documented - Eyes Reports system reviewed and no additional complaints, except as documented - ENT Reports system reviewed and no additional complaints, except as documented - Cardiovascular Reports system reviewed and no additional complaints, except as documented - Respiratory Reports no additional respiratory complaints - Gastrointestinal Reports system reviewed and no additional complaints, except as documented - Genitourinary Genitourinary: Reports no additional male genitourinary complaints - Musculoskeletal Reports system reviewed and no additional complaints, except as documented - Integumentary/Breasts Skin/Breast: Reports no additional skin complaints - Neurologic Reports system reviewed and no additional complaints, except as documented - Psychiatric Reports system reviewed and no additional complaints, except as documented - Endocrine Reports no additional endocrine complaints - Hematologic/Lymphatic Reports system reviewed and no additional complaints, except as documented - Allergic/Immunologic Reports system reviewed and no additional complaints, except as documented PMFSH Medical History: Medical History (Last Updated 04/13/21 @ 12:26 by Sharla Juarez MD) 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 Mother Lung cancer Brother Cancer Surgical History: Surgical History (Last Reviewed 04/17/21 @ 14:01 by MELINA Rutledge) H/O arthroscopic knee surgery H/O partial nephrectomy History of esophagogastroduodenoscopy (EGD) Onset Date: ~1999 History of eye surgery History of knee replacement procedure of left knee History of knee replacement procedure of right knee History of lung biopsy Social History: Social History (Last Updated 04/17/21 @ 14:08 by MELINA Rutledge) Living Situation History: Household Members: Spouse Alcohol History: Alcohol intake: never Tobacco History: Patient Tobacco Use Status: Former Tobacco user Tobacco use type: Cigarette Years Smoked: 50 Second Hand Smoke Exposure: No Substance Use History: Substance Use Type: Marijuana Advance Directives: Advance Directives Date on File: 12/12/07 Oncology Screenings - ECOG Performance Status ECOG Performance Status: 0 Home Medications and Allergies Home Medications Medication Instructions Recorded Confirmed Type ascorbic acid (vitamin C) [Vitamin 500 mg PO DAILY 08/18/20 05/04/21 History C] atorvastatin 40 mg PO BEDTIME 08/18/20 05/04/21 History clotrimazole-betamethasone See Rx Instructions .ROUTE .COMPLEX 08/18/20 05/04/21 History denosumab 60 mg SUBCUT [id number] 08/26/20 05/04/21 History dicyclomine 20 mg tablet 20 mg PO QID PRN tab 05/04/21 05/04/21 History Allergies Allergy/AdvReac Type Severity Reaction Status Date / Time adhesive Allergy Intermediate rash Verified 04/17/21 14:01 aspirin [ASA] Allergy Intermediate Anaphylaxis Verified 04/17/21 14:01 Exam Vital signs: Vital Signs Temp 97.0 F 05/02/21 09:48 Pulse 76 05/02/21 09:48 Resp 18 05/02/21 09:48 BP 161/76 H 05/02/21 09:48 Pulse Ox 97 05/02/21 09:48 Intake & Output 05/01/21 05/02/21 05/02/21 18:59 06:59 18:59 Other: Weight 93 kg [place] Weight in Grams 17465 Weight 93 kg Body Mass Index 32.1 - Constitutional Present: no acute distress - Routine HEENT Exam Head: Present: normal inspection Eye: Present: normal appearance ENT: Present: mucous membranes moist, normal exam - Routine Neck Exam Present: full ROM - Routine Respiratory Exam Present: CTAB - Routine Cardiovascular Exam Cardiovascular: Present: RRR, S2 - Routine Abdominal Exam Present: soft - Routine Extremities Exam Present: nontender - Routine Back/Spine/Pelvis Exam Back/Spine: Present: full ROM - Routine Skin Exam Present: intact - Routine Neurological Exam Present: alert, oriented X3 - Routine Psychiatric Exam Present: normal affect Data - Labs CBC & Chem 7: 05/02/21 10:10 05/02/21 10:10 Labs: 08/18/20 00:00 Denosumab [Xgeva] 120 mg SUBCUT ONCE 08/18/20 09:00 CMP [Comprehensive Met. Panel] Routine Complete Blood Count Auto Diff Routine 08/29/20 10:58 ondansetron ODT [Zofran ODT] 8 mg TRANSLINGU Q8H PRN 11/10/20 09:56 CMP [Comprehensive Met. Panel] Routine Complete Blood Count Auto Diff Routine 11/10/20 10:45 CT chest wo con Routine 11/10/20 12:01 Calcium Carbonate [Os-Jeovanny] 500 mg PO ONCE ONE 11/10/20 12:15 Denosumab [Xgeva] 120 mg SUBCUT ONCE ONE 02/02/21 09:55 Complete Blood Count Auto Diff Routine Laboratory Last Values WBC 5.5 X10*3/uL (4.8-10.8) 02/02/21 09:55 RBC 4.43 X10*6/uL (4.60-5.80) L 02/02/21 09:55 Hgb 13.4 g/dl (14.0-18.0) L 02/02/21 09:55 Hct 41.6 % (42-52) L 02/02/21 09:55 MCV 93.9 fL (80-98) 02/02/21 09:55 MCH 30.2 pg (27.0-33.0) 02/02/21 09:55 MCHC 32.2 g/dl (31.0-36.0) 02/02/21 09:55 RDW 16.3 % (11.0-16.0) H 02/02/21 09:55 Plt Count 162 X10*3/uL (160-400) 02/02/21 09:55 MPV 9.1 fL (9.4-12.4) L 02/02/21 09:55 Immature Gran % (Auto) 0.2 % (0.0-0.4) 02/02/21 09:55 Neut % (Auto) 43.1 % (45-73) L 02/02/21 09:55 Lymph % (Auto) 48.3 % (20-40) H 02/02/21 09:55 [place] % (Auto) 6.9 % (2-11) 02/02/21 09:55 Eos % (Auto) 1.3 % (0-4) 02/02/21 09:55 Baso % (Auto) 0.2 % (0-2) 02/02/21 09:55 Lymph # (Auto) 2.6 X10*3/uL (1.2-4.9) 02/02/21 09:55 [place] # (Auto) 0.4 X10*3/uL (0.1-1.2) 02/02/21 09:55 Eos # (Auto) 0.1 X10*3/uL (0.0-0.4) 02/02/21 09:55 Baso # (Auto) 0.0 X10*3/uL (0.0-0.2) 02/02/21 09:55 Abs Immat Gran (auto) 0.01 X10*3/uL (0.00-0.03) 02/02/21 09:55 Absolute Neuts (auto) 2.4 X10*3/uL (2.0-8.3) 02/02/21 09:55 Absolute Nucleated RBC 0.000 X10*3/uL (0.0-0.012) 02/02/21 09:55 Nucleated RBC % (auto) 0.0 /100WBC (0.0-0.2) 02/02/21 09:55 Sodium 140 mmol/L (135-145) 11/10/20 09:56 Potassium 4.1 mmol/l (3.3-5.1) 11/10/20 09:56 Chloride 105 mmol/L (96-108) 11/10/20 09:56 Carbon Dioxide 28 mmol/L (22-29) 11/10/20 09:56 Anion Gap 11 (12-20) L 11/10/20 09:56 BUN 14 mg/dL (9-16) 11/10/20 09:56 Creatinine 0.89 mg/dL (0.5-1.4) 11/10/20 09:56 Estim Creat Clear Calc 79.1 11/10/20 09:56 Estimated GFR > 60 11/10/20 09:56 Random Glucose 91 mg/dL (60-115) 11/10/20 09:56 Calcium 8.1 mg/dL (8.4-10.2) L 11/10/20 09:56 Total Bilirubin 0.3 mg/dL (0.0-1.0) 11/10/20 09:56 AST 26 U/L (5-37) 11/10/20 09:56 ALT 36 U/L (0-40) 11/10/20 09:56 Alkaline Phosphatase 58 U/L (39-117) 11/10/20 09:56 Total Protein 5.6 g/dL (6.5-8.0) L 11/10/20 09:56 Albumin 3.7 g/dL (3.5-5.0) 11/10/20 09:56 - Imaging Radiologist's impression: ITS Impressions Chest CT 11/10/20 10:45 IMPRESSION: Similar appearance of small left pleural effusion and left-sided pleural catheter. The left pleural effusion is similar in volume to the prior study from 06/03/2020 and the catheter has a similar orientation and course. Left fourth and fifth rib lesions consistent with metastasis, similar to prior. 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 Initial stage was:pT1B, pNx. Status post partial nephrectomy for 09/15/[address] Jon Chaudhry. Subsequently was noted to have some pulmonary metastases. Biopsy 6 03/27/2017: Adenocarcinoma consistent with metastatic renal cell carcinoma. He was started on pazopanib 04/17/2017. CT chest 01/22/2018: Increase in pulmonary nodules and pleural base nodules. He was referred to [facility] for clinical trial. Here repeat lung biopsy was done and he was enrolled on 4, Omni wore trial. He started Nivolumab on 02/21/18. Unfortunately, 1st can done on this drug alone were consistent with progressive disease. Ipilimumab was added on 04/17. This worked for a while but then he developed progression. He was started on cabozantinib 08/09/2018. He initially did not tolerated too well. So he was observed off therapy. He had a fracture of right pubic ramus for which she was referred for radiation therapy. He was also started on denosumab last June. PET scan from 05/05/2019 revealed: Significant interval improvement in moderate left pleural effusion. Continues to be multiple bilateral pulmonary nodules and pleural and juxtapleural nodules. 1 cm soft tissue density of the lateral cortex of the right mid kidney suspicious for renal cell. He was then read tried on cabozantinib in a lower dose. 09/15/2019 he was started on the cabozantinib 40 mg daily. It was then decreased to 20 mg daily. He has been tolerating it well. CT scan of the abdomen from 12/25/2019 revealed: Significant interval decrease in the size of bilateral pulmonary nodules. No new pulmonary nodule seen. Small left pleural effusion chest tube in satisfactory position. Significant interval decrease in left-sided relief nodules and left diaphragmatic thickening. Abdomen pelvis: Interval decrease in abnormal soft tissue along the left diaphragmatic pleural surface and paraspinal soft tissue. Interval decrease in right rectus muscle lesion. Interval decrease in soft tissue mass along with lytic left 5th rib lesion. Stable lytic lesion and pathological fracture of the right inferior pubic ramus. He is holding his own. He has been tolerating the cabozantinib very well. He is taking 20 mg daily. On 11/10, a CT scan of the chest was done which revealed: Similar appearance of small left pleural effusion and left-sided pleural catheter. Left pleural effusion is similar in volume to the prior study from 06/03 and catheter has a similar orientation and course. Left 4th and 5th rib consistent with Mets similar to prior. It indicated a satisfactory position of the PleurX catheter. CT scan of the chest from 02/02: Similar appearance of small left pleural effusion and left-sided pleural catheter. The left pleural effusion is similar in volume to the prior study from 06/03/2020 and the catheter has a similar orientation and course. Left fourth and fifth rib lesions consistent with metastasis, similar to prior. PLAN: He will be scheduled for imaging over the next week or so. He will continue on the Cabozantinib for now. He actually would like to increase the dose if possible. He can take 40 mg on one day, and 20 mg the other. So alternating. He is here for a dose of Denosumab. He will continue that every 3 months. He gets his labs checked at home twice a month. Will continue to monitor. If he starts to progress other options would be lenvatinib 18 mg plus Everolimus, 5 mg daily. He will return in 3 months for a follow-up visit. Thank you, CC: Dr. Sera Hamilton. Dr. Jon Chaudhry. Dr. Bland at [facility]. [phone]. - Time Spent With Patient 25 - 35 minutes
[2021-05-02 10:35] LABS: MANUAL DIFF FLAG NO
[2021-05-02 10:52] LABS: Basophils Percent Auto 0.4 % (0-2); Eosinophils Absolute Auto 0.1 X10*3/uL (0.0-0.4); Eosinophils Percent Auto 1.2 % (0-4); Hematocrit 41.3 % (42-52); Hemoglobin 13.6 g/dl (14.0-18.0); Imm Gran Abs Auto 0.01 X10*3/uL (0.00-0.03); Imm Gran Pct Auto 0.2 % (0.0-0.4); Lymphocytes Absolute Auto 1.5 X10*3/uL (1.2-4.9); Lymphocytes Percent Auto 28.8 % (20-40); Mean Corpuscular HGB Conc 32.9 g/dl (31.0-36.0); Mean Corpuscular Hemoglobin 30.4 pg (27.0-33.0); Mean Corpuscular Volume 92.4 fL (80-98); Mean Platelet Volume 8.8 fL (9.4-12.4); Monocytes Absolute Auto 0.3 X10*3/uL (0.1-1.2); Monocytes Percent Auto 6.4 % (2-11); Neutrophils Absolute Auto 3.2 X10*3/uL (2.0-8.3); Platelet Count 201 X10*3/uL (160-400); Red Blood Count 4.47 X10*6/uL (4.60-5.80); Red Cell Distribution Width 16.3 % (11.0-16.0); White Blood Count 5.1 X10*3/uL (4.8-10.8)
[2021-05-02 11:19] LABS: Alanine Aminotransferase 28 U/L (0-40); Albumin Level 3.6 g/dL (3.5-5.0); Alkaline Phosphatase 61 U/L (39-117); Anion Gap 9 (12-20); Aspartate Amino Transferase 25 U/L (5-37); Bilirubin Total 0.5 mg/dL (0.0-1.0); Blood Urea Nitrogen 13 mg/dL (9-16); Calcium 8.7 mg/dL (8.4-10.2); Carbon Dioxide 30 mmol/L (22-29); Chloride 107 mmol/L (96-108); Creatinine Clr Calc Pharmacy 82.6; Estimated Glomerular Filt Rate > 60; Glucose Random 95 mg/dL (60-115); Potassium 4.1 mmol/L (3.3-5.1); Sodium 142 mmol/L (135-145); Total Protein 5.4 g/dL (6.5-8.0)
[2021-05-02 11:31] LABS: Magnesium 1.8 mg/dL (1.6-2.6)
--- NOTE | 2021-05-02 16:13 | MHC.HEMONC ---
Pt here for ONC follow up with Dr Diaz. Labs drawn by mechanical engineering officer and sent to lab. Clinical summary updated by nurse. Provider into see pt. Pt c/o leg and forearm cramps . States left flank is occasionally painful. Calcium 8.7 Denosumab injection given -tolerated well. Follow up appointment scheduled and given to pt. Discharged home.
--- NOTE | 2021-07-27 09:26 | MHC.HEMONC ---
Patient called states pain 07/21 with movement at pleurx catheter site, patient denies redness,swelling, drainage around site and denies fevers. Patient states drain is working well and draining appropriately. Patient takes oxycodone and Tylenol with some relief. Dr. Diaz made aware. Patient follow up scheduled 08/01/21, patient instructed to call with increased pain,fevers, chills or drainage from around pleurx.
[2021-08-01 10:16] LABS: Baso%MD 0.6 %; Eos%MD 1.5 %; Hematocrit 41.2 % (42-52); Hemoglobin 13.3 g/dl (14.0-18.0); IG%MD 0.2 %; Lymph%MD 33.5 %; Mean Corpuscular HGB Conc 32.3 g/dl (31.0-36.0); Mean Corpuscular Hemoglobin 29.6 pg (27.0-33.0); Mean Corpuscular Volume 91.6 fL (80-98); Mean Platelet Volume 8.8 fL (9.4-12.4); Mono%MD 9.2 %; Platelet Count 226 X10*3/uL (160-400); White Blood Count 5.4 X10*3/uL (4.8-10.8)
[2021-08-01 10:29] LABS: Alanine Aminotransferase 43 U/L (0-40); Albumin Level 3.9 g/dL (3.5-5.0); Alkaline Phosphatase 58 U/L (39-117); Anion Gap 14 (12-20); Aspartate Amino Transferase 33 U/L (5-37); Bilirubin Total 0.6 mg/dL (0.0-1.0); Blood Urea Nitrogen 17 mg/dL (9-16); Calcium 10.4 mg/dL (8.4-10.2); Carbon Dioxide 29 mmol/L (22-29); Chloride 103 mmol/L (96-108); Creatinine Clr Calc Pharmacy 67.3; Estimated Glomerular Filt Rate > 60; Glucose Random 95 mg/dL (60-115); Potassium 4.6 mmol/L (3.3-5.1); Sodium 141 mmol/L (135-145); Total Protein 6.1 g/dL (6.5-8.0)
[2021-08-01 10:59] LABS: Band Neutrophils Percent 4 % (3-5); Eosinophils Absolute Manual 0.1 X10*3/UL (0.0-0.8); Eosinophils Percent Manual 2 % (0-4); Lymphocytes Absolute Manual 1.6 X10*3/uL (0.6-4.8); Lymphocytes Percent Manual 30 % (20-40); Monocytes Absolute Manual 0.4 X10*3/uL (0.0-1.2); Monocytes Percent Manual 8 % (2-11); Neutrophils Absolute Manual 3.2 X10*3/uL (2.2-7.9); Neutrophils Percent Manual 56 % (45-73); Platelet Estimate NORMAL (NORMAL); Platelet Morphology Comment NORMAL; RBC Morphology NORMAL
--- NOTE | 2021-08-01 13:14 | MHC.HEMONC ---
Patient present for Xgeva injection. Next injection scheduled for 10/31/21.
--- NOTE | 2021-08-15 09:14 | MHC.HEMONCMA ---
pt called stating his catheter was bothering him. he states he is experiencing some pain on his rib cage. i informed him to come in for a chest xray and we can go from there. pt agreed to coming in today for xray.
--- NOTE | 2021-09-06 10:07 | MHC.HEMONC ---
per Alessandra pt JEROME RN, pt had approx 50cc foamy drainage from pleurex drain. She thought it was mostly air. He also was mildly red at insertion site which is new. I told her to let him know to call us with fever, chills or pain at site. She will visit him next week.
--- NOTE | 2021-10-04 11:17 | MHC.HEMONC ---
per VNA RN, Alessandra, pt is having no drainage from pleurex catheter and is also c/o weight loss in last few weeks. He does not have f/u with Dr Diaz and won't be coming in for denosumab until 10/31/21. I asked Jolene to schedule him to see Dr Diaz next week. Pt is aware. He does not have c/o SOB or increase in pain but the chest drain continues to be sore.
--- NOTE | 2021-10-10 14:16 | PM.HEMONCPN ---
Medical Summary - Medical Summary Date of Service: 10/10/21 Chief complaint: Follow-up for: Renal cell carcinoma. Medical Summary: DIAGNOSES: Renal Cell Carcinoma, clear cell type. 4.4 x 3.2 x 2.5 cm unilocal, limited to the kidney. No sarcomatoid features. Tumor necrosis present. Histological grade 2. Microscopic tumor extension. Lymphovascular invasion not identified. Parenchymal resection margin uninvolved by tumor. Tumor is 0.1 cm from the resection margin focally. Adrenal gland is negative. Fat over the tumor was negative for malignancy. Stage pT1b pNX. Now stage IV with pulmonary metastases. CURRENT THERAPY: Status post partial nephrectomy on September 15, [address] Jon Chaudhry. Concerned with pulmonary nodules. Repeat biopsy of lung nodule, in March of 2017 was positive for malignancy. Started on Pazopanib April with near CR. January 28 2018, Disease progression. Started on Nivolumab 02/21 C1D1. On clinical trial: 17-064([facility].) At [facility]. Ipilimumab, added April 17. Last dose on July. Subsequent CAT scan from August revealed disease progression. He had been on Cabozantinib, 60 mg daily, August 09 2018 till November,. Elected to stop it a few months ago, due to side effects. Status post left PleurX catheter placement, June 11. for malignant pleural effusion. Started Cabozantinib 40 mg on September. Interval History Interval history: This is a pleasant 76 year-old gentleman here for a follow-up visit. He complains of pain over the left chest around the site of the PleurX catheter. It happens on movement and when he tries to lift his arms. Pain level is up to 7-8 on 1-10 scale. He takes oxycodone every 6 hours. With that it goes down to a level of 2. He tells me the PleurX catheter is being drained once a week. However, over the past couple of weeks it has been no drainage from it. His energy level has gone down. He denies any trouble breathing. Lately he has had a cough, especially in the morning. He has a hard time bringing his phlegm up however once the phlegm comes up he is comfortable the rest of the day. Denies abdominal pain nor flank pain. No nausea or vomiting. He does get heartburn and reflux symptoms especially at night. He used to take Gaviscon, for it but not any more. His daughter got him the bed, that can move up and down. He gets diarrhea especially from greasy stuff. He denies constipation however he does see some hemorrhoids coming out. They do not bleed spontaneously however sometimes he notices some blood on the toilet paper upon wiping. He would want to have them operated upon, eventually. He enjoys a good appetite. He has actually gained weight. He has noted cramps. He tells me that in the middle of the night he gets leg cramps and sometimes even forearms cramp up. It is hard for him to fall back to sleep after that. He is in good spirits. Rest of the review of systems is unremarkable. Previous history: He tells me his back went out on him. He has had back trouble for 20 years. He has been living with it. The med is working. Review of Systems - Constitutional Reports no additional constitutional complaints, Denies anorexia, Reports fatigue, Denies fever(s), Reports lack of energy, Reports malaise, Denies weight loss - Eyes Reports no additional eye complaints - ENT Reports no additional ear, nose, mouth, and throat complaints - Cardiovascular Reports no additional cardiovascular complaints, Reports chest pain at rest, Denies shortness of breath - Respiratory Reports no additional respiratory complaints - Gastrointestinal Reports no additional gastrointestinal complaints - Genitourinary Genitourinary: Reports no additional male genitourinary complaints - Musculoskeletal Reports no additional musculoskeletal complaints - Integumentary/Breasts Skin/Breast: Reports no additional skin complaints - Neurologic Reports no additional neurologic complaints - Psychiatric Reports no additional psychiatric complaints - Endocrine Reports no additional endocrine complaints - Hematologic/Lymphatic Reports no additional hematologic/lymphatic complaints - Allergic/Immunologic Reports no additional allergic/immunologic complaints [facility] Medical History: Medical History (Last Reviewed 06/20/21 @ 14:59 by Sharla Juarez MD) 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 Mother Lung cancer Brother Cancer Surgical History: Surgical History (Last Reviewed 06/20/21 @ 14:39 by MELINA Leonardo) H/O arthroscopic knee surgery H/O partial nephrectomy History of esophagogastroduodenoscopy (EGD) Onset Date: ~1999 History of eye surgery History of knee replacement procedure of left knee History of knee replacement procedure of right knee History of lung biopsy Social History: Social History (Last Reviewed 06/20/21 @ 14:59 by Sharla Juarez MD) Living Situation History: Household Members: Spouse Alcohol History: Alcohol intake: never Tobacco History: Patient Tobacco Use Status: Former Tobacco user Tobacco use type: Cigarette Years Smoked: 50 Second Hand Smoke Exposure: No Substance Use History: Substance Use Type: Marijuana Advance Directives: Advance Directives: Yes Advance Directives on File: Yes Advance Directives Date on File: 12/12/07 Nutrition Assessment: Patient : No Oncology Screenings - ECOG Performance Status ECOG Performance Status: 1 Home Medications and Allergies Home Medications Medication Instructions Recorded Confirmed Type ascorbic acid (vitamin C) 500 mg 500 mg PO DAILY 08/18/20 10/10/21 History tablet (Vitamin C) atorvastatin 40 mg tablet 40 mg PO BEDTIME 08/18/20 10/10/21 History clotrimazole-betamethasone 1 See Rx Instructions .ROUTE .COMPLEX 08/18/20 10/10/21 History %-0.05 % topical cream denosumab 60 mg/mL subcutaneous 60 mg SUBCUT [id number] 08/26/20 10/10/21 History syringe magnesium oxide 500 mg capsule 500 mg PO DAILY 06/20/21 10/10/21 History netarsudil 0.02 %-latanoprost drp OPHTHALMIC (EYE) 06/20/21 06/20/21 History 0.005 % eye drops (Rocklatan) cholecalciferol (vitamin D3) 125 125 mcg PO DAILY 10/10/21 10/10/21 History mcg (5,000 unit) capsule Allergies Allergy/AdvReac Type Severity Reaction Status Date / Time adhesive Allergy Intermediate rash Verified 10/10/21 14:32 aspirin [ASA] Allergy Intermediate Anaphylaxis Verified 10/10/21 14:32 Exam Vital signs: Vital Signs Temp 97.0 F 05/02/21 09:48 Pulse 76 05/02/21 09:48 Resp 18 05/02/21 09:48 BP 161/76 H 05/02/21 09:48 Pulse Ox 97 05/02/21 09:48 Weight 93 kg Body Mass Index 32.1 - Constitutional Present: no acute distress - Routine HEENT Exam Head: Present: normal inspection Eye: Present: normal appearance ENT: Present: mucous membranes moist - Routine Neck Exam Present: full ROM - Routine Respiratory Exam Present: CTAB - Routine Cardiovascular Exam Cardiovascular: Present: RRR, S2 - Routine Abdominal Exam Present: soft - Routine Extremities Exam Present: nontender - Routine Back/Spine/Pelvis Exam Back/Spine: Present: full ROM - Routine Skin Exam Present: intact - Routine Neurological Exam Present: alert, oriented X3 - Routine Psychiatric Exam Present: normal affect Data - Labs CBC & Chem 7: 08/01/21 09:35 08/01/21 09:35 - Imaging Radiologist's impression: ITS Impressions Chest CT 11/10/20 10:45 IMPRESSION: Similar appearance of small left pleural effusion and left-sided pleural catheter. The left pleural effusion is similar in volume to the prior study from 06/03/2020 and the catheter has a similar orientation and course. Left fourth and fifth rib lesions consistent with metastasis, similar to prior. 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 Initial stage was:pT1B, pNx. Status post partial nephrectomy for 09/15/[address] Jon Chaudhry. Subsequently was noted to have some pulmonary metastases. Biopsy 6 03/27/2017: Adenocarcinoma consistent with metastatic renal cell carcinoma. He was started on pazopanib 04/17/2017. CT chest 01/22/2018: Increase in pulmonary nodules and pleural base nodules. He was referred to [facility] for clinical trial. Here repeat lung biopsy was done and he was enrolled on 4, Omni wore trial. He started Nivolumab on 02/21/18. Unfortunately, 1st can done on this drug alone were consistent with progressive disease. Ipilimumab was added on 04/17. This worked for a while but then he developed progression. He was started on cabozantinib 08/09/2018. He initially did not tolerated too well. So he was observed off therapy. He had a fracture of right pubic ramus for which she was referred for radiation therapy. He was also started on denosumab last June. PET scan from 05/05/2019 revealed: Significant interval improvement in moderate left pleural effusion. Continues to be multiple bilateral pulmonary nodules and pleural and juxtapleural nodules. 1 cm soft tissue density of the lateral cortex of the right mid kidney suspicious for renal cell. He was then read tried on cabozantinib in a lower dose. 09/15/2019 he was started on the cabozantinib 40 mg daily. It was then decreased to 20 mg daily. He has been tolerating it well. CT scan of the abdomen from 12/25/2019 revealed: Significant interval decrease in the size of bilateral pulmonary nodules. No new pulmonary nodule seen. Small left pleural effusion chest tube in satisfactory position. Significant interval decrease in left-sided relief nodules and left diaphragmatic thickening. Abdomen pelvis: Interval decrease in abnormal soft tissue along the left diaphragmatic pleural surface and paraspinal soft tissue. Interval decrease in right rectus muscle lesion. Interval decrease in soft tissue mass along with lytic left 5th rib lesion. Stable lytic lesion and pathological fracture of the right inferior pubic ramus. He is holding his own. He has been tolerating the cabozantinib very well. He is taking 20 mg daily. On 11/10, a CT scan of the chest was done which revealed: Similar appearance of small left pleural effusion and left-sided pleural catheter. Left pleural effusion is similar in volume to the prior study from 06/03 and catheter has a similar orientation and course. Left 4th and 5th rib consistent with Mets similar to prior. It indicated a satisfactory position of the PleurX catheter. CT scan of the chest from 02/02: Similar appearance of small left pleural effusion and left-sided pleural catheter. The left pleural effusion is similar in volume to the prior study from 06/03/2020 and the catheter has a similar orientation and course. Left fourth and fifth rib lesions consistent with metastasis, similar to prior. CT scan of the chest abdomen pelvis from 05/30/2021: Stable bone lesion in the right inferior pubic ramus and pathologic fracture. Stable small low-attenuation liver lesions. Cortical thinning or the upper pole of the left kidney and decreased attenuation or enhancement. A discrete renal mass is not seen. Bilateral renal cysts. Diverticulosis of the colon. Atherosclerotic disease. Slightly enlarged prostate gland. Chest x-ray from 08/15: 1. New opacity left base likely recurrent effusion. Possibility of superimposed airspace consolidation cannot be excluded. Right lung clear. 2. There is a small bore tunneled catheter left base. No pneumothorax or subcutaneous emphysema. DATA BASE: From 10/04: CBC: WBC 5.2, HGB 12.2, HCT 39.3, PLT 283. From 10/04 CMP: Lytes WNL, glucose is 89, BUN 10, [employer] 0.90. Ca L9 0.8, a lb 3.7. LFTs: <0.2/50 07/03/2026. PLAN: Now that the catheter exit site is causing pain and it is not even draining anymore, I will refer him to IR for further evaluation and possibly removal of the catheter. It has been indwelling for 28 months now. Will monitor afterwards. If his shortness of breath was to return he will need to have a new catheter placed. Will proceed with imaging in November. He will continue on the Cabozantinib for now. He is taking 40 mg on one day, and 20 mg the other, alternating. He is due for the Denosumab, at the end of the month. He will return to receive it. He will continue that every 3 months. He gets his labs checked at home twice a month. Will continue to monitor. If he starts to progress other options would be lenvatinib 18 mg plus Everolimus, 5 mg daily. He will return in 3 months for a follow-up visit. Thank you, CC: Dr. Sera Hamilton. Dr. Jon Chaudhry. Dr. Bland at [facility]. [phone]. - Time Spent With Patient Time Spent with Patient (in minutes): 30
[2021-10-10 14:23] VITALS: BP 164/72; PULSE 87; RESP 18; TEMP 36.3; O2SAT 96; BMI 30.2
--- NOTE | 2021-10-10 15:56 | MHC.HEMONC ---
Pt here for ONC follow up with Dr Diaz. Labs drawn previously reviewed by Dr Diaz. Pt states pleurx drain not draining any fluid, states it hasn't been draining much. Requesting pleurx be removed. States has pain at site which he uses oxycodone with effect. Not due for denosumab injection until 10/31/21. Clinical summary updated by nurse. Dr Diaz into see pt. Order for pleurx drain removal printed and given to Randee Colvin to place in order air brake man.
--- NOTE | 2021-10-10 16:13 | MHC.HEMONC ---
I let Alessandra, pt VNA RN know that Bryson would be scheduled for pleural drain removal per Dr Diaz. She will continue to be sure dressing is changed but not continue to try and drain it.
--- NOTE | 2021-10-12 14:38 | MHC.HEMONC ---
PT CALLED & NOTIFIED OF PLEURAL CATH REMOVAL APPT ON 10/13/2021 AT 2PM
[2021-10-16 11:20] VITALS: BP 125/60; PULSE 97; RESP 20; TEMP 36.3; O2SAT 95; BMI 29.7
[2021-10-16] MEDS: 0.9 % Sodium Chloride 1,000 ML 500 ML IVCONT (11:34)
--- NOTE | 2021-10-16 11:47 | P.PNHO_ITS ---
Medical Summary - Medical Summary Date of Service: 10/16/21 Chief complaint: Follow-up for: Renal cell carcinoma. Medical Summary: DIAGNOSES: Renal Cell Carcinoma, clear cell type. 4.4 x 3.2 x 2.5 cm unilocal, limited to the kidney. No sarcomatoid features. Tumor necrosis present. Histological grade 2. Microscopic tumor extension. Lymphovascular invasion not identified. Parenchymal resection margin uninvolved by tumor. Tumor is 0.1 cm from the resection margin focally. Adrenal gland is negative. Fat over the tumor was negative for malignancy. Stage pT1b pNX. Now stage IV with pulmonary metastases. CURRENT THERAPY: Status post partial nephrectomy on September 15, [address] Jon Chaudhry. Concerned with pulmonary nodules. Repeat biopsy of lung nodule, in March of 2017 was positive for malignancy. Started on Pazopanib April with near CR. January 28 2018, Disease progression. Started on Nivolumab 02/21 C1D1. On clinical trial: 17-064([facility].) At [facility]. Ipilimumab, added April 17. Last dose on July. Subsequent CAT scan from August revealed disease progression. He had been on Cabozantinib, 60 mg daily, August 09 2018 till November,. Elected to stop it a few months ago, due to side effects. Status post left PleurX catheter placement, June 11. for malignant pleural effusion. Started Cabozantinib 40 mg on September. Interval History Interval history: This is a pleasant 76 year-old gentleman here for an unscheduled visit. He had the PleurX catheter removed on Saturday, under sedation. Since then he was not able to eat no drink anything much. He had nausea and vomiting as well as diarrhea. When he got here, he mentioned that he had a fever last night and was burning up. He had complaint of pain over the left chest around the site of the PleurX catheter. It happened on movement and when he tried to lift his arms. Pain level was up to 7-8 on 1-10 scale. He had to take oxycodone every 6 hours. The PleurX catheter had no drainage, over the previous 2 weeks. He is feeling quite weak and fatigued. His energy level has gone down even further. He was advised to come in for IV hydration and IV antiemetics. He denies any trouble breathing. Lately he has had a cough, especially in the morning. He has a hard time bringing his phlegm up however once the phlegm comes up he is comfortable the rest of the day. Denies abdominal pain nor flank pain. No nausea or vomiting. He does get heartburn and reflux symptoms especially at night. He used to take Gaviscon, for it but not any more. His daughter got him the bed, that can move up and down. He gets diarrhea especially from greasy stuff. He denies constipation however he does see some hemorrhoids coming out. They do not bleed spontaneously however sometimes he notices some blood on the toilet paper upon wiping. He would want to have them operated upon, eventually. He enjoys a good appetite. He has actually gained weight. He has noted cramps. He tells me that in the middle of the night he gets leg cramps and sometimes even forearms cramp up. It is hard for him to fall back to sleep after that. He is in good spirits. Rest of the review of systems is unremarkable. Previous history: He tells me his back went out on him. He has had back trouble for 20 years. He has been living with it. The XML[employer] is working. Review of Systems - Constitutional Reports no additional constitutional complaints, Reports fever(s), Reports weakness, Reports weight loss - Eyes Reports no additional eye complaints - ENT Reports no additional ear, nose, mouth, and throat complaints - Cardiovascular Reports no additional cardiovascular complaints - Respiratory Reports no additional respiratory complaints - Gastrointestinal Reports no additional gastrointestinal complaints, Reports abdominal pain, Reports bloating, Reports dyspepsia, Reports diarrhea, Reports loose stools, Reports nausea, Reports vomiting - Genitourinary Genitourinary: Reports no additional male genitourinary complaints - Musculoskeletal Reports no additional musculoskeletal complaints - Integumentary/Breasts Skin/Breast: Reports no additional skin complaints - Neurologic Reports no additional neurologic complaints - Psychiatric Reports no additional psychiatric complaints - Endocrine Reports no additional endocrine complaints - Hematologic/Lymphatic Reports no additional hematologic/lymphatic complaints - Allergic/Immunologic Reports no additional allergic/immunologic complaints [facility] Medical History: Medical History (Last Reviewed 06/20/21 @ 14:59 by Sharla Juarez MD) 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 Arthritis Dyslipidemia Essential hypertension Glaucoma Hemorrhoids Hypertension Hypothyroidism Leg edema, left Lumbar degenerative disc disease Obesity Pleural effusion on left Rectal bleeding Vitamin D deficiency Functional capacity: uses cane/walker Patient : No Family History: Family History (Last Reviewed 06/20/21 @ 14:59 by Sharla Juarez MD) Father No problems noted. Mother Lung cancer Brother Cancer Surgical History: Surgical History (Last Reviewed 06/20/21 @ 14:39 by Palmira Ragland Oskar) H/O arthroscopic knee surgery H/O partial nephrectomy History of esophagogastroduodenoscopy (EGD) Onset Date: ~1999 History of eye surgery History of knee replacement procedure of left knee History of knee replacement procedure of right knee History of lung biopsy Social History: Social History (Last Reviewed 06/20/21 @ 14:59 by Sharla Juarez MD) Living Situation History: Household Members: Spouse Alcohol History: Alcohol intake: never Tobacco History: Patient Tobacco Use Status: Former Tobacco user Tobacco use type: Cigarette Years Smoked: 50 Second Hand Smoke Exposure: No Substance Use History: Substance Use Type: Marijuana Advance Directives: Advance Directives Date on File: 12/12/07 Oncology Screenings - ECOG Performance Status ECOG Performance Status: 1 Home Medications and Allergies Current Medications: Current Medications Sodium Chloride (Ns) 1,000 mls @ 500 mls/hr IVCONT .Q2H LILIYA Stop: 10/16/21 12:59 Last Admin: 10/16/21 11:34 Dose: 500 mls/hr Documented by: Home Medications Medication Instructions Recorded Confirmed Type ascorbic acid (vitamin C) 500 mg 500 mg PO DAILY 08/18/20 10/10/21 History tablet (Vitamin C) atorvastatin 40 mg tablet 40 mg PO BEDTIME 08/18/20 10/10/21 History clotrimazole-betamethasone 1 See Rx Instructions .ROUTE .COMPLEX 08/18/20 10/10/21 History %-0.05 % topical cream denosumab 60 mg/mL subcutaneous 60 mg SUBCUT [id number] 08/26/20 10/10/21 History syringe magnesium oxide 500 mg capsule 500 mg PO DAILY 06/20/21 10/10/21 History netarsudil 0.02 %-latanoprost drp OPHTHALMIC (EYE) 06/20/21 06/20/21 History 0.005 % eye drops ([place]) cholecalciferol (vitamin D3) 125 125 mcg PO DAILY 10/10/21 10/10/21 History mcg (5,000 unit) capsule Allergies Allergy/AdvReac Type Severity Reaction Status Date / Time adhesive Allergy Intermediate rash Verified 10/13/21 14:46 aspirin [ASA] Allergy Intermediate Anaphylaxis Verified 10/13/21 14:46 Exam Vital signs: Vital Signs Temp 97.4 F 10/16/21 11:20 Pulse 97 10/16/21 11:20 Resp 20 10/16/21 11:20 BP 125/60 10/16/21 11:20 Pulse Ox 95 10/16/21 11:20 Intake & Output 10/15/21 10/16/21 10/16/21 18:59 06:59 18:59 Other: Weight 86.1 kg Weight in Grams 12652 Weight 86.1 kg BMI result Body Mass Index 29.7 - Constitutional Present: no acute distress - Routine HEENT Exam Head: Present: normal inspection Eye: Present: normal appearance ENT: Present: mucous membranes moist - Routine Neck Exam Present: full ROM - Routine Respiratory Exam Present: CTAB - Routine Cardiovascular Exam Cardiovascular: Present: RRR, S2 - Routine Abdominal Exam Present: soft - Routine Extremities Exam Present: nontender - Routine Back/Spine/Pelvis Exam Back/Spine: Present: full ROM - Routine Skin Exam Present: intact - Routine Neurological Exam Present: alert, oriented X3 - Routine Psychiatric Exam Present: normal affect Data - Labs CBC & Chem 7: 08/01/21 09:35 08/01/21 09:35 - Imaging Radiologist's impression: ITS Impressions Chest CT 11/10/20 10:45 IMPRESSION: Similar appearance of small left pleural effusion and left-sided pleural catheter. The left pleural effusion is similar in volume to the prior study from 06/03/2020 and the catheter has a similar orientation and course. Left fourth and fifth rib lesions consistent with metastasis, similar to prior. 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 Initial stage was:pT1B, pNx. Status post partial nephrectomy for 09/15/[address] Jon Chaudhry. Subsequently was noted to have some pulmonary metastases. Biopsy 6 03/27/2017: Adenocarcinoma consistent with metastatic renal cell carcinoma. He was started on pazopanib 04/17/2017. CT chest 01/22/2018: Increase in pulmonary nodules and pleural base nodules. He was referred to [facility] for clinical trial. Here repeat lung biopsy was done and he was enrolled on , Omni wore trial. He started Nivolumab on 02/21/18. Unfortunately, 1st can done on this drug alone were consistent with progressive disease. Ipilimumab was added on 04/17. This worked for a while but then he developed progression. He was started on cabozantinib 08/09/2018. He initially did not tolerated too well. So he was observed off therapy. He had a fracture of right pubic ramus for which she was referred for radiation therapy. He was also started on denosumab last June. PET scan from 05/05/2019 revealed: Significant interval improvement in moderate left pleural effusion. Continues to be multiple bilateral pulmonary nodules and pleural and juxtapleural nodu les. 1 cm soft tissue density of the lateral cortex of the right mid kidney suspicious for renal cell. He was then read tried on cabozantinib in a lower dose. 09/15/2019 he was started on the cabozantinib 40 mg daily. It was then decreased to 20 mg daily. He has been tolerating it well. CT scan of the abdomen from 12/25/2019 revealed: Significant interval decrease in the size of bilateral pulmonary nodules. No new pulmonary nodule seen. Small left pleural effusion chest tube in satisf actory position. Significant interval decrease in left-sided relief nodules and left diaphragmatic thickening. Abdomen pelvis: Interval decrease in abnormal soft tissue along the left diaphragmatic pleural surface and paraspinal soft tissue. Interval decrease in right rectus muscle lesion. Interval decrease in soft tissue mass along with lytic left 5th rib lesion. Stable lytic lesion and pathological fracture of the right inferior pubic ramus. He is holding his own. He has been tolerating the cabozantinib very well. He is taking 20 mg daily. On 11/10, a CT scan of the chest was done which revealed: Similar appearance of small left pleural effusion and left-sided pleural catheter. Left pleural effusion is similar in volume to the prior study from 06/03 and catheter has a similar orientation and course. Left 4th and 5th rib consistent with Mets similar to prior. It indicated a satisfactory position of the PleurX catheter. CT scan of the chest from 02/02: Similar appearance of small left pleural effusion and left-sided pleural catheter. The left pleural effusion is similar in volume to the prior study from 06/03/2020 and the catheter has a similar orientation and course. Left fourth and fifth rib lesions consistent with metastasis, similar to prior. CT scan of the chest abdomen pelvis from 05/30/2021: Stable bone lesion in the right inferior pubic ramus and pathologic fracture. Stable small low-attenuation liver lesions. Cortical thinning or the upper pole of the left kidney and decreased attenuation or enhancement. A discrete renal mass is not seen. Bilateral renal cysts. Diverticulosis of the colon. Atherosclerotic disease. Slightly enlarged prostate gland. Chest x-ray from 08/15: 1. New opacity left base likely recurrent effusion. Possibility of superimposed airspace consolidation cannot be excluded. Right lung clear. 2. There is a small bore tunneled catheter left base. No pneumothorax or subcutaneous emphysema. DATA BASE: From 10/04: CBC: WBC 5.2, HGB 12.2, HCT 39.3, PLT 283. From 10/04 CMP: Lytes WNL, glucose is 89, BUN 10, [employer] 0.90. Ca L9 0.8, a lb 3.7. LFTs: <0.2/50 07/03/2026. The PleurX catheter had been indwelling for 28 months now. He had it removed on Saturday. Subsequently he has not been feeling too well. He had nausea vomiting diarrhea and fatigue. Most likely he is dehydrated. He was advised to come in for some IV hydration and IV antiemetics. PLAN: He did have for little chill while he was here but felt better after. Will continue to monitor. He was advised to go to the ED if he felt worst or had a fever. If his shortness of breath was to return he will need to have a new catheter placed. Will proceed with imaging in November. He will continue on the Cabozantinib for now. He is taking 40 mg on one day, and 20 mg the other, alternating. He is due for the Denosumab, at the end of the month. He will return to receive it. He will continue that every 3 months. He gets his labs checked at home twice a month. Will continue to monitor. If he starts to progress other options would be lenvatinib 18 mg plus Everolimus, 5 mg daily. He will return in 3 months for a follow-up visit. Thank you, CC: Dr. Sera Hamilton. Dr. Jon Chaudhry. Dr. Bland at [facility]. [phone]. - Time Spent With Patient Time Spent with Patient (in minutes): 30
[2021-10-16 12:44] LABS: Influenza A PCR NEGATIVE (Negative); Influenza B PCR NEGATIVE (Negative); Resp Syncy Virus RNA Qual PCR NEGATIVE (Negative); SARS COV2 PCR INHOUSE NEGATIVE (Negative)
[2021-10-16 13:39] VITALS: BP 145/59; PULSE 92; RESP 20; TEMP 36.6; O2SAT 97
--- NOTE | 2021-10-16 14:21 | MHC.HEMONC ---
Pt called stating he has been vomiting for 2 days. States pleuravac removed on Saturday, states had a fever last pm. Vital signs stable, afebrile presently. Covid test performed-specimen to lab. #22 angio inserted in right hand. 1000ML 0.9% NS infused. Zofran 16mg IV given. Pt states he feels slightly better. Able to drink gingerale. Covid test negative-pt notified. Shaking chills noted-temperature rechecked-remains afebrile. Peripheral IV removed. Skin tear noted on right hand. Discharge packet given. Follow up appointment scheduled.
--- NOTE | 2021-10-24 12:15 | MHC.HEMONC ---
Pt dtrOlga called to report pt has continued decreased appetite, nausea and diarrhea. One time stool was very dark. He had eaten chocolate and had coffee. Per Dr Diaz - pt needs stool for OB and C Diff. His dtr, Gina will obtain. She will check if pt wants hydration. He has no c/o SOB or fevers
[2021-10-24 17:44] LABS: Leukocytes Stool Qualitative NEGATIVE (NEGATIVE)
[2021-10-25 08:46] LABS: CDiff Gene PCR NEGATIVE (Negative)
[2021-10-31 10:52] LABS: MANUAL DIFF FLAG NO
[2021-10-31 10:57] LABS: Basophils Percent Auto 0.3 % (0-2); Eosinophils Absolute Auto 0.1 X10*3/uL (0.0-0.4); Eosinophils Percent Auto 1.7 % (0-4); Hematocrit 37.9 % (42.0-52.0); Hemoglobin 11.9 g/dl (14.0-18.0); Imm Gran Abs Auto 0.02 X10*3/uL (0.00-0.03); Imm Gran Pct Auto 0.3 % (0.0-0.4); Lymphocytes Absolute Auto 1.8 X10*3/uL (1.2-4.9); Mean Corpuscular HGB Conc 31.4 g/dl (31.0-36.0); Mean Corpuscular Hemoglobin 28.7 pg (27.0-33.0); Mean Corpuscular Volume 91.3 fL (80.0-98.0); Mean Platelet Volume 8.5 fL (9.4-12.4); Monocytes Absolute Auto 0.7 X10*3/uL (0.1-1.2); Monocytes Percent Auto 10.8 % (2-11); Neutrophils Absolute Auto 3.4 x10*3/uL (2.0-8.3); Neutrophils Percent Auto 56.9 % (45-73); Platelet Count 331 X10*3/uL (160-400); Red Blood Count 4.15 X10*6/uL (4.60-5.80); Red Cell Distribution Width 19.3 % (11.0-16.0)
[2021-10-31 11:17] LABS: Alanine Aminotransferase 24 U/L (0-40); Albumin Level 3.5 g/dL (3.5-5.0); Alkaline Phosphatase 66 U/L (39-117); Anion Gap 11 (12-20); Aspartate Amino Transferase 25 U/L (5-37); Bilirubin Total 0.4 mg/dL (0.0-1.0); Blood Urea Nitrogen 7 mg/dL (9-16); Calcium 9.5 mg/dL (8.4-10.2); Carbon Dioxide 29 mmol/L (22-29); Chloride 102 mmol/L (96-108); Creatinine Clr Calc Pharmacy 74.3; Estimated Glomerular Filt Rate > 60; Glucose Random 101 mg/dL (60-115); Potassium 3.9 mmol/L (3.3-5.1); Sodium 138 mmol/L (135-145); Total Protein 5.9 g/dL (6.5-8.0)
[2021-10-31 11:31] VITALS: BP 131/67; PULSE 94; RESP 18; TEMP 36.4; O2SAT 97; BMI 28.8
--- NOTE | 2021-10-31 13:40 | MHC.HEMONC ---
Pt presented to clinic for his sched [id number] Denosumab/Xgeva injection, in good spirits, VSS, labs drawn/reviewed, pt's Ca was 9.5, WNL. Pt stated he had lost 17 lb in 14 days since his L flank pleurex cath was removed the previous month, r/t loss of appetite and diarrhea, which was consistent w/ weights performed at this clinic. Pt says this has resolved, but he does confess to generalized fatigue, did become SOB after walking to Hem[facility]Onc clinic from [facility]. Pt said he is unsure if this has been happening before today, because he never leaves the apartment. Nurse admin Denosumab 120 mg SC to pt's RLQ abdomen, which he tolerated well. Pt added that his daily PO cabametyx will run out this month, after 11 refills finished. Nurse notified Dr. Diaz and Casting Supervisor Carrie to check for PA, but she replied that since pt has medicare, he will not need a PA. Dr. Diaz to send new scrip to pt's [facility]-mail pharmacy. Pt was d/c'd home. Nurse called pt at home to confirm his next [id number] Denosumab injection, and rescheduled his next Onc f/u to coincide w/ the injection appt on 01/16/22.
[2021-11-03 10:24] LABS: OBS Int Ctl Valid YES; OBS1 POSITIVE (NEGATIVE); OBS2 POSITIVE (NEGATIVE); OBS3 NEGATIVE (NEGATIVE)
--- NOTE | 2022-01-16 12:40 | PM.HEMONCPN ---
Medical Summary - Medical Summary Date of Service: 01/16/22 Chief complaint: Follow-up for: Renal cell carcinoma with bone metastases. Medical Summary: DIAGNOSES: Renal Cell Carcinoma, clear cell type. 4.4 x 3.2 x 2.5 cm unilocal, limited to the kidney. No sarcomatoid features. Tumor necrosis present. Histological grade 2. Microscopic tumor extension. Lymphovascular invasion not identified. Parenchymal resection margin uninvolved by tumor. Tumor is 0.1 cm from the resection margin focally. Adrenal gland is negative. Fat over the tumor was negative for malignancy. Stage pT1b pNX. Now stage IV with pulmonary metastases. CURRENT THERAPY: Status post partial nephrectomy on September 15, [address] Jon Chaudhry. Concerned with pulmonary nodules. Repeat biopsy of lung nodule, in March of 2017 was positive for malignancy. Started on Pazopanib April with near CR. January 28 2018, Disease progression. Started on Nivolumab 02/21 C1D1. On clinical trial: 17-064([facility].) At [facility]. Ipilimumab, added April 17. Last dose on July. Subsequent CAT scan from August revealed disease progression. He had been on Cabozantinib, 60 mg daily, August 09 2018 till November,. Elected to stop it a few months ago, due to side effects. Status post left PleurX catheter placement, June 11. for malignant pleural effusion. Started Cabozantinib 40 mg on September. Interval History Interval history: This is a pleasant 76 year-old gentleman here for an unscheduled visit. He is feeling better. His breathing has improved. In the morning he feels a bit cold and SOB, but then improves, as the heat kicks in. No abdominal pain, nausea nor vomiting. Denies diarrhea. Has hemmorhoids. Sometimes he gets gas. His apetite is good. Weight is stable. Previous History: He had the PleurX catheter removed on Saturday, under sedation. Since then he was not able to eat no drink anything much. He had nausea and vomiting as well as diarrhea. When he got here, he mentioned that he had a fever last night and was burning up. He had complaint of pain over the left chest around the site of the PleurX catheter. It happened on movement and when he tried to lift his arms. Pain level was up to 7-8 on 1-10 scale. He had to take oxycodone every 6 hours. The PleurX catheter had no drainage, over the previous 2 weeks. He is feeling quite weak and fatigued. His energy level has gone down even further. He was advised to come in for IV hydration and IV antiemetics. He denies any trouble breathing. Lately he has had a cough, especially in the morning. He has a hard time bringing his phlegm up however once the phlegm comes up he is comfortable the rest of the day. Denies abdominal pain nor flank pain. No nausea or vomiting. He does get heartburn and reflux symptoms especially at night. He used to take Gaviscon, for it but not any more. His daughter got him the bed, that can move up and down. He gets diarrhea especially from greasy stuff. He denies constipation however he does see some hemorrhoids coming out. They do not bleed spontaneously however sometimes he notices some blood on the toilet paper upon wiping. He would want to have them operated upon, eventually. He enjoys a good appetite. He has actually gained weight. He has noted cramps. He tells me that in the middle of the night he gets leg cramps and sometimes even forearms cramp up. It is hard for him to fall back to sleep after that. He is in good spirits. Rest of the review of systems is unremarkable. Previous history: He tells me his back went out on him. He has had back trouble for 20 years. He has been living with it. The [employer] is working. Review of Systems - Constitutional Reports system reviewed and no additional complaints, except as documented - Eyes Reports system reviewed and no additional complaints, except as documented - ENT Reports system reviewed and no additional complaints, except as documented - Cardiovascular Reports system reviewed and no additional complaints, except as documented - Respiratory Reports no additional respiratory complaints - Gastrointestinal Reports system reviewed and no additional complaints, except as documented - Genitourinary Genitourinary: Reports no additional male genitourinary complaints - Musculoskeletal Reports system reviewed and no additional complaints, except as documented - Integumentary/Breasts Skin/Breast: Reports no additional skin complaints - Neurologic Reports system reviewed and no additional complaints, except as documented, Reports weakness - Psychiatric Reports system reviewed and no additional complaints, except as documented - Endocrine Reports no additional endocrine complaints - Hematologic/Lymphatic Reports system reviewed and no additional complaints, except as documented - Allergic/Immunologic Reports system reviewed and no additional complaints, except as documented [facility] Medical History: Medical History (Last Reviewed 01/16/22 @ 13:02 by Ingrid Brooke [facility]) 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 Arthritis Blood in stool [place]-vesical fistula Dyslipidemia Essential hypertension Glaucoma Hemorrhoids Hypertension Hypothyroidism Internal and external prolapsed hemorrhoids Leg edema, left Lumbar degenerative disc disease Obesity Pleural effusion on left Rectal bleeding Vitamin D deficiency Functional capacity: uses cane/walker Patient : No Family History: Family History (Last Reviewed 12/27/21 @ 14:16 by Devon Sutherland MD) Father No problems noted. Mother Lung cancer Brother Cancer Surgical History: Surgical History (Last Reviewed 01/16/22 @ 13:02 by Ingrid Brooke [facility]) H/O arthroscopic knee surgery H/O partial nephrectomy History of esophagogastroduodenoscopy (EGD) Onset Date: ~1999 History of eye surgery History of knee replacement procedure of left knee History of knee replacement procedure of right knee History of lung biopsy Social History: Social History (Last Updated 01/16/22 @ 13:03 by Ingrid Brooke [facility]) Living Situation History: Household Members: Spouse Housing: Apartment Are you a primary rn primary care to a significant other at home: No Do you presently have visiting nurse or other home services: No Alcohol History Details: 1. How often do you have a drink containing alcohol?: a. Never Tobacco History: Patient Tobacco Use Status: Former Tobacco user Tobacco use type: Cigarette Years Smoked: 50 e-Cigarette/Vaping Use: Never Used Second Hand Smoke Exposure: No Substance Use History: Use of substances other than those prescribed or required for medical reasons: No Substance Use Type: Marijuana Advance Directives: Advance Directives: Yes Advance Directives on File: Yes Advance Directives Date on File: 12/12/07 Nutrition Assessment: Patient : No Occupation Assessmet: service: No Current occupational status: retired Oncology Screenings - ECOG Performance Status ECOG Performance Status: 0 Home Medications and Allergies Current Medications: Current Medications Denosumab (Denosumab 120 Mg/1.7 Ml Vial) 120 mg SUBCUT ONCE LILIYA Stop: 01/16/22 23:59 Home Medications Medication Instructions Recorded Confirmed Type ascorbic acid (vitamin C) 500 mg 500 mg PO DAILY 08/18/20 01/16/22 History tablet (Vitamin C) atorvastatin 40 mg tablet 40 mg PO BEDTIME 08/18/20 01/16/22 History clotrimazole-betamethasone 1 See Rx Instructions .ROUTE .COMPLEX 08/18/20 01/16/22 History %-0.05 % topical cream denosumab 60 mg/mL subcutaneous 60 mg SUBCUT [id number] 08/26/20 01/16/22 History syringe magnesium oxide 500 mg capsule 500 mg PO DAILY 06/20/21 01/16/22 History netarsudil 0.02 %-latanoprost 0.005 drp OPHTHALMIC (EYE) DAILY 06/20/21 01/16/22 History 0.005 % eye drops (Rocklatan) cholecalciferol (vitamin D3) 125 125 mcg PO DAILY 10/10/21 01/16/22 History mcg (5,000 unit) capsule acetaminophen 325 mg capsule 325 mg PO BID PRN cap 11/21/21 01/16/22 History (Tylenol) potassium gluconate 600 mg (99 mg) 600 mg PO DAILY 11/21/21 01/16/22 History tablet furosemide 20 mg tablet (Lasix) 40 mg PO DAILY 01/16/22 01/16/22 History prednisone 1 mg tablet 7 mg PO DAILY 01/16/22 01/16/22 History Allergies Allergy/AdvReac Type Severity Reaction Status Date / Time adhesive Allergy Intermediate rash Verified 01/16/22 13:03 aspirin [ASA] Allergy Intermediate Anaphylaxis Verified 01/16/22 13:03 Exam Vital signs: Vital Signs Temp 97.5 F 10/31/21 11:31 Pulse 94 10/31/21 11:31 Resp 18 10/31/21 11:31 BP 131/67 10/31/21 11:31 Pulse Ox 97 10/31/21 11:31 Weight 83.3 kg BMI result Body Mass Index 28.8 - Constitutional Present: no acute distress - Routine HEENT Exam Head: Present: normal inspection Eye: Present: normal appearance ENT: Present: mucous membranes moist - Routine Neck Exam Present: full ROM - Routine Respiratory Exam Present: CTAB - Routine Cardiovascular Exam Cardiovascular: Present: RRR, S2 - Routine Abdominal Exam Present: soft - Routine Extremities Exam Present: nontender - Routine Back/Spine/Pelvis Exam Back/Spine: Present: full ROM - Routine Skin Exam Present: intact - Routine Neurological Exam Present: alert, oriented X3 - Routine Psychiatric Exam Present: normal affect Data - Labs CBC & Chem 7: 01/16/22 12:58 01/16/22 12:58 - Imaging Radiologist's impression: ITS Impressions Chest CT 11/10/20 10:45 IMPRESSION: Similar appearance of small left pleural effusion and left-sided pleural catheter. The left pleural effusion is similar in volume to the prior study from 06/03/2020 and the catheter has a similar orientation and course. Left fourth and fifth rib lesions consistent with metastasis, similar to prior. 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 Initial stage was:pT1B, pNx. Status post partial nephrectomy for 09/15/[address] Jon Chaudhry. Subsequently was noted to have some pulmonary metastases. Biopsy 6 03/27/2017: Adenocarcinoma consistent with metastatic renal cell carcinoma. He was started on pazopanib 04/17/2017. CT chest 01/22/2018: Increase in pulmonary nodules and pleural base nodules. He was referred to [facility] for clinical trial. Here repeat lung biopsy was done and he was enrolled on 4, Omni wore trial. He started Nivolumab on 02/21/18. Unfortunately, 1st can done on this drug alone were consistent with progressive disease. Ipilimumab was added on 04/17. This worked for a while but then he developed progression. He was started on cabozantinib 08/09/2018. He initially did not tolerated too well. So he was observed off therapy. He had a fracture of right pubic ramus for which she was referred for radiation therapy. He was also started on denosumab last June. PET scan from 05/05/2019 revealed: Significant interval improvement in moderate left pleural effusion. Continues to be multiple bilateral pulmonary nodules and pleural and juxtapleural nodules. 1 cm soft tissue density of the lateral cortex of the right mid kidney suspicious for renal cell. He was then read tried on cabozantinib in a lower dose. 09/15/2019 he was started on the cabozantinib 40 mg daily. It was then decreased to 20 mg daily. He has been tolerating it well. CT scan of the abdomen from 12/25/2019 revealed: Significant interval decrease in the size of bilateral pulmonary nodules. No new pulmonary nodule seen. Small left pleural effusion chest tube in satisfactory position. Significant interval decrease in left-sided relief nodules and left diaphragmatic thickening. Abdomen pelvis: Interval decrease in abnormal soft tissue along the left diaphragmatic pleural surface and paraspinal soft tissue. Interval decrease in right rectus muscle lesion. Interval decrease in soft tissue mass along with lytic left 5th rib lesion. Stable lytic lesion and pathological fracture of the right inferior pubic ramus. He is holding his own. He has been tolerating the cabozantinib very well. He is taking 20 mg daily. On 11/10, a CT scan of the chest was done which revealed: Similar appearance of small left pleural effusion and left-sided pleural catheter. Left pleural effusion is similar in volume to the prior study from 06/03 and catheter has a similar orientation and course. Left 4th and 5th rib consistent with Mets similar to prior. It indicated a satisfactory position of the PleurX catheter. CT scan of the chest from 02/02: Similar appearance of small left pleural effusion and left-sided pleural catheter. The left pleural effusion is similar in volume to the prior study from 06/03/2020 and the catheter has a similar orientation and course. Left fourth and fifth rib lesions consistent with metastasis, similar to prior. CT scan of the chest abdomen pelvis from 05/30/2021: Stable bone lesion in the right inferior pubic ramus and pathologic fracture. Stable small low-attenuation liver lesions. Cortical thinning or the upper pole of the left kidney and decreased attenuation or enhancement. A discrete renal mass is not seen. Bilateral renal cysts. Diverticulosis of the colon. Atherosclerotic disease. Slightly enlarged prostate gland. Chest x-ray from 08/15: 1. New opacity left base likely recurrent effusion. Possibility of superimposed airspace consolidation cannot be excluded. Right lung clear. 2. There is a small bore tunneled catheter left base. No pneumothorax or subcutaneous emphysema. DATA BASE: From 10/04/21: CBC: WBC 5.2, HGB 12.2, HCT 39.3, PLT 283. From 10/04/21 CMP: Lytes WNL, glucose is 89, BUN 10, MATERIAL ENGINEER 0.90. Ca L9 0.8, a lb 3.7. LFTs: <0.2/50 07/03/2026. The PleurX catheter had been indwelling for 28 months. It was removed, 6 months ago. He is doing well. PLAN: He is due for re-imaging. Will schedule. Will continue to monitor. If his shortness of breath was to return he will need to have a new catheter placed. He will continue on the Cabozantinib for now. He is taking 40 mg on one day, and 20 mg the other, alternating. He is due for the Denosumab, today. He will continue that every 3 months. He gets his labs checked at home twice a month. Will continue to monitor. If he starts to progress other options would be lenvatinib 18 mg plus Everolimus, 5 mg daily. He will return in 3 months for a follow-up visit. Thank you, CC: Dr. Sera Hamilton. Dr. Jon Chaudhry. Dr. Bland at [facility]. [phone]. - Time Spent With Patient Time Spent with Patient (in minutes): 30
[2022-01-16 12:53] VITALS: BP 175/71; PULSE 85; RESP 16; TEMP 36.3; O2SAT 95; BMI 28.8
[2022-01-16 13:01] LABS: MANUAL DIFF FLAG NO
[2022-01-16 13:06] LABS: Basophils Percent Auto 0.2 % (0-2); Eosinophils Percent Auto 0.5 % (0-4); Hematocrit 38.2 % (42.0-52.0); Hemoglobin 12.1 g/dl (14.0-18.0); Imm Gran Abs Auto 0.01 X10*3/uL (0.00-0.03); Imm Gran Pct Auto 0.2 % (0.0-0.4); Lymphocytes Percent Auto 23.5 % (20-40); Mean Corpuscular HGB Conc 31.7 g/dl (31.0-36.0); Mean Corpuscular Hemoglobin 28.6 pg (27.0-33.0); Mean Corpuscular Volume 90.3 fL (80.0-98.0); Mean Platelet Volume 8.6 fL (9.4-12.4); Monocytes Absolute Auto 0.4 X10*3/uL (0.1-1.2); Monocytes Percent Auto 8.2 % (2-11); Neutrophils Absolute Auto 2.9 x10*3/uL (2.0-8.3); Neutrophils Percent Auto 67.4 % (45-73); Platelet Count 217 X10*3/uL (160-400); Red Blood Count 4.23 X10*6/uL (4.60-5.80); Red Cell Distribution Width 19.3 % (11.0-16.0); White Blood Count 4.3 X10*3/uL (4.8-10.8)
[2022-01-16 13:34] LABS: Alanine Aminotransferase 24 U/L (0-40); Albumin Level 3.6 g/dL (3.5-5.0); Alkaline Phosphatase 48 U/L (39-117); Anion Gap 12 (12-20); Aspartate Amino Transferase 24 U/L (5-37); Bilirubin Total 0.5 mg/dL (0.0-1.0); Blood Urea Nitrogen 11 mg/dL (9-16); Calcium 9.1 mg/dL (8.4-10.2); Carbon Dioxide 29 mmol/L (22-29); Chloride 104 mmol/L (96-108); Creatinine Clr Calc Pharmacy 85.6; Estimated Glomerular Filt Rate > 60; Glucose Random 103 mg/dL (60-115); Potassium 4.1 mmol/L (3.3-5.1); Sodium 141 mmol/L (135-145); Total Protein 5.7 g/dL (6.5-8.0)
--- NOTE | 2022-01-16 13:59 | MHC.HEMONC ---
Denosumab 120mg sc given as ordered. Next injection scheduled for 3 months.
--- NOTE | 2022-01-16 14:50 | MHC.HEMONCMA ---
Pt was in for follow up. Clinical summary reviewed and updated, VSS. Labs were drawn. CT scan sent to order selling underwriter. Pt to return in 3 months.
--- NOTE | 2022-02-01 10:22 | MHC.HEMONCSW ---
EMAILED CO PAY ASSIST APPLICATION TO [facility]. PT OR DAUGHTER WILL MARKETING ANALYST ORIGINAL TODAY. MEDICATION IS CABOZANTINIB.
[2022-04-10 13:27] LABS: MANUAL DIFF FLAG NO
[2022-04-10 13:50] LABS: Alanine Aminotransferase 20 U/L (0-40); Albumin Level 3.5 g/dL (3.5-5.0); Alkaline Phosphatase 55 U/L (39-117); Anion Gap 13 (12-20); Aspartate Amino Transferase 25 U/L (5-37); Bilirubin Total 0.6 mg/dL (0.0-1.0); Blood Urea Nitrogen 11 mg/dL (9-16); Calcium 10.1 mg/dL (8.4-10.2); Carbon Dioxide 29 mmol/L (22-29); Chloride 102 mmol/L (96-108); Creatinine Clr Calc Pharmacy 77.3; Estimated Glomerular Filt Rate > 60; Glucose Random 95 mg/dL (60-115); Potassium 4.5 mmol/L (3.3-5.1); Sodium 139 mmol/L (135-145); Total Protein 5.9 g/dL (6.5-8.0)
[2022-04-10 13:56] LABS: Basophils Percent Auto 0.5 % (0-2); Eosinophils Absolute Auto 0.1 X10*3/uL (0.0-0.4); Eosinophils Percent Auto 1.9 % (0-4); Hematocrit 39.3 % (42.0-52.0); Hemoglobin 12.4 g/dl (14.0-18.0); Lymphocytes Absolute Auto 1.5 X10*3/uL (1.2-4.9); Lymphocytes Percent Auto 36.1 % (20-40); Mean Corpuscular HGB Conc 31.6 g/dl (31.0-36.0); Mean Platelet Volume 9.3 fL (9.4-12.4); Monocytes Absolute Auto 0.4 X10*3/uL (0.1-1.2); Monocytes Percent Auto 9.2 % (2-11); Neutrophils Absolute Auto 2.2 x10*3/uL (2.0-8.3); Neutrophils Percent Auto 52.3 % (45-73); Platelet Count 268 X10*3/uL (160-400); Red Blood Count 4.27 X10*6/uL (4.60-5.80); Red Cell Distribution Width 16.7 % (11.0-16.0); White Blood Count 4.2 X10*3/uL (4.8-10.8)
[2022-04-19 13:17] VITALS: BP 171/70; PULSE 89; RESP 16; TEMP 36.6; O2SAT 96; BMI 28.8
--- NOTE | 2022-04-19 13:28 | P.PNHO_ITS ---
Medical Summary - Medical Summary Date of Service: 04/19/22 Chief complaint: Follow-up for: Renal cell carcinoma. Medical Summary: DIAGNOSES: Renal Cell Carcinoma, clear cell type. 4.4 x 3.2 x 2.5 cm unilocal, limited to the kidney. No sarcomatoid features. Tumor necrosis present. Histological grade 2. Microscopic tumor extension. Lymphovascular invasion not identified. Parenchymal resection margin uninvolved by tumor. Tumor is 0.1 cm from the resection margin focally. Adrenal gland is negative. Fat over the tumor was negative for malignancy. Stage pT1b pNX. Now stage IV with pulmonary metastases. CURRENT THERAPY: Status post partial nephrectomy on September 15, [address] Jon Chaudhry. Concerned with pulmonary nodules. Repeat biopsy of lung nodule, in March of 2017 was positive for malignancy. Started on Pazopanib April with near CR. January 28 2018, Disease progression. Started on Nivolumab 02/21 C1D1. On clinical trial: 17-064([facility].) At [facility]. Ipilimumab, added April 17. Last dose on July. Subsequent CAT scan from August revealed disease progression. He had been on Cabozantinib, 60 mg daily, August 09 2018 till November,. Elected to stop it a few months ago, due to side effects. Status post left PleurX catheter placement, June 11. for malignant pleural effusion. Started Cabozantinib 40 mg on September. Interval History Interval history: This is a pleasant 77 year-old gentleman here for a follow-up visit. He is feeling well overall. He notices that his skin is rather thin. He gets bruised very easily. He had left shoulder pain. He had x-rays taken which revealed arthritis. He started physical therapy today. He gets occasional painbr at the site of the catheter removal. He denies any chest pain nor shortness of breath. No abdominal pain. He had a bout with nausea and vomiting, last Saturday. Denies diarrhea. Has hemmorhoids. He denies any headache no dizziness. His apetite is good. Weight is stable. He is in good spirits. Rest of the review of systems is unremarkable. Previous History: He had the PleurX catheter removed 6 months ago, under sedation. Afterwards, he was not able to eat nor drink anything much. He had nausea and vomiting as well as diarrhea. When he got here, he mentioned that he had a fever last night and was burning up. He had complaint of pain over the left chest around the site of the PleurX catheter. It happened on movement and when he tried to lift his arms. Pain level was up to 7-8 on 1-10 scale. He had to take oxycodone every 6 hours. The PleurX catheter had no drainage, over the previous 2 weeks. He is feeling quite weak and fatigued. His energy level has gone down even further. He was advised to come in for IV hydration and IV antiemetics. He denies any trouble breathing. Lately he has had a cough, especially in the morning. He has a hard time bringing his phlegm up however once the phlegm comes up he is comfortable the rest of the day. Denies abdominal pain nor flank pain. No nausea or vomiting. He does get heartburn and reflux symptoms especially at night. He used to take Gaviscon, for it but not any more. His daughter got him the bed, that can move up and down. He gets diarrhea especially from greasy stuff. He denies constipation however he does see some hemorrhoids coming out. They do not bleed spontaneously however sometimes he notices some blood on the toilet paper upon wiping. He would want to have them operated upon, eventually. He enjoys a good appetite. He has actually gained weight. He has noted cramps. He tells me that in the middle of the night he gets leg cramps and sometimes even forearms cramp up. It is hard for him to fall back to sleep after that. He is in good spirits. Rest of the review of systems is unremarkable. Previous history: He tells me his back went out on him. He has had back trouble for 20 years. He has been living with it. The med is working. Review of Systems - Constitutional Reports no additional constitutional complaints, Denies lack of energy, Denies weight loss - Eyes Reports no additional eye complaints - ENT Reports no additional ear, nose, mouth, and throat complaints - Cardiovascular Reports no additional cardiovascular complaints - Respiratory Reports no additional respiratory complaints - Gastrointestinal Reports no additional gastrointestinal complaints - Genitourinary Genitourinary: Reports no additional male genitourinary complaints - Musculoskeletal Reports no additional musculoskeletal complaints - Integumentary/Breasts Skin/Breast: Reports no additional skin complaints - Neurologic Reports no additional neurologic complaints, Reports weakness - Psychiatric Reports no additional psychiatric complaints - Endocrine Reports no additional endocrine complaints - Hematologic/Lymphatic Reports no additional hematologic/lymphatic complaints - Allergic/Immunologic Reports no additional allergic/immunologic complaints [facility] Medical History: Medical History (Last Updated 04/19/22 @ 14:42 by Sharla Juarez MD) 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 Mother Lung cancer Brother Cancer Surgical History: Surgical History (Last Reviewed 04/19/22 @ 13:21 by Ingrid Brooke CMA) H/O arthroscopic knee surgery H/O partial nephrectomy History of esophagogastroduodenoscopy (EGD) Onset Date: ~1999 History of eye surgery History of knee replacement procedure of left knee History of knee replacement procedure of right knee History of lung biopsy Social History: Social History (Last Updated 04/19/22 @ 13:23 by Ingrid Brooke CMA) Living Situation History: Household Members: Spouse Housing: Apartment Are you a primary primary care nurse practitioner to a significant other at home: No Do you presently have visiting nurse or other home services: No Alcohol History Details: 1. How often do you have a drink containing alcohol?: a. Never Tobacco History: Patient Tobacco Use Status: Former Tobacco user Tobacco use type: Cigarette Years Smoked: 50 e-Cigarette/Vaping Use: Never Used Second Hand Smoke Exposure: No Substance Use History: Use of substances other than those prescribed or required for medical reasons : No Substance Use Type: Other Substance Use Type Other:: CBD Domestic Abuse History: Have you been hit, kicked, punched, or otherwise hurt by someone within the past year? If so, by whom?: No Advance Directives: Advance Directives: Yes Advance Directives on File: Yes Advance Directives Date on File: 12/12/07 Homicidal Assessment: Do you have thoughts of harming others: None Do you have a plan to hurt others: No Plan Do you have the means to hurt others: No Nutrition Assessment: Recently lost weight without trying: No Patient : No Occupation Assessmet: service: No Current occupational status: retired Oncology Screenings - ECOG Performance Status ECOG Performance Status: 1 Home Medications and Allergies Home Medications Medication Instructions Recorded Confirmed Type ascorbic acid (vitamin C) 500 mg 500 mg PO DAILY 08/18/20 04/19/22 History tablet (Vitamin C) atorvastatin 40 mg tablet 40 mg PO BEDTIME 08/18/20 04/19/22 History clotrimazole-betamethasone 1 See Rx Instructions .Route .COMPLEX 08/18/20 04/19/22 History %-0.05 % topical cream denosumab 60 mg/mL subcutaneous 60 mg subcut [id number] 08/26/20 04/19/22 History syringe magnesium oxide 500 mg capsule 500 mg PO DAILY 06/20/21 04/19/22 History netarsudil 0.02 %-latanoprost 0.005 drp ophthalmic (eye) DAILY 06/20/21 04/19/22 History 0.005 % eye drops (Rocklatan) as directed cholecalciferol (vitamin D3) 125 125 mcg PO DAILY as directed 10/10/21 04/19/22 History mcg (5,000 unit) capsule acetaminophen 325 mg capsule 325 mg PO BID PRN Pain 11/21/21 04/19/22 History (Tylenol) potassium gluconate 600 mg (99 mg) 600 mg PO DAILY 11/21/21 04/19/22 History tablet furosemide 20 mg tablet (Lasix) 40 mg PO DAILY 01/16/22 04/19/22 History Allergies Allergy/AdvReac Type Severity Reaction Status Date / Time adhesive Allergy Intermediate rash Verified 04/19/22 13:23 aspirin [ASA] Allergy Intermediate Anaphylaxis Verified 04/19/22 13:23 Exam Vital signs: Vital Signs Temp 97.8 F 04/19/22 13:17 Pulse 89 04/19/22 13:17 Resp 16 04/19/22 13:17 BP 171/70 H 04/19/22 13:17 Pulse Ox 96 04/19/22 13:17 O2 Del Method 04/19/22 13:17 Intake & Output 04/18/22 04/19/22 04/19/22 18:59 06:59 18:59 Other: Weight 83.3 kg [place]gard Weight in Grams 80162 Weight 83.3 kg BMI result Body Mass Index 28.8 - Constitutional Present: no acute distress - Routine HEENT Exam Head: Present: normal inspection Eye: Present: normal appearance ENT: Present: mucous membranes moist - Routine Neck Exam Present: full ROM - Routine Respiratory Exam Present: CTAB - Routine Cardiovascular Exam Cardiovascular: Present: RRR, S2 - Routine Abdominal Exam Present: soft - Routine Extremities Exam Present: nontender - Routine Back/Spine/Pelvis Exam Back/Spine: Present: full ROM - Routine Skin Exam Present: intact - Routine Neurological Exam Present: alert, oriented X3 - Routine Psychiatric Exam Present: normal affect Data - Labs CBC & Chem 7: 04/10/22 13:25 04/10/22 13:25 - Imaging Radiologist's impression: ITS Impressions Chest CT 11/10/20 10:45 IMPRESSION: Similar appearance of small left pleural effusion and left-sided pleural catheter. The left pleural effusion is similar in volume to the prior study from 06/03/2020 and the catheter has a similar orientation and course. Left fourth and fifth rib lesions consistent with metastasis, similar to prior. 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 Initial stage was:pT1B, pNx. Status post partial nephrectomy for 09/15/[address] Jon Chaudhry. Subsequently was noted to have some pulmonary metastases. Biopsy 6 03/27/2017: Adenocarcinoma consistent with metastatic renal cell carcinoma. He was started on pazopanib 04/17/2017. CT chest 01/22/2018: Increase in pulmonary nodules and pleural base nodules. He was referred to [facility] for clinical trial. Here repeat lung biopsy was done and he was enrolled on 4, Omni wore trial. He started Nivolumab on 02/21/18. Unfortunately, 1st can done on this drug alone were consistent with progressive disease. Ipilimumab was added on 04/17. This worked for a while but then he developed progression. He was started on cabozantinib 08/09/2018. He initially did not tolerated too well. So he was observed off therapy. He had a fracture of right pubic ramus for which she was referred for radiation therapy. He was also started on denosumab last June. PET scan from 05/05/2019 revealed: Significant interval improvement in moderate left pleural effusion. Continues to be multiple bilateral pulmonary nodules and pleural and juxtapleural nodules. 1 cm soft tissue density of the lateral cortex of the right mid kidney suspicious for renal cell. He was then read tried on cabozantinib in a lower dose. 09/15/2019 he was started on the cabozantinib 40 mg daily. It was then decreased to 20 mg daily. He has been tolerating it well. CT scan of the abdomen from 12/25/2019 revealed: Significant interval decrease in the size of bilateral pulmonary nodules. No new pulmonary nodule seen. Small left pleural effusion chest tube in satisfactory position. Significant interval decrease in left-sided relief nodules and left diaphragmatic thickening. Abdomen pelvis: Interval decrease in abnormal soft tissue along the left diaphragmatic pleural surface and paraspinal soft tissue. Interval decrease in right rectus muscle lesion. Interval decrease in soft tissue mass along with lytic left 5th rib lesion. Stable lytic lesion and pathological fracture of the right inferior pubic ramus. He is holding his own. He has been tolerating the cabozantinib very well. He is taking 20 mg daily. On 11/10, a CT scan of the chest was done which revealed: Similar appearance of small left pleural effusion and left-sided pleural catheter. Left pleural effusion is similar in volume to the prior study from 06/03 and catheter has a similar orientation and course. Left 4th and 5th rib consistent with Mets similar to prior. It indicated a satisfactory position of the PleurX catheter. CT scan of the chest from 02/02: Similar appearance of small left pleural effusion and left-sided pleural catheter. The left pleural effusion is similar in volume to the prior study from 06/03/2020 and the catheter has a similar orientation and course. Left fourth and fifth rib lesions consistent with metastasis, similar to prior. CT scan of the chest abdomen pelvis from 05/30/2021: Stable bone lesion in the right inferior pubic ramus and pathologic fracture. Stable small low-attenuation liver lesions. Cortical thinning or the upper pole of the left kidney and decreased attenuation or enhancement. A discrete renal mass is not seen. Bilateral renal cysts. Diverticulosis of the colon. Atherosclerotic disease. Slightly enlarged prostate gland. Chest x-ray from 08/15: 1. New opacity left base likely recurrent effusion. Possibility of superimposed airspace consolidation cannot be excluded. Right lung clear. 2. There is a small bore tunneled catheter left base. No pneumothorax or sub cutaneous emphysema. DATA BASE: From 10/04/21: CBC: WBC 5.2, HGB 12.2, HCT 39.3, PLT 283. From 10/04/21 CMP: Lytes WNL, glucose is 89, BUN 10, CONSUMER SALES REPRESENTATIVE 0.90. Ca L9 0.8, a lb 3.7. LFTs: <0.2/50 07/03/2026. The PleurX catheter had been indwelling for 28 months. It was removed, 6 months ago. He is doing well. He had re-imaging done, 01/25: Similar appearance of a small loculated left pleural effusion and with enhancing soft tissue pleural nodularity consistent with pleural metastases which appears to invade the intercostal muscles posteriorly. Stable osseous metastases involving the left ribs. Similar appearance of the metastasis involving the right inferior pubic ramus/ischium, however is only partially imaged on today's exam with a pathologic fracture previously seen excluded from the [id number]. Few small solid pulmonary nodules measuring up to 5 mm. No new pulmonary nodule. PLAN: I have checked with radiology, if repeat imaging of the pelvis is in order, since the previous fracture site was omitted. Will continue to monitor. If his shortness of breath was to return he will need to have a new PleurX catheter placed. He will continue on the Cabozantinib for now. He is taking 40 mg on one day, and 20 mg the other, alternating. He had the Denosumab, 04/10/22. He will continue that monthly. Will continue to monitor. He gets his labs checked at home twice a month. If he starts to progress other options would be lenvatinib 18 mg plus Everolimus, 5 mg daily. He will return in 3 months for a follow-up visit. Thank you, CC: Dr. Sera Hamilton. Dr. Jon Chaudhry. Dr. Bland at [facility]. [phone]. - Time Spent With Patient Time Spent with Patient (in minutes): 25
--- NOTE | 2022-04-19 15:21 | MHC.HEMONCMA ---
Pt was in for follow up. Clinical summary reviewed and updated, VSS. Pt to return in 3 months.
--- NOTE | 2022-05-10 16:56 | MHC.HEMONC ---
Pt did not arrive for sched monthly Xgeva injection, so nurse called him at home, he explained he has been staying in bed, recently was at [facility] for nausea/vomiting, was d/c'd home and has been able to control N/V/D w/ PRN meds including Zofran, but now he is dealing w/ recurring HAs, exacerbated by light and sound. Nurse offered to book pt for sooner Onc f/u appt or to reschedule his Xgeva injection, but pt declined, said he would call next week to book. Nurse to f/u w/ pt next week if he doesn't call.
[2022-05-21 12:50] LABS: MANUAL DIFF FLAG NO
[2022-05-21 12:56] LABS: Basophils Percent Auto 0.5 % (0-2); Eosinophils Percent Auto 0.8 % (0-4); Hematocrit 38.4 % (42.0-52.0); Hemoglobin 12.3 g/dl (14.0-18.0); Imm Gran Abs Auto 0.01 X10*3/uL (0.00-0.03); Imm Gran Pct Auto 0.3 % (0.0-0.4); Lymphocytes Absolute Auto 1.5 X10*3/uL (1.2-4.9); Lymphocytes Percent Auto 39.7 % (20-40); Mean Corpuscular Hemoglobin 28.5 pg (27.0-33.0); Mean Corpuscular Volume 88.9 fL (80.0-98.0); Mean Platelet Volume 9.5 fL (9.4-12.4); Monocytes Absolute Auto 0.4 X10*3/uL (0.1-1.2); Monocytes Percent Auto 10.3 % (2-11); Neutrophils Absolute Auto 1.8 x10*3/uL (2.0-8.3); Neutrophils Percent Auto 48.4 % (45-73); Platelet Count 192 X10*3/uL (160-400); Red Blood Count 4.32 X10*6/uL (4.60-5.80); White Blood Count 3.7 X10*3/uL (4.8-10.8)
[2022-05-21 13:11] VITALS: BP 110/68; PULSE 81; RESP 17; TEMP 36.3; O2SAT 96; BMI 27.0
[2022-05-21 13:25] LABS: Alanine Aminotransferase 21 U/L (0-40); Albumin Level 3.5 g/dL (3.5-5.0); Alkaline Phosphatase 52 U/L (39-117); Anion Gap 11 (12-20); Aspartate Amino Transferase 28 U/L (5-37); Bilirubin Total 0.5 mg/dL (0.0-1.0); Blood Urea Nitrogen 8 mg/dL (9-16); Carbon Dioxide 26 mmol/L (22-29); Chloride 101 mmol/L (96-108); Creatinine Clr Calc Pharmacy 70.7; Estimated Glomerular Filt Rate > 60; Glucose Random 98 mg/dL (60-115); Potassium 4.4 mmol/L (3.3-5.1); Sodium 134 mmol/L (135-145); Total Protein 5.7 g/dL (6.5-8.0)
--- NOTE | 2022-05-21 16:39 | MHC.HEMONC ---
Pt was in for his monthly Xgeva/Denosumab injection, reported feeling better since he called to cancel his appt 2 weeks ago, says the intermittent HAs still occur, but the GI symptoms are much improved. Pt's weight is stable, VSS. Pt's labs drawn/reviewed, Ca WNL. Nurse admin Xgeva 120mg SC to pt's RUQ abdomen, which was well-tolerated. Pt received d/c packet w/ his next monthly Xgeva booked on 06/18/22.
--- NOTE | 2022-06-06 09:44 | MHC.HEMONCMA ---
Patients daughter called to have Dr. Diaz call her dad back, He will only talk to doctor, . Patient was prescribed Paxlovoid for covid positive on 06/02/22 but read side effects and never took medication per daughter, now is having diarrhea, vomitting, fever X2 days. Gave message to Dr. Diaz who will call him today.
[2022-06-18 13:02] LABS: MANUAL DIFF FLAG NO
[2022-06-18 13:25] LABS: Basophils Percent Auto 0.3 % (0-2); Hematocrit 38.5 % (42.0-52.0); Hemoglobin 12.2 g/dl (14.0-18.0); Lymphocytes Absolute Auto 1.2 X10*3/uL (1.2-4.9); Lymphocytes Percent Auto 31.8 % (20-40); Mean Corpuscular HGB Conc 31.7 g/dl (31.0-36.0); Mean Corpuscular Hemoglobin 28.3 pg (27.0-33.0); Mean Corpuscular Volume 89.3 fL (80.0-98.0); Mean Platelet Volume 9.4 fL (9.4-12.4); Monocytes Absolute Auto 0.5 X10*3/uL (0.1-1.2); Monocytes Percent Auto 14.2 % (2-11); Neutrophils Percent Auto 53.7 % (45-73); Platelet Count 224 X10*3/uL (160-400); Red Blood Count 4.31 X10*6/uL (4.60-5.80); Red Cell Distribution Width 18.8 % (11.0-16.0); White Blood Count 3.7 X10*3/uL (4.8-10.8)
[2022-06-18 13:36] LABS: Alanine Aminotransferase 18 U/L (0-40); Albumin Level 3.3 g/dL (3.5-5.0); Alkaline Phosphatase 52 U/L (39-117); Anion Gap 13 (12-20); Aspartate Amino Transferase 22 U/L (5-37); Bilirubin Total 0.6 mg/dL (0.0-1.0); Blood Urea Nitrogen 7 mg/dL (9-16); Carbon Dioxide 27 mmol/L (22-29); Chloride 101 mmol/L (96-108); Creatinine Clr Calc Pharmacy 81.6; Estimated Glomerular Filt Rate > 60; Glucose Random 96 mg/dL (60-115); Potassium 3.9 mmol/L (3.3-5.1); Sodium 137 mmol/L (135-145); Total Protein 5.5 g/dL (6.5-8.0)
[2022-06-18 14:17] VITALS: BP 135/50; PULSE 73; RESP 17; TEMP 36.8; O2SAT 97
--- NOTE | 2022-06-18 18:04 | MHC.HEMONC ---
Pt came in for his monthly Denosumab ( Xgeva ), VSS, reported feeling well overall, labs drawn/reviewed, Ca resulted WNL at 9.0, Dr. Christian was updated. Nurse checked that pt does not require PA for Denosumab w/ his Medicare insurance. Nurse admin Xgeva 120 mg SC to pt's RLQ, which was well-tolerated. Pt was given d/c summary w/ his next monthly Xgeva booked on 07/19/22, as well as Onc f/u w/ Dr. Diaz.
[2022-08-03 10:49] LABS: MANUAL DIFF FLAG NO
--- NOTE | 2022-08-03 10:53 | PM.HEMONCPN ---
Medical Summary - Medical Summary Date of Service: 08/03/22 Chief complaint: Follow-up for: Renal cell carcinoma. Medical Summary: DIAGNOSES: Renal Cell Carcinoma, clear cell type. 4.4 x 3.2 x 2.5 cm unilocal, limited to the kidney. No sarcomatoid features. Tumor necrosis present. Histological grade 2. Microscopic tumor extension. Lymphovascular invasion not identified. Parenchymal resection margin uninvolved by tumor. Tumor is 0.1 cm from the resection margin focally. Adrenal gland is negative. Fat over the tumor was negative for malignancy. Stage pT1b pNX. Now stage IV with pulmonary metastases. CURRENT THERAPY: Status post partial nephrectomy on September 15, [address] Jon Chaudhry. Concerned with pulmonary nodules. Repeat biopsy of lung nodule, in March of 2017 was positive for malignancy. Started on Pazopanib April with near CR. January 28 2018, Disease progression. Started on Nivolumab 02/21 C1D1. On clinical trial: 17-064([facility].) At [facility]. Ipilimumab, added April 17. Last dose on July. Subsequent CAT scan from August revealed disease progression. He had been on Cabozantinib, 60 mg daily, August 09 2018 till November,. Elected to stop it a few months ago, due to side effects. Status post left PleurX catheter placement, June 11. for malignant pleural effusion. Started Cabozantinib 40 mg on September. Interval History Interval history: This is a pleasant 77 year-old gentleman here for a follow-up visit. Patient was in house between 07/20 through 07/24. CT of the chest from 07/20 revealed: 1. Limited exam for detecting of segmental pulmonary emboli. Assessment the right lung is largely nondiagnostic due to sensitive respiratory motion artifact. No central pulmonary embolus or left-sided segment of pulmonary emboli identified. 2. Small to moderate-sized multiloculated left pleural effusion, slightly increased since prior CT of 01/25/2022 with evidence of pleural metastatic disease, minimally progressed and unchanged osseous erosive/attractive change involving the left fourth and fifth ribs. 3. Trace right basilar pleural effusion. 4. Passive bilateral atelectasis most prominently in the left lung secondary to the loculated pleural effusion. Hospital course: This is a 77-year-old male with history of renal cell carcinoma with lung and bone metastases who was brought to the emergency department for multiple complaints.? History was primarily obtained from his daughter at the bedside.? Patient himself was very tired as daughter reports he was up all night coughing.? She reports that he tested positive for COVID-19, 3 weeks ago.? At that time he had flu-like symptoms including fever body aches and cough.? The symptoms lasted for approximately a week and then improved.? He does also frequently have nausea vomiting and his energy levels wax and wane due to current chemotherapy treatment.? However since the beginning of the week he has had increasing cough subjective fever and more vomiting.? He has had decreased p.o. intake.? Today they brought into the emergency department for further evaluation.? He was noted to have low-grade temperature of 100.3 degrees, lactic acid of 2.6 and low magnesium at 1.4.? Chest x-ray showed chronic left lower lobe pleural effusion and possible associated opacity.? He was treated with IV Zosyn.? In addition a troponin was checked and was around 200.? EKG shows evidence of Brugada.? Previous EKGs are normal with no evidence of Brugada.? Patient has not had any chest pain or palpitations. COVID vaccination status-vaccination x4 . Pneumonia likely postobstructive No evidence of sepsis noted afebrile, no leukocytosis Chest x-ray showing chronic left pleural effusion and opacity at left lung base. CTA with loculated left pleural effusion (chronic, h/o pleurex catheter) with pleural metastatic disease and passive atelectasis Elevated lactic from dehydration given symptoms of cough, sob and fever treated pneumonia with IV Zosyn total 3-5 days according to ID, Zosyn 3 days completed , doxy and azithro for 2 more days. Not currently requiring oxygen COVID-19: Family reported that he tested positive in May. Fully vaccinated but immune compromised given undergoing chemotherapy No hypoxia noted during admission. Seen by ID, no COVID treatment indicated Overall, he is feeling better. Although he still feels a bit tired. He denies any headache no dizziness. He is getting PT for the legs. He gets bruised very easily. He gets occasional pain at the site of the catheter removal. He denies any chest pain nor shortness of breath. No abdominal pain. He gets nausea on occassion. Denies diarrhea. Has hemorhoids. His apetite is good. Weight is stable. He had left shoulder pain. He had x-rays taken which revealed arthritis. He started physical therapy today. He is in good spirits. Rest of the review of systems is unremarkable. Previous History: He had the PleurX catheter removed 12 months ago, under sedation. Afterwards, he was not able to eat nor drink anything much. He had nausea and vomiting as well as diarrhea. When he got here, he mentioned that he had a fever last night and was burning up. He had complaint of pain over the left chest around the site of the PleurX catheter. It happened on movement and when he tried to lift his arms. Pain level was up to 7-8 on 1-10 scale. He had to take oxycodone every 6 hours. The PleurX catheter had no drainage, over the previous 2 weeks. He is feeling quite weak and fatigued. His energy level has gone down even further. He was advised to come in for IV hydration and IV antiemetics. He denies any trouble breathing. Lately he has had a cough, especially in the morning. He has a hard time bringing his phlegm up however once the phlegm comes up he is comfortable the rest of the day. Denies abdominal pain nor flank pain. No nausea or vomiting. He does get heartburn and reflux symptoms especially at night. He used to take Gaviscon, for it but not any more. His daughter got him the bed, that can move up and down. He gets diarrhea especially from greasy stuff. He denies constipation however he does see some hemorrhoids coming out. They do not bleed spontaneously however sometimes he notices some blood on the toilet paper upon wiping. He would want to have them operated upon, eventually. He enjoys a good appetite. He has actually gained weight. He has noted cramps. He tells me that in the middle of the night he gets leg cramps and sometimes even forearms cramp up. It is hard for him to fall back to sleep after that. He is in good spirits. Rest of the review of systems is unremarkable. Previous history: He tells me his back went out on him. He has had back trouble for 20 years. He has been living with it. The med is working. Review of Systems - Constitutional Reports no additional constitutional complaints - Eyes Reports no additional eye complaints - ENT Reports no additional ear, nose, mouth, and throat complaints - Cardiovascular Reports no additional cardiovascular complaints - Respiratory Reports no additional respiratory complaints - Gastrointestinal Reports no additional gastrointestinal complaints - Genitourinary Genitourinary: Reports no additional male genitourinary complaints - Musculoskeletal Reports no additional musculoskeletal complaints - Integumentary/Breasts Skin/Breast: Reports no additional skin complaints - Neurologic Reports no additional neurologic complaints, Reports weakness - Psychiatric Reports no additional psychiatric complaints - Endocrine Reports no additional endocrine complaints - Hematologic/Lymphatic Reports no additional hematologic/lymphatic complaints - Allergic/Immunologic Reports no additional allergic/immunologic complaints PMFSH Medical History: Medical History (Last Reviewed 08/01/22 @ 15:16 by Sharla Juarez MD) 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 Arthritis Blood in stool Brugada syndrome Mccrory-vesical fistula COVID-19 Dyslipidemia Essential hypertension Glaucoma Hemorrhoids Hypertension Hypothyroidism Internal and external prolapsed hemorrhoids Left shoulder pain Leg edema, left Lumbar degenerative disc disease Metastatic renal cell carcinoma Obesity Pleural effusion on left Rectal bleeding Shoulder pain, bilateral Vitamin D deficiency Functional capacity: uses cane/walker Patient : No Family History: Family History (Last Reviewed 08/01/22 @ 15:01 by MELINA Leonardo) Father No problems noted. Mother Lung cancer Brother Cancer Surgical History: Surgical History (Last Reviewed 08/01/22 @ 15:16 by Sharla Juarez MD) H/O arthroscopic knee surgery H/O partial nephrectomy History of esophagogastroduodenoscopy (EGD) Onset Date: ~1999 History of eye surgery History of knee replacement procedure of left knee History of knee replacement procedure of right knee History of lung biopsy Social History: Social History (Last Reviewed 08/01/22 @ 15:16 by Sharla Juarez MD) Living Situation History: Household Members: Spouse Housing: Apartment Are you a primary critical care unit nurse to a significant other at home: No Do you presently have visiting nurse or other home services: No Alcohol History Details: 1. How often do you have a drink containing alcohol?: a. Never Tobacco History: Patient Tobacco Use Status: Former Tobacco user Tobacco use type: Cigarette Years Smoked: 50 e-Cigarette/Vaping Use: Never Used Second Hand Smoke Exposure: No Substance Use History: Use of substances other than those prescribed or required for medical reasons: No Substance Use Type: Other Substance Use Type Other:: CBD Domestic Abuse History: Have you been hit, kicked, punched, or otherwise hurt by someone within the past year? If so, by whom?: No Advance Directives: Advance Directives: Yes Advance Directives on File: Yes Advance Directives Date on File: 05/08/22 Homicidal Assessment: Do you have thoughts of harming others: None Do you have a plan to hurt others: No Plan Do you have the means to hurt others: No Nutrition Assessment: Recently lost weight without trying: No Patient : No Occupation Assessmet: service: No Current occupational status: retired Oncology Screenings - ECOG Performance Status ECOG Performance Status: 1 Home Medications and Allergies Home Medications Medication Instructions Recorded Confirmed Type ascorbic acid (vitamin C) 500 mg 500 mg PO DAILY 08/18/20 08/03/22 History tablet (Vitamin C) denosumab 60 mg/mL subcutaneous 60 mg subcut [id number] 08/26/20 08/03/22 History syringe netarsudil 0.02 %-latanoprost 0.005 drp ophthalmic (eye) DAILY 06/20/21 08/03/22 History 0.005 % eye drops (Rocklatan) as directed potassium gluconate 600 mg (99 mg) 600 mg PO DAILY 11/21/21 08/03/22 History tablet cholecalciferol (vitamin D3) 125 125 mcg PO DAILY 07/20/22 08/03/22 History mcg (5,000 unit) capsule hydrocortisone 5 mg tablet 5 mg PO QPM 07/20/22 08/03/22 History oxycodone 10 mg tablet 10 mg PO Q6H PRN Pain, Severe 07/20/22 08/03/22 History Allergies Allergy/AdvReac Type Severity Reaction Status Date / Time adhesive Allergy Intermediate rash Verified 08/01/22 15:10 aspirin [ASA] Allergy Intermediate Anaphylaxis Verified 08/01/22 15:10 Exam Vital signs: Vital Signs Temp 98.2 F 06/18/22 14:17 Pulse 73 06/18/22 14:17 Resp 17 06/18/22 14:17 BP 135/50 L 06/18/22 14:17 Pulse Ox 97 06/18/22 14:17 O2 Del Method 06/18/22 14:17 Weight 78.2 kg BMI result Body Mass Index 27.0 - Constitutional Present: no acute distress - Routine HEENT Exam Head: Present: normal inspection Eye: Present: normal appearance ENT: Present: mucous membranes moist - Routine Neck Exam Present: full ROM - Routine Respiratory Exam Present: CTAB - Routine Cardiovascular Exam Cardiovascular: Present: RRR, S2 - Routine Abdominal Exam Present: soft - Routine Extremities Exam Present: nontender - Routine Back/Spine/Pelvis Exam Back/Spine: Present: full ROM - Routine Skin Exam Present: intact - Routine Neurological Exam Present: alert, oriented X3 - Routine Psychiatric Exam Present: normal affect Data - Labs CBC & Chem 7: 08/03/22 10:48 08/03/22 10:48 - Imaging Radiologist's impression: ITS Impressions Chest CT 11/10/20 10:45 IMPRESSION: Similar appearance of small left pleural effusion and left-sided pleural catheter. The left pleural effusion is similar in volume to the prior study from 06/03/2020 and the catheter has a similar orientation and course. Left fourth and fifth rib lesions consistent with metastasis, similar to prior. 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 Initial stage was:pT1B, pNx. Status post partial nephrectomy for 09/15/[address] Jon Chaudhry. Subsequently was noted to have some pulmonary metastases. Biopsy 6 03/27/2017: Adenocarcinoma consistent with metastatic renal cell carcinoma. He was started on pazopanib 04/17/2017. CT chest 01/22/2018: Increase in pulmonary nodules and pleural base nodules. He was referred to [facility] for clinical trial. Here repeat lung biopsy was done and he was enrolled on - 4, Omni wore trial. He started Nivolumab on 02/21/18. Unfortunately, 1st can done on this drug alone were consistent with progressive disease. Ipilimumab was added on 04/17. This worked for a while but then he developed progression. He was started on cabozantinib 08/09/2018. He initially did not tolerated too well. So he was observed off therapy. He had a fracture of right pubic ramus for which she was referred for radiation therapy. He was also started on denosumab last June. PET scan from 05/05/2019 revealed: Significant interval improvement in moderate left pleural effusion. Continues to be multiple bilateral pulmonary nodules and pleural and juxtapleural nodules. 1 cm soft tissue density of the lateral cortex of the right mid kidney suspicious for renal cell. He was then read tried on cabozantinib in a lower dose. 09/15/2019 he was started on the cabozantinib 40 mg daily. It was then decreased to 20 mg daily. He has been tolerating it well. CT scan of the abdomen from 12/25/2019 revealed: Significant interval decrease in the size of bilateral pulmonary nodules. No new pulmonary nodule seen. Small left pleural effusion chest tube in satisfactory position. Significant interval decrease in left-sided relief nodules and left diaphragmatic thickening. Abdomen pelvis: Interval decrease in abnormal soft tissue along the left diaphragmatic pleural surface and paraspinal soft tissue. Interval decrease in right rectus muscle lesion. Interval decrease in soft tissue mass along with lytic left 5th rib lesion. Stable lytic lesion and pathological fracture of the right inferior pubic ramus. He is holding his own. He has been tolerating the cabozantinib very well. He is taking 20 mg daily. On 11/10, a CT scan of the chest was done which revealed: Similar appearance of small left pleural effusion and left-sided pleural catheter. Left pleural effusion is similar in volume to the prior study from 06/03 and catheter has a similar orientation and course. Left 4th and 5th rib consistent with Mets similar to prior. It indicated a satisfactory position of the PleurX catheter. CT scan of the chest from 02/02: Similar appearance of small left pleural effusion and left-sided pleural catheter. The left pleural effusion is similar in volume to the prior study from 06/03/2020 and the catheter has a similar orientation and course. Left fourth and fifth rib lesions consistent with metastasis, similar to prior. CT scan of the chest abdomen pelvis from 05/30/2021: Stable bone lesion in the right inferior pubic ramus and pathologic fracture. Stable small low-attenuation liver lesions. Cortical thinning or the upper pole of the left kidney and decreased attenuation or enhancement. A discrete renal mass is not seen. Bilateral renal cysts. Diverticulosis of the colon. Atherosclerotic disease. Slightly enlarged prostate gland. Chest x-ray from 08/15: 1. New opacity left base likely recurrent effusion. Possibility of superimposed airspace consolidation cannot be excluded. Right lung clear. 2. There is a small bore tunneled catheter left base. No pneumothorax or subcutaneous emphysema. DATA BASE: From 10/04/21: CBC: WBC 5.2, HGB 12.2, HCT 39.3, PLT 283. From 10/04/21 CMP: Lytes WNL, glucose is 89, BUN 10, [employer] SALES REPRESENTATIVE 0.90. Ca L9 0.8, a lb 3.7. LFTs: <0.2/50 07/03/2026. The PleurX catheter had been indwelling for 28 months. It was removed, 6 months ago. He is doing well. He had re-imaging done, 01/25: Similar appearance of a small loculated left pleural effusion and with enhancing soft tissue pleural nodularity consistent with pleural metastases which appears to invade the intercostal muscles posteriorly. Stable osseous metastases involving the left ribs. Similar appearance of the metastasis involving the right inferior pubic ramus/ischium, however is only partially imaged on today's exam with a pathologic fracture previously seen excluded from the [id number]. Few small solid pulmonary nodules measuring up to 5 mm. No new pulmonary nodule. He was recently admitted: CT scan of the chest from 07/20 revealed: 1. Limited exam for detecting of segmental pulmonary emboli. Assessment the right lung is largely nondiagnostic due to sensitive respiratory motion artifact. No central pulmonary embolus or left-sided segment of pulmonary emboli identified. 2. Small to moderate-sized multiloculated left pleural effusion, slightly increased since prior CT of 01/25/2022 with evidence of pleural metastatic disease, minimally progressed and unchanged osseous erosive/attractive change involving the left fourth and fifth ribs. 3. Trace right basilar pleural effusion. 4. Passive bilateral atelectasis most prominently in the left lung secondary to the loculated pleural effusion. He is on oral antibiotics for the pneumonia PLAN: I will continue to monitor, him. Will arrange for a CT scan the abdomen. If his shortness of breath was to return he will need to have a new PleurX catheter placed. He will continue on the Cabozantinib for now. He is taking 40 mg on one day, and 20 mg the other, alternating. He had the Denosumab, on 05/21, and 06/18. He received a dose today. He will continue that monthly. He gets his labs checked at home twice a month. If he starts to progress other options would be lenvatinib 18 mg plus Everolimus, 5 mg daily. He will return in 3 months for a follow-up visit. Thank you, CC: Dr. Sera Hamilton. Dr. Jon Chaudhry. Dr. Bland at [facility]. [phone]. - Time Spent With Patient Time Spent with Patient (in minutes): 25
[2022-08-03 10:55] LABS: Basophils Percent Auto 0.4 % (0-2); Eosinophils Absolute Auto 0.1 X10*3/uL (0.0-0.4); Hematocrit 36.5 % (42.0-52.0); Hemoglobin 11.7 g/dl (14.0-18.0); Imm Gran Abs Auto 0.02 X10*3/uL (0.00-0.03); Imm Gran Pct Auto 0.4 % (0.0-0.4); Lymphocytes Absolute Auto 1.3 X10*3/uL (1.2-4.9); Lymphocytes Percent Auto 25.7 % (20-40); Mean Corpuscular HGB Conc 32.1 g/dl (31.0-36.0); Mean Corpuscular Volume 90.6 fL (80.0-98.0); Mean Platelet Volume 8.7 fL (9.4-12.4); Monocytes Absolute Auto 0.5 X10*3/uL (0.1-1.2); Monocytes Percent Auto 10.4 % (2-11); Neutrophils Absolute Auto 3.2 x10*3/uL (2.0-8.3); Neutrophils Percent Auto 62.1 % (45-73); Platelet Count 245 X10*3/uL (160-400); Red Blood Count 4.03 X10*6/uL (4.60-5.80); Red Cell Distribution Width 19.8 % (11.0-16.0); White Blood Count 5.2 X10*3/uL (4.8-10.8)
[2022-08-03 11:00] VITALS: BP 151/68; PULSE 85; TEMP 36.4; O2SAT 97; BMI 26.2
[2022-08-03 11:17] LABS: Alanine Aminotransferase 14 U/L (0-40); Albumin Level 3.3 g/dL (3.5-5.0); Alkaline Phosphatase 50 U/L (39-117); Anion Gap 15 (12-20); Aspartate Amino Transferase 21 U/L (5-37); Bilirubin Total 0.8 mg/dL (0.0-1.0); Blood Urea Nitrogen 10 mg/dL (9-16); Calcium 9.2 mg/dL (8.4-10.2); Carbon Dioxide 26 mmol/L (22-29); Chloride 103 mmol/L (96-108); Creatinine Clr Calc Pharmacy 77.3; Estimated Glomerular Filt Rate > 60; Glucose Random 92 mg/dL (60-115); Sodium 140 mmol/L (135-145); Total Protein 5.6 g/dL (6.5-8.0)
--- NOTE | 2022-08-03 12:10 | MHC.HEMONC ---
Pt here for follow up with Dr Diaz and injection. Looking well, reports some fatigue. Labs drawn by deckhand clam dredge and injection given by CHRISTIAN Gardner. CT of abdomen and pelvis with IV contrast ordered, copy given to Carrie for prior authorization. Pt to follow up again in 3 months.
--- NOTE | 2022-08-03 16:57 | MHC.HEMONC ---
Pt was in for his monthly Xgeva/Denosumab injection, as well as Onc f/u appt, nurse confirmed pt does not require PA for Xgeva under Medicare benefits. Pt had labs drawn/reviewed, Ca resulted 9.2. Nurse spoke w/ pt, who said he'd been at the ED after passing out last weekend. Nurse confirmed w/ pt that Dr. Diaz had ordered him a CT scan of his abdomen, and he'll be contacted to schedule. Nurse admin Xgeva 120 mg SC to pt's RUQ abdomen, which he tolerated well. Pt confirmed his next Xgeva injection for 08/31/22.
--- NOTE | 2022-08-23 15:17 | HO.HEMONCSCH ---
CT scan sent as STAT to [facility].
[2022-08-31 12:40] LABS: MANUAL DIFF FLAG NO
[2022-08-31 12:45] LABS: Basophils Percent Auto 0.2 % (0-2); Eosinophils Percent Auto 0.5 % (0-4); Hematocrit 38.2 % (42.0-52.0); Hemoglobin 12.1 g/dl (14.0-18.0); Imm Gran Abs Auto 0.01 X10*3/uL (0.00-0.03); Imm Gran Pct Auto 0.2 % (0.0-0.4); Lymphocytes Absolute Auto 1.7 X10*3/uL (1.2-4.9); Lymphocytes Percent Auto 39.8 % (20-40); Mean Corpuscular HGB Conc 31.7 g/dl (31.0-36.0); Mean Corpuscular Hemoglobin 28.5 pg (27.0-33.0); Mean Corpuscular Volume 89.9 fL (80.0-98.0); Mean Platelet Volume 8.8 fL (9.4-12.4); Monocytes Absolute Auto 0.4 X10*3/uL (0.1-1.2); Monocytes Percent Auto 10.1 % (2-11); Neutrophils Absolute Auto 2.1 x10*3/uL (2.0-8.3); Neutrophils Percent Auto 49.2 % (45-73); Platelet Count 281 X10*3/uL (160-400); Red Blood Count 4.25 X10*6/uL (4.60-5.80); White Blood Count 4.4 X10*3/uL (4.8-10.8)
[2022-08-31 13:01] LABS: Alanine Aminotransferase 6 U/L (0-40); Albumin Level 3.5 g/dL (3.5-5.0); Alkaline Phosphatase 50 U/L (39-117); Anion Gap 16 (12-20); Aspartate Amino Transferase 13 U/L (5-37); Bilirubin Total 0.5 mg/dL (0.0-1.0); Blood Urea Nitrogen 7 mg/dL (9-16); Calcium 9.3 mg/dL (8.4-10.2); Carbon Dioxide 26 mmol/L (22-29); Chloride 104 mmol/L (96-108); Creatinine Clr Calc Pharmacy 80.4; Estimated Glomerular Filt Rate > 60; Glucose Random 104 mg/dL (60-115); Potassium 3.8 mmol/L (3.3-5.1); Sodium 142 mmol/L (135-145)
[2022-08-31 13:25] VITALS: BP 160/63; PULSE 97; RESP 16; TEMP 36.1; O2SAT 98
--- NOTE | 2022-08-31 16:29 | MHC.HEMONC ---
Xgeva 120mg sc given as ordered and tolerated well. Calcium level 9.3. Scheduled for follow up in 1 week and next injection in 1 month.
[2022-09-07 09:49] VITALS: BP 137/64; PULSE 90; RESP 14; TEMP 36.2; O2SAT 99; BMI 25.7
--- NOTE | 2022-09-07 09:59 | P.PNHO-ONC_ITS ---
Medical Summary - Medical Summary Date of Service: 09/07/22 Chief complaint: Follow-up for: Renal cell carcinoma with Mets. Medical Summary: DIAGNOSES: Renal Cell Carcinoma, clear cell type. 4.4 x 3.2 x 2.5 cm unilocal, limited to the kidney. No sarcomatoid features. Tumor necrosis present. Histological grade 2. Microscopic tumor extension. Lymphovascular invasion not identified. Parenchymal resection margin uninvolved by tumor. Tumor is 0.1 cm from the resection margin focally. Adrenal gland is negative. Fat over the tumor was negative for malignancy. Stage pT1b pNX. Now stage IV with pulmonary metastases. CURRENT THERAPY: Status post partial nephrectomy on September 15, [address] Jon Chaudhry. Concerned with pulmonary nodules. Repeat biopsy of lung nodule, in March of 2017 was positive for malignancy. Started on Pazopanib April with near CR. January 28 2018, Disease progression. Started on Nivolumab 02/21 C1D1. On clinical trial: 17-064([facility].) At [facility]. Ipilimumab, added April 17. Last dose on July. Subsequent CAT scan from August revealed disease progression. He had been on Cabozantinib, 60 mg daily, August 09 2018 till November,. Elected to stop it a few months ago, due to side effects. Status post left PleurX catheter placement, June 11. for malignant pleural effusion. Started Cabozantinib 40 mg on September. Currently on hold for about a week. Interval History Interval history: This is a pleasant 77 year-old gentleman here for a follow-up visit. Lately he has not felt well. He has become really weak. He had some dark vomitus today however this was after he had black coffee. He was having hallucinations and nausea last week so was advised to hold the carbozantinib. He has had pain in his left lower ribs and chest area radiating down to the hip. These are tender. He has pain in his back and left side. He denies any headache no dizziness. He is getting PT for the legs. He gets bruised very easily. He gets occasional pain at the site of the catheter removal. He denies any chest pain nor shortness of breath. No abdominal pain. He gets nausea on occasion. Denies diarrhea. Has hemorhoids. His apetite is good. Weight is stable. He had left shoulder pain. He had x-rays taken which revealed arthritis. He had physical therapy. He is in good spirits. Rest of the review of systems is unremarkable. Previous history: Patient was in house between 07/20 through 07/24. CT of the chest from 07/20 revealed: 1. Limited exam for detecting of segmental pulmonary emboli. Assessment the right lung is largely nondiagnostic due to sensitive respiratory motion artifact. No central pulmonary embolus or left-sided segment of pulmonary emboli identified. 2. Small to moderate-sized multiloculated left pleural effusion, slightly increased since prior CT of 01/25/2022 with evidence of pleural metastatic disease, minimally progressed and unchanged osseous erosive/attractive change involving the left fourth and fifth ribs. 3. Trace right basilar pleural effusion. 4. Passive bilateral atelectasis most prominently in the left lung secondary to the loculated pleural effusion. Hospital course: This is a 77-year-old male with history of renal cell carcinoma with lung and bone metastases who was brought to the emergency department for multiple complaints.? History was primarily obtained from his daughter at the bedside.? Patient himself was very tired as daughter reports he was up all night coughing.? She reports that he tested positive for COVID-19, 3 weeks ago.? At that time he had flu-like symptoms including fever body aches and cough.? The symptoms lasted for approximately a week and then improved.? He does also frequently have nausea vomiting and his energy levels wax and wane due to current chemotherapy treatment.? However since the beginning of the week he has had increasing cough subjective fever and more vomiting.? He has had decreased p.o. intake.? Today they brought into the emergency department for further evaluation.? He was noted to have low-grade temperature of 100.3 degrees, lactic acid of 2.6 and low magnesium at 1.4.? Chest x-ray showed chronic left lower lobe pleural effusion and possible associated opacity.? He was treated with IV Zosyn.? In addition a troponin was checked and was around 200.? EKG shows evidence of Brugada.? Previous EKGs are normal with no evidence of Brugada.? Patient has not had any chest pain or palpitations. COVID vaccination status-vaccination x4 . Pneumonia likely postobstructive No evidence of sepsis noted afebrile, no leukocytosis Chest x-ray showing chronic left pleural effusion and opacity at left lung base. CTA with loculated left pleural effusion (chronic, h/o pleurex catheter) with pleural metastatic disease and passive atelectasis Elevated lactic from dehydration given symptoms of cough, sob and fever treated pneumonia with IV Zosyn total 3-5 days according to ID, Zosyn 3 days completed , doxy and azithro for 2 more days. Not currently requiring oxygen COVID-19: Family reported that he tested positive in May. Fully vaccinated but immune compromised given undergoing chemotherapy No hypoxia noted during admission. Seen by ID, no COVID treatment indicated He had the PleurX catheter removed 12 months ago, under sedation. Afterwards, he was not able to eat nor drink anything much. He had nausea and vomiting as well as diarrhea. When he got here, he mentioned that he had a fever last night and was burning up. He had complaint of pain over the left chest around the site of the PleurX catheter. It happened on movement and when he tried to lift his arms. Pain level was up to 7-8 on 1-10 scale. He had to take oxycodone every 6 hours. The PleurX catheter had no drainage, over the previous 2 weeks. He is feeling quite weak and fatigued. His energy level has gone down even further. He was advised to come in for IV hydration and IV antiemetics. He denies any trouble breathing. Lately he has had a cough, especially in the morning. He has a hard time bringing his phlegm up however once the phlegm comes up he is comfortable the rest of the day. Denies abdominal pain nor flank pain. No nausea or vomiting. He does get heartburn and reflux symptoms especially at night. He used to take Gaviscon, for it but not any more. His daughter got him the bed, that can move up and down. He gets diarrhea especially from greasy stuff. He denies constipation however he does see some hemorrhoids coming out. They do not bleed spontaneously however sometimes he notices some blood on the toilet paper upon wiping. He would want to have them operated upon, eventually. He enjoys a good appetite. He has actually gained weight. He has noted cramps. He tells me that in the middle of the night he gets leg cramps and sometimes even forearms cramp up. It is hard for him to fall back to sleep after that. He is in good spirits. Rest of the review of systems is unremarkable. Previous history: He tells me his back went out on him. He has had back trouble for 20 years. He has been living with it. The med is working. Review of Systems - Constitutional Reports no additional constitutional complaints, Reports weakness, Reports weight gain - Eyes Reports no additional eye complaints - ENT Reports no additional ear, nose, mouth, and throat complaints - Cardiovascular Reports no additional cardiovascular complaints - Respiratory Reports no additional respiratory complaints - Gastrointestinal Reports no additional gastrointestinal complaints - Genitourinary Genitourinary: Reports no additional male genitourinary complaints - Musculoskeletal Reports no additional musculoskeletal complaints - Integumentary/Breasts Skin/Breast: Reports no additional skin complaints - Neurologic Reports no additional neurologic complaints, Reports weakness - Psychiatric Reports no additional psychiatric complaints - Endocrine Reports no additional endocrine complaints - Hematologic/Lymphatic Reports no additional hematologic/lymphatic complaints - Allergic/Immunologic Reports no additional allergic/immunologic complaints [facility] Medical History: Medical History (Last Reviewed 09/07/22 @ 09:54 by Ingrid Brooke CMA) 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 Arthritis Blood in stool 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 Mother Lung cancer Brother Cancer Surgical History: Surgical History (Last Reviewed 09/07/22 @ 09:54 by Ingrid Brooke CMA) H/O arthroscopic knee surgery H/O partial nephrectomy History of esophagogastroduodenoscopy (EGD) Onset Date: ~1999 History of eye surgery History of knee replacement procedure of left knee History of knee replacement procedure of right knee History of lung biopsy Social History: Social History (Last Updated 09/07/22 @ 09:54 by Ingrid Brooke CMA) Living Situation History: Household Members: Spouse Housing: Apartment Are you a primary livestock caretaker to a significant other at home: No Do you presently have visiting nurse or other home services: No Alcohol History Details: 1. How often do you have a drink containing alcohol?: a. Never Tobacco History: Patient Tobacco Use Status: Former Tobacco user Tobacco use type: Cigarette Years Smoked: 50 e-Cigarette/Vaping Use: Never Used Second Hand Smoke Exposure: No Substance Use History: Use of substances other than those prescribed or required for medical reasons : No Substance Use Type: Other Substance Use Type Other:: CBD Domestic Abuse History: Have you been hit, kicked, punched, or otherwise hurt by someone within the past year? If so, by whom?: No Do you feel safe in your current relationship?: Yes Advance Directives: Advance Directives: Yes Advance Directives on File: Yes Advance Directives Date on File: 05/08/22 Homicidal Assessment: Do you have thoughts of harming others: None Do you have a plan to hurt others: No Plan Do you have the means to hurt others: No Nutrition Assessment: Recently lost weight without trying: No Eating poorly because of decreased appetite: No Patient : No Occupation Assessmet: service: No Current occupational status: retired Oncology Screenings - ECOG Performance Status ECOG Performance Status: 2 Home Medications and Allergies Home Medications Medication Instructions Recorded Confirmed Type ascorbic acid (vitamin C) 500 mg 500 mg PO DAILY 08/18/20 09/07/22 History tablet (Vitamin C) denosumab 60 mg/mL subcutaneous 60 mg subcut [id number] 08/26/20 09/07/22 History syringe netarsudil 0.02 %-latanoprost 0.005 drp ophthalmic (eye) DAILY 06/20/21 09/07/22 History 0.005 % eye drops (Rocklatan) as directed cholecalciferol (vitamin D3) 125 125 mcg PO DAILY 07/20/22 09/07/22 History mcg (5,000 unit) capsule hydrocortisone 5 mg tablet 5 mg PO QPM 07/20/22 09/07/22 History loperamide 2 mg tablet 2 mg PO Q6H PRN Diarrhea 09/07/22 09/07/22 History promethazine 25 mg tablet 1 tab PO TID PRN Nausea And 09/07/22 09/07/22 History Vomiting Allergies Allergy/AdvReac Type Severity Reaction Status Date / Time adhesive Allergy Intermediate rash Verified 09/07/22 09:54 aspirin [ASA] Allergy Intermediate Anaphylaxis Verified 09/07/22 09:54 Exam Vital signs: Vital Signs Temp 97.2 F 09/07/22 09:49 Pulse 90 09/07/22 09:49 Resp 14 09/07/22 09:49 BP 137/64 09/07/22 09:49 Pulse Ox 99 09/07/22 09:49 O2 Del Method 09/07/22 09:49 Intake & Output 09/06/22 09/07/22 09/07/22 18:59 06:59 18:59 Other: Weight 74.4 kg [place] Weight in Grams 97877 Weight 74.4 kg BMI result Body Mass Index 25.7 - Constitutional Present: no acute distress - Routine HEENT Exam Head: Present: normal inspection Eye: Present: normal appearance ENT: Present: mucous membranes moist - Routine Neck Exam Present: full ROM - Routine Respiratory Exam Present: CTAB - Routine Cardiovascular Exam Cardiovascular: Present: RRR, S2 - Routine Abdominal Exam Present: soft - Routine Extremities Exam Present: nontender - Routine Back/Spine/Pelvis Exam Back/Spine: Present: full ROM - Routine Skin Exam Present: intact - Routine Neurological Exam Present: alert, oriented X3 - Routine Psychiatric Exam Present: normal affect Data - Labs CBC & Chem 7: 08/31/22 12:34 08/31/22 12:34 - Imaging Radiologist's impression: ITS Impressions Chest CT 11/10/20 10:45 IMPRESSION: Similar appearance of small left pleural effusion and left-sided pleural catheter. The left pleural effusion is similar in volume to the prior study from 06/03/2020 and the catheter has a similar orientation and course. Left fourth and fifth rib lesions consistent with metastasis, similar to prior. 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 Initial stage was:pT1B, pNx. Status post partial nephrectomy for 09/15/[address] Jon Chaudhry. Subsequently was noted to have some pulmonary metastases. Biopsy 6 03/27/2017: Adenocarcinoma consistent with metastatic renal cell carcinoma. He was started on pazopanib 04/17/2017. CT chest 01/22/2018: Increase in pulmonary nodules and pleural base nodules. He was referred to [facility] for clinical trial. Here repeat lung biopsy was done and he was enrolled on 4, Omni wore trial. He started Nivolumab on 02/21/18. Unfortunately, 1st can done on this drug alone were consistent with progressive disease. Ipilimumab was added on 04/17. This worked for a while but then he developed progression. He was started on cabozantinib 08/09/2018. He initially did not tolerated too well. So he was observed off therapy. He had a fracture of right pubic ramus for which she was referred for radiation therapy. He was also started on denosumab last June. PET scan from 05/05/2019 revealed: Significant interval improvement in moderate left pleural effusion. Continues to be multiple bilateral pulmonary nodules and pleural and juxtapleural nodules. 1 cm soft tissue density of the lateral cortex of the right mid kidney suspicious for renal cell. He was then read tried on cabozantinib in a lower dose. 09/15/2019 he was started on the cabozantinib 40 mg daily. It was then decreased to 20 mg daily. He has been tolerating it well. CT scan of the abdomen from 12/25/2019 revealed: Significant interval decrease in the size of bilateral pulmonary nodules. No new pulmonary nodule seen. Small left pleural effusion chest tube in satisfactory position. Significant interval decrease in left-sided relief nodules and left diaphragmatic thickening. Abdomen pelvis: Interval decrease in abnormal soft tissue along the left diaphragmatic pleural surface and paraspinal soft tissue. Interval decrease in right rectus muscle lesion. Interval decrease in soft tissue mass along with lytic left 5th rib lesion. Stable lytic lesion and pathological fracture of the right inferior pubic ramus. He is holding his own. He has been tolerating the cabozantinib very well. He is taking 20 mg daily. On 11/10, a CT scan of the chest was done which revealed: Similar appearance of small left pleural effusion and left-sided pleural catheter. Left pleural effusion is similar in volume to the prior study from 06/03 and catheter has a similar orientation and course. Left 4th and 5th rib consistent with Mets similar to prior. It indicated a satisfactory position of the PleurX catheter. CT scan of the chest from 02/02: Similar appearance of small left pleural effusion and left-sided pleural catheter. The left pleural effusion is similar in volume to the prior study from 06/03/2020 and the catheter has a similar orientation and course. Left fourth and fifth rib lesions consistent with metastasis, similar to prior. CT scan of the chest abdomen pelvis from 05/30/2021: Stable bone lesion in the right inferior pubic ramus and pathologic fracture. Stable small low-attenuation liver lesions. Cortical thinning or the upper pole of the left kidney and decreased attenuation or enhancement. A discrete renal mass is not seen. Bilateral renal cysts. Diverticulosis of the colon. Atherosclerotic disease. Slightly enlarged prostate gland. Chest x-ray from 08/15: 1. New opacity left base likely recurrent effusion. Possibility of superimposed airspace consolidation cannot be excluded. Right lung clear. 2. There is a small bore tunneled catheter left base. No pneumothorax or sub cutaneous emphysema. DATA BASE: From 10/04/21: CBC: WBC 5.2, HGB 12.2, HCT 39.3, PLT 283. From 10/04/21 CMP: Lytes WNL, glucose is 89, BUN 10, G[employer]ST [employer] DIRECT[employer] 0.90. Ca L9 0.8, a lb 3.7. LFTs: <0.2/50 07/03/2026. The PleurX catheter had been indwelling for 28 months. It was removed, 6 months ago. He is doing well. He had re-imaging done, 01/25: Similar appearance of a small loculated left pleural effusion and with enhancing soft tissue pleural nodularity consistent with pleural metastases which appears to invade the intercostal muscles posteriorly. Stable osseous metastases involving the left ribs. Similar appearance of the metastasis involving the right inferior pubic ramus/ischium, however is only partially imaged on today's exam with a pathologic fracture previously seen excluded from the [id number]. Few small solid pulmonary nodules measuring up to 5 mm. No new pulmonary nodule. He was recently admitted: CT scan of the chest from 07/20 revealed: 1. Limited exam for detecting of segmental pulmonary emboli. Assessment the right lung is largely nondiagnostic due to sensitive respiratory motion artifact. No central pulmonary embolus or left-sided segment of pulmonary emboli identified. 2. Small to moderate-sized multiloculated left pleural effusion, slightly increased since prior CT of 01/25/2022 with evidence of pleural me tastatic disease, minimally progressed and unchanged osseous erosive/attractive change involving the left fourth and fifth ribs. 3. Trace right basilar pleural effusion. 4. Passive bilateral atelectasis most prominently in the left lung secondary to the loculated pleural effusion. CT scan of the chest from 07/18: 1. Limited exam for detecting of segmental pulmonary emboli. Assessment the right lung is largely nondiagnostic due to sensitive respiratory motion artifact. No central pulmonary embolus or left-sided segment of pulmonary emboli identified. 2. Small to moderate-sized multiloculated left pleural effusion,slightly increased since prior CT of 01/25/2022 with evidence of pleural metastatic disease, minimally progressed and unchanged osseous erosive/attractive change involving the left fourth and fifth ribs. 3. Trace right basilar pleural effusion. 4. Passive bilateral atelectasis most prominently in the left lung secondary to the loculated pleural effusion. VTE: indeterminate CT abdomen frm 08/08: Interval increase in loculated left pleural effusion and left pleural nodules. Interval increase in right perinephric nodule. No appreciable change in lytic right pubic ramus lesion. Stable postsurgical to the left kidney. Stable bilateral renal and liver cysts. Diverticulosis of the colon. Question mild colitis of the distal colon. Enlarged prostate gland. Last week he had nausea generalized weakness and hallucinations. He attributed that to his targeted agent. He was advised to hold it. His hallucinations have resolved however he still feels very weak. Had a bout with vomiting this morning. His the daughter son-in-law and are accompanying him. They tell me that they had a family meeting earlier in the week. He has elected to forego further treatment. PLAN: I offered to refer him for radiation therapy for pain control. He previously had radiation therapy at [facility]. Will refer him there, to see if he has room for more radiation for palliation. I offered hospice care, after he completes the radiation. Called hospice to make an informational visit with the family. I will be available to help take care of him with the hospice team. I wish him the best of luck. Thank you, CC: Dr. Sera Hamilton. Dr. Jon Chaudhry. Dr. Bland at [facility]. [phone]. - Time Spent With Patient Time Spent with Patient (in minutes): 30
--- NOTE | 2022-09-07 12:46 | MHC.HEMONCMA ---
Pt was in for follow up.Clinical summary reviewed and updated, VSS. Pt to return in 3 months. Appt given to pt for the [facility] on 09/18/22 at 1045.
--- NOTE | 2022-09-13 16:44 | MHC.HEMONC ---
Late entry/triage call for 09/12: Patient called reporting shortness of breath. He states he was seen in ED day prior for chest pain and discharged home. Patient states pain is now controlled however still short of breath. Dr. Diaz out of office- message left. Order for ultrasound guided thoracentesis placed and given to Mae to place in order chisel trimmer. Patient updated over phone and instructed to return to ED if symptoms worsen. 09/13- Dr. Diaz updated- patient did return to ED. ED physician and Dr. Diaz to discuss symptom management. Daughter Gina updated.
[2022-09-28 13:02] LABS: MANUAL DIFF FLAG NO
[2022-09-28 13:12] LABS: Basophils Percent Auto 0.5 % (0-2); Eosinophils Percent Auto 0.7 % (0-4); Hematocrit 33.7 % (42.0-52.0); Hemoglobin 10.5 g/dl (14.0-18.0); Imm Gran Abs Auto 0.01 X10*3/uL (0.00-0.03); Imm Gran Pct Auto 0.2 % (0.0-0.4); Lymphocytes Absolute Auto 0.9 X10*3/uL (1.2-4.9); Lymphocytes Percent Auto 21.2 % (20-40); Mean Corpuscular HGB Conc 31.2 g/dl (31.0-36.0); Mean Corpuscular Hemoglobin 26.9 pg (27.0-33.0); Mean Corpuscular Volume 86.4 fL (80.0-98.0); Mean Platelet Volume 8.3 fL (9.4-12.4); Monocytes Absolute Auto 0.6 X10*3/uL (0.1-1.2); Monocytes Percent Auto 13.6 % (2-11); Neutrophils Absolute Auto 2.8 x10*3/uL (2.0-8.3); Neutrophils Percent Auto 63.8 % (45-73); Platelet Count 401 X10*3/uL (160-400); Red Cell Distribution Width 17.3 % (11.0-16.0); White Blood Count 4.3 X10*3/uL (4.8-10.8)
[2022-09-28 13:31] LABS: Alanine Aminotransferase < 6 U/L (0-40); Albumin Level 3.4 g/dL (3.5-5.0); Alkaline Phosphatase 54 U/L (39-117); Anion Gap 14 (12-20); Aspartate Amino Transferase 11 U/L (5-37); Bilirubin Total 0.5 mg/dL (0.0-1.0); Blood Urea Nitrogen 8 mg/dL (9-16); Calcium 9.3 mg/dL (8.4-10.2); Carbon Dioxide 25 mmol/L (22-29); Chloride 99 mmol/L (96-108); Creatinine Clr Calc Pharmacy 77.3; Estimated Glomerular Filt Rate > 60; Glucose Random 109 mg/dL (60-115); Potassium 4.1 mmol/L (3.3-5.1); Sodium 134 mmol/L (135-145); Total Protein 5.9 g/dL (6.5-8.0)
[2022-09-28 14:16] VITALS: BP 148/68; PULSE 100; RESP 18; TEMP 36.4; O2SAT 95; BMI 24.2
--- NOTE | 2022-09-28 14:18 | MHC.HEMONC ---
Pt here for monthly Xgeva.(PA not required per Carrie Gomez) Labs drawn by engine assembly supervisor-specimen to lab. Calcium level 9.3 Xgeva SC given in right arm-tolerated well. Next appointment scheduled in ONE month-calendar given. Declines discharge packet
--- NOTE | 2022-10-16 18:09 | HO.HEMONCTE1 ---
[facility] Clinic Telehealth - Telehealth Location of Provider rendering services: Hem/onc office. Location of Patient: Home. Patient Identification confirmed using: Name, : Yes Telehealth Method: Via telephone. Patient verbally consented to treatment: Yes. Patient verbally consented to billing insurance company: Yes Patient informed of any privacy concerns related to visit: Yes Medical Summary - Medical Summary Date of Service: 10/16/22 Chief complaint: Follow-up for renal cell carcinoma with Mets. Medical Summary: DIAGNOSES: Renal Cell Carcinoma, clear cell type. 4.4 x 3.2 x 2.5 cm unilocal, limited to the kidney. No sarcomatoid features. Tumor necrosis present. Histological grade 2. Microscopic tumor extension. Lymphovascular invasion not identified. Parenchymal resection margin uninvolved by tumor. Tumor is 0.1 cm from the resection margin focally. Adrenal gland is negative. Fat over the tumor was negative for malignancy. Stage pT1b pNX. Now stage IV with pulmonary metastases. CURRENT THERAPY: Status post partial nephrectomy on September 15, [address] Jon Chaudhry. Concerned with pulmonary nodules. Repeat biopsy of lung nodule, in March of 2017 was positive for malignancy. Started on Pazopanib April with near CR. January 28 2018, Disease progression. Started on Nivolumab 02/21 C1D1. On clinical trial: 17-064([facility].) At [facility]. Ipilimumab, added April 17. Last dose on July. Subsequent CAT scan from August revealed disease progression. He had been on Cabozantinib, 60 mg daily, August 09 2018 till November,. Elected to stop it a few months ago, due to side effects. Status post left PleurX catheter placement, June 11. for malignant pleural effusion. Started Cabozantinib 40 mg on September. Currently on hold for about a week. Interval History Interval history: This is a pleasant 77 year-old gentleman with whom a televisit was held, alongwith her two daughters and . Lately he has not felt well. He has become really weak. He is actually bedridden today. He fell, while going to the bathroom. His legs gave out. He has not been eating or drinking too well, the chest does not have an appetite. He has had pain in his left lower ribs and chest area. These are tender. He denies any headache no dizziness. He gets bruised very easily. He denies any chest pain nor shortness of breath. No abdominal pain. He gets nausea on occasion. Denies diarrhea. Has hemorhoids. His apetite is not good. he has lost a lot of weight. He is taking some Ensure. His spirits are down. Rest of the review of systems is unremarkable. Previous history: Patient was in house between 07/20 through 07/24. CT of the chest from 07/20 revealed: 1. Limited exam for detecting of segmental pulmonary emboli. Assessment the right lung is largely nondiagnostic due to sensitive respiratory motion artifact. No central pulmonary embolus or left-sided segment of pulmonary emboli identified. 2. Small to moderate-sized multiloculated left pleural effusion, slightly increased since prior CT of 01/25/2022 with evidence of pleural metastatic disease, minimally progressed and unchanged osseous erosive/attractive change involving the left fourth and fifth ribs. 3. Trace right basilar pleural effusion. 4. Passive bilateral atelectasis most prominently in the left lung secondary to the loculated pleural effusion. Hospital course: This is a 77-year-old male with history of renal cell carcinoma with lung and bone metastases who was brought to the emergency department for multiple complaints.? History was primarily obtained from his daughter at the bedside.? Patient himself was very tired as daughter reports he was up all night coughing.? She reports that he tested positive for COVID-19, 3 weeks ago.? At that time he had flu-like symptoms including fever body aches and cough.? The symptoms lasted for approximately a week and then improved.? He does also frequently have nausea vomiting and his energy levels wax and wane due to current chemotherapy treatment.? However since the beginning of the week he has had increasing cough subjective fever and more vomiting.? He has had decreased p.o. intake.? Today they brought into the emergency department for further evaluation.? He was noted to have low-grade temperature of 100.3 degrees, lactic acid of 2.6 and low magnesium at 1.4.? Chest x-ray showed chronic left lower lobe pleural effusion and possible associated opacity.? He was treated with IV Zosyn.? In addition a troponin was checked and was around 200.? EKG shows evidence of Brugada.? Previous EKGs are normal with no evidence of Brugada.? Patient has not had any chest pain or palpitations. COVID vaccination status-vaccination x4 . Pneumonia likely postobstructive No evidence of sepsis noted afebrile, no leukocytosis Chest x-ray showing chronic left pleural effusion and opacity at left lung base. CTA with loculated left pleural effusion (chronic, h/o pleurex catheter) with pleural metastatic disease and passive atelectasis Elevated lactic from dehydration given symptoms of cough, sob and fever treated pneumonia with IV Zosyn total 3-5 days according to ID, Zosyn 3 days completed , doxy and azithro for 2 more days. Not currently requiring oxygen COVID-19: Family reported that he tested positive in May. Fully vaccinated but immune compromised given undergoing chemotherapy No hypoxia noted during admission. Seen by ID, no COVID treatment indicated He had the PleurX catheter removed 12 months ago, under sedation. Afterwards, he was not able to eat nor drink anything much. He had nausea and vomiting as well as diarrhea. When he got here, he mentioned that he had a fever last night and was burning up. He had complaint of pain over the left chest around the site of the PleurX catheter. It happened on movement and when he tried to lift his arms. Pain level was up to 7-8 on 1-10 scale. He had to take oxycodone every 6 hours. The PleurX catheter had no drainage, over the previous 2 weeks. He is feeling quite weak and fatigued. His energy level has gone down even further. He was advised to come in for IV hydration and IV antiemetics. He denies any trouble breathing. Lately he has had a cough, especially in the morning. He has a hard time bringing his phlegm up however once the phlegm comes up he is comfortable the rest of the day. Denies abdominal pain nor flank pain. No nausea or vomiting. He does get heartburn and reflux symptoms especially at night. He used to take Gaviscon, for it but not any more. His daughter got him the bed, that can move up and down. He gets diarrhea especially from greasy stuff. He denies constipation however he does see some hemorrhoids coming out. They do not bleed spontaneously however sometimes he notices some blood on the toilet paper upon wiping. He would want to have them operated upon, eventually. He enjoys a good appetite. He has actually gained weight. He has noted cramps. He tells me that in the middle of the night he gets leg cramps and sometimes even forearms cramp up. It is hard for him to fall back to sleep after that. He is in good spirits. Rest of the review of systems is unremarkable. Previous history: He tells me his back went out on him. He has had back trouble for 20 years. He has been living with it. The [employer] is working. Review of Systems - Constitutional Reports no additional constitutional complaints, Reports anorexia, Reports fatigue, Denies fever(s), Reports lack of energy, Reports poor appetite, Reports weight loss - Eyes Reports no additional eye complaints - ENT Reports no additional ear, nose, mouth, and throat complaints - Cardiovascular Reports no additional cardiovascular complaints, Reports chest pain - Respiratory Reports no additional respiratory complaints - Gastrointestinal Reports no additional gastrointestinal complaints - Genitourinary Genitourinary: Reports no additional male genitourinary complaints - Musculoskeletal Reports no additional musculoskeletal complaints - Integumentary/Breasts Skin/Breast: Reports no additional skin complaints - Neurologic Reports no additional neurologic complaints, Reports weakness - Psychiatric Reports no additional psychiatric complaints - Endocrine Reports no additional endocrine complaints - Hematologic/Lymphatic Reports no additional hematologic/lymphatic complaints - Allergic/Immunologic Reports no additional allergic/immunologic complaints Oncology Screenings - ECOG Performance Status ECOG Performance Status: 2 Home Medications and Allergies Home Medications Medication Instructions Recorded Confirmed Type ascorbic acid (vitamin C) 500 mg 500 mg PO DAILY 08/18/20 09/07/22 History tablet (Vitamin C) denosumab 60 mg/mL subcutaneous 60 mg subcut [id number] 08/26/20 09/07/22 History syringe netarsudil 0.02 %-latanoprost 0.005 drp ophthalmic (eye) DAILY 06/20/21 09/07/22 History 0.005 % eye drops (Rocklatan) as directed cholecalciferol (vitamin D3) 125 125 mcg PO DAILY 07/20/22 09/07/22 History mcg (5,000 unit) capsule hydrocortisone 5 mg tablet 5 mg PO QPM 07/20/22 09/07/22 History loperamide 2 mg tablet 2 mg PO Q6H PRN Diarrhea 09/07/22 09/07/22 History promethazine 25 mg tablet 1 tab PO TID PRN Nausea And 09/07/22 09/07/22 History Vomiting Allergies Allergy/AdvReac Type Severity Reaction Status Date / Time adhesive Allergy Intermediate rash Verified 09/07/22 09:54 aspirin [ASA] Allergy Intermediate Anaphylaxis Verified 09/07/22 09:54 Exam Vital signs: Vital Signs Temp 97.6 F 09/28/22 14:16 Pulse 100 09/28/22 14:16 Resp 18 09/28/22 14:16 BP 148/68 H 09/28/22 14:16 Pulse Ox 95 09/28/22 14:16 O2 Del Method 09/28/22 14:16 Weight 70.1 kg BMI result Body Mass Index 24.2 - Constitutional Present: no acute distress - Routine HEENT Exam Head: Present: normal inspection - Routine Neck Exam Present: full ROM - Routine Respiratory Exam Present: CTAB - Routine Cardiovascular Exam Cardiovascular: Present: RRR, S2 - Routine Abdominal Exam Present: soft - Routine Extremities Exam Present: nontender - Routine Back/Spine/Pelvis Exam Back/Spine: Present: full ROM - Routine Skin Exam Present: intact - Routine Neurological Exam Present: alert, oriented X3 - Routine Psychiatric Exam Present: normal affect Data - Labs CBC & Chem 7: 09/28/22 12:52 09/28/22 12:52 - Imaging Radiologist's impression: ITS Impressions Chest CT 11/10/20 10:45 IMPRESSION: Similar appearance of small left pleural effusion and left-sided pleural catheter. The left pleural effusion is similar in volume to the prior study from 06/03/2020 and the catheter has a similar orientation and course. Left fourth and fifth rib lesions consistent with metastasis, similar to prior. 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 Initial stage was:pT1B, pNx. Status post partial nephrectomy for 09/15/[address] Jon Chaudhry. Subsequently was noted to have some pulmonary metastases. Biopsy 6 03/27/2017: Adenocarcinoma consistent with metastatic renal cell carcinoma. He was started on pazopanib 04/17/2017. CT chest 01/22/2018: Increase in pulmonary nodules and pleural base nodules. He was referred to [facility] for clinical trial. Here repeat lung biopsy was done and he was enrolled on 4, Omni wore trial. He started Nivolumab on 02/21/18. Unfortunately, 1st can done on this drug alone were consistent with progressive disease. Ipilimumab was added on 04/17. This worked for a while but then he developed progression. He was started on cabozantinib 08/09/2018. He initially did not tolerated too well. So he was observed off therapy. He had a fracture of right pubic ramus for which she was referred for radiation therapy. He was also started on denosumab last June. PET scan from 05/05/2019 revealed: Significant interval improvement in moderate left pleural effusion. Continues to be multiple bilateral pulmonary nodules and pleural and juxtapleural nodules. 1 cm soft tissue density of the lateral cortex of the right mid kidney suspicious for renal cell. He was then read tried on cabozantinib in a lower dose. 09/15/2019 he was started on the cabozantinib 40 mg daily. It was then decreased to 20 mg daily. He has been tolerating it well. CT scan of the abdomen from 12/25/2019 revealed: Significant interval decrease in the size of bilateral pulmonary nodules. No new pulmonary nodule seen. Small left pleural effusion chest tube in satisfactory position. Significant interval decrease in left-sided relief nodules and left diaphragmatic thickening. Abdomen pelvis: Interval decrease in abnormal soft tissue along the left diaphragmatic pleural surface and paraspinal soft tissue. Interval decrease in right rectus muscle lesion. Interval decrease in soft tissue mass along with lytic left 5th rib lesion. Stable lytic lesion and pathological fracture of the right inferior pubic ramus. He is holding his own. He has been tolerating the cabozantinib very well. He is taking 20 mg daily. On 11/10, a CT scan of the chest was done which revealed: Similar appearance of small left pleural effusion and left-sided pleural catheter. Left pleural effusion is similar in volume to the prior study from 06/03 and catheter has a similar orientation and course. Left 4th and 5th rib consistent with Mets similar to prior. It indicated a satisfactory position of the PleurX catheter. CT scan of the chest from 02/02: Similar appearance of small left pleural effusion and left-sided pleural catheter. The left pleural effusion is similar in volume to the prior study from 06/03/2020 and the catheter has a similar orientation and course. Left fourth and fifth rib lesions consistent with metastasis, similar to prior. CT scan of the chest abdomen pelvis from 05/30/2021: Stable bone lesion in the right inferior pubic ramus and pathologic fracture. Stable small low-attenuation liver lesions. Cortical thinning or the upper pole of the left kidney and decreased attenuation or enhancement. A discrete renal mass is not seen. Bilateral renal cysts. Diverticulosis of the colon. Atherosclerotic disease. Slightly enlarged prostate gland. Chest x-ray from 08/15: 1. New opacity left base likely recurrent effusion. Possibility of superimposed airspace consolidation cannot be excluded. Right lung clear. 2. There is a small bore tunneled catheter left base. No pneumothorax or subcutaneous emphysema. DATA BASE: From 10/04/21: CBC: WBC 5.2, HGB 12.2, HCT 39.3, PLT 283. From 10/04/21 CMP: Lytes WNL, glucose is 89, BUN 10, [employer] 0.90. Ca L9 0.8, a lb 3.7. LFTs: <0.2/50 07/03/2026. The PleurX catheter had been indwelling for 28 months. It was removed, 6 months ago. He is doing well. He had re-imaging done, 01/25: Similar appearance of a small loculated left pleural effusion and with enhancing soft tissue pleural nodularity consistent with pleural metastases which appears to invade the intercostal muscles posteriorly. Stable osseous metastases involving the left ribs. Similar appearance of the metastasis involving the right inferior pubic ramus/ischium, however is only partially imaged on today's exam with a pathologic fracture previously seen excluded from the [id number]. Few small solid pulmonary nodules measuring up to 5 mm. No new pulmonary nodule. He was recently admitted: CT scan of the chest from 07/20 revealed: 1. Limited exam for detecting of segmental pulmonary emboli. Assessment the right lung is largely nondiagnostic due to sensitive respiratory motion artifact. No central pulmonary embolus or left-sided segment of pulmonary emboli identified. 2. Small to moderate-sized multiloculated left pleural effusion, slightly increased since prior CT of 01/25/2022 with evidence of pleural metastatic disease, minimally progressed and unchanged osseous erosive/attractive change involving the left fourth and fifth ribs. 3. Trace right basilar pleural effusion. 4. Passive bilateral atelectasis most prominently in the left lung secondary to the loculated pleural effusion. CT scan of the chest from 07/18: 1. Limited exam for detecting of segmental pulmonary emboli. Assessment the right lung is largely nondiagnostic due to sensitive respiratory motion artifact. No central pulmonary embolus or left-sided segment of pulmonary emboli identified. 2. Small to moderate-sized multiloculated left pleural effusion,slightly increased since prior CT of 01/25/2022 with evidence of pleural metastatic disease, minimally progressed and unchanged osseous erosive/attractive change involving the left fourth and fifth ribs. 3. Trace right basilar pleural effusion. 4. Passive bilateral atelectasis most prominently in the left lung secondary to the loculated pleural effusion. VTE: indeterminate CT abdomen frm 08/08: Interval increase in loculated left pleural effusion and left pleural nodules. Interval increase in right perinephric nodule. No appreciable change in lytic right pubic ramus lesion. Stable postsurgical to the left kidney. Stable bilateral renal and liver cysts. Diverticulosis of the colon. Question mild colitis of the distal colon. Enlarged prostate gland. Last week he had nausea generalized weakness and hallucinations. He attributed that to his targeted agent. He was advised to hold it. His hallucinations have resolved however he still feels very weak. Had a bout with vomiting this morning. His the daughter son-in-law and are accompanying him. They tell me that they had a family meeting earlier in the week. He elected to forego further treatment. I referred him for radiation therapy for pain control. He previously had radiation therapy at [facility]. He has completed that. It appears that he is declining rapidly. He has failure to thrive. Not eating. Now mostly bedridden. PLAN: In view of the lack of appetite I offered Meg[facility]. Prescription was sent. I offered hospice care, now that he has completed the radiation. Called hospice to make an informational visit with the family. I will be available to help take care of him with the hospice team. 25 minutes was spent coordinating his care including the tele visit, review of labs, review of imaging, counseling the patient and family. Thank you, CC: Dr. Sera Hamilton. Dr. Jon Chaudhry. Dr. Bland at [facility]. [phone]. - Time Spent With Patient Time Spent with Patient (in minutes): 25
== END 2022-10-21 | disposition home or self-care (01) ==
LOC: HO.ONC 16:30
PROVIDERS: Internal Medicine; Internal Medicine Endocrinology, Diabetes & Metabolism; PCP Internal Medicine; Visit Provider Internal Medicine Medical Oncology
DX: C64.2 Malignant neoplasm of left kidney, except renal pelvis (principal); C79.51 Secondary malignant neoplasm of bone; C78.00 Secondary malignant neoplasm of unspecified lung; J91.0 Malignant pleural effusion; Z79.899 Other long term (current) drug therapy; Z90.5 Acquired absence of kidney; Z92.3 Personal history of irradiation
CPT/HCPCS: 0241U; 36415; 71250; 80053; 82270; 82306; 83735; 84439; 84443; 85007; 85025; 85027; 87045; 87046; 87493; 89055; 96360; 96361; 96372; 96375; 99213; 99214; J0897; J2405; Q3014

== ENCOUNTER 2022-10-17 06:04 | Outpatient (REF) | payer MEDICARE, SELFPAY ==
[2022-10-17 12:19] LABS: Basophils Absolute Auto 0.1 X10*3/uL (0.0-0.2); Basophils Percent Auto 1.4 % (0-2); Eosinophils Absolute Auto 0.3 X10*3/uL (0.0-0.4); Eosinophils Percent Auto 6.1 % (0-4); Hematocrit 31.6 % (42.0-52.0); Hemoglobin 9.9 g/dl (14.0-18.0); Imm Gran Abs Auto 0.01 X10*3/uL (0.00-0.03); Imm Gran Pct Auto 0.2 % (0.0-0.4); Lymphocytes Percent Auto 23.3 % (20-40); MANUAL DIFF FLAG SCAN; Mean Corpuscular HGB Conc 31.3 g/dl (31.0-36.0); Mean Corpuscular Hemoglobin 26.1 pg (27.0-33.0); Mean Corpuscular Volume 83.4 fL (80.0-98.0); Mean Platelet Volume 8.7 fL (9.4-12.4); Monocytes Absolute Auto 0.9 X10*3/uL (0.1-1.2); Monocytes Percent Auto 21.9 % (2-11); Neutrophils Percent Auto 47.1 % (45-73); Platelet Count 383 X10*3/uL (160-400); Red Blood Count 3.79 X10*6/uL (4.60-5.80); Red Cell Distribution Width 17.7 % (11.0-16.0); SCAN SMEAR FLAG 1; White Blood Count 4.2 X10*3/uL (4.8-10.8)
[2022-10-17 13:21] LABS: Alanine Aminotransferase < 6 U/L (0-40); Albumin Level 2.9 g/dL (3.5-5.0); Alkaline Phosphatase 35 U/L (39-117); Anion Gap 14 (12-20); Aspartate Amino Transferase 16 U/L (5-37); Bilirubin Total 0.4 mg/dL (0.0-1.0); Blood Urea Nitrogen 40 mg/dL (9-16); Calcium 8.8 mg/dL (8.4-10.2); Carbon Dioxide 26 mmol/L (22-29); Chloride 100 mmol/L (96-108); Estimated Glomerular Filt Rate > 60; Glucose Random 78 mg/dL (60-115); Potassium 4.3 mmol/L (3.3-5.1); Sodium 136 mmol/L (135-145); Total Protein 5.1 g/dL (6.5-8.0)
[2022-10-17 13:30] LABS: SLIDE REVIEW VERIFIED
== END 2022-10-17 06:05 | disposition home or self-care (01) ==
LOC: HO.LHD 06:04
PROVIDERS: Visit Provider Internal Medicine Medical Oncology
DX: C79.00 Secondary malignant neoplasm of unspecified kidney and renal pelvis (principal)
CPT/HCPCS: 36415; 80053; 85025